=== PATIENT | female | born 1950 | race Two or more races ===

== ENCOUNTER 2021-06-13 07:55 | Outpatient (REF) | payer MEDICARE, MEDICAID, SELFPAY ==
[2021-06-13 08:30] LABS: MANUAL DIFF FLAG NO
[2021-06-13 08:40] LABS: Basophils Percent Auto 0.5 % (0-2); Eosinophils Absolute Auto 0.5 X10*3/uL (0.0-0.4); Eosinophils Percent Auto 5.8 % (0-4); Hematocrit 36.8 % (37.0-47.0); Hemoglobin 11.6 g/dl (12.0-16.0); Imm Gran Abs Auto 0.06 X10*3/uL (0.00-0.03); Imm Gran Pct Auto 0.7 % (0.0-0.4); Lymphocytes Absolute Auto 2.9 X10*3/uL (1.2-4.9); Lymphocytes Percent Auto 35.5 % (20-40); Mean Corpuscular HGB Conc 31.5 g/dl (31.0-35.0); Mean Corpuscular Hemoglobin 28.6 pg (27.0-33.0); Mean Corpuscular Volume 90.9 fL (80.0-98.0); Mean Platelet Volume 10.1 fL (9.4-12.3); Monocytes Absolute Auto 0.9 X10*3/uL (0.1-1.2); Monocytes Percent Auto 11.4 % (2-11); Neutrophils Absolute Auto 3.8 x10*3/uL (2.0-8.3); Neutrophils Percent Auto 46.1 % (45-73); Platelet Count 326 X10*3/uL (160-400); Red Blood Count 4.05 X10*6/uL (4.20-5.50); Red Cell Distribution Width 13.2 % (11.0-16.0); White Blood Count 8.2 X10*3/uL (4.8-10.8)
[2021-06-13 08:47] LABS: Estimated Average Glucose 148 mg/dL; Hemoglobin A1c % 6.8 %
[2021-06-13 09:07] LABS: Alanine Aminotransferase 11 U/L (0-31); Albumin Level 3.8 g/dL (3.5-5.0); Alkaline Phosphatase 59 U/L (39-117); Anion Gap 11 (12-20); Aspartate Amino Transferase 15 U/L (5-31); Bilirubin Total 0.5 mg/dL (0.0-1.0); Blood Urea Nitrogen 18 mg/dL (9-16); Calcium 9.8 mg/dL (8.4-10.2); Carbon Dioxide 29 mmol/L (22-29); Chloride 106 mmol/L (96-108); Cholesterol 123 mg/dL; Estimated Glomerular Filt Rate 44; Glucose Fasting 121 mg/dL (60-99); HDL Cholesterol 33 mg/dL; LDL Cholesterol Calculated 69 mg/dl; Potassium 4.7 mmol/L (3.3-5.1); Sodium 141 mmol/L (135-145); Total Protein 7.1 g/dL (6.5-8.0); Triglycerides 108 mg/dL
[2021-06-13 09:28] LABS: TSH reflex Free T4 1.91 uIU/mL (0.32-4.0)
[2021-06-13 09:44] LABS: Folate 11.1 ng/mL (> or = 4.0); Vitamin B12 312 pg/mL (200-900)
[2021-06-13 11:31] LABS: Creatinine Urine 128.07 mg/dL; Microalbum/Creatinine Ratio Ur 17.1 ug/mg cr
[2021-06-18 13:05] LABS: Vitamin D 25-OH, D2 <4 ng/mL; Vitamin D 25-OH, D3 28 ng/mL; Vitamin D 25-OH, Total 28 ng/mL (30-100)
== END 2021-06-13 07:56 | disposition home or self-care (01) ==
LOC: HO.LAB 07:55
PROVIDERS: PCP Internal Medicine; Visit Provider Nurse Practitioner Acute Care
DX: I25.10 Atherosclerotic heart disease of native coronary artery without angina pectoris (principal); E78.5 Hyperlipidemia, unspecified; I10 Essential (primary) hypertension
CPT/HCPCS: 36415; 80053; 80061; 82043; 82306; 82607; 82746; 83036; 84443; 85025

== ENCOUNTER → 2021-06-30 13:13 | Outpatient (BNVA) | payer MEDICARE, MEDICAID, SELFPAY | PROVIDERS: PCP Nurse Practitioner Acute Care; Referring Provider Nurse Practitioner Acute Care; Visit Provider Internal Medicine | DX: R07.2 Precordial pain (principal); R06.02 Shortness of breath; I10 Essential (primary) hypertension; E11.8 Type 2 diabetes mellitus with unspecified complications; E78.5 Hyperlipidemia, unspecified | CPT/HCPCS: 93005; 99202 ==

== ENCOUNTER → 2021-08-02 09:49 | Outpatient (REF) | payer MEDICARE, MEDICAID, SELFPAY ==
--- NOTE | ~2021-08-02 | NM_ITS ---
Lexiscan Myocardial perfusion study Indication: Chest pain, shortness of breath, assess for coronary disease and ischemia Technique: The patient was brought in for a Lexiscan perfusion study on 08/02/2021 and was injected 0.4 mg of Lexiscan intravenously. Within a minute of this injection 25 mCi of sestamibi was given intravenously. Images were obtained using the SPECT gamma camera interlaced with the gating device. Images were obtained in supine position. Resting perfusion study was performed on 08/04/2021. Patient was administered 25 mCi of sestamibi intravenously at rest. Images were then obtained in supine position. Total DLP 123mGy-cm. Images were processed with the software and compared side to side in short axis, horizontal long axis and vertical long axis views. Findings: Raw acquisition reviewed. Arms by the patient's side. The stress perfusion study showed slightly reduced tracer uptake in the midportion of inferolateral wall. There is improvement with CT attenuation correction and hence suggestive of diaphragmatic attenuation artifact. The gated study shows normal LV systolic function with calculated LVEF of 74%. LV cavity is normal in size. The gated study shows normal wall thickening and contraction of segments. Resting study shows no significant perfusion abnormality. Gating at rest reveals normal wall motion with ejection fraction at 63%. The findings are consistent with mild reversible inferolateral defect suspected to be from diaphragmatic attenuation artifact. NM/NM cardiolite stress test Impression: 1. Myocardial perfusion imaging study shows likely normal myocardial perfusion. 2. Gated LVEF is 74% during stress and 63% during rest. 3. Transient ischemic dilatation not present. EKG component of the test reported separately.
--- NOTE | 2021-08-02 09:52 | CA_ITS ---
Acquisition Time: 2021-08-02 09:59:14 Total Exercise Time: 00:02:00 Test Indications: Chest Pain, SOB Medications: Protocol: LEXISCAN Max HR: 118 BPM 78% of Pred: 151 BPM Max BP: 140/088 mmHG Max Work Load: 1.0 METS Pharmacological stress test with Lexsican injection, while sitting and kicking her legs, without anginal symptoms, without arrythmia, with normotensive response to injection, with nondiagnostic EKG for ischemia. In recovery she reported feeling anxious inside and was treated with Aminophylline 75mg IVP to reverse Lexiscan with resolution of symptom. Nuclear images pending. Test reviewed with Dr Newell Referred By: Flako Pulliam Overread By: RANDY DELGADO
== END ==
LOC: HO.CARD 09:49
PROVIDERS: PCP Internal Medicine; Visit Provider Internal Medicine
DX: R07.2 Precordial pain (principal)
CPT/HCPCS: 78452; 93017; A9500; J0280; J2785

== ENCOUNTER → 2021-08-04 07:27 | Outpatient (REF) | payer MEDICARE, MEDICAID, SELFPAY ==
--- NOTE | 2021-08-04 07:30 | CA_ITS ---
Transthoracic Echocardiogram Patient (Last, First, Middle): Nely Jordan, Gender: Female Date of : 1950 Age: 71 Procedure Date: 08/04/2021 Procedure Type: Transthoracic Echocardiogram Location: OP Height: 162.56 cm Weight: 65.77 kg BSA: 1.71 m2 Heart Rate: bpm BP: 122 / 60 mmHg Kier Drier: ELISA Referring MD: Flako Pulliam MD Assembler Cards And Announcements: Félix Newell MD Symptoms: R07.2 - Precordial pain Study Quality: Adequate ECG Rhythm: Sinus Conclusions: - 1. Normal LV systolic function with impaired relaxation filling pattern 2. Trivial aortic regurgitation 3. No gross pericardial effusion Findings Left Ventricle Normal left ventricular size, thickness, and systolic function. The visually estimated ejection fraction is between 60-65%. Spectral Doppler is indicative of an impaired relaxation filling pattern. E/E prime ratio is between 8 and 15 consistent with indeterminate filling pressures. Right Ventricle Normal right ventricular cavity size and systolic function. Atria Both atria are normal in size. There is no evidence of interatrial shunt. Aortic Valve The aortic valve structure and function is likely normal. There is no aortic valve stenosis. There is trace (trivial) aortic valve regurgitation. Mitral Valve Normal mitral valve structure and function. There is trace mitral valve regurgitation. There is no mitral valve stenosis. Pulmonic Valve The pulmonic valve was not well visualized. Tricuspid Valve Likely normal tricuspid valve structure and function. Tricuspid regurgitation envelope is inadequate for calculation of right ventricular systolic pressure. Great Vessels All visible segments of the aorta are normal in size. The pulmonary artery was not well visualized. Venous The inferior vena cava is normal in size and collapses greater than 50% with inspiration. Pericardium/Pleural There is no evidence of pericardial effusion. Prior Study Comparison No prior study available for comparison. Measurements 2D Linear Measurements IVSd: 1.27 0.6-0.9/0.6-1.0 cm LVIDd: 4.20 3.9-5.3/4.2-5.9 cm LVIDd Index: 2.46 2.4-3.2/2.2-3.1 cm/m2 LVIDs: 2.76 2.0-3.6 cm LVPWd: 1.41 0.7-1.1 cm LA Diam: 2.70 2.7-3.8/3.0-4.0 cm LAIDs Index: 1.58 1.5-2.3 cm/m2 LV Mass: 261.64 67-162/88-224 g LV Mass Index: 153.00 43-95/49-115 g/m2 LVOT Diam: 2.00 3.0+(-)1.3 cm 2D Systolic Function EF 4C: 61.40 >55% EF 2C: 64.00 >55% EF BiP: 62.80 >55% Mitral Valve MV Pk E: 0.78 MV PK A: 1.16 MV Decel Time: 254.00 E/A: 0.70 E'Lateral: 7.29 E'Medial: 5.87 E/E' Med: 13.20 E/E' Lat: 10.70 PHT: 74.00 MVA PHT: 2.97 Decel [place]: 3.06 Aortic Valve AoV Pk Nehemias: 1.46 AoV Mn Nehemias: 1.00 AoV VTI: 0.31 AoV Pk Grad: 9.00 Aov Mn Grad: 5.00 DANIEL Cont.VTI: 2.47 LVOT LVOT Pk Nehemias: 1.21 LVOT Mn Nehemias: 0.78 LVOT VTI: 0.24 LVOT Pk Grad: 6.00 LVOT Mn Grad: 3.00 LVOT Diam: 2.00 LVOT Area: 3.14 Diastolic Function MV Pk E: 0.78 MV Pk A: 1.16 E/A: 0.70 E'Medial: 5.87 E/E' Med: 13.20 E' Laterial: 7.29 E/E' Lat: 10.70 Right Ventricle TAPSE (mm): 18.20 TVS' Nehemias: 9.68 Tricuspid Valve RA Press: 3.00 Great Vessels Aorta Sinus of Valsalva: 3.88 2.0-3.[address] Ridge: 2.47 1.7-3.4 cm Ao Asc: 3.40 2.1-3.4 cm Ao Arch: 3.30 Updated in Other Vendor System with Status of Final Félix Newell MD electronically signed on 08/05/2021 3:45:41 PM with status of Final
== END ==
LOC: HO.CARD 07:27
PROVIDERS: PCP Internal Medicine; Visit Provider Internal Medicine
DX: R07.2 Precordial pain (principal)
CPT/HCPCS: 93306

== ENCOUNTER → 2021-09-21 14:28 | Outpatient (BNVA) | payer MEDICARE, MEDICAID, SELFPAY | PROVIDERS: PCP Internal Medicine; Referring Provider Internal Medicine; Visit Provider Internal Medicine | DX: I25.10 Atherosclerotic heart disease of native coronary artery without angina pectoris (principal); E11.8 Type 2 diabetes mellitus with unspecified complications; I10 Essential (primary) hypertension; E78.5 Hyperlipidemia, unspecified; Z79.899 Other long term (current) drug therapy | CPT/HCPCS: 99212 ==

== ENCOUNTER 2021-11-20 18:24 | Emergency (ER) | payer OTHER, MEDICAID, SELFPAY ==
--- NOTE | ~2021-11-20 | CT_ITS ---
EXAMINATION: CT ABDOMEN AND PELVIS WITHOUT CONTRAST CLINICAL INFORMATION: Lower back and bilateral hip pain COMPARISON: None TECHNIQUE: Multidetector volumetric imaging was performed from the superior aspect of the liver through the pubic symphysis. Sagittal and coronal reformatted images were obtained on the technologist's workstation. This CT examination was performed using dose optimization techniques as appropriate, variously including the following: *Automated exposure control *Adjustment of mA and/or kV according to patient size (this includes techniques or standardized protocols for targeted exams where dose is matched to indication/reason for exam; i.e. extremities or head) *Use of iterative reconstruction technique DLP: 465 mGy-cm FINDINGS: LUNG BASES: Lung bases are clear. Left circumflex and right coronary artery vascular calcifications. LIVER, GALLBLADDER, AND BILIARY TREE: The liver is normal in size, shape, and attenuation. No focal hepatic lesion or biliary ductal dilatation is present. Status post cholecystectomy. Surgical clips in the gallbladder fossa. PANCREAS: Unremarkable. SPLEEN: Unremarkable. ADRENAL GLANDS: Unremarkable. KIDNEYS AND URETERS: Punctate 2 mm nonobstructing right upper pole and left lower pole renal calculi. No ureteral calculi or hydronephrosis. No renal lesion or perinephric collection. BLADDER: Unremarkable. GASTROINTESTINAL TRACT: Colonic diverticulosis. No evidence of acute diverticulitis. No dilated bowel loops. No bowel wall thickening. No ascites or free air. Normal appendix. ABDOMINAL WALL: No significant hernia is appreciated. LYMPH NODES: No lymphadenopathy. VASCULAR: Moderate vascular calcifications. Ectatic infrarenal abdominal aorta measuring up to 2.7 cm in diameter. No abdominal aortic aneurysm. PELVIC VISCERA: Gynecologic structures are grossly unremarkable-limited assessment. No free pelvic fluid. OSSEOUS STRUCTURES: Chronic mild superior endplate compression/Schmorl's node deformity at T11 and T12. No acute fracture. No suspicious osseous lesion. Mild multilevel degenerative disc disease. Moderate bilateral hip joint osteoarthritis with joint space narrowing, subchondral sclerosis and prominent osteophyte formation. CT/CT abdomen pelvis wo con IMPRESSION: 1. No acute intra-abdominal process. 2. Colonic diverticulosis. No evidence of acute diverticulitis. 3. Small bilateral nonobstructing renal calculi. 4. Moderate bilateral hip joint osteoarthritis. 5. Mild multilevel degenerative disc disease throughout the thoracolumbar spine. 6. No acute fracture. Fleischner guidelines were followed.
[2021-11-20 18:31] VITALS: BP 186/80; PULSE 65; RESP 18; TEMP 36.7; O2SAT 99; BMI 24.9
[2021-11-20] MEDS: NaPROXEN 500 MG TABLET PO (20:12)
[2021-11-20] MEDS: predniSONE 20 MG TABLET 60 MG PO (20:13)
[2021-11-20] MEDS: Cyclobenzaprine HCl 10 MG TABLET PO (20:13)
[2021-11-20] MEDS: oxyCODONE HCl Immed Release 5 MG TABLET PO (20:13)
[2021-11-20 20:50] LABS: Appearance Urine Clear; Color Urine Yellow; Glucose Urine UA Negative (Negative); Leukocyte Esterase Urine Trace (Negative); Nitrite Urine Negative (Negative); PH 7.5 (5.0-8.0); Specific Gravity - Urine <= 1.005 (1.005-1.025); Urine Blood Negative (Negative); Urine Ketones Negative (Negative); Urine Protein Negative (Neg-Trace)
--- NOTE | 2021-11-20 20:51 | ED_ITS ---
HPI - Back Pain/Injury General Chief Complaint: Back Pain/Injury Stated Complaint: back/ side pain, multiple complaints Time Seen by Provider: 11/20/21 19:23 Source: patient and family Mode of arrival: ambulatory Limitations: language barrier (Upper Sorbian-speaking) History of Present Illness HPI Narrative: 71-year-old female who is Upper Sorbian-speaking with a past medical history of CAD, diabetes type 2, hypertension, hyperlipidemia, hypertriglyceridemia, PVD, GERD without esophagitis, depression with anxiety disorder, bilateral artificial lens implant, Parkinson's disease and chronic back pain/hip pain presenting to the ED with complaints of acute on chronic lower back pain radiating down to her left hip/lower leg lower leg over the past few days worse today. She also reports she also is hypertensive due to she ran out of her lisinopril prescription. She denies any fevers, chills, dizziness, headaches, neck pain/stiffness, trouble swallowing or breathing, chest pain or shortness back on dyspnea on exertion, orthopnea, palpitations on paresthesias, abdominal pain, flank pain, dysuria, hematuria, abnormal vaginal discharge, black or bloody stools, urinary bowel incontinence, saddle anesthesia, lower extremity edema or calf tenderness, recent falls or trauma, history of IV drug use, history of cancer or any other symptoms complaints or concerns at this time. MD elicited complaint: back pain Pertinent past history: prior back pain Onset (ago): day(s) Timing: constant and progressively worsening Severity: moderate Similar Symptoms Previously: Yes Quality: aching, spasming and throbbing Location: lumbar spine Radiation: left upper leg and left leg below the knee Exacerbating factors: movement, sitting upright, walking and lifting Relieving factors: none Context: unknown Associated symptoms: denies other symptoms Treatments prior to arrival: cold therapy, heat therapy, NSAIDS and acetaminophen Work related injury: No Related Data Home Medications Medication Instructions Recorded Confirmed calcium carb-vit D3-minerals 600 1 tab PO BID 05/23/21 09/21/21 mg calcium-400 unit tablet mupirocin 2 % topical ointment 1 appl topical TID 05/23/21 09/21/21 Previous Rx's Medication Instructions Recorded aspirin 81 mg tablet,delayed 81 mg PO DAILY #90 tabs 05/23/21 release (Adult Low Dose Aspirin) clotrimazole 1 % vaginal cream 1 appful vaginal BEDTIME #45 grams 05/23/21 loratadine 10 mg tablet 10 mg PO DAILY #90 tabs 05/23/21 metoprolol tartrate 25 mg tablet 25 mg PO BID #180 tabs 05/23/21 blood sugar diagnostic (FreeStyle #100 ea 09/21/21 Lite Strips) blood-glucose meter (FreeStyle #1 ea 09/21/21 Lite Meter kit) lancets 28 gauge (FreeStyle #100 ea 09/21/21 Lancets) sitagliptin 50 mg-metformin 500 mg 1 tab PO BID 90 days #180 tabs 09/21/21 tablet (Janumet) trazodone 100 mg tablet 100 mg PO BEDTIME PRN sleep 90 09/21/21 days #90 tabs omeprazole 20 mg capsule,delayed 20 mg PO DAILY #90 caps 10/31/21 release albuterol sulfate 90 mcg/actuation 2 puff inhalation Q4-6H PRN 11/08/21 aerosol inhaler (ProAir HFA) shortness of breath or wheezing #8.5 grams atorvastatin 20 mg tablet 20 mg PO DAILY #90 tabs 11/08/21 carbidopa ER 50 mg-levodopa 200 mg 1 tab PO TID #270 tabs 11/08/21 tablet,extended release fenofibrate nanocrystallized 145 145 mg PO DAILY #90 tabs 11/08/21 mg tablet lisinopril 40 mg tablet 40 mg PO DAILY #90 tabs 11/08/21 walker #1 ea 11/14/21 cefuroxime axetil 250 mg tablet 250 mg PO BID uti 7 days #14 tabs 11/20/21 cyclobenzaprine 10 mg tablet 10 mg PO Q8H Muscle spasm #14 tabs 11/20/21 lisinopril 40 mg tablet 40 mg PO DAILY hypertension #14 11/20/21 tabs naproxen 500 mg tablet 500 mg PO BID PRN pain #14 tabs 11/20/21 oxycodone 5 mg tablet 5 mg PO Q6H PRN pain #14 tabs 11/20/21 prednisone 20 mg tablet 40 mg PO DAILY Inflammation 5 days 11/20/21 #10 tabs Allergies Allergy/AdvReac Type Severity Reaction Status Date / Time influenza virus vaccine, Allergy Intermediate SWELLING Verified 09/21/21 17:25 specific [Influenza Virus Vacc,Specific] Review of Systems Review of Systems: Constitutional : No trauma, No Weight loss, No Fever, No Chills, ENT/Mouth : No Hearing loss, No Ear Pain, No Nasal Congestion, No Sinus Pain, No Hoarseness, No sore throat, No Rhinorrhea, No Swallowing Difficulty Cardiovascular : No Chest Pain, No SOB Respiratory : No Cough, No Dyspnea Gastrointestinal : No Nausea, No Vomiting, No Diarrhea, No abdominal Pain, No Hematochezia, No Melena Genitourinary : No Dysuria, No Urinary Frequency, No Hematuria, No Urinary or Bowel Incontinence/retention Musculoskeletal : + Back pain, No neck pain, No joint stiffness, No joint swelling Skin : No Skin Lesions, No rash or signs of infection Neuro : No Weakness, + radiation, No Numbness, No Paresthesias, No headache, no loss of bowel or bladder incontinence, no saddle anesthesia, Focal weakness Denies history of IV drug usage. Yes all other systems are reviewed and are negative PMFSH Past Medical History Attestation statement: The following information was validated with the patient. Source: old records reviewed and nursing notes reviewed Medical History Allergic rhinitis Bilateral artificial lens implant CAD (coronary artery disease) Depression with anxiety Diabetes type 2, controlled GERD without esophagitis Hyperlipemia Hypertension Hypertriglyceridemia Parkinsons disease Peripheral vascular disease Surgical History History of cholecystectomy History of tubal ligation Family History Family History Mother No problems noted. Father No problems noted. Social History Social History Housing: Apartment Alcohol intake: never Patient Tobacco Use Status: Former Tobacco user Tobacco use type: Cigarette e-Cigarette/Vaping Use: Never Used Second Hand Smoke Exposure: No Advance Directives: No Advance Directives Information Provided: No service: No Current occupational status: retired Cognitive needs: No Hearing needs: No Vision needs: Yes (glasses) Physical Exam Vital Signs: Vital Signs: Last Vital Signs Temp 98.0 F 11/20/21 18:31 Pulse 65 11/20/21 18:31 Resp 18 11/20/21 18:31 BP 186/80 H 11/20/21 18:31 Pulse Ox 99 08/28/22 18:31 O2 Del Method 11/20/21 18:31 BMI result Body Mass Index 24.9 vital signs have been reviewed as normal and appeared to be correct. Blood pressure normal. Heart rate normal. Respiration rate normal. Temperature normal. Oxygen saturation normal. Appearance: Alert. Oriented X3. No acute distress. Head: Normal external exam. Normocephalic. Atraumatic. No Jones signs noted. No raccoon eyes noted Eyes: PERRLA. EOMI. Conjunctiva and sclera normal. Eyelids normal. ENT: EAC normal. TM's Normal. Pharynx normal. Uvula midline. Moist mucous membranes. No trismus noted. No drooling noted. No muffled voice noted. Neck: Normal inspection. Neck supple. FROM. No adenopathy. Thyroid Normal. No meningeal signs. No neck mass noted. CVS: Normal heart rate and rhythm. Heart sound normal. No murmurs noted. Pulses normal throughout. Respiratory: No respiratory distress. Painless inspiration. Breath sounds normal. No wheezes/rales/rhonchi noted. Chest nontender. No accessory muscle usage noted or decreased air movement noted. Abdomen: Soft and nontender. Bowel sounds normal in all 4 quadrants. No distention noted. No organomegaly noted. No visible injury noted. Back: No CVA tenderness. Full range of motion noted. No obvious deformities, or edema. Mild para-spinal muscular tenderness from lumbar region to coccyx. Full ROM in back and lower extremities. 5/5 strength hip extension/flexion, abduction, adduction. Mild Lumbar pain with hip flexion against resistance. Straight leg raise test negative on right; Straight leg raise test negative on left; Reflexes normal ankle and knee bilaterally; EHL motor strength normal bilaterally. No rashes/lesion/induration/fluctuance or signs infection noted. Skin: Skin warm and dry. Normal skin color. Normal skin turgor. No rashes/lesions/lacerations noted. Extremities: No lower extremity edema. Extremities exhibit normal range of motion. Extremities nontender. Neuro: Oriented X 3. No motor deficit. No sensory deficit. Reflexes normal. Patient has a normal steady gait. Course Course Course Narrative: Pt c likely muscular pain, but could be herniated disc. Neuro exam shows no deficits. Not c/w AAA/epidural abscess/dissection.No high risk Hx (Incont, fever, immunosupp, recent surgery/LP, coag, signif trauma, wt loss, puls mass, hx/o Ca, TB, or IVDU) to warrant MRI today. Not c/w Pyelo/kidney stone/spinal fx. Not cauda equina syndrome. CT scan of abdomen and pelvis negative for any acute processes therefore at this time will DC home with symptomatic treatment instructions return if any new or worsening symptoms follow up with primary care provider. Patient with family at bedside understand agree this plan. MDM - Back Pain/Injury Medical Records Attestation: I reviewed the patient's medical records. Imaging Data CT scan abdomen pelvis without IV contrast: Attestation: I personally reviewed and interpreted this imaging study as follows: Radiologist's impression: FINDINGS: LUNG BASES: Lung bases are clear. Left circumflex and right coronary artery vascular calcifications.? LIVER, GALLBLADDER, AND BILIARY TREE: The liver is normal in size, shape, and attenuation. No focal hepatic lesion or biliary ductal dilatation is present. Status post cholecystectomy. Surgical clips in the gallbladder fossa.? PANCREAS: Unremarkable.? SPLEEN: Unremarkable.? ADRENAL GLANDS: Unremarkable.? KIDNEYS AND URETERS: Punctate 2 mm nonobstructing right upper pole and left lower pole renal calculi. No ureteral calculi or hydronephrosis. No renal lesion or perinephric collection.? BLADDER: Unremarkable.? GASTROINTESTINAL TRACT: Colonic diverticulosis. No evidence of acute diverticulitis. No dilated bowel loops. No bowel wall thickening. No ascites or free air. Normal appendix.? ABDOMINAL WALL: No significant hernia is appreciated.? LYMPH NODES: No lymphadenopathy. VASCULAR: Moderate vascular calcifications. Ectatic infrarenal abdominal aorta measuring up to 2.7 cm in diameter. No abdominal aortic aneurysm. PELVIC VISCERA: Gynecologic structures are grossly unremarkable-limited assessment. No free pelvic fluid.? OSSEOUS STRUCTURES: Chronic mild superior endplate compression/Schmorl's node deformity at T11 and T12. No acute fracture. No suspicious osseous lesion. Mild multilevel degenerative disc disease.? Moderate bilateral hip joint osteoarthritis with joint space narrowing, subchondral sclerosis and prominent osteophyte formation.? CT/CT abdomen pelvis wo con IMPRESSION: ? 1. No acute intra-abdominal process. 2. Colonic diverticulosis. No evidence of acute diverticulitis. 3. Small bilateral nonobstructing renal calculi. 4. Moderate bilateral hip joint osteoarthritis. 5. Mild multilevel degenerative disc disease throughout the thoracolumbar spine. 6. No acute fracture.? ? Fleischner guidelines were followed. Discharge Plan Discharge Clinical Impression: Degenerative disc disease, lumbar, Bilateral renal stones, Osteoarthritis of both hips, Degenerative disc disease, thoracic, Hypertension, Medication refill, UTI (urinary tract infection) Patient Disposition: Home, Self-Care Instructions: Kidney Stones (ED), Osteoarthritis (ED), Degenerative Disc Disease (ED), Urinary Tract Infection in Women (ED) Prescriptions: New cefuroxime axetil 250 mg tablet 250 mg PO BID 7 Days Qty: 14 0RF naproxen 500 mg tablet 500 mg PO BID PRN (Reason: pain) Qty: 14 0RF prednisone 20 mg tablet 40 mg PO DAILY 5 Days Qty: 10 0RF cyclobenzaprine 10 mg tablet 10 mg PO Q8H Qty: 14 0RF oxycodone 5 mg tablet 5 mg PO Q6H PRN (Reason: pain) Qty: 14 0RF Rx Instructions: Partial Fill upon patient request. lisinopril 40 mg tablet 40 mg PO DAILY Qty: 14 0RF No Action omeprazole 20 mg capsule,delayed release(DR/EC) 20 mg PO DAILY Qty: 90 0RF carbidopa-levodopa 50-200 mg tablet extended release 1 tab PO TID Qty: 270 0RF Rx Instructions: divide evenly over waking hours lisinopril 40 mg tablet 40 mg PO DAILY Qty: 90 0RF fenofibrate nanocrystallized 145 mg tablet 145 mg PO DAILY Qty: 90 0RF albuterol sulfate [ProAir HFA] 90 mcg/actuation HFA aerosol inhaler 2 puff inhalation Q4-6H PRN (Reason: shortness of breath or wheezing) Qty: 8.5 0RF atorvastatin 20 mg tablet 20 mg PO DAILY Qty: 90 0RF (ABDOUL) robbin Kapoor See Rx Instructions .Route Qty: 1 0RF Rx Instructions: as directed calcium carbonate-vit D3-min 600 mg calcium- 400 unit tablet 1 tab PO BID mupirocin 2 % ointment 1 appl topical TID metoprolol tartrate 25 mg tablet 25 mg PO BID Qty: 180 0RF aspirin [Adult Low Dose Aspirin] 81 mg tablet,delayed release (DR/EC) 81 mg PO DAILY Qty: 90 0RF clotrimazole 1 % cream 1 appful vaginal BEDTIME Qty: 45 0RF loratadine 10 mg tablet 10 mg PO DAILY Qty: 90 0RF Janumet 50-500 mg tablet 1 tab PO BID 90 Days Qty: 180 1RF trazodone 100 mg tablet 100 mg PO BEDTIME PRN (Reason: sleep) 90 Days Qty: 90 1RF (DME) blood-glucose meter [FreeStyle Lite Meter] Kit See Rx Instructions .Route Qty: 1 0RF Rx Instructions: As directed (DME) FreeStyle Lite Strips Strip See Rx Instructions .Route Qty: 100 2RF Rx Instructions: Use 1 test strip once a day (DME) lancets [FreeStyle Lancets] 28 gauge misc See Rx Instructions .Route Qty: 100 2RF Rx Instructions: Use 1 lancet once a day Referrals: Madison Carcamo MD [Primary Care Provider] - 3 days (your pcp) Print Language: Upper Sorbian
[2021-11-20 20:55] LABS: Bacteria Urine None Seen (None Seen); Hyaline Casts Urine 0-2 /LPF (0-2); RBC Urine 0-2 /HPF (0-2); Squamous Epithelial Cell Urine 0-2 /HPF (0-2); WBC Urine 0-5 /HPF (0-5)
[2021-11-20] MEDS: lisinopriL 40 MG TABLET PO (21:19)
== END 2021-11-20 22:26 | disposition home or self-care (01) ==
PROVIDERS: Physician Assistant Medical; Emergency Provider Internal Medicine; PCP Internal Medicine
DX: M16.0 Bilateral primary osteoarthritis of hip (principal); N20.0 Calculus of kidney; I10 Essential (primary) hypertension; N39.0 Urinary tract infection, site not specified; M47.894 Other spondylosis, thoracic region; Z76.0 Encounter for issue of repeat prescription; Z79.899 Other long term (current) drug therapy
CPT/HCPCS: 74176; 81001; 99283

== ENCOUNTER 2021-11-30 07:15 | Emergency (ER) | payer OTHER, MEDICAID, SELFPAY ==
--- NOTE | ~2021-11-30 | XR_ITS ---
EXAMINATION: XR CHEST CLINICAL INFORMATION: Chest pain COMPARISON: Chest x-ray May 21, 2008 TECHNIQUE: Frontal view of the chest was obtained. FINDINGS: Cardiac silhouette is normal in size. Atherosclerotic disease of the aortic arch. The lungs are well aerated. There is no lobar consolidation. No pleural effusion or pneumothorax. Moderate degenerative changes of the spine. XR/XR chest 1V IMPRESSION: No acute pulmonary pathology.
--- NOTE | 2021-11-30 07:30 | ECG_ITS ---
Test Reason : CHEST PAIN Blood Pressure : / mmHG Vent. Rate : 148 BPM Atrial Rate : 000 BPM P-R Int : 000 ms QRS Dur : 104 ms QT Int : 288 ms P-R-T Axes : 000 -07 127 degrees QTc Int : 452 ms Supraventricular tachycardia Left ventricular hypertrophy with repolarization abnormality ( R in aVL , [place] product , Romhilt-Webb ) Abnormal ECG When compared with ECG of 21-MAY-2008 14:10, Vent. rate has increased BY 74 BPM QRS duration has increased ST now depressed in Anterolateral leads T wave inversion now evident in Lateral leads Referred By: Generic ED Physician Electronically Signed By:LUISA CRUZ
[2021-11-30 07:52] VITALS: BP 124/80; PULSE 144; RESP 20; TEMP 36.6; O2SAT 96; BMI 26.1
[2021-11-30 07:55] VITALS: PULSE 139; RESP 20; O2SAT 97
--- NOTE | 2021-11-30 07:58 | PC.NURSE ---
Pt alert and oriented. ROOM ATTENDANTS to bedside. States awoke with chest pain and SOB. HR noted to be elevated on EKG in triage. Pt reports consistent pressure to chest and throat. HR 139-[address] Rodriguez to bedside. Skin midly pale, warm and dry. Speaking full sentences. Gambian speaking. Sat 96% on room air
[2021-11-30] MEDS: Aspirin 81 MG TAB.CHEW 324 MG PO (08:10)
[2021-11-30] MEDS: 0.9 % Sodium Chloride 1,000 ML 999 ML IV (08:11)
[2021-11-30 08:12] VITALS: BP 105/67; PULSE 132; RESP 18; O2SAT 98
[2021-11-30 08:13] LABS: Basophils Absolute Auto 0.1 X10*3/uL (0.0-0.2); Basophils Percent Auto 0.6 % (0-2); Eosinophils Absolute Auto 0.6 X10*3/uL (0.0-0.4); Eosinophils Percent Auto 3.3 % (0-4); Hematocrit 43.8 % (37.0-47.0); Imm Gran Abs Auto 0.67 X10*3/uL (0.00-0.03); Imm Gran Pct Auto 3.9 % (0.0-0.4); Lymphocytes Absolute Auto 5.9 X10*3/uL (1.2-4.9); Lymphocytes Percent Auto 34.1 % (20-40); MANUAL DIFF FLAG SCAN; Mean Corpuscular Volume 90.9 fL (80.0-98.0); Mean Platelet Volume 10.6 fL (9.4-12.3); Monocytes Absolute Auto 1.4 X10*3/uL (0.1-1.2); Monocytes Percent Auto 8.3 % (2-11); Neutrophils Absolute Auto 8.5 x10*3/uL (2.0-8.3); Neutrophils Percent Auto 49.8 % (45-73); Platelet Count 410 X10*3/uL (160-400); Red Blood Count 4.82 X10*6/uL (4.20-5.50); Red Cell Distribution Width 13.2 % (11.0-16.0); SCAN SMEAR FLAG 1; White Blood Count 17.2 X10*3/uL (4.8-10.8)
[2021-11-30 08:15] VITALS: BP 111/60; PULSE 79; RESP 18; O2SAT 98
[2021-11-30] MEDS: dilTIAZem HCL 50 MG/10 ML VIAL 15 MG IVPUSH (08:16)
--- NOTE | 2021-11-30 08:21 | ECG_ITS ---
Test Reason : [place]ia Blood Pressure : / mmHG Vent. Rate : 072 BPM Atrial Rate : 072 BPM P-R Int : 206 ms QRS Dur : 084 ms QT Int : 390 ms P-R-T Axes : 019 -09 027 degrees QTc Int : 427 ms Poor data quality, interpretation may be adversely affected Normal sinus rhythm Minimal voltage criteria for LVH, may be normal variant ( R in aVL ) Borderline ECG When compared with ECG of 30-NOV-2021 07:19, Vent. rate has decreased BY 76 BPM QRS duration has decreased ST no longer depressed in Lateral leads T wave inversion no longer evident in Lateral leads Referred By: Brett Rodriguez Electronically Signed By:LUISA CRUZ
[2021-11-30 08:25] LABS: INTERNATIONAL NORM RATIO 0.9 (0.9-1.1); Prothrombin Time 10.6 SEC (10.0-13.1)
[2021-11-30 08:27] LABS: Partial Thromboplastin Time 25.4 SEC (26.0-36.4)
[2021-11-30 08:28] LABS: Alanine Aminotransferase < 6 U/L (0-31); Albumin Level 3.8 g/dL (3.5-5.0); Alkaline Phosphatase 63 U/L (39-117); Anion Gap 17 (12-20); Aspartate Amino Transferase 15 U/L (5-31); Bilirubin Total 0.4 mg/dL (0.0-1.0); Blood Urea Nitrogen 35 mg/dL (9-16); Calcium 9.3 mg/dL (8.4-10.2); Carbon Dioxide 27 mmol/L (22-29); Chloride 100 mmol/L (96-108); Estimated Glomerular Filt Rate 38; Glucose Random 238 mg/dL (60-115); Lipase 54 U/L (8-78); Potassium 4.5 mmol/L (3.3-5.1); Sodium 139 mmol/L (135-145); Total Protein 7.1 g/dL (6.5-8.0)
[2021-11-30 08:30] LABS: COVID-19 Test Negative (Negative); IDNOW Serial# 16C4AD1C; SLIDE REVIEW VERIFIED
[2021-11-30 08:33] LABS: B Type Natriuretic Peptide 109 pg/mL (<100)
[2021-11-30 09:29] LABS: Appearance Urine Clear; Color Urine Yellow; Glucose Urine UA Negative (Negative); Leukocyte Esterase Urine Negative (Negative); Nitrite Urine Negative (Negative); PH 6.5 (5.0-9.0); Specific Gravity - Urine <= 1.005 (1.005-1.025); Urine Blood Negative (Negative); Urine Ketones Negative (Negative); Urine Protein Negative (Neg-Trace)
[2021-11-30 09:29] LABS: Free T4 (Free Thyroxine) 1.36 ng/dL (0.71-1.85)
[2021-11-30 09:53] VITALS: BP 134/73; PULSE 69; RESP 16; O2SAT 97
--- NOTE | 2021-11-30 09:59 | ED.CHESTPAIN ---
HPI - Chest Pain General Chief Complaint: Arrhythmia/Palpitations Stated Complaint: Chest pain Time Seen by Provider: 11/30/21 07:48 Source: patient and other (FIREWALL ADMINISTRATOR, Juan Jose) Mode of arrival: ambulatory Limitations: language barrier (Patient's 1st language is Mauritanian, she understands Macedonian, certified court/medical interpreter was used) History of Present Illness HPI narrative: 71-year-old female who was brought to the emergency department by her FIREWALL ADMINISTRATOR for evaluation of chest pain in a rapid heart rate. The patient states she has not been feeling well for approximately 1 week. She states she has been getting intermittent chest pressure pain which she states is not related to her activity level. She states she has had this type of chest pressure for many years and has seen a associate art director in [place]. The patient just recently moved to this area approximately 7 months prior. She states the since midnight she was not feeling well pain. At 05:00 hours she developed a pressure in her chest that radiated to her neck. She felt lightheaded, dizzy and felt like her heart was racing. Her FIREWALL ADMINISTRATOR took her pulse and it was very rapid city brought her to the emergency department for evaluation. At the time of evaluation the patient states she was having chest pressure and she points to her sternum and the base of her neck. The pressure is constant and is 8/10. The pain does not radiate to her arms or her back. She denied lightheadedness, dizziness, diaphoresis, nausea or vomiting. Patient was found to have a rapid heart rate of 150 beats per minute at triage was brought back to a ED room for evaluation. Patient states that she has had similar chest pain in the past which is not related to her activity level however today's episode was more severe than usual. She states she also has dyspnea on exertion and shortness of breath which is chronic. Patient was seen by Dr. Nichols in on 09/21/2021 and in his note states that the patient has a history of SVT and is on beta-blockers. Patient had a coronary arthrosclerosis detected by CT scan but no evidence is ischemia on a perfusion scan from 2018. She had a recent perfusion scan and echocardiogram in July 2021 which was normal with a normal LVEF with mild diastolic dysfunction and normal perfusion. MD complaint: chest pain Onset (ago): hour(s) (2) Timing of current episode: constant Prior episodes: Yes Onset: during rest Pain location: substernal Pain radiation: none and neck (Base of neck) Severity: severe Pain scale (0-10): 8 Quality: heaviness (/pressure) Relieving factors: nothing Associated symptoms: palpitations Treatment prior to arrival: none Risk Factors Coronary artery disease risk factors: diabetes, hyperlipidemia and hypertension Related Data On Oral Contraceptives: No Home Medications Medication Instructions Recorded Confirmed calcium carb-vit D3-minerals 600 1 tab PO BID 05/23/21 09/21/21 mg calcium-400 unit tablet mupirocin 2 % topical ointment 1 appl topical TID 05/23/21 09/21/21 Previous Rx's Medication Instructions Recorded aspirin 81 mg tablet,delayed 81 mg PO DAILY #90 tabs 05/23/21 release (Adult Low Dose Aspirin) clotrimazole 1 % vaginal cream 1 appful vaginal BEDTIME #45 grams 05/23/21 loratadine 10 mg tablet 10 mg PO DAILY #90 tabs 05/23/21 metoprolol tartrate 25 mg tablet 25 mg PO BID #180 tabs 05/23/21 blood sugar diagnostic (FreeStyle #100 ea 09/21/21 Lite Strips) blood-glucose meter (FreeStyle #1 ea 09/21/21 Lite Meter kit) lancets 28 gauge (FreeStyle #100 ea 09/21/21 Lancets) sitagliptin 50 mg-metformin 500 mg 1 tab PO BID 90 days #180 tabs 09/21/21 tablet (Janumet) trazodone 100 mg tablet 100 mg PO BEDTIME PRN sleep 90 09/21/21 days #90 tabs omeprazole 20 mg capsule,delayed 20 mg PO DAILY #90 caps 10/31/21 release albuterol sulfate 90 mcg/actuation 2 puff inhalation Q4-6H PRN 11/08/21 aerosol inhaler (ProAir HFA) shortness of breath or wheezing #8.5 grams atorvastatin 20 mg tablet 20 mg PO DAILY #90 tabs 11/08/21 carbidopa ER 50 mg-levodopa 200 mg 1 tab PO TID #270 tabs 11/08/21 tablet,extended release fenofibrate nanocrystallized 145 145 mg PO DAILY #90 tabs 11/08/21 mg tablet lisinopril 40 mg tablet 40 mg PO DAILY #90 tabs 11/08/21 cefuroxime axetil 250 mg tablet 250 mg PO BID uti 7 days #14 tabs 11/20/21 cyclobenzaprine 10 mg tablet 10 mg PO Q8H Muscle spasm #14 tabs 11/20/21 lisinopril 40 mg tablet 40 mg PO DAILY hypertension #14 11/20/21 tabs naproxen 500 mg tablet 500 mg PO BID PRN pain #14 tabs 11/20/21 oxycodone 5 mg tablet 5 mg PO Q6H PRN pain #14 tabs 11/20/21 prednisone 20 mg tablet 40 mg PO DAILY Inflammation 5 days 11/20/21 #10 tabs blood sugar diagnostic (Accu-Chek #50 ea 11/21/21 Guide test strips) blood-glucose meter (Accu-Chek #1 ea 11/21/21 Guide Glucose Meter) lancets (Accu-Chek Softclix #100 ea 11/21/21 Lancets) walker #1 ea 11/24/21 verapamil 120 mg tablet,extended 120 mg PO DAILY #30 tabs 11/30/21 release Allergies Allergy/AdvReac Type Severity Reaction Status Date / Time influenza virus vaccine, Allergy Intermediate SWELLING Verified 09/21/21 17:25 specific [Influenza Virus Vacc,Specific] Review of Systems Review of Systems: Yes all other systems are reviewed and are negative [facility] Past Medical History [facility] Narrative: Social history: The patient recently moved to this area from [place] approximately 7 months prior. She lives with her FIREWALL ADMINISTRATOR, Juan Jose was here in the emergency department with the patient, he speaks both Mauritanian and Macedonian. She denies tobacco, alcohol and drug use. Medical History Allergic rhinitis Bilateral artificial lens implant CAD (coronary artery disease) Depression with anxiety Diabetes type 2, controlled GERD without esophagitis Hyperlipemia Hypertension Hypertriglyceridemia Parkinsons disease Peripheral vascular disease Surgical History History of cholecystectomy History of tubal ligation Family History Family History Mother No problems noted. Father No problems noted. Social History Social History Housing: Apartment Alcohol intake: never Patient Tobacco Use Status: Former Tobacco user Tobacco use type: Cigarette e-Cigarette/Vaping Use: Never Used Second Hand Smoke Exposure: No Use of substances other than those prescribed or required for medical reasons: No Advance Directives: No Advance Directives Information Provided: No service: No Current occupational status: retired Cognitive needs: No Hearing needs: No Vision needs: Yes (glasses) Physical Exam Vital Signs: Vital Signs: Last Vital Signs Temp 97.8 F 11/30/21 07:52 Pulse 69 11/30/21 09:53 Resp 16 11/30/21 09:53 BP 134/73 11/30/21 09:53 Pulse Ox 97 11/30/21 09:53 O2 Del Method 11/30/21 09:53 BMI result Body Mass Index 26.1 Const: General: cooperative and no acute distress Orientation/consciousness: oriented to person and oriented to place Limitations: no limitations HEENT: Head: Yes normal to inspection, Yes normocephalic and Yes atraumatic Ears: external ears normal General nose exam: Normal external nose present Face and sinus: Yes normal facial exam Mouth: Normal oral and palatal mucosa present Throat: Yes posterior oropharynx normal Eyes: General: appearance normal, both eyes and all related structures Pupils: Equal, round and reactive pupils present Neck: Neck: Yes normal visual inspection, Yes no lymphadenopathy, Yes trachea midline and Yes supple Chest: Chest palpation & inspection: normal inspection of the chest and normal palpation of entire chest wall Resp: Effort & Inspection: normal respiratory effort and able to speak in complete sentences Auscultation: clear to auscultation bilaterally Cardio: Rate: tachycardic Rhythm: regular rhythm Heart sounds: S1 normal heart sound present, S2 normal heart sound present and no murmurs GI: Inspection: Yes normal to inspection Palpation (GI): Soft to palpation, nontender and no guarding Auscultation: normal bowel sounds : General: Yes no CVA tenderness Back/Spine/Pelvis: Back: no CVA tenderness Skin: General skin exam: no rashes or lesions noted Neuro: General: oriented to person and oriented to place Cranial nerves: Yes CN's II-XII intact bilaterally and Yes Equal, round and reactive pupils present Cognition (Neuro): normal cognition Motor exam (neuro): 5/5 motor strength present throughout Extrem: General: Yes normal to inspection Psych: Appearance: grossly normal Speech and movement: Normal speech and movement present Affect: normal affect Attitude: cooperative Thought process: Normal thought process present Thought content: Normal thought content present Course Course Course Narrative: 71-year-old female with history of diabetes mellitus, hypertension, hyperlipidemia, coronary artery disease detected on CT scan with normal LVEF with mild diastolic dysfunction and normal perfusion scan July 2021 presents emergency department for evaluation chest pain/pressure and neck pain since 05:00 hours and palpitations. Physical examination did reveal tachycardia otherwise was unremarkable. Twelve EKG revealed an SVT with a rate of [address] segment depression in 1, aVL, V3 through V6. I ordered laboratory evaluation to include CBC, CMP, PT/INR, PTT, troponin, COVID-19, TSH with reflex T4, BNP and urinalysis. Patient was ordered to get diltiazem 15 mg IV and aspirin. 1013: Laboratory evaluation: WBC elevated 17.2. BUN elevated 35 glucose elevated 235. TSH elevated 4.2, free T4 normal 1.36. BNP elevated 109. Initial high sensitivity troponin I 4.0. Radiology evaluation: Chest x-ray one view no acute disease The patient spontaneously converted after receiving a partial dose of diltiazem IV. Repeat EKG revealed resolution of the ST segment depression and the patient's pain also resolved. I will repeat the patient's 2nd troponin at 11 15 a.m. I will also discuss the patient's presentation with the covering associate art director, Dr. Martínez. 1244: Repeat high sensitivity troponin I was 14.3. This was elevated compared to the 1st troponin however I did discuss this with Dr. Singh and we both felt that this represented a troponin leak from the SVT specially given her relatively recent negative nuclear medicine stress tests with normal perfusion studies. Also, the patient has this chest pain chronically. The patient was able to walk around here in the emergency department without any discomfort and without any difficulty. Dr. Singh recommended that we add verapamil ER 120 mg daily to the patient's medication regimen. The patient will be discharged home and advised to follow-up with PCP and her associate art director for re-evaluation. MDM - Chest Pain Medical Records Data Attestation: I reviewed the patient's medical records. Lab Data Attestation: I reviewed the patient's lab results. Result diagrams: 11/30/21 08:04 11/30/21 08:04 Labs: Lab Results 11/30/21 11/30/21 11/30/21 Range/Units 08:04 08:04 08:04 WBC 17.2 H (4.8-10.8) X10*3/uL RBC 4.82 (4.20-5.50) X10*6/uL Hgb 14.0 D (12.0-16.0) g/dl Hct 43.8 (37.0-47.0) % MCV 90.9 (80.0-98.0) fL MCH 29.0 (27.0-33.0) pg MCHC 32.0 (31.0-35.0) g/dl RDW 13.2 (11.0-16.0) % Plt Count 410 H D (160-400) X10*3/uL MPV 10.6 (9.4-12.3) fL Immature Gran % (Auto) 3.9 H (0.0-0.4) % Neut % (Auto) 49.8 (45-73) % Lymph % (Auto) 34.1 (20-40) % [place] % (Auto) 8.3 (2-11) % Eos % (Auto) 3.3 (0-4) % Baso % (Auto) 0.6 (0-2) % Lymph # (Auto) 5.9 H (1.2-4.9) X10*3/uL [place] # (Auto) 1.4 H (0.1-1.2) X10*3/uL Eos # (Auto) 0.6 H (0.0-0.4) X10*3/uL Baso # (Auto) 0.1 (0.0-0.2) X10*3/uL Abs Immat Gran (auto) 0.67 H (0.00-0.03) X10*3/uL Absolute Neuts (auto) 8.5 H (2.0-8.3) x10*3/uL Absolute Nucleated RBC 0.000 (0.0-0.012) X10*3/uL Nucleated RBC % (auto) 0.0 (0.0-0.2) /100WBC Smear Tech's Comments VERIFIED PT 10.6 (10.0-13.1) SEC INR 0.9 (0.9-1.1) APTT 25.4 L (26.0-36.4) SEC Sodium 139 (135-145) mmol/L Potassium 4.5 (3.3-5.1) mmol/L Chloride 100 (96-108) mmol/L Carbon Dioxide 27 (22-29) mmol/L Anion Gap 17 (12-20) BUN 35 H D (9-16) mg/dL Creatinine 1.37 (0.5-1.4) mg/dL Estim Creat Clear Calc 37.0 Estimated GFR 38 Random Glucose 238 H (60-115) mg/dL Calcium 9.3 (8.4-10.2) mg/dL Total Bilirubin 0.4 (0.0-1.0) mg/dL AST 15 (5-31) U/L ALT < 6 (0-31) U/L Alkaline Phosphatase 63 (39-117) U/L Troponin I High Sens (<3.5-17.0) ng/L B-Natriuretic Peptide (<100) pg/mL Total Protein 7.1 (6.5-8.0) g/dL Albumin 3.8 (3.5-5.0) g/dL Lipase 54 (8-78) U/L TSH 4.20 H (0.32-4.0) uIU/mL Free T4 1.36 (0.71-1.85) ng/dL Urine Color Urine Appearance Urine pH (5.0-9.0) Ur Specific [place] (1.005-1.025) Urine Protein (Neg-Trace) mg/dL Urine Glucose (UA) (Negative) mg/dL Urine Ketones (Negative) mg/dL Urine Blood (Negative) Urine Nitrite (Negative) Ur Leukocyte Esterase (Negative) COVID-19 (JUSTICE) (Negative) COVID-19 Clin Com 11/30/21 11/30/21 11/30/21 Range/Units 08:04 08:04 09:22 WBC (4.8-10.8) X10*3/uL RBC (4.20-5.50) X10*6/uL Hgb (12.0-16.0) g/dl Hct (37.0-47.0) % MCV (80.0-98.0) fL MCH (27.0-33.0) pg MCHC (31.0-35.0) g/dl RDW (11.0-16.0) % Plt Count (160-400) X10*3/uL MPV (9.4-12.3) fL Immature Gran % (Auto) (0.0-0.4) % Neut % (Auto) (45-73) % Lymph % (Auto) (20-40) % [place] % (Auto) (2-11) % Eos % (Auto) (0-4) % Baso % (Auto) (0-2) % Lymph # (Auto) (1.2-4.9) X10*3/uL [place] # (Auto) (0.1-1.2) X10*3/uL Eos # (Auto) (0.0-0.4) X10*3/uL Baso # (Auto) (0.0-0.2) X10*3/uL Abs Immat Gran (auto) (0.00-0.03) X10*3/uL Absolute Neuts (auto) (2.0-8.3) x10*3/uL Absolute Nucleated RBC (0.0-0.012) X10*3/uL Nucleated RBC % (auto) (0.0-0.2) /100WBC Smear Tech's Comments PT (10.0-13.1) SEC INR (0.9-1.1) APTT (26.0-36.4) SEC Sodium (135-145) mmol/L Potassium (3.3-5.1) mmol/L Chloride (96-108) mmol/L Carbon Dioxide (22-29) mmol/L Anion Gap (12-20) BUN (9-16) mg/dL Creatinine (0.5-1.4) mg/dL Estim Creat Clear Calc Estimated GFR Random Glucose (60-115) mg/dL Calcium (8.4-10.2) mg/dL Total Bilirubin (0.0-1.0) mg/dL AST (5-31) U/L ALT (0-31) U/L Alkaline Phosphatase (39-117) U/L Troponin I High Sens 4.0 (<3.5-17.0) ng/L B-Natriuretic Peptide 109 H (<100) pg/mL Total Protein (6.5-8.0) g/dL Albumin (3.5-5.0) g/dL Lipase (8-78) U/L TSH (0.32-4.0) uIU/mL Free T4 (0.71-1.85) ng/dL Urine Color Yellow Urine Appearance Clear Urine pH 6.5 (5.0-9.0) Ur Specific [place] <= 1.005 (1.005-1.025) Urine Protein Negative (Neg-Trace) mg/dL Urine Glucose (UA) Negative (Negative) mg/dL Urine Ketones Negative (Negative) mg/dL Urine Blood Negative (Negative) Urine Nitrite Negative (Negative) Ur Leukocyte Esterase Negative (Negative) COVID-19 (JUSTICE) Negative (Negative) COVID-19 Clin Com See Note 11/30/21 Range/Units 11:49 WBC (4.8-10.8) X10*3/uL RBC (4.20-5.50) X10*6/uL Hgb (12.0-16.0) g/dl Hct (37.0-47.0) % MCV (80.0-98.0) fL MCH (27.0-33.0) pg MCHC (31.0-35.0) g/dl RDW (11.0-16.0) % Plt Count (160-400) X10*3/uL MPV (9.4-12.3) fL Immature Gran % (Auto) (0.0-0.4) % Neut % (Auto) (45-73) % Lymph % (Auto) (20-40) % [place] % (Auto) (2-11) % Eos % (Auto) (0-4) % Baso % (Auto) (0-2) % Lymph # (Auto) (1.2-4.9) X10*3/uL [place] # (Auto) (0.1-1.2) X10*3/uL Eos # (Auto) (0.0-0.4) X10*3/uL Baso # (Auto) (0.0-0.2) X10*3/uL Abs Immat Gran (auto) (0.00-0.03) X10*3/uL Absolute Neuts (auto) (2.0-8.3) x10*3/uL Absolute Nucleated RBC (0.0-0.012) X10*3/uL Nucleated RBC % (auto) (0.0-0.2) /100WBC Smear Tech's Comments PT (10.0-13.1) SEC INR (0.9-1.1) APTT (26.0-36.4) SEC Sodium (135-145) mmol/L Potassium (3.3-5.1) mmol/L Chloride (96-108) mmol/L Carbon Dioxide (22-29) mmol/L Anion Gap (12-20) BUN (9-16) mg/dL Creatinine (0.5-1.4) mg/dL Estim Creat Clear Calc Estimated GFR Random Glucose (60-115) mg/dL Calcium (8.4-10.2) mg/dL Total Bilirubin (0.0-1.0) mg/dL AST (5-31) U/L ALT (0-31) U/L Alkaline Phosphatase (39-117) U/L Troponin I High Sens 14.3 D (<3.5-17.0) ng/L B-Natriuretic Peptide (<100) pg/mL Total Protein (6.5-8.0) g/dL Albumin (3.5-5.0) g/dL Lipase (8-78) U/L TSH (0.32-4.0) uIU/mL Free T4 (0.71-1.85) ng/dL Urine Color Urine Appearance Urine pH (5.0-9.0) Ur Specific [place] (1.005-1.025) Urine Protein (Neg-Trace) mg/dL Urine Glucose (UA) (Negative) mg/dL Urine Ketones (Negative) mg/dL Urine Blood (Negative) Urine Nitrite (Negative) Ur Leukocyte Esterase (Negative) COVID-19 (JUSTICE) (Negative) COVID-19 Clin Com ECG Data ECG #1: Attestation: I personally reviewed and interpreted this ECG as follows: Interpretation: EKG 1.: 0719: Supraventricular tachycardia with a rate of 148, ST segment depression in leads 1 and aVL less than 1 mm, 1-[address] segment depression V3 through V6, no ST segment elevation, prolonged QRS of 104 milliseconds, normal QTC of 452 milliseconds. EKG 2.: 0812: Sinus rhythm rate of 72, first-degree AV block with a CT interval of 206 milliseconds, normal QRS and QTC duration, no ST segment elevation, no ST segment depression, no PACs, no PVCs, no significant T-wave abnormalities compared to EKG 1., SVT is resolved and ST segment depressions have resolved. Critical Care Time Critical Care Time Total Critical Care Time: 30 Attestation: Critical Care: The patient was critically ill with a high probability of imminent or life threatening deterioration. I spent greater than 30 minutes of discontinuous time evaluating the patient,delivering critical care at the bedside, discussing and evaluating pertinent data with consultants. Critical care time does not include time spent performing separately billable procedures or teaching. Total time spent performing critical care was 30 minutes. Discharge Plan Discharge Clinical Impression: Supraventricular tachycardia, Chest pain Patient Disposition: Home, Self-Care Instructions: Supraventricular Tachycardia (ED) Additional Instructions: Your EKG revealed that you were and a supraventricular tachycardia and this was the cause of your fast heart rate and your chest pain Your blood work revealed a high sensitive troponin of for and a repeat 3 hour troponin of 14.3. These numbers are very low suggests that it did not have a heart attack but that your chest pain was most likely related to your heart and caused by your fast heart rate. You received in in the emergency department by our associate art director, Dr. Singh who wants to add verapamil ER 120 mg daily to help your heart not go fast again in the future. Continue taking all your other medications as prescribed. Make a follow-up appointment with the associate art director, Dr. Singh or Dr. Pulliam Follow-up with your doctor in 2 days. Please return to the emergency department if your symptoms get worse or if you develop any symptoms that are concerning to you. Prescriptions: New verapamil 120 mg tablet extended release 120 mg PO DAILY Qty: 30 0RF No Action omeprazole 20 mg capsule,delayed release(DR/EC) 20 mg PO DAILY Qty: 90 0RF carbidopa-levodopa 50-200 mg tablet extended release 1 tab PO TID Qty: 270 0RF Rx Instructions: divide evenly over waking hours lisinopril 40 mg tablet 40 mg PO DAILY Qty: 90 0RF fenofibrate nanocrystallized 145 mg tablet 145 mg PO DAILY Qty: 90 0RF albuterol sulfate [ProAir HFA] 90 mcg/actuation HFA aerosol inhaler 2 puff inhalation Q4-6H PRN (Reason: shortness of breath or wheezing) Qty: 8.5 0RF atorvastatin 20 mg tablet 20 mg PO DAILY Qty: 90 0RF (DME) blood-glucose meter [Accu-Chek Guide Glucose Meter] Misc See Rx Instructions .Route Qty: 1 0RF Rx Instructions: As directed (DME) Accu-Chek Guide test strips Strip See Rx Instructions .Route Qty: 50 8RF Rx Instructions: Use 1 test strip once a day (DME) lancets [Accu-Chek Softclix Lancets] Misc See Rx Instructions .Route Qty: 100 3RF Rx Instructions: Use 1 lancet once a day (DME) walker Misc See Rx Instructions .Route Qty: 1 0RF Rx Instructions: rollator with seat cefuroxime axetil 250 mg tablet 250 mg PO BID 7 Days Qty: 14 0RF naproxen 500 mg tablet 500 mg PO BID PRN (Reason: pain) Qty: 14 0RF prednisone 20 mg tablet 40 mg PO DAILY 5 Days Qty: 10 0RF cyclobenzaprine 10 mg tablet 10 mg PO Q8H Qty: 14 0RF oxycodone 5 mg tablet 5 mg PO Q6H PRN (Reason: pain) Qty: 14 0RF Rx Instructions: Partial Fill upon patient request. lisinopril 40 mg tablet 40 mg PO DAILY Qty: 14 0RF calcium carbonate-vit D3-min 600 mg calcium- 400 unit tablet 1 tab PO BID mupirocin 2 % ointment 1 appl topical TID metoprolol tartrate 25 mg tablet 25 mg PO BID Qty: 180 0RF aspirin [Adult Low Dose Aspirin] 81 mg tablet,delayed release (DR/EC) 81 mg PO DAILY Qty: 90 0RF clotrimazole 1 % cream 1 appful vaginal BEDTIME Qty: 45 0RF loratadine 10 mg tablet 10 mg PO DAILY Qty: 90 0RF Janumet 50-500 mg tablet 1 tab PO BID 90 Days Qty: 180 1RF trazodone 100 mg tablet 100 mg PO BEDTIME PRN (Reason: sleep) 90 Days Qty: 90 1RF (DME) blood-glucose meter [FreeStyle Lite Meter] Kit See Rx Instructions .Route Qty: 1 0RF Rx Instructions: As directed (DME) FreeStyle Lite Strips Strip See Rx Instructions .Route Qty: 100 2RF Rx Instructions: Use 1 test strip once a day (DME) lancets [FreeStyle Lancets] 28 gauge misc See Rx Instructions .Route Qty: 100 2RF Rx Instructions: Use 1 lancet once a day
[2021-11-30 12:15] LABS: Troponin-I High Sensitivity 14.3 ng/L (<3.5-17.0)
--- NOTE | 2021-11-30 12:39 | P.CONCA_ITS ---
History of Present Illness History of Present Illness Date of Service: 11/30/21 Requesting physician: Brett Rodriguez Chief complaint: Chest pain, supraventricular tachycardia Narrative: 71-year-old lady who has background history of type 2 diabetes, hyp ertension, hyperlipidemia, Parkinson's disease and peripheral vascular disease who is presenting for chest tightness and shortness of breath. She said she started noticing chest discomfort and throat discomfort overnight. She had some burning sensation in her chest. These symptoms continued till morning when she had worsening of symptoms and shortness of breath. With these symptoms she presented to [facility]. She was noted to be in supraventricular tachycardia by EKG with heart rate of 148 beats per minute. She was given diltiazem and she converted to sinus rhythm. Her symptoms improved after that. She has been noticing these symptoms off and on. She had echocardiography in the past which did not show any significant abnormalities. She also had nuclear perfusion imaging in July 2021 which was unremarkable. [facility] Past Medical History Medical History Allergic rhinitis Bilateral artificial lens implant CAD (coronary artery disease) Depression with anxiety Diabetes type 2, controlled GERD without esophagitis Hyperlipemia Hypertension Hypertriglyceridemia Parkinsons disease Peripheral vascular disease Family History Family History Mother No problems noted. Father No problems noted. Surgical History Surgical History History of cholecystectomy History of tubal ligation Social History Social History Housing: Apartment Alcohol intake: never Patient Tobacco Use Status: Former Tobacco user Tobacco use type: Cigarette e-Cigarette/Vaping Use: Never Used Second Hand Smoke Exposure: No Use of substances other than those prescribed or required for medical reasons: No Advance Directives: No Advance Directives Information Provided: No service: No Current occupational status: retired Cognitive needs: No Hearing needs: No Vision needs: Yes (glasses) Meds Allergies Allergy/AdvReac Type Severity Reaction Status Date / Time influenza virus vaccine, Allergy Intermediate SWELLING Verified 09/21/21 17:25 specific [Influenza Virus Vacc,Specific] Home Medications Medication Instructions Recorded Confirmed Last Taken Type calcium carb-vit D3-minerals 600 1 tab PO BID 05/23/21 09/21/21 Unknown History mg calcium-400 unit tablet mupirocin 2 % topical ointment 1 appl topical TID 05/23/21 09/21/21 Unknown History Physical Exam Vital Signs: Vital Signs: Last Vital Signs Temp 97.8 F 11/30/21 07:52 Pulse 69 11/30/21 09:53 Resp 16 11/30/21 09:53 BP 134/73 11/30/21 09:53 Pulse Ox 97 11/30/21 09:53 O2 Del Method 11/30/21 09:53 BMI result Body Mass Index 26.1 GENERAL APPEARANCE: in no acute distress, pleasant. NECK: no carotid bruit, no jugular venous distention. SKIN: no suspicious lesions, warm and dry. HEART: no murmurs, regular rate and rhythm. LUNGS: Crackles both bases. ABDOMEN: soft, nontender. EXTREMITIES: no edema. PERIPHERAL PULSES: equal. NEUROLOGIC: No gross deficits, AAO X 3 Objective Labs and Meds Result diagrams: 11/30/21 08:04 11/30/21 08:04 Lab results: Laboratory Results - last 24 hr 11/30/21 11/30/21 11/30/21 08:04 08:04 08:04 WBC 17.2 H RBC 4.82 Hgb 14.0 D Hct 43.8 MCV 90.9 MCH 29.0 MCHC 32.0 RDW 13.2 Plt Count 410 H D MPV 10.6 Immature Gran % (Auto) 3.9 H Neut % (Auto) 49.8 Lymph % (Auto) 34.1 Caroline % (Auto) 8.3 Eos % (Auto) 3.3 Baso % (Auto) 0.6 Lymph # (Auto) 5.9 H Caroline # (Auto) 1.4 H Eos # (Auto) 0.6 H Baso # (Auto) 0.1 Abs Immat Gran (auto) 0.67 H Absolute Neuts (auto) 8.5 H Absolute Nucleated RBC 0.000 Nucleated RBC % (auto) 0.0 Smear Tech's Comments VERIFIED PT 10.6 INR 0.9 APTT 25.4 L Sodium 139 Potassium 4.5 Chloride 100 Carbon Dioxide 27 Anion Gap 17 BUN 35 H D Creatinine 1.37 Estim Creat Clear Calc 37.0 Estimated GFR 38 Random Glucose 238 H Calcium 9.3 Total Bilirubin 0.4 AST 15 ALT < 6 Alkaline Phosphatase 63 Troponin I High Sens B-Natriuretic Peptide Total Protein 7.1 Albumin 3.8 Lipase 54 TSH 4.20 H Free T4 1.36 Urine Color Urine Appearance Urine pH Ur Specific [place] Urine Protein Urine Glucose (UA) Urine Ketones Urine Blood Urine Nitrite Ur Leukocyte Esterase COVID-19 (JUSTICE) COVID-19 Clin Com 11/30/21 11/30/21 11/30/21 08:04 08:04 09:22 WBC RBC Hgb Hct MCV MCH MCHC RDW Plt Count MPV Immature Gran % (Auto) Neut % (Auto) Lymph % (Auto) Caroline % (Auto) Eos % (Auto) Baso % (Auto) Lymph # (Auto) Caroline # (Auto) Eos # (Auto) Baso # (Auto) Abs Immat Gran (auto) Absolute Neuts (auto) Absolute Nucleated RBC Nucleated RBC % (auto) Smear Tech's Comments PT INR APTT Sodium Potassium Chloride Carbon Dioxide Anion Gap BUN Creatinine Estim Creat Clear Calc Estimated GFR Random Glucose Calcium Total Bilirubin AST ALT Alkaline Phosphatase Troponin I High Sens 4.0 B-Natriuretic Peptide 109 H Total Protein Albumin Lipase TSH Free T4 Urine Color Yellow Urine Appearance Clear Urine pH 6.5 Ur Specific [place] <= 1.005 Urine Protein Negative Urine Glucose (UA) Negative Urine Ketones Negative Urine Blood Negative Urine Nitrite Negative Ur Leukocyte Esterase Negative COVID-19 (JUSTICE) Negative COVID-19 Clin Com See Note 11/30/21 11:49 WBC RBC Hgb Hct MCV MCH MCHC RDW Plt Count MPV Immature Gran % (Auto) Neut % (Auto) Lymph % (Auto) Caroline % (Auto) Eos % (Auto) Baso % (Auto) Lymph # (Auto) Caroline # (Auto) Eos # (Auto) Baso # (Auto) Abs Immat Gran (auto) Absolute Neuts (auto) Absolute Nucleated RBC Nucleated RBC % (auto) Smear Tech's Comments PT INR APTT Sodium Potassium Chloride Carbon Dioxide Anion Gap BUN Creatinine Estim Creat Clear Calc Estimated GFR Random Glucose Calcium Total Bilirubin AST ALT Alkaline Phosphatase Troponin I High Sens 14.3 D B-Natriuretic Peptide Total Protein Albumin Lipase TSH Free T4 Urine Color Urine Appearance Urine pH Ur Specific [place] Urine Protein Urine Glucose (UA) Urine Ketones Urine Blood Urine Nitrite Ur Leukocyte Esterase COVID-19 (JUSTICE) COVID-19 Clin Com Imaging Radiologist's impression: Impressions Chest X-Ray 11/30/21 08:40 IMPRESSION: No acute pulmonary pathology. Comment: Echo 08/14: Conclusions: - 1.? Normal LV systolic function with impaired relaxation ? ? ? filling pattern? 2. Trivial aortic regurgitation? 3. No gross pericardial effusion ? Nuclear perfusion imagin.? Myocardial perfusion imaging study shows likely normal myocardial perfusion. 2.? Gated LVEF is 74% during stress and 63% during rest. 3. Transient ischemic dilatation not present. Assessment and Plan (1) Supraventricular tachycardia: Status: Acute (2) Chest pain: Status: Acute Plan 71-year-old lady here for chest discomfort and shortness of breath. She was noted to be in supraventricular tachycardia. She was given IV diltiazem and converted back to sinus rhythm. Her symptoms improved after she reverted to sinus rhythm. EKG post conversion to sinus rhythm not showing any ischemic changes. She had nuclear perfusion imaging in July 2021 which was normal. Clearly her symptoms started and ended with supraventricular tachycardia. Add verapamil sustained release 120 mg once a day. Can discharge home. If she has persistent symptoms then she can be referred to EP for ablation. Thank you for allowing me to participate in the care of your patient. Please feel free to contact me if you have any questions. Procedures Date of Service Date of Service: 11/30/21
== END 2021-11-30 13:07 | disposition home or self-care (01) ==
PROVIDERS: Emergency Provider Emergency Medicine Emergency Medical Services; PCP Internal Medicine
DX: R07.9 Chest pain, unspecified (principal); I47.1 Supraventricular tachycardia; R06.02 Shortness of breath; Z20.822 Contact with and (suspected) exposure to COVID-19; E11.9 Type 2 diabetes mellitus without complications; I10 Essential (primary) hypertension; E78.5 Hyperlipidemia, unspecified; G20 Parkinson's disease; Z79.82 Long term (current) use of aspirin; Z79.899 Other long term (current) drug therapy; Z79.02 Long term (current) use of antithrombotics/antiplatelets; Z87.891 Personal history of nicotine dependence
CPT/HCPCS: 36415; 71045; 80053; 81003; 83690; 83880; 84439; 84443; 84484; 85025; 85610; 85730; 87635; 93005; 96361; 96374; 99284; 99285

== ENCOUNTER 2021-12-07 12:09 | Emergency (ER) | payer OTHER, MEDICAID, SELFPAY ==
--- NOTE | ~2021-12-07 | XR_ITS ---
EXAMINATION: XR LUMBOSACRAL SPINE CLINICAL INFORMATION: Back pain COMPARISON: None TECHNIQUE: Three views of the lumbosacral spine. FINDINGS: The lumbar spine maintains normal alignment. The vertebral body heights are maintained. There is multilevel loss of intervertebral disc space with endplate degenerative changes in the lower thoracic and lumbar spine. Facet arthropathy of the lower lumbar spine. Atherosclerotic calcifications. XR/XR lumbar spine 2-3V IMPRESSION: Mild degenerative disease of the lumbar spine.
--- NOTE | ~2021-12-07 | XR_ITS ---
EXAMINATION: XR PELVIS CLINICAL INFORMATION: Pain COMPARISON: None TECHNIQUE: AP view of the pelvis. FINDINGS: No acute fracture or dislocation. Joint space narrowing and subchondral sclerosis of the bilateral hips. Generative disease of the lower lumbar spine. Calcific tendinopathy on the right. Soft tissues are unremarkable. XR/XR pelvis 1-2V IMPRESSION: Degenerative disease the bilateral hips.
[2021-12-07 12:46] VITALS: BP 145/68; PULSE 74; RESP 16; TEMP 35.5; O2SAT 97; BMI 25.2
--- NOTE | 2021-12-07 18:27 | ED_ITS ---
HPI - General Adult General Chief complaint: Extremity Problem Stated complaint: Pain both sides/back pain Time Seen by Provider: 12/07/21 12:16 Source: patient, family (CARD [employer]ACER) and translator and interpreter Mode of arrival: ambulatory Limitations: no limitations History of Present Illness HPI narrative: 71-year-old female with history of advanced osteoarthritis been having chronic low back pain and bilateral hip pain, patient was evaluated in the emergency department for similar symptoms in the past and patient was prescribed oxycodone because the patient ran out of oxycodone return today, patient is trying to get an appointment with her PCP nothing available for 2 months, patient also is awaiting for referral to electronic operator. Patient declined fever, chills, SOB, CP. Related Data Home Medications Medication Instructions Recorded Confirmed calcium carb-vit D3-minerals 600 1 tab PO BID 05/23/21 09/21/21 mg calcium-400 unit tablet mupirocin 2 % topical ointment 1 appl topical TID 05/23/21 09/21/21 Previous Rx's Medication Instructions Recorded aspirin 81 mg tablet,delayed 81 mg PO DAILY #90 tabs 05/23/21 release (Adult Low Dose Aspirin) clotrimazole 1 % vaginal cream 1 appful vaginal BEDTIME #45 grams 05/23/21 loratadine 10 mg tablet 10 mg PO DAILY #90 tabs 05/23/21 metoprolol tartrate 25 mg tablet 25 mg PO BID #180 tabs 05/23/21 blood sugar diagnostic (FreeStyle #100 ea 09/21/21 Lite Strips) blood-glucose meter (FreeStyle #1 ea 09/21/21 Lite Meter kit) lancets 28 gauge (FreeStyle #100 ea 09/21/21 Lancets) sitagliptin 50 mg-metformin 500 mg 1 tab PO BID 90 days #180 tabs 09/21/21 tablet (Janumet) trazodone 100 mg tablet 100 mg PO BEDTIME PRN sleep 90 09/21/21 days #90 tabs omeprazole 20 mg capsule,delayed 20 mg PO DAILY #90 caps 10/31/21 release albuterol sulfate 90 mcg/actuation 2 puff inhalation Q4-6H PRN 11/08/21 aerosol inhaler (ProAir HFA) shortness of breath or wheezing #8.5 grams atorvastatin 20 mg tablet 20 mg PO DAILY #90 tabs 11/08/21 carbidopa ER 50 mg-levodopa 200 mg 1 tab PO TID #270 tabs 11/08/21 tablet,extended release fenofibrate nanocrystallized 145 145 mg PO DAILY #90 tabs 11/08/21 mg tablet lisinopril 40 mg tablet 40 mg PO DAILY #90 tabs 11/08/21 cefuroxime axetil 250 mg tablet 250 mg PO BID uti 7 days #14 tabs 11/20/21 cyclobenzaprine 10 mg tablet 10 mg PO Q8H Muscle spasm #14 tabs 11/20/21 lisinopril 40 mg tablet 40 mg PO DAILY hypertension #14 11/20/21 tabs naproxen 500 mg tablet 500 mg PO BID PRN pain #14 tabs 11/20/21 oxycodone 5 mg tablet 5 mg PO Q6H PRN pain #14 tabs 11/20/21 prednisone 20 mg tablet 40 mg PO DAILY Inflammation 5 days 11/20/21 #10 tabs blood sugar diagnostic (Accu-Chek #50 ea 11/21/21 Guide test strips) blood-glucose meter (Accu-Chek #1 ea 11/21/21 Guide Glucose Meter) lancets (Accu-Chek Softclix #100 ea 11/21/21 Lancets) walker #1 ea 11/24/21 verapamil 120 mg tablet,extended 120 mg PO DAILY #30 tabs 11/30/21 release oxycodone 20 mg tablet 20 mg PO BID PRN pain #14 tabs 12/07/21 Allergies Allergy/AdvReac Type Severity Reaction Status Date / Time influenza virus vaccine, Allergy Intermediate SWELLING Verified 09/21/21 17:25 specific [Influenza Virus Vacc,Specific] Review of Systems Review of Systems: All other systems are reviewed and are negative Constitutional: Reports as per HPI and Reports no additional constitutional complaints Eyes: Reports as per HPI and Reports no additional eye complaints Reports system reviewed and no additional complaints, except as documented Cardiovascular: Reports as per HPI and Reports no additional cardiovascular complaints Respiratory: Reports as per HPI and Reports no additional respiratory complaints Gastrointestinal: Reports as per HPI and Reports no additional gastrointestinal complaints Genitourinary: Reports no additional female genitourinary complaints Musculoskeletal: Reports no additional musculoskeletal complaints Skin/Breast: Reports system reviewed and no additional complaints, except as docu Psychiatric: Reports no additional psychiatric complaints Endocrine: Reports no additional endocrine complaints Hematologic/Lymphatic: Reports no additional hematologic/lymphatic complaints Allergic/Immunologic: Reports no additional allergic/immunologic complaints Reports system reviewed and no additional complaints, except as documented and Reports Abnormal speech present [facility] Past Medical History Medical History Allergic rhinitis Bilateral artificial lens implant CAD (coronary artery disease) Depression with anxiety Diabetes type 2, controlled GERD without esophagitis Hyperlipemia Hypertension Hypertriglyceridemia Parkinsons disease Peripheral vascular disease Surgical History History of cholecystectomy History of tubal ligation Family History Family History Mother No problems noted. Father No problems noted. Social History Social History Housing: Apartment Alcohol intake: never Patient Tobacco Use Status: Former Tobacco user Tobacco use type: Cigarette e-Cigarette/Vaping Use: Never Used Second Hand Smoke Exposure: No Advance Directives: No Advance Directives Information Provided: No service: No Current occupational status: retired Cognitive needs: No Hearing needs: No Vision needs: Yes (glasses) Physical Exam ED Vital Signs: Vital Signs - 24 hr 12/07/21 12:46 Temperature 96 F L Pulse Rate 74 Respiratory Rate 16 Blood Pressure 145/68 H Pulse Oximetry 97 Oxygen Delivery Method Room Air BMI result Body Mass Index 25.2 Vital signs have been reviewed as appeared to be correct. Blood pressure normal. Heart rate normal. Respiration rate normal. Temperature normal. Oxygen saturation normal. Appearance: Alert. Oriented X3. No acute distress. Head: Normal external exam. Normocephalic. Atraumatic. No Jones signs noted. No raccoon eyes noted Eyes: PERRLA. EOMI. Conjunctiva and sclera normal. Eyelids normal. ENT: TM's Normal. Pharynx normal. Uvula midline. Moist mucous membranes. No trismus noted. No drooling noted. No muffled voice noted. Neck: Normal inspection. Neck supple. FROM. No adenopathy. Thyroid Normal. No meningeal signs. No neck mass noted. CVS: Normal heart rate and rhythm. Heart sound normal. No murmurs noted. Pulses normal throughout. Respiratory: No respiratory distress. Painless inspiration. Breath sounds normal. No wheezes/rales/rhonchi noted. Chest nontender. No accessory muscle usage noted or decreased air movement noted. Abdomen: Soft and nontender. Bowel sounds normal in all 4 quadrants. No distention noted. No organomegaly noted. No visible injury noted. Back: No CVA tenderness. Full range of motion noted. Skin: Skin warm and dry. Normal skin color. Normal skin turgor. No rashes/lesions/lacerations noted. Extremities: No lower extremity edema. Extremities exhibit normal range of motion. Extremities nontender. Neuro: Oriented X 3. Cranial nerve exam: II-XII are grossly intact No motor deficit. No sensory deficit. Reflexes normal. Course Course Course Narrative: 71-year-old female history of osteoarthritis presented with severe low back pain pelvic pain, history, physical exam, x-ray consistent with source to arthritis patient ran out of oxycodone that seem to control patient's pain, patient is awaiting to see a electronic operator/PCP. Discharge the patient on oxycodone. Medical Decision Making Imaging Data pelvis xrays: Attestation: I personally reviewed and interpreted this imaging study as follows: Radiologist's impression: Mild degenerative disease l spine xrays: Attestation: I personally reviewed and interpreted this imaging study as follows: Radiologist's impression: Mild degenerative disease. Discharge Plan Discharge Clinical Impression: Osteoarthritis Patient Disposition: Home, Self-Care Instructions: Osteoarthritis (ED) Prescriptions: New oxycodone 20 mg tablet 20 mg PO BID PRN (Reason: pain) Qty: 14 0RF Rx Instructions: Partial Fill upon patient request. No Action omeprazole 20 mg capsule,delayed release(DR/EC) 20 mg PO DAILY Qty: 90 0RF carbidopa-levodopa 50-200 mg tablet extended release 1 tab PO TID Qty: 270 0RF Rx Instructions: divide evenly over waking hours lisinopril 40 mg tablet 40 mg PO DAILY Qty: 90 0RF fenofibrate nanocrystallized 145 mg tablet 145 mg PO DAILY Qty: 90 0RF albuterol sulfate [ProAir HFA] 90 mcg/actuation HFA aerosol inhaler 2 puff inhalation Q4-6H PRN (Reason: shortness of breath or wheezing) Qty: 8.5 0RF atorvastatin 20 mg tablet 20 mg PO DAILY Qty: 90 0RF (DME) blood-glucose meter [Accu-Chek Guide Glucose Meter] Misc See Rx Instructions .Route Qty: 1 0RF Rx Instructions: As directed (DME) Accu-Chek Guide test strips Strip See Rx Instructions .Route Qty: 50 8RF Rx Instructions: Use 1 test strip once a day (DME) lancets [Accu-Chek Softclix Lancets] Misc See Rx Instructions .Route Qty: 100 3RF Rx Instructions: Use 1 lancet once a day (DME) walker Misc See Rx Instructions .Route Qty: 1 0RF Rx Instructions: rollator with seat cefuroxime axetil 250 mg tablet 250 mg PO BID 7 Days Qty: 14 0RF naproxen 500 mg tablet 500 mg PO BID PRN (Reason: pain) Qty: 14 0RF prednisone 20 mg tablet 40 mg PO DAILY 5 Days Qty: 10 0RF cyclobenzaprine 10 mg tablet 10 mg PO Q8H Qty: 14 0RF oxycodone 5 mg tablet 5 mg PO Q6H PRN (Reason: pain) Qty: 14 0RF Rx Instructions: Partial Fill upon patient request. lisinopril 40 mg tablet 40 mg PO DAILY Qty: 14 0RF verapamil 120 mg tablet extended release 120 mg PO DAILY Qty: 30 0RF calcium carbonate-vit D3-min 600 mg calcium- 400 unit tablet 1 tab PO BID mupirocin 2 % ointment 1 appl topical TID metoprolol tartrate 25 mg tablet 25 mg PO BID Qty: 180 0RF aspirin [Adult Low Dose Aspirin] 81 mg tablet,delayed release (DR/EC) 81 mg PO DAILY Qty: 90 0RF clotrimazole 1 % cream 1 appful vaginal BEDTIME Qty: 45 0RF loratadine 10 mg tablet 10 mg PO DAILY Qty: 90 0RF Janumet 50-500 mg tablet 1 tab PO BID 90 Days Qty: 180 1RF trazodone 100 mg tablet 100 mg PO BEDTIME PRN (Reason: sleep) 90 Days Qty: 90 1RF (DME) blood-glucose meter [FreeStyle Lite Meter] Kit See Rx Instructions .Route Qty: 1 0RF Rx Instructions: As directed (DME) FreeStyle Lite Strips Strip See Rx Instructions .Route Qty: 100 2RF Rx Instructions: Use 1 test strip once a day (DME) lancets [FreeStyle Lancets] 28 gauge misc See Rx Instructions .Route Qty: 100 2RF Rx Instructions: Use 1 lancet once a day Referrals: Madison Carcamo MD [Primary Care Provider] - Yasemin Agudelo MD [Physician] -
[2021-12-07] MEDS: oxyCODONE HCl Immed Release 5 MG TABLET PO (18:45)
== END 2021-12-07 20:32 | disposition home or self-care (01) ==
PROVIDERS: Emergency Provider Emergency Medicine; PCP Internal Medicine
DX: M54.50 Low back pain, unspecified (principal); M25.552 Pain in left hip; M25.551 Pain in right hip; Z79.899 Other long term (current) drug therapy; Z87.891 Personal history of nicotine dependence
CPT/HCPCS: 72100; 72170; 99283

== ENCOUNTER 2022-03-07 06:27 | Outpatient (REF) | payer OTHER, MEDICAID, SELFPAY | END 2022-03-07 06:28 | disposition home or self-care (01) | LOC: CF 06:27 | PROVIDERS: Visit Provider Anesthesiology | DX: Z13.89 Encounter for screening for other disorder (principal) ==

== ENCOUNTER 2022-03-14 12:54 | Outpatient (REF) | payer OTHER, MEDICAID, SELFPAY | END 2022-03-14 12:55 | disposition home or self-care (01) | LOC: HO.HMGCX 12:54 | PROVIDERS: Visit Provider Internal Medicine | DX: N20.0 Calculus of kidney (principal) | CPT/HCPCS: 76775 ==

== ENCOUNTER 2022-04-18 06:19 | Outpatient (REF) | payer OTHER, MEDICAID, SELFPAY | END 2022-04-18 06:20 | disposition home or self-care (01) | LOC: CF 06:19 | PROVIDERS: Visit Provider Anesthesiology | DX: Z13.89 Encounter for screening for other disorder (principal) ==

== ENCOUNTER 2022-04-27 12:55 | Outpatient (REF) | payer OTHER, MEDICAID, SELFPAY ==
--- NOTE | ~2022-04-27 | MM_ITS ---
EXAMINATION: BONE DENSITOMETRY CLINICAL INDICATION: Menopause. COMPARISON: None (current study represents initial baseline exam). TECHNIQUE: Using a [employer] DXA System (software version: 13.1) manufactured by [employer], dual-energy x-ray absorptiometry was performed of the lumbar spine and left hip. The images are of good technical quality. Summary results are attached. FINDINGS: AP SPINE L1-L4: BMD 1.179 g/cm2, Z-score 1.7, T-score 0.0, normal. LEFT FEMUR, NECK: BMD 0.647 g/cm2, Z-score -1.1, T-score -2.8, osteoporosis. LEFT FEMUR, TOTAL: BMD 0.639 g/cm2, Z-score -1.5, T-score -2.9, osteoporosis. IDENTIFIED RISK FACTORS: Menopause, secondary osteoporosis. HISTORY OF FRACTURE: None listed. MEDICATIONS: None listed. MM/XR DEXA axial skeleton IMPRESSION: 1. DIAGNOSIS: Osteoporosis based on the lowest T-score value of -2.9 in the total femur applying World Health Organization criteria. 2. 10-YEAR FRACTURE RISK PREDICTION, FRAX: According to the guidelines, FRAX calculation should only be performed on patients in the osteopenia bone density category. Therefore, FRAX was not performed on this patient. 3. Treatment Recommendations: NOF guidelines recommend consideration for treatment in postmenopausal women and men age 50 and older presenting with the following: -A hip or vertebral (clinical or morphometric) fracture. -T-score less than or equal to -2.5 at the femoral neck or spine after appropriate evaluation to exclude secondary causes. -Low bone mass at the hip or spine and a 10-year fracture probability by FRAX of greater than or equal to 3% for hip fracture or greater than or equal to 20% for major osteoporotic fracture based on the [place] adapted WHO algorithm. 4. Other Recommendations: All treatment decisions require clinical judgment and consideration of individual patient factors, including patient preferences, comorbidities, previous drug use, risk factors not captured in the FRAX model (e.g. frailty, falls, vitamin D deficiency, increased bone turnover, interval significant decline in bone density) and possible under or overestimation of fracture risk by FRAX. Additional medical evaluation for secondary cause of low bone mineral density may be appropriate. FUTURE SCAN RECOMMENDATION: People with diagnosed cases of osteoporosis or at high risk for fracture should have regular bone mineral density tests. For patients eligible for Medicare, routine testing is allowed once every 2 years. The testing frequency can be increased to one year for patients who have rapidly progressing disease, those who are receiving or discontinuing medical therapy to restore bone mass, or have additional risk factors.
== END 2022-04-27 12:56 | disposition home or self-care (01) ==
LOC: HO.MAMMO 12:55
PROVIDERS: PCP Internal Medicine; Visit Provider Internal Medicine
DX: Z13.820 Encounter for screening for osteoporosis (principal); Z78.0 Asymptomatic menopausal state
CPT/HCPCS: 77080

== ENCOUNTER 2022-05-09 06:10 | Outpatient (REF) | payer OTHER, MEDICAID, SELFPAY ==
--- NOTE | ~2022-05-09 | FL_ITS ---
EXAMINATION: XR FLUOROSCOPY WITH IMAGES CLINICAL INFORMATION: M16.0 - Bilateral primary osteoarthritis of hip COMPARISON: Pelvic radiograph 12/07/2021 TECHNIQUE: Fluoroscopy Supervised By: Dr. Benja Abdi. Fluoroscopy Time, bilateral: 0.4 minutes. Cumulative Dose, bilateral: 18.3 mGy. DAP, bilateral: 4.99 Gycm2. Images, right: 2. FINDINGS: Spinal needle overlies the superior lateral right hip joint. There is intracapsular contrast. No visible vascular communication. FL/FL guidance in treatment room IMPRESSION: Fluoroscopy for pain management procedures.
== END 2022-05-09 06:11 | disposition home or self-care (01) ==
LOC: CF 06:10
PROVIDERS: Visit Provider Anesthesiology
DX: M16.0 Bilateral primary osteoarthritis of hip (principal)
CPT/HCPCS: 20610; J3301

== ENCOUNTER 2022-05-15 08:22 | Outpatient (REF) | payer OTHER, MEDICAID, SELFPAY ==
[2022-05-15 08:35] LABS: MANUAL DIFF FLAG NO
[2022-05-15 09:01] LABS: Basophils Percent Auto 0.4 % (0-2); Eosinophils Absolute Auto 0.4 X10*3/uL (0.0-0.4); Hemoglobin 11.4 g/dl (12.0-16.0); Imm Gran Abs Auto 0.15 X10*3/uL (0.00-0.03); Imm Gran Pct Auto 1.4 % (0.0-0.4); Lymphocytes Absolute Auto 3.6 X10*3/uL (1.2-4.9); Lymphocytes Percent Auto 32.8 % (20-40); Mean Corpuscular HGB Conc 31.7 g/dl (31.0-35.0); Mean Corpuscular Hemoglobin 28.1 pg (27.0-33.0); Mean Corpuscular Volume 88.9 fL (80.0-98.0); Mean Platelet Volume 10.5 fL (9.4-12.3); Monocytes Absolute Auto 1.2 X10*3/uL (0.1-1.2); Monocytes Percent Auto 11.1 % (2-11); Neutrophils Absolute Auto 5.5 x10*3/uL (2.0-8.3); Neutrophils Percent Auto 50.3 % (45-73); Platelet Count 296 X10*3/uL (160-400); Red Blood Count 4.05 X10*6/uL (4.20-5.50); Red Cell Distribution Width 12.7 % (11.0-16.0)
[2022-05-15 09:41] LABS: Alanine Aminotransferase 8 U/L (0-31); Albumin Level 3.7 g/dL (3.5-5.0); Alkaline Phosphatase 63 U/L (39-117); Anion Gap 15 (12-20); Aspartate Amino Transferase 13 U/L (5-31); Bilirubin Total 0.3 mg/dL (0.0-1.0); Blood Urea Nitrogen 27 mg/dL (9-16); Calcium 9.5 mg/dL (8.4-10.2); Carbon Dioxide 25 mmol/L (22-29); Chloride 105 mmol/L (96-108); Cholesterol 143 mg/dL; Estimated Glomerular Filt Rate 54; Glucose Fasting 131 mg/dL (60-99); HDL Cholesterol 36 mg/dL; LDL Cholesterol Calculated 81 mg/dl; Sodium 140 mmol/L (135-145); Total Protein 6.6 g/dL (6.5-8.0); Triglycerides 132 mg/dL
[2022-05-15 09:58] LABS: Free T4 (Free Thyroxine) 1.11 ng/dL (0.71-1.85); Thyroid Stimulating Hormone 1.53 uIU/mL (0.32-4.0)
[2022-05-15 10:13] LABS: Creatinine Urine 79.09 mg/dL; Microalbum/Creatinine Ratio Ur 10.1 ug/mg cr
== END 2022-05-15 08:23 | disposition home or self-care (01) ==
LOC: HO.LAB 08:22
PROVIDERS: PCP Internal Medicine; Visit Provider Internal Medicine
DX: E11.9 Type 2 diabetes mellitus without complications (principal); I47.1 Supraventricular tachycardia; E55.9 Vitamin D deficiency, unspecified; E78.5 Hyperlipidemia, unspecified
CPT/HCPCS: 36415; 80053; 80061; 82043; 82306; 84439; 84443; 85025

== ENCOUNTER → 2022-06-08 11:20 | Outpatient (BNVA) | payer OTHER, MEDICAID, SELFPAY | PROVIDERS: PCP Internal Medicine; Visit Provider Nurse Practitioner Family | DX: Z13.89 Encounter for screening for other disorder (principal) ==

== ENCOUNTER → 2022-06-27 10:13 | Outpatient (BNVA) | payer OTHER, MEDICAID, SELFPAY | PROVIDERS: PCP Internal Medicine; Visit Provider Psychiatry & Neurology Neurology | DX: Z13.89 Encounter for screening for other disorder (principal) ==

== ENCOUNTER 2022-07-12 13:36 | Outpatient (REF) | payer OTHER, MEDICAID, SELFPAY ==
--- NOTE | ~2022-07-12 | MR_ITS ---
MR LUMBAR SPINE WITHOUT CONTRAST CLINICAL INFORMATION: Spondylosis without myelopathy or radiculopathy. COMPARISON: None available. TECHNIQUE: MRI of the lumbar spine was obtained using routine sequences without contrast. FINDINGS: There are 5 nonrib-bearing lumbar-type vertebral bodies. Slight grade 1 retrolisthesis of L1 on L2, L2 on L3, and L3 on L4. Mild chronic upper endplate compression deformities at T11 and T12. There is no bone marrow edema. No acute fractures. Vertebral body heights within the lumbar spine are maintained. Disc desiccation at all lumbar levels. Conus terminates at the L1-L2 level. There is bilateral perinephric stranding. Retroaortic left renal vein. L1-L2: There is an inferiorly migrating right paracentral disc extrusion that mildly narrows the central canal. Background annular disc bulge and mild bilateral facet arthropathy. No central canal stenosis and no foraminal stenosis. L2-L3: Diffuse annular disc bulge the superimposed right paracentral disc protrusion resulting in mass effect on the traversing right L3 nerve root within the right subarticular zone. There is no central canal stenosis and there is no foraminal stenosis. L3-L4: There is a diffuse annular disc bulge the superimposed shallow right paracentral disc protrusion and there is bilateral facet arthropathy and ligamentum flavum thickening. No central canal stenosis. No foraminal stenosis. L4-L5: A shallow right paracentral disc protrusion mildly indents the ventral thecal sac. No central canal stenosis and no foraminal stenosis. L5-S1: Inferiorly migrating central disc extrusion mildly narrows the central canal. Background annular disc bulge and moderate bilateral facet arthropathy. No central canal stenosis. Mild right-sided foraminal encroachment. MR/MR lumbar spine wo con IMPRESSION: * At L1-L2, there is an inferiorly migrating right paracentral disc extrusion that mildly narrows the central canal. * At L2-L3, there is a right paracentral disc protrusion resulting in mass effect on the traversing right L3 nerve root within the right subarticular zone. * At L5-S1, there is an inferiorly migrating central disc extrusion that mildly narrows the central canal. * Additional degenerative findings as discussed above. No severe central canal stenosis and no severe foraminal stenosis within the lumbar spine. * Mild chronic upper endplate compression deformities at T11 and T12. No acute fractures. * Retroaortic left renal vein.
== END 2022-07-12 13:37 | disposition home or self-care (01) ==
LOC: HO.MRI 13:36
PROVIDERS: PCP Internal Medicine; Visit Provider Nurse Practitioner Family
DX: M47.816 Spondylosis without myelopathy or radiculopathy, lumbar region (principal); M51.36 Other intervertebral disc degeneration, lumbar region; M54.16 Radiculopathy, lumbar region
CPT/HCPCS: 72148

== ENCOUNTER → 2022-07-20 13:33 | Outpatient (REF) | payer OTHER, MEDICAID, SELFPAY | LOC: HO.SL 13:33 | PROVIDERS: PCP Internal Medicine; Visit Provider Psychiatry & Neurology Neurology | DX: G47.10 Hypersomnia, unspecified (principal); R06.83 Snoring | CPT/HCPCS: 95806 ==

== ENCOUNTER → 2022-07-25 14:02 | Outpatient (BNVA) | payer OTHER, MEDICAID, SELFPAY | PROVIDERS: PCP Internal Medicine; Visit Provider Nurse Practitioner Family | DX: M51.36 Other intervertebral disc degeneration, lumbar region (principal); M25.551 Pain in right hip; M25.552 Pain in left hip; M47.816 Spondylosis without myelopathy or radiculopathy, lumbar region; M16.0 Bilateral primary osteoarthritis of hip; M54.16 Radiculopathy, lumbar region; E11.40 Type 2 diabetes mellitus with diabetic neuropathy, unspecified; G20 Parkinson's disease; G89.29 Other chronic pain | CPT/HCPCS: 99212 ==

== ENCOUNTER 2022-08-11 09:31 | Outpatient (REF) | payer OTHER, SELFPAY ==
[2022-08-11 09:54] LABS: MANUAL DIFF FLAG NO
[2022-08-11 10:31] LABS: Basophils Absolute Auto 0.1 X10*3/uL (0.0-0.2); Basophils Percent Auto 0.8 % (0-2); Eosinophils Absolute Auto 0.5 X10*3/uL (0.0-0.4); Eosinophils Percent Auto 6.4 % (0-4); Hematocrit 36.4 % (37.0-47.0); Hemoglobin 11.6 g/dl (12.0-16.0); Imm Gran Abs Auto 0.04 X10*3/uL (0.00-0.03); Imm Gran Pct Auto 0.6 % (0.0-0.4); Lymphocytes Absolute Auto 2.5 X10*3/uL (1.2-4.9); Lymphocytes Percent Auto 34.1 % (20-40); Mean Corpuscular HGB Conc 31.9 g/dl (31.0-35.0); Mean Corpuscular Hemoglobin 28.6 pg (27.0-33.0); Mean Corpuscular Volume 89.9 fL (80.0-98.0); Mean Platelet Volume 10.7 fL (9.4-12.3); Monocytes Absolute Auto 0.8 X10*3/uL (0.1-1.2); Monocytes Percent Auto 10.8 % (2-11); Neutrophils Absolute Auto 3.4 x10*3/uL (2.0-8.3); Neutrophils Percent Auto 47.3 % (45-73); Platelet Count 327 X10*3/uL (160-400); Red Blood Count 4.05 X10*6/uL (4.20-5.50); Red Cell Distribution Width 13.5 % (11.0-16.0); White Blood Count 7.2 X10*3/uL (4.8-10.8)
[2022-08-11 11:11] LABS: Alanine Aminotransferase 13 U/L (0-31); Albumin Level 3.9 g/dL (3.5-5.0); Alkaline Phosphatase 55 U/L (39-117); Anion Gap 13 (12-20); Aspartate Amino Transferase 17 U/L (5-31); Bilirubin Total 0.4 mg/dL (0.0-1.0); Blood Urea Nitrogen 24 mg/dL (9-16); Calcium 9.7 mg/dL (8.4-10.2); Carbon Dioxide 29 mmol/L (22-29); Chloride 106 mmol/L (96-108); Cholesterol 153 mg/dL; Estimated Glomerular Filt Rate 51; Glucose Random 138 mg/dL (60-115); HDL Cholesterol 34 mg/dL; LDL Cholesterol Calculated 92 mg/dl; Potassium 4.5 mmol/L (3.3-5.1); Sodium 143 mmol/L (135-145); Triglycerides 139 mg/dL
== END 2022-08-11 09:32 | disposition home or self-care (01) ==
LOC: HO.LAB 09:31
PROVIDERS: PCP Internal Medicine; Visit Provider Internal Medicine
DX: E78.00 Pure hypercholesterolemia, unspecified (principal); E78.1 Pure hyperglyceridemia
CPT/HCPCS: 36415; 80053; 80061; 85025

== ENCOUNTER → 2022-08-15 14:49 | Outpatient (BNVA) | payer OTHER, SELFPAY | PROVIDERS: PCP Internal Medicine; Referring Provider Internal Medicine; Visit Provider Internal Medicine ==

== ENCOUNTER → 2022-09-14 12:24 | Day surgery (SDC) | payer OTHER, SELFPAY ==
[2022-09-12 08:21] VITALS: BMI 24.6
--- NOTE | 2022-09-12 12:23 | HO.ANESPROP2 ---
Documented by User: Aruna Alexander NP 09/12/22 12:28 HPI - Anesthesia Eval Consult details Narrative: 72yo F for Bilateral L5-S1 Transforaminal Epidural Steroid Injection Routine cardiology office visit 07/2022 - SVT stable after ablation, CAD but no evidence of ischemia PMFSH Active Problems Active Problems: All Active Problems (Updated 08/24/22 @ 19:05 by Madison Acosta MD) ANTONETTE (obstructive sleep apnea) (Acute) Moderate recurrent major depression (Acute) Hypersomnia (Acute) Snoring (Acute) Bilateral lumbar radiculopathy (Acute) Flank pain (Acute) Osteoarthritis of both hips (Chronic) Chronic painful diabetic neuropathy (Acute) Lumbar spondylosis (Acute) Renal calculi (Acute) Supraventricular tachycardia (Acute) Degenerative disc disease, lumbar (Acute) Mixed hyperlipidemia (Acute) Lumbar degenerative disc disease (Acute) Coronary artery calcification seen on CT scan (Acute) Essential hypertension (Acute) Type 2 diabetes mellitus with unspecified complications (Acute) Persistent insomnia (Acute) GERD without esophagitis (Acute) Depression with anxiety (Acute) Hypertriglyceridemia (Acute) CAD (coronary artery disease) (Acute) Allergic rhinitis (Acute) Peripheral vascular disease (Acute) Parkinsons disease (Acute) Past Medical History Medical History Allergic rhinitis Annual physical exam Bilateral artificial lens implant CAD (coronary artery disease) Chest pain Chronic hip pain, bilateral Cough Depression with anxiety Diabetes type 2, controlled Diffuse pain Encounter to establish care Eye pain GERD without esophagitis Hypersomnia Hypertension Hypertriglyceridemia Nausea Obstructive sleep apnea of adult Other and unspecified hyperlipidemia Parkinsons disease Peripheral vascular disease Post menopausal syndrome Precordial chest pain Snoring SOB (shortness of breath) Supraventricular tachycardia Vaginitis and vulvovaginitis Family History Family History Mother Diabetes Father Brain cancer Son Diabetes Surgical History Surgical History History of cholecystectomy History of tubal ligation Social History Social History Housing: Apartment Alcohol intake: never Patient Tobacco Use Status: Former Tobacco user e-Cigarette/Vaping Use: Never Used Second Hand Smoke Exposure: No Advance Directives: No Advance Directives Information Provided: Yes service: No Current occupational status: retired Cognitive needs: No Hearing needs: No Vision needs: Yes (glasses) Meds Allergies Allergy/AdvReac Type Severity Reaction Status Date / Time influenza virus vaccine, Allergy Intermediate SWELLING Verified 08/23/22 16:36 specific [Influenza Virus Vacc,Specific] Home Medications Medication Instructions Recorded Confirmed Last Taken Type calcium carb-vit D3-minerals 600 1 tab PO BID 06/27/22 08/23/22 Unknown History mg calcium-400 unit tablet loratadine 10 mg tablet 10 mg PO DAILY 06/27/22 08/23/22 Unknown History mupirocin 2 % topical ointment 1 appl topical TID 06/27/22 08/23/22 Unknown History carbidopa ER 50 mg-levodopa 200 mg 1 tab PO BID 08/15/22 08/23/22 Unknown History tablet,extended release sitagliptin phosphate 50 1 tab PO BID 08/15/22 08/23/22 Unknown History mg-metformin 500 mg tablet (Hannah) Exam Exam Date and Time: September 12, 2022 1223 Height,Weight and Vital Signs: Height 5 ft 4 in Weight 64.977 kg Pertinent Lab Results Pertinent Lab Results: Laboratory Tests 08/11/22 08/11/22 09:52 09:52 WBC 7.2 Hgb 11.6 L Hct 36.4 L Plt Count 327 Sodium 143 Potassium 4.5 Chloride 106 Carbon Dioxide 29 BUN 24 H Creatinine 1.07 Narrative Narrative: ECHO 07/2021 Conclusions: - 1.? Normal LV systolic function with impaired relaxation ? ? ? filling pattern? 2. Trivial aortic regurgitation? 3. No gross pericardial effusion ? ? NM cardiolite stress test 07/2021 Impression: ? 1.? Myocardial perfusion imaging study shows likely normal myocardial perfusion. 2.? Gated LVEF is 74% during stress and 63% during rest. 3. Transient ischemic dilatation not present. ? EKG component of the test reported separately. Assessment and Plan Assessment Anesthesia Assessment: Chart Reviewed Documented by User: Bri Acosta MD 09/14/22 13:08 [facility] Past Medical History Medical History Allergic rhinitis Annual physical exam Bilateral artificial lens implant CAD (coronary artery disease) Chest pain Chronic hip pain, bilateral Cough Depression with anxiety Diabetes type 2, controlled Diffuse pain Encounter to establish care Eye pain GERD without esophagitis Hypersomnia Hypertension Hypertriglyceridemia Nausea Obstructive sleep apnea of adult Other and unspecified hyperlipidemia Parkinsons disease Peripheral vascular disease Post menopausal syndrome Precordial chest pain Snoring SOB (shortness of breath) Supraventricular tachycardia Vaginitis and vulvovaginitis Family History Family History Mother Diabetes Father Brain cancer Son Diabetes Family history of problems with anesthesia: No Surgical History Surgical History History of cholecystectomy History of tubal ligation History of Problems with Anesthesia: No Social History Social History Housing: Apartment Alcohol intake: never Patient Tobacco Use Status: Former Tobacco user e-Cigarette/Vaping Use: Never Used Second Hand Smoke Exposure: No Advance Directives: No Advance Directives Information Provided: Yes service: No Current occupational status: retired Cognitive needs: No Hearing needs: No Vision needs: Yes (glasses) Meds Allergies Allergy/AdvReac Type Severity Reaction Status Date / Time influenza virus vaccine, Allergy Intermediate SWELLING Verified 08/23/22 16:36 specific [Influenza Virus Vacc,Specific] Home Medications Medication Instructions Recorded Confirmed Last Taken Type calcium carb-vit D3-minerals 600 1 tab PO BID 06/27/22 08/23/22 Unknown History mg calcium-400 unit tablet loratadine 10 mg tablet 10 mg PO DAILY 06/27/22 08/23/22 Unknown History mupirocin 2 % topical ointment 1 appl topical TID 06/27/22 08/23/22 Unknown History carbidopa ER 50 mg-levodopa 200 mg 1 tab PO BID 08/15/22 08/23/22 Unknown History tablet,extended release sitagliptin phosphate 50 1 tab PO BID 08/15/22 08/23/22 Unknown History mg-metformin 500 mg tablet () Exam Airway Mallampati Class: II TM Dist: >3cm Neck ROM: Full Heart: rrr Lungs: cta Assessment and Plan Assessment Anesthesia Assessment: Anesthesia Plan Discussed Final Anesthetic Review Family History of Problems with Anesthesia: No History of Problems with Anesthesia: No NPO: Yes ASA Class: III Final Preanesthetic Review: No Changes in Pt Med Stat, Meds/Allgs Chart Reviewed, Consent Obtained/Reviewed and Anes Risks/Benef Reviewed Patient Risk: Low Procedure Risk: Low Anesthetic Plan Anesthetic Plan: MAC: Disposition: Standard PACU
--- NOTE | 2022-09-14 13:15 | PC.NURSE ---
pt states she ate ham and bread and drank soda at 10:[address] Abdi and Dr[address] Acosta anesthesiologist . territory outside sales manager paged for mostly [facility] speaking
[2022-09-14 13:21] VITALS: BMI 25.4
--- NOTE | 2022-09-14 13:26 | PC.NURSE ---
options discussed to proceed without anesthesia or reschedule - pt still will be awake during reschedule.no local anesthesia at this time.pt declined.
--- NOTE | 2022-09-14 13:34 | PC.NURSE ---
pt chose to reschedule. case cancelled.
--- NOTE | 2022-09-14 13:34 | PC.NURSE ---
education with hospice massage therapist, pt verbalizes understanding of nothing to eat or drink after midnight. paper visualized by hospice massage therapist , instructions did indicate nothing to eat or drink after midnight, highlighted in yellow.
== END ==
LOC: HO.SSS 12:25
PROVIDERS: PCP Internal Medicine; Visit Provider Anesthesiology
DX: M54.16 Radiculopathy, lumbar region (principal); Z53.09 Procedure and treatment not carried out because of other contraindication
CPT/HCPCS: J3301

== ENCOUNTER 2022-10-03 13:44 | Outpatient (AMB) | payer OTHER, SELFPAY ==
--- NOTE | 2022-10-03 13:51 | A.OFFVIS_ITS ---
Intake Vital Signs 10/03/22 13:58 Height 5 ft 4 in Weight 148 lb BMI 25.4 BP 122/74 Blood Pressure Location Rt brachial Position Sitting Pulse 71 Pulse Source Pulse Oximeter Pulse Oximetry (%) 97 Oxygen Delivery Method Room Air Intake Visit Reasons: 3m follow up Parkinson's-lvm Intake Note: Patient presents for 3 month follow up Allergies influenza virus vaccine, specific [Influenza Virus Vacc,Specific] Allergy (Intermediate, Verified 10/03/22 13:53) SWELLING Medication List - Last Reconciled 10/03/22 by Chloe Hensley MD albuterol sulfate 90 mcg/actuation (ProAir HFA) 2 puffs inhalation Q4-6H PRN alcohol swabs (DropSafe Alcohol Prep Pads) 1 pad topical DIRECTED 90 days atorvastatin 40 mg PO BEDTIME 90 days blood sugar diagnostic (FreeStyle Lite Strips) Use 1 test strip once a day blood-glucose meter (FreeStyle Lite Meter kit) As directed calcium carbonate-vit D3-min 600 mg calcium- 400 unit 1 tab PO BID carbidopa-levodopa 50-200 mg ER 1 tab PO BID clotrimazole 1% 1 appful vaginal BEDTIME CPAP (CPAP Machine/Device) autoPAP 5-20 cm H2O fenofibrate nanocrystallized 145 mg PO DAILY lancets (Accu-Chek Softclix Lancets) As directed lidocaine 5% 1 patch topical Q24H 30 days lisinopril 40 mg PO DAILY loratadine 10 mg PO DAILY metoprolol tartrate 25 mg PO BID 90 days mupirocin 2% 1 appl topical TID omeprazole 20 mg PO DAILY sitagliptin phos-metformin 50-500 mg (Janumet) 1 tab PO BID 90 days walker rollator with seat HPI HPI Comments History of Present Illness Details 72 y/o female comes for follow up of parkinsons disease. She moved from [place] 15 months ago. Home sleep test - AHI 20/hr and oxygen gela 83% she did not get her CPAP yet. SHe was diagnosed with Parkinsons disease in [place] 4 years ago when she presented with left sided tremors and gait issues . she also has lumbar spondylosis which affects her gait.she is on sinemet CR 50 /200 bid She has mild memory issues.she denies any abnormal sleep behavior. she has depression and anxiety. she is not motivated.Her voice is softer. Her handwriting is smaller. she needs help withe dressing and cutting food. she can shower herself. Her gait is slow, has a walker . No recent falls.Last fall was 1 year ago. she has mild constipation.she has mild dizziness or double vision. [facility] Medical History Allergic rhinitis Annual physical exam Bilateral artificial lens implant CAD (coronary artery disease) Chest pain Chronic hip pain, bilateral Cough Depression with anxiety Diabetes type 2, controlled Diffuse pain Encounter to establish care Eye pain GERD without esophagitis Hypersomnia Hypertension Hypertriglyceridemia Nausea Obstructive sleep apnea of adult Other and unspecified hyperlipidemia Parkinsons disease Peripheral vascular disease Post menopausal syndrome Precordial chest pain Snoring SOB (shortness of breath) Supraventricular tachycardia Vaginitis and vulvovaginitis Surgical History History of cholecystectomy History of tubal ligation Family History Mother Diabetes Father Brain cancer Son Diabetes Social History Housing: Apartment Alcohol intake: never Patient Tobacco Use Status: Former Tobacco user e-Cigarette/Vaping Use: Never Used Second Hand Smoke Exposure: No service: No Current occupational status: retired Cognitive needs: No Hearing needs: No Vision needs: Yes (glasses) Physical Exam Vital Signs: Last Vital Signs Pulse 71 10/03/22 13:58 BP 122/74 10/03/22 13:58 Pulse Ox 97 10/03/22 13:58 Oxygen Delivery Method Room Air 10/03/22 13:58 BMI result Body Mass Index 25.4 Const General: cooperative, healthy appearing and comfortable Nutritional Appearance: average body habitus Orientation/consciousness: patient oriented x3 Limitations: physical limitations HEENT Head: Yes normal to inspection and No normocephalic Neuro Other: left LE rest tremors Mild cog wheel rigidty Left UE Decreased facial expression and blink FFM and foot taps decreased kianna L>R Gait- slow , mildly antalgic Voice- normal General: patient oriented x3 Cranial nerves: Yes Nystagmus not present and Yes Normal facial strength present Cognition (Neuro): normal cognition Motor exam (neuro): 5/5 motor strength present throughout Coordination: [id number] test normal Assessment & Plan Assessment & Plan (1) Parkinsons disease: Code(s): G20 - Parkinson's disease (2) ANTONETTE (obstructive sleep apnea): Code(s): G47.33 - Obstructive sleep apnea (adult) (pediatric) Plan Continue Physical therapy sinemet CR 50/200 bid Cpap 5-[address] or MRI brain Medications: New carbidopa-levodopa 50-200 mg ER divide evenly over waking hours 1 tab PO BID 60 tabs 6RF G20 - Parkinson's disease Coding Level of Care Code Est Pt Level 4 (58736) Diagnoses Parkinsons disease G20 ANTONETTE (obstructive sleep apnea) G47.33
[2022-10-03 13:58] VITALS: BP 122/74; PULSE 71; O2SAT 97; BMI 25.4
== END 2022-10-03 14:17 | disposition home or self-care (01) ==
LOC: HO.HSMS 13:44
PROVIDERS: PCP Internal Medicine; Visit Provider Psychiatry & Neurology Neurology
DX: G20 Parkinson's disease (principal); G47.33 Obstructive sleep apnea (adult) (pediatric)
CPT/HCPCS: 99214

== ENCOUNTER → 2022-10-03 13:44 | Outpatient (BNVA) | payer OTHER, SELFPAY | PROVIDERS: PCP Internal Medicine; Visit Provider Psychiatry & Neurology Neurology | DX: G20 Parkinson's disease (principal); G47.10 Hypersomnia, unspecified; R06.83 Snoring ==

== ENCOUNTER → 2022-10-26 13:25 | Outpatient (BNVA) | payer OTHER, SELFPAY | PROVIDERS: PCP Internal Medicine; Visit Provider Nurse Practitioner Family ==

== ENCOUNTER 2022-11-24 05:53 | Day surgery (SDC) | payer OTHER, SELFPAY ==
[2022-11-22 07:13] VITALS: BMI 24.9
--- NOTE | ~2022-11-24 | FL_ITS ---
EXAMINATION: XR FLUOROSCOPY WITH IMAGES CLINICAL INFORMATION: Low back pain. COMPARISON: MRI lumbar spine 07/12/2022. TECHNIQUE: Fluoroscopy Supervised By: Dr. Benja Abdi. Fluoroscopy Time: 0.6 minutes. Cumulative Dose: 20.2 mGy. DAP: 5.52 Gy-cm2. Images: 3. FINDINGS: There are 3 images of lower lumbar spine revealing needle positioned inferior to L5 pedicles bilaterally with contrast opacifying the extraspinal perineural foramina and soft tissues for pain management. Visualized bones and soft tissues are normal. SI joints are normal. FL/FL guidance in OR IMPRESSION: Fluoroscopy guidance was provided to referring physician for pain management.
[2022-11-24 06:04] VITALS: BP 164/76; PULSE 69; RESP 20; TEMP 36.6; O2SAT 98
[2022-11-24 06:23] LABS: Glucose, Whole Blood 99 mg/dL (60-115)
[2022-11-24] MEDS: Lactated Ringers 1,000 ML 50 ML IVCONT (07:13)
--- NOTE | 2022-11-24 07:29 | HO.ANESPROP2 ---
HPI - Anesthesia Eval Consult details Narrative: 72 yo F presenting for bilateral L5-S1 transforaminal epidural injection. [facility] Active Problems Active Problems: All Active Problems (Updated 11/24/22 @ 06:27 by Madeline Contreras RN) Persistent insomnia (Acute) Type 2 diabetes mellitus with unspecified complications (Acute) Essential hypertension (Acute) Coronary artery calcification seen on CT scan (Acute) Lumbar degenerative disc disease (Acute) Mixed hyperlipidemia (Acute) Osteoarthritis of both hips (Chronic) Degenerative disc disease, lumbar (Acute) Renal calculi (Acute) Lumbar spondylosis (Acute) Chronic painful diabetic neuropathy (Acute) Flank pain (Acute) Bilateral lumbar radiculopathy (Acute) Moderate recurrent major depression (Acute) ANTONETTE (obstructive sleep apnea) (Acute) Hypersomnia (Acute) Snoring (Acute) Supraventricular tachycardia (Acute) GERD without esophagitis (Acute) Depression with anxiety (Acute) Hypertriglyceridemia (Acute) CAD (coronary artery disease) (Acute) Allergic rhinitis (Acute) Peripheral vascular disease (Acute) Parkinsons disease (Acute) Past Medical History Medical History Allergic rhinitis Annual physical exam Bilateral artificial lens implant CAD (coronary artery disease) Chest pain Chronic hip pain, bilateral Cough Depression with anxiety Diabetes type 2, controlled Diffuse pain Encounter to establish care Eye pain GERD without esophagitis Hx of backache Hx of supraventricular tachycardia Hypersomnia Hypertension Hypertriglyceridemia Nausea Obstructive sleep apnea of adult Other and unspecified hyperlipidemia Pain Parkinsons disease Peripheral vascular disease Post menopausal syndrome Precordial chest pain Snoring SOB (shortness of breath) Supraventricular tachycardia Surgery, elective Vaginitis and vulvovaginitis Family History Family History Mother Diabetes Father Brain cancer Son Diabetes Family history of problems with anesthesia: No Surgical History Surgical History H/O prior ablation treatment History of cholecystectomy History of tubal ligation History of Problems with Anesthesia: No Social History Social History Housing: Apartment Alcohol intake: never Patient Tobacco Use Status: Former Tobacco user e-Cigarette/Vaping Use: Never Used Second Hand Smoke Exposure: No Are you DNR?: No Advance Directives: No Advance Directives Information Provided: Yes Nutrition Risks: No Nutritional Risk service: No Current occupational status: retired Cognitive needs: No Hearing needs: No Vision needs: Yes (glasses) Meds Allergies Allergy/AdvReac Type Severity Reaction Status Date / Time influenza virus vaccine, Allergy Intermediate SWELLING Verified 10/03/22 13:53 specific [Influenza Virus Vacc,Specific] Active Medications: Current Medications Lactated Ringer's (Lr) 1,000 mls @ 50 mls/hr IVCONT .Q20H JARED Last Admin: 11/24/22 07:13 Dose: 50 mls/hr Home Medications Medication Instructions Recorded Confirmed Last Taken Type calcium carb-vit D3-minerals 600 1 tab PO BID 06/27/22 10/03/22 Unknown History mg calcium-400 unit tablet Exam Exam Date and Time: November 24, 2022 0720 Height,Weight and Vital Signs: Height 5 ft 4 in Weight 65.771 kg Last Vital Signs Temp 98 F 11/24/22 06:04 Pulse 69 11/24/22 06:04 Resp 20 11/24/22 06:04 BP 164/76 H 11/24/22 06:04 Pulse Ox 98 11/24/22 06:04 O2 Del Method Room Air 11/24/22 06:04 Pertinent Lab Results Pertinent Lab Results: Laboratory Tests 11/24/22 06:17 POC Glucose 99 Airway Mallampati Class: II TM Dist: >3cm Neck ROM: Full Denture: Upper Partial: Lower Heart: S1S2 Lungs: CTAB Assessment and Plan Assessment Anesthesia Assessment: Anesthesia Plan Discussed and Chart Reviewed Final Anesthetic Review Family History of Problems with Anesthesia: No History of Problems with Anesthesia: No NPO: Yes ASA Class: III Final Preanesthetic Review: No Changes in Pt Med Stat, Meds/Allgs Chart Reviewed, Consent Obtained/Reviewed and Anes Risks/Benef Reviewed Patient Risk: Intermediate Procedure Risk: Low Anesthetic Plan Anesthetic Plan: MAC: and Agree w/ Assess. and Plan Disposition: Standard PACU
--- NOTE | 2022-11-24 07:31 | MHC.SHP ---
Pre-Procedural Eval Section A Date of Service: 11/24/22 The patient is an INPATIENT: No Changes since office visit: Yes Patient answered all questions The History & Physical has been completed within 30 days and I have reviewed it.: No Section B Chief Complaint: Radiculopathy, lumbar region Details of Present Illness: as above Relevant Family History (Specify if Yes): No Relevant Social History: None Present Medications: None Medical History: No relevant PMH History of Previous Operations: No relevant previous surgery Allergies: Allergies Allergy/AdvReac Type Severity Reaction Status Date / Time influenza virus vaccine, Allergy Intermediate SWELLING Verified 10/03/22 13:53 specific [Influenza Virus Vacc,Specific] Review of Systems Sugical H&P ROS: Negative: Constitution, Cardiovascular, Respiratory, Psychiatric, Hem-Onc, Allergic/Immunologic, Gastrointestinal, Genitourinary, Musculoskeletal, Integumentary, Endocrine and Eyes/Ears/Nose/Throat and Yes, Specify: Neurological (Parkinson d-x) Exam Surgical H&P Exam: Normal: HEENT, Normal: Heart, Normal: Lungs, Normal: Extremities, Normal: Abdomen and Normal: Skin and Significant Findings: Neurological (restless legs) Plan Diagnosis/Plan: Unchanged I have reviewed the history and physical and performed a pertinent physical examination on my patient. No changes have occurred unless specified. Time Spent With Patient Time: Total time managing care of this patient today ___5_ minutes.
--- NOTE | 2022-11-24 07:43 | P.OP_ITS ---
Operative Note Operative Note Date of Service: 11/24/22 Narrative: Bilateral L5-S1 Transforaminal epidural steroid injection Informed consent was thoroughly explained to the patient before the procedure.? The patient came to the operating room.? He was positioned prone on operating table with a pillow under his abdomen.? Time-out was performed delineating correct site and side of the procedure, nature of the injection, name and date of of the patient. ASA monitors were aplied abd the patient was minimally sedated. We were able to communicate throughout the procedure. The lower back of the patient was prepped with ChloraPrep and draped with sterile utility towels.? C-arm was brought over the operating field and sq picture of L5 and S1 vertebrae were demonstrated on the screen.? The right side was chosen first as the side of the injection.? Tilting machine ipsilateral to the right at the level of L5 1st the most prominent picture of the right superior process of S1 was obtained on the screen.? At the lateral border of the SAP S1 projection to the skin small amount of lidocaine 1% 3-4 cc was injected to anesthetize the skin.? After that 5 in 22 gauge Quincke point needle was inserted through the skin wheal and was advanced to the L5-S1 foramina on ant erior posterior , lateral and oblique views intermittently.? When tip of the needle entered foramina projection on AP view injection of the contrast was performed demonstrating epidural and perineural spread of the contrast.?The patient did not report any paresthesia. On the lateral view contrast was spread in the epidural fashion.? After that injection of the treatment medicine 3 cc of lidocaine 1% mixed with Kenalog 20 mg was injected into the foramina.? Injection of the contrast and injection of the treatment medicine was observed live on the screen.? No intrathecal and no intravascular spread of the contrast was noted. After that the procedure was performed in the mirroring fashion at the left L5- S1 foramina. . Upon completion of the procedure sterile Band-Aids were applied. Patient tolerated procedure well she was taken outside of the operating room where she recovered uneventfully.? She went home without immediate complications.
[2022-11-24 08:24] VITALS: BP 146/71; PULSE 66; RESP 20; TEMP 36.6; O2SAT 99
--- NOTE | 2022-11-24 08:31 | PM.OP ---
Brief Operative Note Date of Service: 11/24/22 Pre-op diagnosis: radiculopathy lumbar Post-op diagnosis: same Procedure: Bilateral L5- S1 TFESI Surgeon: Benja Abdi MD Anesthesia: MAC Was an Oceanographer Physical used for this Procedure?: No Estimated blood loss (mL): 0 Condition: stable Disposition: PACU
[2022-11-24 08:37] VITALS: BP 146/62; PULSE 63; RESP 20; O2SAT 99
[2022-11-24 08:52] VITALS: BP 154/71; PULSE 63; RESP 20; TEMP 36.6; O2SAT 98
== END 2022-11-24 09:15 | disposition home or self-care (01) ==
PROVIDERS: PCP Internal Medicine; Visit Provider Anesthesiology
PROC: (CPT 64483; principal; 2022-11-24 07:30)
DX: M51.36 Other intervertebral disc degeneration, lumbar region (principal); M54.16 Radiculopathy, lumbar region; G89.29 Other chronic pain; M47.816 Spondylosis without myelopathy or radiculopathy, lumbar region; M16.0 Bilateral primary osteoarthritis of hip; M25.551 Pain in right hip; M25.552 Pain in left hip; M51.35 Other intervertebral disc degeneration, thoracolumbar region; G20 Parkinson's disease; E11.40 Type 2 diabetes mellitus with diabetic neuropathy, unspecified; Z79.84 Long term (current) use of oral hypoglycemic drugs; Z79.82 Long term (current) use of aspirin; Z79.899 Other long term (current) drug therapy; Z88.7 Allergy status to serum and vaccine; Z90.49 Acquired absence of other specified parts of digestive tract; Z87.891 Personal history of nicotine dependence
CPT/HCPCS: 64483; 82947; J2795; J3010; J3301; Q9967

== ENCOUNTER → 2022-11-24 05:53 | Outpatient (BNV) | payer OTHER, SELFPAY | PROVIDERS: PCP Internal Medicine; Visit Provider Anesthesiology | DX: M54.16 Radiculopathy, lumbar region (principal) | CPT/HCPCS: 64483 ==

== ENCOUNTER 2022-12-13 09:05 | Outpatient (REF) | payer OTHER, SELFPAY ==
[2022-12-13 11:28] LABS: Creatinine Urine 99.01 mg/dL; Microalbum/Creatinine Ratio Ur 14.1 ug/mg cr (<30)
[2022-12-13 11:43] LABS: Alanine Aminotransferase 5 U/L (0-31); Albumin Level 3.6 g/dL (3.5-5.0); Alkaline Phosphatase 50 U/L (39-117); Anion Gap 14 (12-20); Aspartate Amino Transferase 14 U/L (5-31); Bilirubin Total 0.4 mg/dL (0.0-1.0); Blood Urea Nitrogen 23 mg/dL (9-16); Calcium 9.7 mg/dL (8.4-10.2); Carbon Dioxide 26 mmol/L (22-29); Chloride 106 mmol/L (96-108); Cholesterol 130 mg/dL (<200); Estimated Glomerular Filt Rate 49; Glucose Fasting 105 mg/dL (60-99); HDL Cholesterol 44 mg/dL (>40); LDL Cholesterol Calculated 73 mg/dL (<100); Potassium 4.7 mmol/L (3.3-5.1); Sodium 141 mmol/L (135-145); Triglycerides 68 mg/dL (<150)
== END 2022-12-13 09:06 | disposition home or self-care (01) ==
LOC: HO.LAB 09:05
PROVIDERS: PCP Internal Medicine; Visit Provider Internal Medicine
DX: E11.9 Type 2 diabetes mellitus without complications (principal); M16.0 Bilateral primary osteoarthritis of hip; E55.9 Vitamin D deficiency, unspecified; E78.5 Hyperlipidemia, unspecified
CPT/HCPCS: 36415; 80053; 80061; 82043; 82306; 82570

== ENCOUNTER 2022-12-20 16:29 | Outpatient (AMB) | payer OTHER, SELFPAY ==
[2022-12-20 16:34] VITALS: BP 138/72; BMI 24.7
--- NOTE | 2022-12-20 16:34 | A.OFFPC_ITS ---
Vital Signs 12/20/22 16:34 Height 5 ft 4 in Weight 144 lb BMI 24.7 BP 138/72 Blood Pressure Location Lt brachial Position Sitting Intake Visit Reasons: dm Intake Note: Patient here for a follow up DM Certified Industrial Hygienist Required: No Accompanied by: Living Aid Allergies influenza virus vaccine, specific [Influenza Virus Vacc,Specific] Allergy (Intermediate, Verified 12/20/22 16:52) SWELLING Medication List - Last Reconciled 12/20/22 by Madison Acosta MD albuterol sulfate 90 mcg/actuation (ProAir HFA) 2 puffs inhalation Q4-6H PRN alcohol swabs (DropSafe Alcohol Prep Pads) 1 pad topical DIRECTED 90 days atorvastatin 40 mg PO BEDTIME 90 days blood sugar diagnostic (FreeStyle Lite Strips) Use 1 test strip once a day blood-glucose meter (FreeStyle Lite Meter kit) As directed calcium carbonate-vit D3-min 600 mg calcium- 400 unit 1 tab PO BID carbidopa-levodopa 50-200 mg ER 1 tab PO BID clotrimazole 1% 1 appful vaginal BEDTIME CPAP (CPAP Machine/Device) autoPAP 5-20 cm H2O fenofibrate nanocrystallized 145 mg PO DAILY lancets (Accu-Chek Softclix Lancets) USE 1 LANCET ONCE A DAY lidocaine 5% 1 patch topical DAILY lisinopril 40 mg PO DAILY loratadine 10 mg PO DAILY PRN 90 days metoprolol tartrate 25 mg PO BID 90 days mupirocin 2% 1 appl topical TID 30 days omeprazole 20 mg PO DAILY sitagliptin phos-metformin 50-500 mg (Janumet) 1 tab PO BID 90 days walker rollator with seat Tobacco use date assessed: 05/22/22 Fall risk assessment: No Falls in past year Last assessed Fall Risk: 12/20/22 Dental Screening Dental Screen Date: 12/20/22 Did you have a dental visit in the last 12 months?: Yes Did you have a dental problem in the last 6 months where you did not have access to dental care?: No Was dental information given to patient?: Patient has dentist HPI HPI Comments History of Present Illness Details This is a 72-year-old female with diabetes mellitus type 2, hypertension, Parkinson's disease and mixed hyperlipidemia that comes today ac companied by WASHING MACHINE MECHANIC for follow-up on her conditions. A1c within goal. Blood pressure stable. LDL within goal. On medication for Parkinson's disease and this is follow by Neurology. Has obstructive sleep apnea and was prescribed a CPAP machine which was not covered by insurance. [facility] Medical History Surgery, elective Pain Hx of backache Hx of supraventricular tachycardia Hypersomnia Snoring Obstructive sleep apnea of adult Chronic hip pain, bilateral Eye pain Diffuse pain Chest pain Supraventricular tachycardia Cough Other and unspecified hyperlipidemia SOB (shortness of breath) Precordial chest pain Annual physical exam Nausea Encounter to establish care Peripheral vascular disease Bilateral artificial lens implant Allergic rhinitis Post menopausal syndrome Vaginitis and vulvovaginitis Diabetes type 2, controlled CAD (coronary artery disease) Hypertriglyceridemia Depression with anxiety GERD without esophagitis Hypertension Parkinsons disease Surgical History H/O prior ablation treatment History of tubal ligation History of cholecystectomy Family History Mother Diabetes Father Brain cancer Son Diabetes Social History Housing: Apartment Alcohol intake: never Patient Tobacco Use Status: Former Tobacco user e-Cigarette/Vaping Use: Never Used Second Hand Smoke Exposure: No service: No Current occupational status: retired Cognitive needs: No Hearing needs: No Vision needs: Yes (glasses) Questionnaire Thrive Questionnaire Date Thrive assessed: 05/22/22 EH-7 AMB Questionnaire EH-7 Date EH - 7 assessed: 08/23/22 Source: Developed by Drs. Mic Garcia, Nazia Mcdaniel, Yannick Ling and colleagues, with an educational kp from [employer]. Review of Systems Const All systems reviewed & are unremarkable except as noted in HPI and below Eyes Reports no additional complaints, Denies change in vision and Denies other visual disturbances Card Denies chest pain at rest, Denies chest pain with activity, Denies edema, Denies irregular heart rhythm, Denies claudication, Denies dyspnea, Denies dyspnea on exertion, Denies orthopnea, Denies paroxysmal nocturnal dyspnea and Denies slow heart rate Resp Denies cough, Denies dyspnea and Denies dyspnea on exertion GI Denies abdominal pain, Denies change in bowel habits, Denies excessive flatus, Denies nausea and Denies vomiting Denies urinary incontinence, Denies urinary hesitancy and Denies urinary urgency Musc Denies abnormal gait, Denies atrophy, Denies deformity and Denies limited range of motion Skin/Breast Denies bleeding lesions, Denies changing lesions and Denies rash Neuro Denies abnormal gait and Denies lack of coordination Physical exam (Primary Care) Vital Signs: Last Vital Signs BP 138/72 12/20/22 16:34 BMI result Body Mass Index 24.7 Tobacco/Smoking Status: Tobacco use Status Tobacco use date assessed 05/22/22 12/20/22 16:42 Patient Tobacco Use Status Former Tobacco user 12/20/22 16:42 Tobacco use type 08/23/22 16:51 e-Cigarette/Vaping Use Never Used 12/20/22 16:42 Thrive Assessment: Date of Thrive Assessment Date Thrive assessed 05/22/22 12/20/22 16:42 Eyes General: appearance normal, both eyes and all related structures Eyelids: Yes eyelids normal Conjunctivae: conjunctivae normal Neck Neck: Yes normal visual inspection and Yes supple Resp Effort & Inspection: normal respiratory effort Auscultation: clear to auscultation bilaterally Cardio Jugular venous distension: no JVD Rate: regular rate Rhythm: regular rhythm Heart sounds: S1 normal heart sound present and S2 normal heart sound present Extrem General: Yes full ROM Results AMB Hemoglobin A1c AMB Hemoglobin A1c 6.9 % Last Edit by SANDRA Thomas on 12/20/22 16:4 6 Results Reviewed Results Reviewed: Laboratory Last Values Hgb A1c (Clinic) 6.9 % (4.0-6.0) H 12/20/22 16:33 Assessment and Plan Assessment & Plan (1) Type 2 diabetes mellitus with unspecified complications: Code(s): E11.8 - Type 2 diabetes mellitus with unspecified complications Plan: Continue Janumet. A1c goal is equal or less than 7%. (2) Parkinsons disease: Code(s): G20 - Parkinson's disease Plan: Continue carbidopa-level toe Pap. Follow-up with Neurology. (3) Essential hypertension: Code(s): I10 - Essential (primary) hypertension Plan: Continue lisinopril. Blood pressure goal is equal or less than 130/80 (4) Mixed hyperlipidemia: Code(s): E78.2 - Mixed hyperlipidemia Plan: Continue statins and fibrates. LDL goal is less than 70. Orders: Orders Microalbumin, Random (w Creat) 4 Months E11.9 - Type 2 diabetes mellitus without complications Vitamin D 25-OH Total 4 Months E55.9 - Vitamin D deficiency, unspecified AMB Hemoglobin A1c Today E11.8 - Type 2 diabetes mellitus with unspecified complications Lipid Panel 4 Months E78.5 - Hyperlipidemia, unspecified Comprehensive [place]. Panel Fast 4 Months E11.40 - Type 2 diabetes mellitus with diabetic neuropathy, unspecified Medications: Changed From calcium carbonate-vit D3-min 600 mg calcium- 400 unit 1 tab PO BID To calcium carbonate-vit D3-min 600 mg calcium- 400 unit 1 tab PO BID 90 days 180 tabs 2RF Refilled atorvastatin 40 mg PO BEDTIME 90 days 90 tabs 1RF carbidopa-levodopa 50-200 mg ER divide evenly over waking hours 1 tab PO BID 60 tabs 6RF G20 - Parkinson's disease lisinopril 40 mg PO DAILY 90 tabs 3RF hypertension metoprolol tartrate 25 mg PO BID 90 days 180 tabs 1RF omeprazole 20 mg PO DAILY 90 caps 3RF K21.9 - Gastro-esophageal reflux disease without esophagitis sitagliptin phos-metformin 50-500 mg ([place]) 1 tab PO BID 90 days 180 tabs 1RF E11.9 - Type 2 diabetes mellitus without complications Resumed fenofibrate nanocrystallized 145 mg PO DAILY 90 tabs 0RF E78.1 - Pure hyperglyceridemia Coding Level of Care Code Est Pt Level 4 (50471) Diagnoses Type 2 diabetes mellitus with unspecified complications E11.8 Parkinsons disease G20 Essential hypertension I10 Mixed hyperlipidemia E78.2 Time Spent (min) 25
== END 2022-12-20 17:11 | disposition home or self-care (01) ==
PROVIDERS: Visit Provider Internal Medicine
DX: E11.8 Type 2 diabetes mellitus with unspecified complications (principal); G20 Parkinson's disease; I10 Essential (primary) hypertension; E78.2 Mixed hyperlipidemia
CPT/HCPCS: 83036; 99214

== ENCOUNTER 2022-12-29 13:17 | Outpatient (AMB) | payer OTHER, SELFPAY ==
--- NOTE | 2022-12-29 13:16 | MHC.OFFVIS ---
Intake Vital Signs 12/29/22 13:21 Height 5 ft 4 in Weight 143 lb 2 oz BMI 24.6 BP 116/58 L Blood Pressure Location Lt brachial Position Sitting Pulse 62 Pulse Source Pulse Oximeter Pulse Oximetry (%) 98 Oxygen Delivery Method Room Air Intake Visit Reasons: S/P Bilateral L5-S1 TFESI 11/24/22 Intake Note: Pain today 09/02 Application Performance Engineer Required: Yes Application Performance Engineer Language: Belarusian Accompanied by: Spouse Allergies influenza virus vaccine, specific [Influenza Virus Vacc,Specific] Allergy (Intermediate, Verified 12/29/22 13:21) SWELLING HPI HPI Comments History of Present Illness Details Patient presents today to assess response to Bilateral L5-S1 TFESI on 11/24/[address] Abdi. Patient reports 50% pain relief in buttock and legs pain since procedure with partial improvement in her mobility, functioning and sleep. She continues to experience bilateral hip and axial low back pain as well as left sided weakness with resting tremors on the left due to Parkinson's. Patient had good results with hip steroid injections.Given osteoporosis, most prominent in left femur. We will proceed with Orthopedic evaluation for hip pain. Patient is interested to proceed with diagnostic lumbar medial branch blocks for potential Sprint PNS trial for axial low back pain. Denies any bowel or bladder incontinence or saddle anesthesia. Past Procedures: 11/24/22: Bilateral L5-S1 TFESI- 50% pain relief 05/09/22: Bilateral intra-articular hip steroid injections-80% ongoing pain relief PRIOR: Patient is a pleasant 72 years old female with complex past medical history noted for osteoarthritis, lumbar degenerative disc disease, herniated discs, Parkinson?s, diabetes mellitus type 2, PVD, depression with anxiety and chronic pain syndrome presents today for evaluation of lower back pain, bilateral hips and legs pain. She is accompanied by her MATERIALS PLANNER/PRODUCTION PLANNER who has been caring for this patient for many years. Patient is tremulous on the left side and reports Parkinson?s has been causing her significant stiffness, gait and balance issues. Patient denies any recent trauma, injury or falls. Patient recently moved here from [place] and has been followed by pain management over there with a history of multiple therapeutic injections with good results. Patient reports her back pain is axial and at times radiates to her bilateral lower legs without specific dermatome, with the right side worse than the left. She reports hot burning sensations and tingling in her bilateral groin, hip, lower legs and feet with bilateral weakness in lower extremities. Her bilateral hip pain is the most troublesome pain generator, left worse than right with significant bilateral groin pain with internal and external hip rotations, changing positions, weight bearing and getting out of bed or car positions. Pain is described as constant aching, hurting, heavy, hot burning, scalding, searing, tingling, killing, and punishing. Pain affects her daily activities, mobility, sleep, mood, and quality of life. Prolonged walking, standing, changing positions and weather changes increase her pain. Rest, medications such as oxycodone and gabapentin, topical applications, and heat therapy have been partially effective. Patient cannot recall the name of pain management clinic in [place] and states her last lumbar spine MRI was in [place] over 3 years ago. MRI report from [place] is not available today. Per recent imaging at [facility] [place], patient is noted to have mild multilevel degenerative disc disease throughout the thoracolumbar spine and moderate bilateral hip joint osteoarthritis. Denies previous back or hip surgeries. Patient reports physical therapy in the past with minimal improvement in her symptoms. She is currently unable to tolerate PT due to significant pain. Patient denies fever, malaise, cough, infection, abdominal pain, bowel or bladder incontinence or saddle anesthesia. She rates her pain at 7/10. Patient is interested in proceeding with bilateral intra-articular hip steroid injection under sedation due to uncontrolled Parkinson?s tremors. Her most recent A1C was 7.4. She reports history of DM for over 25 years and reports chronic pain in her feet related to painful diabetic neuropathy. Patient reports she has been medically treated for Parkinson?s in [place] and has been trying to establish care with a neurologist who will continue prescribing her medications to manage her worsening symptoms of Parkinson?s. [facility] Medical History Surgery, elective Pain Hx of backache Hx of supraventricular tachycardia Hypersomnia Snoring Obstructive sleep apnea of adult Chronic hip pain, bilateral Eye pain Diffuse pain Chest pain Supraventricular tachycardia Cough Other and unspecified hyperlipidemia SOB (shortness of breath) Precordial chest pain Annual physical exam Nausea Encounter to establish care Peripheral vascular disease Bilateral artificial lens implant Allergic rhinitis Post menopausal syndrome Vaginitis and vulvovaginitis Diabetes type 2, controlled CAD (coronary artery disease) Hypertriglyceridemia Depression with anxiety GERD without esophagitis Hypertension Parkinsons disease Surgical History H/O prior ablation treatment History of tubal ligation History of cholecystectomy Family History Mother Diabetes Father Brain cancer Son Diabetes Social History Housing: Apartment Alcohol intake: never Patient Tobacco Use Status: Former Tobacco user e-Cigarette/Vaping Use: Never Used Second Hand Smoke Exposure: No service: No Current occupational status: retired Cognitive needs: No Hearing needs: No Vision needs: Yes (glasses) Review of Systems Const All systems reviewed & are unremarkable except as noted in HPI and below Physical Exam Vital Signs: Last Vital Signs Pulse 62 12/29/22 13:21 BP 116/58 L 12/29/22 13:21 Pulse Ox 98 12/29/22 13:21 Oxygen Delivery Method Room Air 12/29/22 13:21 BMI result Body Mass Index 24.6 General: Appears afebrile. Alert and oriented. Mood and affect appropriate. Follows and participates in conversation appropriately. Respiratory effort is unlabored. No cough. Able to transition from sit to stand unassisted. Ambulates with bilaterally normal heel strike and toe off. Antalgic gait, slow gait. Left resting tremors. Back/Spine/Pelvis Other: Lumbar flexion and extension reproduce back, worse with extension. Demonstrates 4/5 left and 5/5 right strength of quadriceps bilaterally as well as flexion/dorsiflexion of bilateral feet against resistance. 2+ pedal pulses bilaterally. Straight leg rise with dorsiflexion positive bilaterally, left>right. +1 patellar and achilles reflexes bilaterally. Facet loading test positive bilaterally. Anette and Fantasma's signs positive bilaterally. Moderate lateral hip and groin pain with external hip rotations bilaterally, left >right. Multiple fibromyalgia TTPs of upper and lower extremities. Cervical Spine: normal cervical lordosis, cervical ROM normal and No Cervical spine tenderness Thoracic/Lumbar Spine: thoracic and lumbar spine normal to inspection, No Thoracic/lumbar spine scar(s), Lasegue's sign positive bilateral and diffuse, pain with thoraco-lumbar ROM, paraspinal muscle tenderness, thoraco-lumbar ROM limited with forward flexion (WNL) and with lateral flexion to the left (limited by pain), No thoracic spinal tenderness and lumbar spinal tenderness at L5 Pelvis: buttock tenderness bilaterally Sacroiliac joints: bilaterally tender to palpation Results Reviewed Results Reviewed: MR LUMBAR SPINE WITHOUT CONTRAST 07/12/22 CLINICAL INFORMATION: Spondylosis without myelopathy or radiculopathy. FINDINGS: There are 5 nonrib-bearing lumbar-type vertebral bodies. Slight grade 1 retrolisthesis of L1 on L2, L2 on L3, and L3 on L4. Mild chronic upper endplate compression deformities at T11 and T12. There is no bone marrow edema. No acute fractures. Vertebral body heights within the lumbar spine are maintained. Disc desiccation at all lumbar levels. Conus terminates at the L1-L2 level. There is bilateral perinephric stranding. Retroaortic left renal vein. L1-L2: There is an inferiorly migrating right paracentral disc extrusion that mildly narrows the central canal. Background annular disc bulge and mild bilateral facet arthropathy. No central canal stenosis and no foraminal stenosis. L2-L3: Diffuse annular disc bulge the superimposed right paracentral disc protrusion resulting in mass effect on the traversing right L3 nerve root within the right subarticular zone. There is no central canal stenosis and there is no foraminal stenosis. L3-L4: There is a diffuse annular disc bulge the superimposed shallow right paracentral disc protrusion and there is bilateral facet arthropathy and ligamentum flavum thickening. No central canal stenosis. No foraminal stenosis. L4-L5: A shallow right paracentral disc protrusion mildly indents the ventral thecal sac. No central canal stenosis and no foraminal stenosis. L5-S1: Inferiorly migrating central disc extrusion mildly narrows the central canal. Background annular disc bulge and moderate bilateral facet arthropathy. No central canal stenosis. Mild right-sided foraminal encroachment. IMPRESSION: * At L1-L2, there is an inferiorly migrating right paracentral disc extrusion that mildly narrows the central canal. * At L2-L3, there is a right paracentral disc protrusion resulting in mass effect on the traversing right L3 nerve root within the right subarticular zone. * At L5-S1, there is an inferiorly migrating central disc extrusion that mildly narrows the central canal. * Additional degenerative findings as discussed above. No severe central canal stenosis and no severe foraminal stenosis within the lumbar spine. * Mild chronic upper endplate compression deformities at T11 and T12. No acute fractures. * Retroaortic left renal vein. MM/XR DEXA axial skeleton 04/27/22 FINDINGS: AP SPINE L1-L4: BMD 1.179 g/cm2, Z-score 1.7, T-score 0.0, normal. LEFT FEMUR, NECK: BMD 0.647 g/cm2, Z-score -1.1, T-score -2.8, osteoporosis. LEFT FEMUR, TOTAL: BMD 0.639 g/cm2, Z-score -1.5, T-score -2.9, osteoporosis. IMPRESSION: Osteoporosis based on the lowest T-score value of -2.9 in the total femur applying World Health Organization criteria. XR LUMBOSACRAL SPINE 12/07/21 FINDINGS: The lumbar spine maintains normal alignment. The vertebral body heights are maintained. There is multilevel loss of intervertebral disc space with endplate degenerative changes in the lower thoracic and lumbar spine. Facet arthropathy of the lower lumbar spine. Atherosclerotic calcifications. IMPRESSION: Mild degenerative disease of the lumbar spine. XR PELVIS 12/07/21 FINDINGS: No acute fracture or dislocation. Joint space narrowing and subchondral sclerosis of the bilateral hips. Generative disease of the lower lumbar spine. Calcific tendinopathy on the right. Soft tissues are unremarkable. IMPRESSION: Degenerative disease the bilateral hips. CT ABDOMEN AND PELVIS WITHOUT CONTRAST 11/20/21 OSSEOUS STRUCTURES: Chronic mild superior endplate compression/Schmorl's node deformity at T11 and T12. No acute fracture. No suspicious osseous lesion. Mild multilevel degenerative disc disease. Moderate bilateral hip joint osteoarthritis with joint space narrowing, subchondral sclerosis and prominent osteophyte formation. Assessment & Plan Assessment & Plan (1) Osteoarthritis of both hips: Code(s): M16.0 - Bilateral primary osteoarthritis of hip (2) Osteoporosis: Code(s): M81.0 - Age-related osteoporosis without current pathological fracture (3) Bilateral hip pain: Code(s): M25.551 - Pain in right hip; M25.552 - Pain in left hip (4) Degenerative disc disease, lumbar: Code(s): M51.36 - Other intervertebral disc degeneration, lumbar region (5) Lumbar spondylosis: Code(s): M47.816 - Spondylosis without myelopathy or radiculopathy, lumbar region (6) Bilateral lumbar radiculopathy: Code(s): M54.16 - Radiculopathy, lumbar region Plan Patient is status post Bilateral L5-S1 TFESI with 50% ongoin pain relief. Her bilateral hip pain has returned. She had good results with hip steroidal injections in April. Given osteoporosis, we will proceed with Orthopedic evaluation for potential surgical option. DM is well controlled with most recent A1C at 6.9 on 12/20/22. For ongoing axial low back pain, schedule Bilateral L3-L4 DR L5 MBB with local and fluoroscopy, oral Ativan and skin spray. Discussed lumbar medial branch Sprint PNS trial vs RFA if positive response. Informational pamphlet provided to patient and family. All questions and concerns have been answered and patient agreed with the plan. Follow up after injections and sooner if needed. Anticoagulation: Patient is on daily Aspirin. Instructions provided when to pause Aspirin prior to injections. Justification for interventional therapy: ? Patient with average pain > 6/10 ? Patient has exhausted conservative therapy, NSAIDs, physical therapy The risks, consequences, alternatives, and benefits of various treatment options were discussed with the patient in great detail, including conservative management, injections and procedures. Orders: Referrals Orthopedics Referral M16.0 - Bilateral primary osteoarthritis of hip, M25.551 - Pain in right hip, M25.552 - Pain in left hip, M81.0 - Age-related osteoporosis without current pathological fracture Coding Level of Care Code Est Pt Level 4 (13465) Diagnoses Osteoarthritis of both hips M16.0 Osteoporosis M81.0 Bilateral hip pain M25.551; M25.552 Degenerative disc disease, lumbar M51.36 Lumbar spondylosis M47.816 Bilateral lumbar radiculopathy M54.16
[2022-12-29 13:21] VITALS: BP 116/58; PULSE 62; O2SAT 98; BMI 24.6
== END 2022-12-29 13:37 | disposition home or self-care (01) ==
PROVIDERS: PCP Internal Medicine; Visit Provider Nurse Practitioner Family
DX: M16.0 Bilateral primary osteoarthritis of hip (principal); M81.0 Age-related osteoporosis without current pathological fracture; M25.551 Pain in right hip; M25.552 Pain in left hip; M51.36 Other intervertebral disc degeneration, lumbar region; M47.816 Spondylosis without myelopathy or radiculopathy, lumbar region; M54.16 Radiculopathy, lumbar region
CPT/HCPCS: 99214

== ENCOUNTER → 2022-12-29 13:17 | Outpatient (BNVA) | payer OTHER, SELFPAY | PROVIDERS: PCP Internal Medicine; Visit Provider Nurse Practitioner Family ==

== ENCOUNTER 2023-02-06 10:05 | Outpatient (REF) | payer OTHER, SELFPAY ==
--- NOTE | ~2023-02-06 | XR_ITS ---
EXAMINATION: XR PELVIS XR BILATERAL HIPS CLINICAL INFORMATION: Bilateral hip pain. COMPARISON: Pelvis radiograph 12/07/2021, CT abdomen and pelvis 11/20/2021. TECHNIQUE: Single view pelvis with 2 additional views each hip. FINDINGS: Degenerative changes are present in the visualized lower lumbosacral spine. Surgical clips are present and seen in the right hemipelvis and right lower quadrant. Degenerative changes are present in both hips with sclerosis and some osteophyte formation predominantly in the supra-acetabular area. Joint spaces appear relatively well preserved on the supine radiographs. A bone island is present in the right femoral neck. XR/XR hip LT w PEL1V IMPRESSION: Mild degenerative changes in both hips.
--- NOTE | ~2023-02-06 | XR_ITS ---
EXAMINATION: XR PELVIS XR BILATERAL HIPS CLINICAL INFORMATION: Bilateral hip pain. COMPARISON: Pelvis radiograph 12/07/2021, CT abdomen and pelvis 11/20/2021. TECHNIQUE: Single view pelvis with 2 additional views each hip. FINDINGS: Degenerative changes are present in the visualized lower lumbosacral spine. Surgical clips are present and seen in the right hemipelvis and right lower quadrant. Degenerative changes are present in both hips with sclerosis and some osteophyte formation predominantly in the supra-acetabular area. Joint spaces appear relatively well preserved on the supine radiographs. A bone island is present in the right femoral neck. XR/XR hip RT min 2V IMPRESSION: Mild degenerative changes in both hips.
== END 2023-02-06 10:06 | disposition home or self-care (01) ==
LOC: HO.HOSX 10:05
PROVIDERS: Visit Provider Physician Assistant
DX: M16.0 Bilateral primary osteoarthritis of hip (principal)
CPT/HCPCS: 73502

== ENCOUNTER 2023-02-06 14:48 | Outpatient (AMB) | payer OTHER, SELFPAY ==
--- NOTE | 2023-02-06 14:50 | A.OFFVIS_ITS ---
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 Patient reports ongoing pain for more than 10 years. She states that her left hip is worse than her right. Hx of injections with relief. Hx of PT with no relief. 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 The patient reports ongoing pain for more than 10 years. She states the left hip is worse then the right hip. She confirms a history of cortisone injections with relief. She confirms a history of physical therapy with no relief. She reports a history of Parkinson?s that affects her left side. [facility] Medical History Surgery, elective Pain Hx of backache Hx of supraventricular tachycardia Hypersomnia Snoring Obstructive sleep apnea of adult Chronic hip pain, bilateral Eye pain Diffuse pain Chest pain Supraventricular tachycardia Cough Other and unspecified hyperlipidemia SOB (shortness of breath) Precordial chest pain Annual physical exam Nausea Encounter to establish care Peripheral vascular disease Bilateral artificial lens implant Allergic rhinitis Post menopausal syndrome Vaginitis and vulvovaginitis Diabetes type 2, controlled CAD (coronary artery disease) Hypertriglyceridemia Depression with anxiety GERD without esophagitis Hypertension Parkinsons disease Surgical History H/O prior ablation treatment History of tubal ligation History of cholecystectomy Family History Mother Diabetes Father Brain cancer Son Diabetes Social History Housing: Apartment Alcohol intake: never Patient Tobacco Use Status: Former Tobacco user e-Cigarette/Vaping Use: Never Used Second Hand Smoke Exposure: No service: No Current occupational status: retired Cognitive needs: No Hearing needs: No Vision needs: Yes (glasses) Review of Systems Const All systems reviewed & are unremarkable except as noted in HPI and below Physical Exam Vital Signs: BMI result Body Mass Index 24.5 Const General: cooperative and no acute distress Orientation/consciousness: patient oriented x3 Resp Effort & Inspection: normal respiratory effort and able to speak in complete sentences Cardio Peripheral pulses: Peripheral pulses 2+ throughout Skin General skin exam: no rashes or lesions noted Neuro General: patient oriented x3 Extrem Other: Bilateral hips: Normal to inspection. No ecchymosis, erythema, or edema. Limited internal and external rotation. No tenderness to palpation over the greater trochanteric bursa. 3/5 strength with resisted hip flexion, knee extension, abduction, and abduction. Able to perform straight leg raise. NVI. Assessment & Plan Assessment & Plan (1) Osteoarthritis of left hip: Code(s): M16.12 - Unilateral primary osteoarthritis, left hip Qualifiers: Osteoarthritis type: unspecified Qualified Code(s): M16.12 - Unilateral primary osteoarthritis, left hip (2) Osteoarthritis of right hip: Code(s): M16.11 - Unilateral primary osteoarthritis, right hip Qualifiers: Osteoarthritis type: unspecified Qualified Code(s): M16.11 - Unilateral primary osteoarthritis, right hip Plan Ms. Solo Blair is a 73-year-old female who presents in the office today, as a new patient, for an evaluation of bilateral hip pain. The patient reports ongoing pain for more than 10 years. She states the left hip is worse then the right hip. She confirms a history of cortisone injections with relief. She confirms a history of physical therapy with no relief. She reports a history of Parkinson?s that affects her left side. The patient will be referred for a bilateral hp arthrogram at the hospital. Follow up will be PRN, or sooner if needed. X-rays of the bilateral hips which were obtained while in the office today and were reviewed by me, Tasia Hernández PA-C, revealed bilateral osteoarthritis. Orders: Orders XR hip LT w PEL1V Today M25.559 - Pain in unspecified hip XR hip RT min 2V Today M25.559 - Pain in unspecified hip FL arthrogram hip LT Today M16.0 - Bilateral primary osteoarthritis of hip FL arthrogram hip RT Today M16.0 - Bilateral primary osteoarthritis of hip Patient Instructions: Scribed for Tasia Hernández PA-C by Katerin Caballero, medical interpreter, on 02/06/2023 at 2:55 pm, EST. Coding Level of Care Code New Pt Level 4 (22431) Diagnoses Osteoarthritis of left hip, unspecified osteoarthritis type M16.12 Osteoarthritis type: unspecified Osteoarthritis of right hip, unspecified osteoarthritis type M16.11 Osteoarthritis type: unspecified
[2023-02-06 14:51] VITALS: BMI 24.5
== END 2023-02-06 15:32 | disposition home or self-care (01) ==
PROVIDERS: PCP Internal Medicine; Visit Provider Physician Assistant
DX: M16.0 Bilateral primary osteoarthritis of hip (principal)
CPT/HCPCS: 99204

== ENCOUNTER 2023-02-27 06:20 | Outpatient (REF) | payer OTHER, SELFPAY ==
--- NOTE | ~2023-02-27 | FL_ITS ---
EXAMINATION: XR FLUOROSCOPY WITH IMAGES CLINICAL INFORMATION: Spondylosis without myelopathy or radiculopathy, lumbar region. COMPARISON: None available. TECHNIQUE: Fluoroscopy Supervised By: Dr. Benja Abdi. Fluoroscopy Time: 0.5 minutes. Cumulative Dose: 7.03 mGy. DAP: 1.70 Gycm2. Images: 6. FINDINGS: Images demonstrate needle placement and contrast injection adjacent to the bilateral lateral L3, L4 and L5 vertebrae FL/FL guidance in treatment room IMPRESSION: Fluoroscopy for pain management procedure.
== END 2023-02-27 06:21 | disposition home or self-care (01) ==
LOC: CF 06:20
PROVIDERS: Visit Provider Anesthesiology
DX: M47.816 Spondylosis without myelopathy or radiculopathy, lumbar region (principal); M16.0 Bilateral primary osteoarthritis of hip; M51.36 Other intervertebral disc degeneration, lumbar region; M54.16 Radiculopathy, lumbar region; M81.0 Age-related osteoporosis without current pathological fracture
CPT/HCPCS: 64493; 64494; J2795; Q9967

== ENCOUNTER 2023-02-27 12:54 | Outpatient (AMB) | payer OTHER, SELFPAY ==
[2023-02-27 13:05] VITALS: BP 140/64; PULSE 77; RESP 12; O2SAT 97
--- NOTE | 2023-02-27 13:05 | MHC.OFFVIS ---
Intake Vital Signs 02/27/23 13:05 02/27/23 13:51 BP 140/64 H 120/60 Blood Pressure Location Rt brachial Rt brachial Position Sitting Sitting Respiration 12 12 Pulse 77 74 Pulse Source Pulse Oximeter Pulse Oximeter Pulse Oximetry (%) 97 95 Oxygen Delivery Method Room Air Room Air Intake Visit Reasons: BILATERAL DIAGNOSTIC L3, L4, DRL5 MBB/ATIVAN REQ Allergies influenza virus vaccine, specific [Influenza Virus Vacc,Specific] Allergy (Intermediate, Verified 02/27/23 13:05) SWELLING [facility] Medical History Surgery, elective Pain Hx of backache Hx of supraventricular tachycardia Hypersomnia Snoring Obstructive sleep apnea of adult Chronic hip pain, bilateral Eye pain Diffuse pain Chest pain Supraventricular tachycardia Cough Other and unspecified hyperlipidemia SOB (shortness of breath) Precordial chest pain Annual physical exam Nausea Encounter to establish care Peripheral vascular disease Bilateral artificial lens implant Allergic rhinitis Post menopausal syndrome Vaginitis and vulvovaginitis Diabetes type 2, controlled CAD (coronary artery disease) Hypertriglyceridemia Depression with anxiety GERD without esophagitis Hypertension Parkinsons disease Surgical History H/O prior ablation treatment History of tubal ligation History of cholecystectomy Family History Mother Diabetes Father Brain cancer Son Diabetes Social History Housing: Apartment Alcohol intake: never Patient Tobacco Use Status: Former Tobacco user e-Cigarette/Vaping Use: Never Used Second Hand Smoke Exposure: No service: No Current occupational status: retired Cognitive needs: No Hearing needs: No Vision needs: Yes (glasses) Physical Exam Vital Signs: Last Vital Signs Pulse 74 02/27/23 13:51 Resp 12 02/27/23 13:51 BP 120/60 02/27/23 13:51 Pulse Ox 95 02/27/23 13:51 Oxygen Delivery Method Room Air 02/27/23 13:51 Assessment & Plan Assessment & Plan (1) Osteoarthritis of both hips: Code(s): M16.0 - Bilateral primary osteoarthritis of hip (2) Osteoporosis: Code(s): M81.0 - Age-related osteoporosis without current pathological fracture (3) Bilateral hip pain: Code(s): M25.551 - Pain in right hip; M25.552 - Pain in left hip (4) Degenerative disc disease, lumbar: Code(s): M51.36 - Other intervertebral disc degeneration, lumbar region (5) Lumbar spondylosis: Code(s): M47.816 - Spondylosis without myelopathy or radiculopathy, lumbar region Plan: Diagnostic medial branch block L3,L4 dorsal ramus L5 bilateral.? ? ?Informed consent was explained to the patient. All questions were explained and? answered.? The patient was taken inside the operating room where she was positioned prone on the operating table. Time-out was performed delineating correct site, side, the nature of the procedure, patient's allergy, . All operating room staff was participating in OR time-out procedure. ? ? The lower back was prepped with ChloraPrep and draped with sterile towels.? C-arm was brought over the operating field and sq picture of L4-, L5 vertebra and S1 AREA were delineated on the screen.? Point of interest were delineated as confluence of superior articular process of L4 and L5 vertebra bilaterally with corresponding transverse processes as well as confluence of the sacral alae bilaterally with superior articular process of S1.? The projection of the point of interest to the skin were injected with the small amount of local anesthetic lidocaine 2% 1-1.5 cc.? After that 22 gauge 3.5 inch spinal needle was driven sequentially to the points of interest in tunnel vision fashion. After needles gently contacted the bone at the point of interests the needle was injected with small amount of the contrast.? The injection of the contrast did not demonstrate any intravascular or intrathecal spread of the contrast.? After that injection of the? ropivacaine 0.5%-1cc was performed at each needle location.??after that the needles were removed and Bandaids were applied. ? Upon completion of the injections? needle was? removed and sterile Band-Aids were applied.? The patient tolerated procedure very well. (6) Bilateral lumbar radiculopathy: Code(s): M54.16 - Radiculopathy, lumbar region Plan Patient is status post Bilateral L5-S1 TFESI with 50% ongoin pain relief. Her bilateral hip pain has returned. She had good results with hip steroidal injections in April. Given osteoporosis, we will proceed with Orthopedic evaluation for potential surgical option. DM is well controlled with most recent A1C at 6.9 on 12/20/22. For ongoing axial low back pain, schedule Bilateral L3-L4 DR L5 MBB with local and fluoroscopy, oral Ativan and skin spray. Discussed lumbar medial branch Sprint PNS trial vs RFA if positive response. Informational pamphlet provided to patient and family. All questions and concerns have been answered and patient agreed with the plan. Follow up after injections and sooner if needed. Anticoagulation: Patient is on daily Aspirin. Instructions provided when to pause Aspirin prior to injections. Justification for interventional therapy: ? Patient with average pain > 6/10 ? Patient has exhausted conservative therapy, NSAIDs, physical therapy The risks, consequences, alternatives, and benefits of various treatment options were discussed with the patient in great detail, including conservative management, injections and procedures. Orders: Orders FL guidance in treatment room 02/27/23 M47.816 - Spondylosis without myelopathy or radiculopathy, lumbar region Coding Level of Care Code Procedure Only Diagnoses Osteoarthritis of both hips M16.0 Osteoporosis M81.0 Bilateral hip pain M25.551; M25.552 Degenerative disc disease, lumbar M51.36 Lumbar spondylosis M47.816 Bilateral lumbar radiculopathy M54.16
[2023-02-27 13:51] VITALS: BP 120/60; PULSE 74; RESP 12; O2SAT 95
== END 2023-02-27 13:45 | disposition home or self-care (01) ==
LOC: HO.PMCPRC 12:54
PROVIDERS: PCP Internal Medicine; Visit Provider Anesthesiology
DX: M47.816 Spondylosis without myelopathy or radiculopathy, lumbar region (principal)
CPT/HCPCS: 64493; 64494

== ENCOUNTER 2023-03-06 12:53 | Outpatient (AMB) | payer OTHER, SELFPAY ==
--- NOTE | 2023-03-06 12:57 | A.OFFVIS_ITS ---
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 Abdi. Patient reports 100% pain relief in the low back since procedure with significant improvement in her mobility, functioning and sleep. Patient would like to pursue the peripheral nerve stimulation with SPRINT for axial low back pain given the good results with bilateral diagnostic lumbar MBBs. We also discussed radiofrequency ablation as a back up option. Denies any bowel or bladder incontinence or saddle anesthesia. She has Parkinson's that affects her left side. Pain is rated 0/10. Past Procedures: 02/27/23: Bilateral Diagnostic L3-L4 DR L5 MBB-100% pain relief 11/24/22: Bilateral L5-S1 TFESI- 50% charlie n relief 05/09/22: Bilateral intra-articular hip steroid injections-80% ongoing pain relief PRIOR: Patient is a pleasant 72 years old female with complex past medical history noted for osteoarthritis, lumbar degenerative disc disease, herniated discs, Parkinson?s, diabetes mellitus type 2, PVD, depression with anxiety and chronic pain syndrome presents today for evaluation of lower back pain, bilateral hips and legs pain. She is accompanied by her LICENSE DISTRIBUTOR who has been caring for this patient for many years. Patient is tremulous on the left side and reports Parkinson?s has been causing her significant stiffness, gait and balance issues. Patient denies any recent trauma, injury or falls. Patient recently moved here from [place] and has been followed by pain management over there with a history of multiple therapeutic injections with good results. Patient reports her back pain is axial and at times radiates to her bilateral lower legs without specific dermatome, with the right side worse than the left. She reports hot burning sensations and tingling in her bilateral groin, hip, lower legs and feet with bilateral weakness in lower extremities. Her bilateral hip pain is the most troublesome pain generator, left worse than right with significant bilateral groin pain with internal and external hip rotations, changing positions, weight bearing and getting out of bed or car positions. Pain is described as constant aching, hurting, heavy, hot burning, scalding, searing, tingling, killing, and punishing. Pain affects her daily activities, mobility, sleep, mood, and quality of life. Prolonged walking, standing, changing positions and weather changes increase her pain. Rest, medications such as oxycodone and gabapentin, topical applications, and heat therapy have been partially effective. Patient cannot recall the name of pain management clinic in [place] and states her last lumbar spine MRI was in [place] over 3 years ago. MRI report from [place] is not available today. Per recent imaging at [facility], patient is noted to have mild multilevel degenerative disc disease throughout the thoracolumbar spine and moderate bilateral hip joint osteoarthritis. Denies previous back or hip surgeries. Patient reports physical therapy in the past with minimal improvement in her symptoms. She is currently unable to tolerate PT due to significant pain. Patient denies fever, malaise, cough, infection, abdominal pain, bowel or bladder incontinence or saddle anesthesia. She rates her pain at 7/10. Patient is interested in proceeding with bilateral intra-articular hip steroid injection under sedation due to uncontrolled Parkinson?s tremors. Her most recent A1C was 7.4. She reports history of DM for over 25 years and reports chronic pain in her feet related to painful diabetic neuropathy. Patient reports she has been medically treated for Parkinson?s in [place] and has been trying to establish care with a neurologist who will continue prescribing her medications to manage her worsening symptoms of Parkinson?s. [facility] Medical History Surgery, elective Pain Hx of backache Hx of supraventricular tachycardia Hypersomnia Snoring Obstructive sleep apnea of adult Chronic hip pain, bilateral Eye pain Diffuse pain Chest pain Supraventricular tachycardia Cough Other and unspecified hyperlipidemia SOB (shortness of breath) Precordial chest pain Annual physical exam Nausea Encounter to establish care Peripheral vascular disease Bilateral artificial lens implant Allergic rhinitis Post menopausal syndrome Vaginitis and vulvovaginitis Diabetes type 2, controlled CAD (coronary artery disease) Hypertriglyceridemia Depression with anxiety GERD without esophagitis Hypertension Parkinsons disease Surgical History H/O prior ablation treatment History of tubal ligation History of cholecystectomy Family History Mother Diabetes Father Brain cancer Son Diabetes Social History Housing: Apartment Alcohol intake: never Patient Tobacco Use Status: Former Tobacco user e-Cigarette/Vaping Use: Never Used Second Hand Smoke Exposure: No service: No Current occupational status: retired Cognitive needs: No Hearing needs: No Vision needs: Yes (glasses) Review of Systems Const All systems reviewed & are unremarkable except as noted in HPI and below Physical Exam Vital Signs: Last Vital Signs Pulse 63 03/06/23 13:02 BP 138/61 03/06/23 13:02 Pulse Ox 98 03/06/23 13:02 Oxygen Delivery Method Room Air 03/06/23 13:02 BMI result Body Mass Index 25.1 General: Appears afebrile. Alert and oriented. Mood and affect appropriate. Follows and participates in conversation appropriately. Respiratory effort is unlabored. No cough. Able to transition from sit to stand unassisted. Ambulates with bilaterally normal heel strike and toe off. Antalgic gait, slow gait. Left resting tremors. Back/Spine/Pelvis Cervical Spine: normal cervical lordosis, cervical ROM normal and No Cervical spine tenderness Thoracic/Lumbar Spine: thoracic and lumbar spine normal to inspection, No Thoracic/lumbar spine scar(s), Lasegue's sign negative, straight leg raise negative bilaterally, pain with thoraco-lumbar ROM, paraspinal muscle te nderness, thoraco-lumbar ROM limited with forward flexion (WNL) and with lateral flexion to the left (limited by pain), No thoracic spinal tenderness and lumbar spinal tenderness at L5 Sacroiliac joints: bilaterally nontender Extrem General: Yes capillary refill normal, Yes no clubbing, cyanosis or edema and Yes no calf tenderness Results Reviewed Results Reviewed: MR LUMBAR SPINE WITHOUT CONTRAST 07/12/22 CLINICAL INFORMATION: Spondylosis without myelopathy or radiculopathy. FINDINGS: There are 5 nonrib-bearing lumbar-type vertebral bodies. Slight grade 1 retrolisthesis of L1 on L2, L2 on L3, and L3 on L4. Mild chronic upper endplate compression deformities at T11 and T12. There is no bone marrow edema. No acute fractures. Vertebral body heights within the lumbar spine are maintained. Disc desiccation at all lumbar levels. Conus terminates at the L1-L2 level. There is bilateral perinephric stranding. Retroaortic left renal vein. L1-L2: There is an inferiorly migrating right paracentral disc extrusion that mildly narrows the central canal. Background annular disc bulge and mild bilateral facet arthropathy. No central canal stenosis and no foraminal stenosis. L2-L3: Diffuse annular disc bulge the superimposed right paracentral disc protrusion resulting in mass effect on the traversing right L3 nerve root within the right subarticular zone. There is no central canal stenosis and there is no foraminal stenosis. L3-L4: There is a diffuse annular disc bulge the superimposed shallow right paracentral disc protrusion and there is bilateral facet arthropathy and ligamentum flavum thickening. No central canal stenosis. No foraminal stenosis. L4-L5: A shallow right paracentral disc protrusion mildly indents the ventral thecal sac. No central canal stenosis and no foraminal stenosis. L5-S1: Inferiorly migrating central disc extrusion mildly narrows the central canal. Background annular disc bulge and moderate bilateral facet arthropathy. No central canal stenosis. Mild right-sided foraminal encroachment. IMPRESSION: * At L1-L2, there is an inferiorly migrating right paracentral disc extrusion that mildly narrows the central canal. * At L2-L3, there is a right paracentral disc protrusion resulting in mass effect on the traversing right L3 nerve root within the right subarticular zone. * At L5-S1, there is an inferiorly migrating central disc extrusion that mildly narrows the central canal. * Additional degenerative findings as discussed above. No severe central canal stenosis and no severe foraminal stenosis within the lumbar spine. * Mild chronic upper endplate compression deformities at T11 and T12. No acute fractures. * Retroaortic left renal vein. MM/XR DEXA axial skeleton 04/27/22 FINDINGS: AP SPINE L1-L4: BMD 1.179 g/cm2, Z-score 1.7, T-score 0.0, normal. LEFT FEMUR, NECK: BMD 0.647 g/cm2, Z-score -1.1, T-score -2.8, osteoporosis. LEFT FEMUR, TOTAL: BMD 0.639 g/cm2, Z-score -1.5, T-score -2.9, osteoporosis. IMPRESSION: Osteoporosis based on the lowest T-score value of -2.9 in the total femur applying World Health Organization criteria. XR LUMBOSACRAL SPINE 12/07/21 FINDINGS: The lumbar spine maintains normal alignment. The vertebral body heights are maintained. There is multilevel loss of intervertebral disc space with endplate degenerative changes in the lower thoracic and lumbar spine. Facet arthropathy of the lower lumbar spine. Atherosclerotic calcifications. IMPRESSION: Mild degenerative disease of the lumbar spine. XR PELVIS 12/07/21 FINDINGS: No acute fracture or dislocation. Joint space narrowing and subchondral sclerosis of the bilateral hips. Generative disease of the lower lumbar spine. Calcific tendinopathy on the right. Soft tissues are unremarkable. IMPRESSION: Degenerative disease the bilateral hips. CT ABDOMEN AND PELVIS WITHOUT CONTRAST 11/20/21 OSSEOUS STRUCTURES: Chronic mild superior endplate compression/Schmorl's node deformity at T11 and T12. No acute fracture. No suspicious osseous lesion. Mild multilevel degenerative disc disease. Moderate bilateral hip joint osteoarthritis with joint space narrowing, subchondral sclerosis and prominent osteophyte formation. Assessment & Plan Assessment & Plan (1) Degenerative disc disease, lumbar: Code(s): M51.36 - Other intervertebral disc degeneration, lumbar region (2) Lumbar spondylosis: Code(s): M47.816 - Spondylosis without myelopathy or radiculopathy, lumbar region Plan Patient would like to pursue the peripheral nerve stimulation with SPRINT for axial low back pain given the good results with recent bilateral diagnostic lumbar MBBs. We also discussed radiofrequency ablation as a back up option. Schedule Bilateral L3 Medial Branch Sprint PNS trial with local OR and fluoroscopy. Patient would like to start with left side first. All questions and concerns have been answered and patient agreed with the plan. Follow up after Sprint placement and sooner if needed. Anticoagulation: Patient is on daily Aspirin. Instructions provided when to pause Aspirin prior to injections. Justification for interventional therapy: ? Patient with average pain > 6/10 ? Patient has exhausted conservative therapy, NSAIDs, physical therapy The risks, consequences, alternatives, and benefits of various treatment options were discussed with the patient in great detail, including conservative management, injections and procedures. Coding Level of Care Code Est Pt Level 4 (37221) Diagnoses Degenerative disc disease, lumbar M51.36 Lumbar spondylosis M47.816
[2023-03-06 13:02] VITALS: BP 138/61; PULSE 63; O2SAT 98; BMI 25.1
== END 2023-03-06 13:35 | disposition home or self-care (01) ==
PROVIDERS: PCP Internal Medicine; Visit Provider Nurse Practitioner Family
DX: M51.36 Other intervertebral disc degeneration, lumbar region (principal); M47.816 Spondylosis without myelopathy or radiculopathy, lumbar region
CPT/HCPCS: 99214

== ENCOUNTER → 2023-03-06 12:53 | Outpatient (BNVA) | payer OTHER, SELFPAY | PROVIDERS: PCP Internal Medicine; Visit Provider Nurse Practitioner Family ==

== ENCOUNTER 2023-04-09 14:00 | Outpatient (AMB) | payer OTHER, SELFPAY ==
--- NOTE | 2023-04-09 14:03 | A.OFFVIS_ITS ---
Intake Vital Signs 04/09/23 14:06 Height 5 ft 4 in Weight 148 lb 8 oz BMI 25.5 BP 124/68 Blood Pressure Location Rt brachial Position Sitting Respiration 15 Pulse 64 Pulse Source Pulse Oximeter Pulse Oximetry (%) 96 Oxygen Delivery Method Room Air Intake Visit Reasons: 6m f/u Parkinson's - Confirmed Intake Note: Pt presents to the office for a 6 month follow up for Parkinson's. Data Virtualization Consultant Required: No Allergies influenza virus vaccine, specific [Influenza Virus Vacc,Specific] Allergy (Intermediate, Verified 04/09/23 14:04) SWELLING Medication List - Last Reconciled 04/09/23 by Chloe Hensley MD albuterol sulfate 90 mcg/actuation (ProAir HFA) 2 puffs inhalation Q4-6H PRN alcohol swabs (DropSafe Alcohol Prep Pads) 1 pad topical DIRECTED 90 days atorvastatin 40 mg PO BEDTIME 90 days blood sugar diagnostic (FreeStyle Lite Strips) Use 1 test strip once a day blood-glucose meter (FreeStyle Lite Meter kit) As directed calcium carbonate-vit D3-min 600 mg calcium- 400 unit 1 tab PO BID 90 days carbidopa-levodopa 50-200 mg ER 1 tab PO BID clotrimazole 1% 1 appful vaginal BEDTIME CPAP (CPAP Machine/Device) autoPAP 5-20 cm H2O fenofibrate nanocrystallized 145 mg PO DAILY lancets (Accu-Chek Softclix Lancets) USE 1 LANCET ONCE A DAY lidocaine 5% 1 patch topical DAILY lisinopril 40 mg PO DAILY loratadine 10 mg PO DAILY PRN 90 days metoprolol tartrate 25 mg PO BID 90 days mupirocin 2% 1 appl topical TID 30 days omeprazole 20 mg PO DAILY sitagliptin phos-metformin 50-500 mg (Janumet) 1 tab PO BID 90 days walker rollator with seat HPI HPI Comments History of Present Illness Details 73 y/o female comes for follow up of par kinsons disease. She moved from [place] 15 months ago. Home sleep test - AHI 20/hr and oxygen gela 83% she did not get her CPAP yet. SHe was diagnosed with Parkinsons disease in [place] 5 years ago when she presented with left sided tremors and gait issues . she also has lumbar spondylosis which affects her gait.she is on sinemet CR 50 /200 bid She has mild memory issues.she denies any abnormal sleep behavior. she has depression and anxiety. she is not motivated.Her voice is softer. Her handwriting is smaller. she needs help withe dressing and cutting food. she can shower herself. Her gait is slow, has a walker . No recent falls.Last fall was 2 year ago. she has mild constipation.she has mild dizziness or double vision. [facility] Medical History Surgery, elective Pain Hx of backache Hx of supraventricular tachycardia Hypersomnia Snoring Obstructive sleep apnea of adult Chronic hip pain, bilateral Eye pain Diffuse pain Chest pain Supraventricular tachycardia Cough Other and unspecified hyperlipidemia SOB (shortness of breath) Precordial chest pain Annual physical exam Nausea Encounter to establish care Peripheral vascular disease Bilateral artificial lens implant Allergic rhinitis Post menopausal syndrome Vaginitis and vulvovaginitis Diabetes type 2, controlled CAD (coronary artery disease) Hypertriglyceridemia Depression with anxiety GERD without esophagitis Hypertension Parkinsons disease Surgical History H/O prior ablation treatment History of tubal ligation History of cholecystectomy Family History Mother Diabetes Father Brain cancer Son Diabetes Social History Housing: Apartment Alcohol intake: never Patient Tobacco Use Status: Former Tobacco user e-Cigarette/Vaping Use: Never Used Second Hand Smoke Exposure: No service: No Current occupational status: retired Cognitive needs: No Hearing needs: No Vision needs: Yes (glasses) Physical Exam Vital Signs: Last Vital Signs Pulse 64 04/09/23 14:06 Resp 15 04/09/23 14:06 BP 124/68 04/09/23 14:06 Pulse Ox 96 04/09/23 14:06 Oxygen Delivery Method Room Air 04/09/23 14:06 BMI result Body Mass Index 25.5 Const General: cooperative, healthy appearing and comfortable Nutritional Appearance: average body habitus Orientation/consciousness: patient oriented x3 Limitations: physical limitations HEENT Head: Yes normal to inspection and No normocephalic Neuro Other: left LE rest tremors Mild cog wheel rigidty Left UE Decreased facial expression and blink FFM and foot taps decreased kianna L>R Gait- slow , mildly antalgic Voice- normal General: patient oriented x3 Cranial nerves: Yes Nystagmus not present and Yes Normal facial strength present Cognition (Neuro): normal cognition Motor exam (neuro): 5/5 motor strength present throughout Coordination: [id number] test normal Assessment & Plan Assessment & Plan (1) Parkinsons disease: Code(s): G20 - Parkinson's disease (2) ANTONETTE (obstructive sleep apnea): Code(s): G47.33 - Obstructive sleep apnea (adult) (pediatric) Plan Continue Physical therapy sinemet CR 50/200 bid Cpap 5-15 cm - [facility] - [facility] the [facility] brain Coding Level of Care Code Est Pt Level 4 (32852) Diagnoses Parkinsons disease G20 ANTONETTE (obstructive sleep apnea) G47.33
[2023-04-09 14:06] VITALS: BP 124/68; PULSE 64; RESP 15; O2SAT 96; BMI 25.5
== END 2023-04-09 14:32 | disposition home or self-care (01) ==
PROVIDERS: PCP Internal Medicine; Visit Provider Psychiatry & Neurology Neurology
DX: G20.A1 Parkinson's disease without dyskinesia, without mention of fluctuations (principal); G47.33 Obstructive sleep apnea (adult) (pediatric)
CPT/HCPCS: 99214

== ENCOUNTER → 2023-04-09 14:00 | Outpatient (BNVA) | payer OTHER, SELFPAY | PROVIDERS: PCP Internal Medicine; Visit Provider Psychiatry & Neurology Neurology | DX: G47.10 Hypersomnia, unspecified (principal); R06.83 Snoring ==

== ENCOUNTER 2023-04-17 18:51 | Emergency (ER) | payer OTHER, MEDICAID, SELFPAY ==
--- NOTE | ~2023-04-17 | CT_ITS ---
EXAMINATION: CT ABDOMEN AND PELVIS WITH CONTRAST CLINICAL INFORMATION: Diffuse abdominal pain, nausea/vomiting/diarrhea COMPARISON: 11/20/2021 TECHNIQUE: Multidetector volumetric images were obtained from the superior aspect of the liver through the pubic symphysis following administration 85 mL of Omnipaque 350 intravenous contrast. Sagittal and coronal reformatted images were obtained on the technologist's workstation. Oral contrast: No This CT examination was performed using dose optimization techniques as appropriate, variously including the following: *Automated exposure control *Adjustment of mA and/or kV according to patient size (this includes techniques or standardized protocols for targeted exams where dose is matched to indication/reason for exam; i.e. extremities or head) *Use of iterative reconstruction technique DLP: 312 mGy-cm FINDINGS: LUNG BASES: The visualized lung bases are unremarkable. Coronary artery calcifications are present. LIVER, GALLBLADDER, AND BILIARY TREE: The liver is normal in size, shape, and attenuation. No focal hepatic lesion or biliary ductal dilatation is present. Patient is status post cholecystectomy. PANCREAS: Unremarkable. SPLEEN: Unremarkable. ADRENAL GLANDS: Unremarkable. KIDNEYS AND URETERS: Bilateral nephrograms are symmetric. No hydronephrosis or obstructing calculus identified. Right renal renal cortical scarring noted. Small hypodensities in the right kidney favor cysts; no follow-up recommended. BLADDER: Partially distended without significant wall thickening. There is suggestion of a tiny calcification along the right posterior bladder wall on image 80/99. GASTROINTESTINAL TRACT: Colonic diverticulosis is noted. The small and large bowel are otherwise unremarkable without evidence of obstruction or pericolonic inflammatory change. The appendix is unremarkable. No free fluid or free air is seen. ABDOMINAL WALL: No significant hernia is appreciated. LYMPH NODES: Normal. VASCULAR: There is atherosclerotic calcification along the aorta and iliac arteries. There is aneurysmal dilation of the infrarenal aorta to 3.1 cm. PELVIC VISCERA: Unremarkable. OSSEOUS STRUCTURES: Degenerative changes are noted in the spine. CT/CT abdomen pelvis w IV con IMPRESSION: 1. No acute findings identified in the abdomen/pelvis. 2. Suggestion of a tiny calcification along the right posterior bladder, which could represent a calculus or bladder wall calcification. The possibility of neoplastic wall thickening cannot be excluded with this appearance. Correlation with urinalysis is recommended. 3. Infrarenal abdominal aortic aneurysm measuring 3.1 cm. Recommend followup every 3 years. Reference: J Am Coby Radiol 2013; 10 (10): 789-794. 4. Coronary artery calcifications. Correlation with cardiac risk factors is recommended.
[2023-04-17 19:58] VITALS: BP 125/82; PULSE 69; RESP 19; TEMP 36.6; O2SAT 100; BMI 25.6
--- NOTE | 2023-04-17 19:58 | ED.NAVMDI ---
HPI - Nausea/Vomiting/Diarrhea General Chief complaint: Nausea/Vomiting/Diarrhea Stated complaint: vomiting/diarrhea 2days Time Seen by Provider: 04/18/23 03:24 Source: patient and head of integrated media Mode of arrival: ambulatory History of Present Illness HPI Narrative: 73-year-old female reports vomiting and diarrhea for the past couple of days and denies taking any medication for constipation. Patient denies any fevers or chills but reports possible sick contact with her healthcare aide. Patient reports diffuse abdominal discomfort and denies any urinary symptoms. Related Data Previous Rx's Medication Instructions Recorded clotrimazole 1 % vaginal cream 1 appful vaginal BEDTIME #45 grams 05/23/21 blood sugar diagnostic (FreeStyle #100 ea 09/21/21 Lite Strips) blood-glucose meter (FreeStyle #1 ea 09/21/21 Lite Meter kit) albuterol sulfate 90 mcg/actuation 2 puff inhalation Q4-6H PRN 11/08/21 aerosol inhaler (ProAir HFA) shortness of breath or wheezing #8.5 grams walker #1 ea 11/24/21 alcohol swabs (DropSafe Alcohol 1 pad topical DIRECTED 90 days 01/16/22 Prep Pads) #300 ea fenofibrate nanocrystallized 145 145 mg PO DAILY #90 tabs 04/25/22 mg tablet lidocaine 5 % topical patch 1 patch topical DAILY for pain #30 10/03/22 patches loratadine 10 mg tablet 10 mg PO DAILY PRN allergic 10/11/22 symptoms 90 days #90 tabs mupirocin 2 % topical ointment 1 appl topical TID 30 days #50 10/11/22 grams CPAP (CPAP Machine/Device) #1 ea 11/06/22 lancets (Accu-Chek Softclix ##100 11/08/22 Lancets) atorvastatin 40 mg tablet 40 mg PO BEDTIME 90 days #90 tabs 12/20/22 calcium carb-vit D3-minerals 600 1 tab PO BID 90 days #180 tabs 12/20/22 mg calcium-400 unit tablet carbidopa ER 50 mg-levodopa 200 mg 1 tab PO BID #60 tabs 12/20/22 tablet,extended release lisinopril 40 mg tablet 40 mg PO DAILY hypertension #90 12/20/22 tabs metoprolol tartrate 25 mg tablet 25 mg PO BID 90 days #180 tabs 12/20/22 omeprazole 20 mg capsule,delayed 20 mg PO DAILY #90 caps 12/20/22 release sitagliptin phosphate 50 1 tab PO BID 90 days #180 tabs 12/20/22 mg-metformin 500 mg tablet ([place]) Allergies Allergy/AdvReac Type Severity Reaction Status Date / Time influenza virus vaccine, Allergy Intermediate SWELLING Verified 04/09/23 14:04 specific [Influenza Virus Vacc,Specific] Review of Systems Review of Systems: Pertinent positives and negatives as stated in [facility] Past Medical History Source: nursing notes reviewed Medical History Surgery, elective Pain Hx of backache Hx of supraventricular tachycardia Hypersomnia Snoring Obstructive sleep apnea of adult Chronic hip pain, bilateral Eye pain Diffuse pain Chest pain Supraventricular tachycardia Cough Other and unspecified hyperlipidemia SOB (shortness of breath) Precordial chest pain Annual physical exam Nausea Encounter to establish care Peripheral vascular disease Bilateral artificial lens implant Allergic rhinitis Post menopausal syndrome Vaginitis and vulvovaginitis Diabetes type 2, controlled CAD (coronary artery disease) Hypertriglyceridemia Depression with anxiety GERD without esophagitis Hypertension Parkinsons disease Surgical History H/O prior ablation treatment History of tubal ligation History of cholecystectomy Family History Family History Mother Diabetes Father Brain cancer Son Diabetes Social History Social History Housing: Apartment Alcohol intake: never Patient Tobacco Use Status: Former Tobacco user e-Cigarette/Vaping Use: Never Used Second Hand Smoke Exposure: No Advance Directives: No Advance Directives Information Provided: No service: No Current occupational status: retired Cognitive needs: No Hearing needs: No Vision needs: Yes (glasses) Physical Exam Vital Signs: Vital Signs: Last Vital Signs Temp 97.4 F 04/18/23 01:23 Pulse 76 04/18/23 03:41 Resp 14 04/18/23 03:41 BP 153/61 H 04/18/23 03:41 Pulse Ox 94 04/18/23 03:41 O2 Del Method Room Air 04/18/23 03:41 BMI result Body Mass Index 25.6 VITAL SIGNS: Reviewed. GENERAL: Well developed, well nourished, in no acute distress. HEAD: Normocephalic/atrumatic, EYES: PERRLA, EOMI EARS: Ext canals without abnormality NOSE: Nares patent bilateral OROPHARYNX: no oral lesions noted, posterior pharynx clear NECK: Supple, no adenopathy LUNGS: Normal breath sounds. No adventitious sounds or accessory muscle use. SpO2<94> CARDIOVASCULAR: Regular rate and rhythm without noted murmurs ABDOMEN: Soft, mid lower/left lower quadrant discomfort on palpation, non-distended with bowel sounds. MUSCULOSKELETAL: No tenderness, deformities, or effusions noted on gross inspection. EXTREMITIES: No cyanosis, clubbing or edema. SKIN: Inspection of the skin reveals no rashes NEUROLOGIC: Alert and oriented x 4. Strength and sensation to light touch were grossly intact x 4. Course Course Course Narrative: RME: 73 year-old F w/ PMHx ANTONETTE, CAD, Parkinsons, HTN, depression, GERD, DM, presenting to the ED c/o nausea, vomiting, diarrhea & abdominal x2 days coming and going. denies fever abdomen soft, diffusely ttp Labs, UA, CTAP ordered Full HPI, ROS and PE to be performed by primary ED provider. Medications Administered Discontinued Medications Generic Name Dose Route Start Last Admin Trade Name Freq PRN Reason Stop Dose Admin Magnesium Sulfate 2 gm in 50 mls @ 150 mls/hr 04/18/23 03:23 04/18/23 04:32 Magnesium Sulfate/H2o IV 04/18/23 03:42 Infused ONCE ONE Infusion Iohexol 85 ml 04/18/23 04:19 04/18/23 04:20 Iohexol 350 Mg/Ml 100 Ml Infus..Btl IV 04/18/23 04:20 85 ml ONCE ONE Administration Medical Decision Making Medical Decision Making MDM Narrative: 73-year-old female with history and clinical presentation, DDX: Colitis, diverticulitis, UTI, gastroenteritis I reviewed all investigations and hematologic indices are grossly stable without leukocytosis or left shift, there is a normocytic anemia that is stable and no thrombocytopenia. Chemistry indices do not demonstrated in [place] and there is no electrolyte or liver enzyme derangements. There is a mild hypomagnesemia which was repleted with 2 g of magnesium sulfate. CT scan does not demonstrate any acute intra-abdominal pathology other than a 3.1 cm infrarenal aortic aneurysm. Urinalysis negative for UTI or hematuria. Patient is otherwise discharged home with presumptive gastroenteritis and given instructions for dietary changes to help with the diarrhea. Differential Diagnosis Differential Diagnoses: The differential diagnosis associated with the presentation includes This is a discussion about Admission/Observation Consideration of admission/observation: Escalation of care including admission/observation considered Please see the discussion above Lab Data MDM Lab Attestation statement: I reviewed the patient's lab results. Please see the discussion above 04/17/23 20:44 04/17/23 20:44 Labs: Lab Results 04/17/23 Range/Units 20:44 WBC 8.7 (4.8-10.8) X10*3/uL RBC 3.90 L (4.20-5.50) X10*6/uL Hgb 11.6 L (12.0-16.0) g/dl Hct 36.1 L (37.0-47.0) % MCV 92.6 (80.0-98.0) fL MCH 29.7 (27.0-33.0) pg MCHC 32.1 (31.0-35.0) g/dl RDW 13.1 (11.0-16.0) % Plt Count 294 (160-400) X10*3/uL MPV 10.5 (9.4-12.3) fL Immature Gran % (Auto) 0.9 H (0.0-0.4) % Neut % (Auto) 57.6 (45-73) % Lymph % (Auto) 25.4 (20-40) % [place] % (Auto) 13.9 H (2-11) % Eos % (Auto) 1.7 (0-4) % Baso % (Auto) 0.5 (0-2) % Lymph # (Auto) 2.2 (1.2-4.9) X10*3/uL [place] # (Auto) 1.2 (0.1-1.2) X10*3/uL Eos # (Auto) 0.2 (0.0-0.4) X10*3/uL Baso # (Auto) 0.0 (0.0-0.2) X10*3/uL Abs Immat Gran (auto) 0.08 H (0.00-0.03) X10*3/uL Absolute Neuts (auto) 5.0 (2.0-8.3) x10*3/uL Absolute Nucleated RBC 0.000 (0.0-0.012) X10*3/uL Nucleated RBC % (auto) 0.0 (0.0-0.2) /100WBC Sodium 144 (135-145) mmol/L Potassium 4.1 (3.3-5.1) mmol/L Chloride 107 (96-108) mmol/L Carbon Dioxide 27 (22-29) mmol/L Anion Gap 14 (12-20) BUN 22 H (9-16) mg/dL Creatinine 1.11 (0.5-1.4) mg/dL Estim Creat Clear Calc 43.9 Estimated GFR 48 Random Glucose 106 (60-115) mg/dL Calcium 9.4 (8.4-10.2) mg/dL Magnesium 1.3 L* (1.6-2.6) mg/dL Total Bilirubin 0.4 (0.0-1.0) mg/dL Direct Bilirubin 0.2 (0.0-0.5) mg/dL AST 18 (5-31) U/L ALT < 5 (0-31) U/L Alkaline Phosphatase 68 (39-117) U/L Total Protein 7.5 (6.5-8.0) g/dL Albumin 3.9 (3.5-5.0) g/dL Lipase 22 (8-78) U/L Urine Color Dark Yellow Urine Appearance Cloudy Urine pH 5.0 (5.0-9.0) Ur Specific [place] >= 1.030 H (1.005-1.025) Urine Protein 30 (1+) H (Neg-Trace) mg/dL Urine Glucose (UA) Negative (Negative) mg/dL Urine Ketones 15 (Negative) mg/dL Urine Blood Negative (Negative) Urine Nitrite Negative (Negative) Ur Leukocyte Esterase Trace H (Negative) Urine RBC 0-2 (0-2) /HPF Urine WBC 6-10 H (0-5) /HPF Ur Squamous Epith Cells 6-10 (0-2) /HPF Urine Bacteria None Seen (None Seen) Hyaline Casts >20 (0-2) /LPF Radiology Impression Discussion of test interpretation with radiology: I have reviewed the radiologist's reading. Radiologist Impression: Please see the discussion above External Record Review External record reviewed: Outpatient record, Prior outpatient labs and Prior outpatient radiology Critical Care Time Critical Care Time Critical Care Time: Yes Total Critical Care Time: 60 Attestation: I personally attest to this time spent taking care of the patient. Discharge Plan Discharge Clinical Impression: Gastroenteritis, Abdominal aortic aneurysm (AAA) 3.0 cm to 5.0 cm in diameter in female Patient Disposition: Home, Self-Care Instructions: Gastroenteritis (ED), Nonruptured Abdominal Aortic Aneurysm (DC), Nutrition Tips for Relief of Diarrhea (ED) Additional Instructions: 1. Reanudar todos los medicamentos caseros seg?n lo recetado. 2. Alvin un seguimiento con martinez m?dico de atenci?n primaria llamando al consultorio esta ma?madison y programando theodore brad para theodore nueva evaluaci?n del manejo ambulatorio. Hay un agrandamiento de martinez aorta que deber? evaluarse cada a?o. Por favor hable de esto con martinez m?dico de atenci?n primaria. Regrese a la hortencia de emergencias si los s?ntomas empeoran. 1. Resume all home medications as prescribed. 2. Follow-up with your primary care doctor by calling the office this morning and setting up an appointment for re-evaluation further outpatient management. There is an enlargement of your aorta which will need to be evaluated each year. Please discuss this with your primary care doctor. Return to the ER for any worsening symptoms. Prescriptions: No Action albuterol sulfate [ProAir HFA] 90 mcg/actuation HFA aerosol inhaler 2 puff inhalation Q4-6H PRN (Reason: shortness of breath or wheezing) Qty: 8.5 0RF (DME) [facility] See Rx Instructions .Route Qty: 1 0RF Rx Instructions: rollator with seat alcohol swabs [DropSafe Alcohol Prep Pads] Pads, Medicated 1 pad topical DIRECTED 90 Days Qty: 300 3RF fenofibrate nanocrystallized 145 mg tablet 145 mg PO DAILY Qty: 90 0RF Hold Instructions: patient wants to check Triglyceride lidocaine 5 % adhesive patch,medicated 1 patch topical DAILY Qty: 30 1RF loratadine 10 mg tablet 10 mg PO DAILY PRN (Reason: allergic symptoms) 90 Days Qty: 90 1RF mupirocin 2 % ointment 1 appl topical TID 30 Days Qty: 50 1RF (DME) CPAP Machine/Device Device See Rx Instructions .Route Qty: 1 0RF Rx Instructions: autoPAP 5-20 cm H2O (DME) lancets [Accu-Chek Softclix Lancets] Misc See Rx Instructions .ROUTE .COMPLEX Qty: 100 3RF Dose Instruction: USE 1 LANCET ONCE A DAY Rx Instructions: USE 1 LANCET ONCE A DAY clotrimazole 1 % cream 1 appful vaginal BEDTIME Qty: 45 0RF (DME) blood-glucose meter [FreeStyle Lite Meter] Kit See Rx Instructions .Route Qty: 1 0RF Rx Instructions: As directed (DME) FreeStyle Lite Strips Strip See Rx Instructions .Route Qty: 100 2RF Rx Instructions: Use 1 test strip once a day atorvastatin 40 mg tablet 40 mg PO BEDTIME 90 Days Qty: 90 1RF calcium carbonate-vit D3-min 600 mg calcium- 400 unit tablet 1 tab PO BID 90 Days Qty: 180 2RF carbidopa-levodopa 50-200 mg tablet extended release 1 tab PO BID Qty: 60 6RF Rx Instructions: divide evenly over waking hours lisinopril 40 mg tablet 40 mg PO DAILY Qty: 90 3RF metoprolol tartrate 25 mg tablet 25 mg PO BID 90 Days Qty: 180 1RF omeprazole 20 mg capsule,delayed release(DR/EC) 20 mg PO DAILY Qty: 90 3RF Janumet 50-500 mg tablet 1 tab PO BID 90 Days Qty: 180 1RF Referrals: Madison Carcamo MD [Primary Care Provider] - Print Language: Bruneian
--- NOTE | 2023-04-17 20:00 | ECG_ITS ---
Test Reason : CHEST PAIN Blood Pressure : / mmHG Vent. Rate : 067 BPM Atrial Rate : 067 BPM P-R Int : 222 ms QRS Dur : 088 ms QT Int : 418 ms P-R-T Axes : 032 -05 026 degrees QTc Int : 441 ms Sinus rhythm with 1st degree A-V block Minimal voltage criteria for LVH, may be normal variant ( R in aVL ) Borderline ECG When compared with ECG of 30-NOV-2021 08:14, No significant change was found Referred By: Alayna Mendez Electronically Signed By:Ray Singh
[2023-04-17 21:02] LABS: MANUAL DIFF FLAG NO
[2023-04-17 21:04] LABS: Basophils Percent Auto 0.5 % (0-2); Eosinophils Absolute Auto 0.2 X10*3/uL (0.0-0.4); Eosinophils Percent Auto 1.7 % (0-4); Hematocrit 36.1 % (37.0-47.0); Hemoglobin 11.6 g/dl (12.0-16.0); Imm Gran Abs Auto 0.08 X10*3/uL (0.00-0.03); Imm Gran Pct Auto 0.9 % (0.0-0.4); Lymphocytes Absolute Auto 2.2 X10*3/uL (1.2-4.9); Lymphocytes Percent Auto 25.4 % (20-40); Mean Corpuscular HGB Conc 32.1 g/dl (31.0-35.0); Mean Corpuscular Hemoglobin 29.7 pg (27.0-33.0); Mean Corpuscular Volume 92.6 fL (80.0-98.0); Mean Platelet Volume 10.5 fL (9.4-12.3); Monocytes Absolute Auto 1.2 X10*3/uL (0.1-1.2); Monocytes Percent Auto 13.9 % (2-11); Neutrophils Percent Auto 57.6 % (45-73); Platelet Count 294 X10*3/uL (160-400); Red Cell Distribution Width 13.1 % (11.0-16.0); White Blood Count 8.7 X10*3/uL (4.8-10.8)
[2023-04-17 21:06] LABS: Appearance Urine Cloudy; Color Urine Dark Yellow; Glucose Urine UA Negative (Negative); Leukocyte Esterase Urine Trace (Negative); Nitrite Urine Negative (Negative); Specific Gravity - Urine >= 1.030 (1.005-1.025); UMIC TRIGGER UACC YES; Urine Blood Negative (Negative); Urine Ketones 15 mg/dL (Negative); Urine Protein 30 (1+) mg/dL (Neg-Trace)
[2023-04-17 21:25] LABS: Alanine Aminotransferase < 5 U/L (0-31); Albumin Level 3.9 g/dL (3.5-5.0); Alkaline Phosphatase 68 U/L (39-117); Anion Gap 14 (12-20); Aspartate Amino Transferase 18 U/L (5-31); Bilirubin Direct 0.2 mg/dL (0.0-0.5); Bilirubin Total 0.4 mg/dL (0.0-1.0); Blood Urea Nitrogen 22 mg/dL (9-16); Calcium 9.4 mg/dL (8.4-10.2); Carbon Dioxide 27 mmol/L (22-29); Chloride 107 mmol/L (96-108); Creatinine Clr Calc Pharmacy 43.9; Estimated Glomerular Filt Rate 48; Glucose Random 106 mg/dL (60-115); Lipase 22 U/L (8-78); Magnesium 1.3 mg/dL (1.6-2.6); Potassium 4.1 mmol/L (3.3-5.1); Sodium 144 mmol/L (135-145); Total Protein 7.5 g/dL (6.5-8.0)
[2023-04-17 21:27] LABS: Bacteria Urine None Seen (None Seen); Hyaline Casts Urine >20 /LPF (0-2); RBC Urine 0-2 /HPF (0-2); UACC Culture Trigger YES
[2023-04-18 01:23] VITALS: BP 135/71; PULSE 71; RESP 17; TEMP 36.3; O2SAT 98
[2023-04-18 03:41] VITALS: BP 153/61; PULSE 76; RESP 14; O2SAT 94
[2023-04-18] MEDS: Magnesium Sulfate/H2O 2 GM/50 ML PIGGYBACK IV (03:45)
[2023-04-18] MEDS: iohexoL 350 MG/ML 100 ML INFUS..BTL 85 ML IV (04:20)
== END 2023-04-18 05:49 | disposition home or self-care (01) ==
PROVIDERS: Physician Assistant; Emergency Provider Student in an Organized Health Care Education/Training Program; PCP Internal Medicine
DX: K52.89 Other specified noninfective gastroenteritis and colitis (principal); I71.40 Abdominal aortic aneurysm, without rupture, unspecified; R19.7 Diarrhea, unspecified; E11.9 Type 2 diabetes mellitus without complications; I10 Essential (primary) hypertension; E78.5 Hyperlipidemia, unspecified; G20.A1 Parkinson's disease without dyskinesia, without mention of fluctuations; Z79.02 Long term (current) use of antithrombotics/antiplatelets; Z79.899 Other long term (current) drug therapy
CPT/HCPCS: 36415; 74177; 80048; 80076; 81001; 83690; 83735; 85025; 87086; 93005; 96365; 99284; 99285; J3475; Q9967

== ENCOUNTER → 2023-04-17 20:00 | Outpatient (BNV) | payer OTHER, SELFPAY | PROVIDERS: Emergency Provider Student in an Organized Health Care Education/Training Program; PCP Internal Medicine; Visit Provider Internal Medicine Cardiovascular Disease | DX: I44.0 Atrioventricular block, first degree (principal) | CPT/HCPCS: 93010 ==

== ENCOUNTER 2023-04-19 08:32 | Outpatient (REF) | payer OTHER, SELFPAY ==
[2023-04-19 11:03] LABS: Microalbum/Creatinine Ratio Ur 151.9 ug/mg cr (<30)
[2023-04-19 11:05] LABS: Alanine Aminotransferase 14 U/L (0-31); Albumin Level 3.6 g/dL (3.5-5.0); Alkaline Phosphatase 66 U/L (39-117); Anion Gap 16 (12-20); Aspartate Amino Transferase 19 U/L (5-31); Bilirubin Total 0.4 mg/dL (0.0-1.0); Blood Urea Nitrogen 23 mg/dL (9-16); Calcium 8.9 mg/dL (8.4-10.2); Carbon Dioxide 20 mmol/L (22-29); Chloride 108 mmol/L (96-108); Cholesterol 123 mg/dL (<200); Estimated Glomerular Filt Rate 45; Glucose Fasting 155 mg/dL (60-99); HDL Cholesterol 35 mg/dL (>40); LDL Cholesterol Calculated 62 mg/dL (<100); Potassium 3.8 mmol/L (3.3-5.1); Sodium 140 mmol/L (135-145); Total Protein 7.2 g/dL (6.5-8.0); Triglycerides 130 mg/dL (<150)
[2023-04-19 11:20] LABS: Vitamin D 25-OH Total 21.9 ng/mL (>30)
== END 2023-04-19 08:33 | disposition home or self-care (01) ==
LOC: HO.LAB 08:32
PROVIDERS: PCP Internal Medicine; Visit Provider Internal Medicine
DX: E11.40 Type 2 diabetes mellitus with diabetic neuropathy, unspecified (principal); E55.9 Vitamin D deficiency, unspecified; E78.5 Hyperlipidemia, unspecified
CPT/HCPCS: 36415; 80053; 80061; 82043; 82306; 82570

== ENCOUNTER 2023-04-23 16:08 | Outpatient (AMB) | payer OTHER, MEDICAID, SELFPAY ==
--- NOTE | 2023-04-23 16:24 | A.OFFPC_ITS ---
Vital Signs 04/23/23 16:28 Height 5 ft 4 in Weight 147 lb 11.355 oz BMI 25.4 BP 130/70 Blood Pressure Location Lt brachial Position Sitting Intake Visit Reasons: dm Intake Note: Patient here for a follow up DM Grab Jack Man Required: No Accompanied by: living aid Allergies influenza virus vaccine, specific [Influenza Virus Vacc,Specific] Allergy (Intermediate, Verified 04/23/23 16:48) SWELLING Medication List - Last Reconciled 04/23/23 by Madison Acosta MD albuterol sulfate 90 mcg/actuation (ProAir HFA) 2 puffs inhalation Q4-6H PRN alcohol swabs (DropSafe Alcohol Prep Pads) 1 pad topical DIRECTED 90 days atorvastatin 40 mg PO BEDTIME 90 days blood sugar diagnostic (FreeStyle Lite Strips) Use 1 test strip once a day blood-glucose meter (FreeStyle Lite Meter kit) As directed calcium carbonate-vit D3-min 600 mg calcium- 400 unit 1 tab PO BID 90 days carbidopa-levodopa 50-200 mg ER 1 tab PO BID clotrimazole 1% 1 appful vaginal BEDTIME CPAP (CPAP Machine/Device) autoPAP 5-20 cm H2O fenofibrate nanocrystallized 145 mg PO DAILY lancets (Accu-Chek Softclix Lancets) USE 1 LANCET ONCE A DAY lidocaine 5% 1 patch topical DAILY lisinopril 40 mg PO DAILY loratadine 10 mg PO DAILY PRN 90 days metoprolol tartrate 25 mg PO BID 90 days mupirocin 2% 1 appl topical TID 30 days omeprazole 20 mg PO DAILY sitagliptin phos-metformin 50-500 mg (Janumet) 1 tab PO BID 90 days walker rollator with seat Tobacco use date assessed: 04/23/23 Fall risk assessment: No Falls in past year Last assessed Fall Risk: 04/23/23 Dental Screening Dental Screen Date: 04/23/23 Did you have a dental visit in the last 12 months?: No Did you have a dental problem in the last 6 months where you did not have access to dental care?: No Was dental information given to patient?: Patient has dentist HPI HPI Comments History of Present Illness Details This is a 73-year-old female with diabetes mellitus type 2, Parkinson's disease, hypertension and mixed hyperlipidemia that comes today accompanied by TRAFFIC OFFICER for hospital discharge follow-up with discharge date 04/18/2023 due to nausea, vomiting and diarrhea that started a week ago most likely due to gastroenteritis. Had CT scan of abdomen and pelvis showing a calcification in right kidney most likely due to nephrolithiasis and I will order an ultrasound. Also shows abdominal aortic aneurysm measuring 3 cm that requires ultrasound every 3 years. Will be referred to vascular surgery. Still has some heartburn and diarrhea. I will give her Pepto-Bismol. A1c within goal. Blood pressure stable. Lipid panel will be repeated and her LDL goal should be less than 70. On carbidopa-levodopa for her Parkinson's disease and tremors are well control. [facility] Medical History (Updated 04/23/23 @ 18:30 by Madison Acosta MD) Moderate recurrent major depression Surgery, elective Pain Hx of backache Hx of supraventricular tachycardia Hypersomnia Snoring Obstructive sleep apnea of adult Chronic hip pain, bilateral Eye pain Diffuse pain Chest pain Supraventricular tachycardia Cough Other and unspecified hyperlipidemia SOB (shortness of breath) Precordial chest pain Annual physical exam Nausea Encounter to establish care Peripheral vascular disease Bilateral artificial lens implant Allergic rhinitis Post menopausal syndrome Vaginitis and vulvovaginitis Diabetes type 2, controlled CAD (coronary artery disease) Hypertriglyceridemia Depression with anxiety GERD without esophagitis Hypertension Parkinsons disease Surgical History H/O prior ablation treatment History of tubal ligation History of cholecystectomy Family History Mother Diabetes Father Brain cancer Son Diabetes Social History Housing: Apartment Alcohol intake: never Patient Tobacco Use Status: Former Tobacco user e-Cigarette/Vaping Use: Never Used Second Hand Smoke Exposure: No service: No Current occupational status: retired Cognitive needs: No Hearing needs: No Vision needs: Yes (glasses) Questionnaire PHQ-9 Over the last 2 weeks, how often have you been bothered by any of the following problems? 1. Little interest or pleasure in doing things: not at all 2. Feeling down, depressed, or hopeless: nearly every day 3. Trouble falling or staying asleep, or sleeping too much: nearly every day 4. Feeling tired or having little energy: nearly every day 5. Poor appetite or overeating: several days 6. Feeling bad about yourself - or that you are a failure or have let yourself or your family down: several days 7. Trouble concentrating on things, such as reading the newspaper or watching television: nearly every day 8. Moving or speaking so slowly that other people could have noticed. Or the opposite - being so fidgety or restless that you have been moving around a lot more than usual: not at all 9. Thoughts that you would be better off or of hurting yourself in some way: not at all Total score: 14 Depression Screening Interpretation: Positive Depression Screening Follow-up: Existing condition and Community Mental Health Worker F/U Depression Screening Done: Yes 28346 - PHQ-9 Billing: Yes Source: Developed by Drs. Mic Garcia, Nazia Mcdaniel, Yannick Ling and colleagues, with an educational kp from [employer]. Thrive Questionnaire Date Thrive assessed: 04/23/23 I am a: Patient What is your living situation today?: I have a steady place to live Within the past 12 months, did the food you bought not last and you didn't have the money to get more?: Never true Within the past 12 months, did you worry whether your food would run out before you got money to buy more?: Never true Do you have trouble paying for medicines?: No Do you have trouble getting transportation to medical appointments?: No Do you have trouble paying your heating and electricity bill?: No Do you have trouble taking care of your child, family member or friend?: No Do you have trouble with day-to-day activities such as bathing, preparing meals, shopping, managing finances, etc.?: Yes Are you currently unemployed and looking for a job?: No Are you interested in more education?: No Please select the resources that you would like help with: None Currently or been in a relationship where the following occur: no concerns repor immanuel THRIVE Score: 0 AUDIT C Alcohol Use Questionnaire (AUDIT-C) 1. How often do you have a drink containing alcohol?: Never Total Score: 0 EH-7 AMB Questionnaire EH-7 Date EH - 7 assessed: 04/23/23 Feeling nervous, anxious, or on edge: 2 = More than half the days Not being able to stop or control worryin = Not at all Worrying too much about different things: 2 = More than half the days Trouble relaxin = Not at all Being so restless that it is hard to sit still: 0 = Not at all Becoming easily annoyed or irritable: 0 = Not at all Feeling afraid as if something awful might happen: 0 = Not at all Total EH-7 score (0-4 normal; 5-9 mild; 10-14 moderate; 15-21 severe): 4 Source: Developed by Drs. Mic Garcia, Nazia Mcdaniel, Yannick Ling and colleagues, with an educational kp from [employer]. EH-7 Assessment Billing EH-7 Assessment Tool: EH-7 Assessment 10583 Review of Systems Const All systems reviewed & are unremarkable except as noted in HPI and below Eyes Reports no additional complaints, Denies change in vision and Denies other visual disturbances Card Denies chest pain at rest, Denies chest pain with activity, Denies edema, Denies irregular heart rhythm, Denies claudication, Denies dyspnea, Denies dyspnea on exertion, Denies orthopnea, Denies paroxysmal nocturnal dyspnea and Denies slow heart rate Resp Denies cough, Denies dyspnea and Denies dyspnea on exertion GI Reports abdominal pain, Denies change in bowel habits, Denies excessive flatus, Denies nausea and Denies vomiting Denies urinary incontinence, Denies urinary hesitancy and Denies urinary urgency Musc Denies abnormal gait, Denies atrophy, Denies deformity and Denies limited range of motion Skin/Breast Denies bleeding lesions, Denies changing lesions and Denies rash Neuro Denies abnormal gait, Denies behavioral changes and Denies lack of coordination Psych Denies behavioral changes Physical exam (Primary Care) Vital Signs: Last Vital Signs BP 130/70 04/23/23 16:28 BMI result Body Mass Index 25.4 Tobacco/Smoking Status: Tobacco use Status Tobacco use date assessed 04/23/23 04/23/23 16:34 Patient Tobacco Use Status Former Tobacco user 04/23/23 16:25 Tobacco use type 02/08/23 14:54 e-Cigarette/Vaping Use Never Used 04/23/23 16:25 PHQ-9: PHQ-9 Score PHQ-9: Total score 14 04/23/23 16:50 Depression Screening Interpretation: Positive Depression Screening Follow-up: Existing condition and Community Mental Health Worker F/U Thrive Assessment: Date of Thrive Assessment Date Thrive assessed 04/23/23 04/23/23 16:34 Currently or been in a relationship where the following occur: no concerns reported Const Limitations: ambulation with walker HENMT Head: Yes normal to inspection, Yes normocephalic and Yes atraumatic Ears: external ears normal General nose exam: Normal external nose present and No nasal discharge present Face and sinus: Yes sinuses nontender Mouth: lip normal Eyes General: appearance normal, both eyes and all related structures Eyelids: Yes eyelids normal Conjunctivae: conjunctivae normal Neck Neck: Yes normal visual inspection and Yes supple Resp Effort & Inspection: normal respiratory effort Auscultation: clear to auscultation bilaterally Cardio Jugular venous distension: no JVD Rate: regular rate Rhythm: regular rhythm Heart sounds: S1 normal heart sound present and S2 normal heart sound present GI Inspection: Yes normal to inspection Palpation (GI): Soft to palpation and Tenderness to palpation present (GI) in the epigastrum, in the LUQ and in the RUQ Auscultation: normal bowel sounds Results AMB Hemoglobin A1c AMB Hemoglobin A1c 6.6 % Last Edit by SANDRA Thomas on 04/23/23 16:3 8 Results Reviewed Results Reviewed: Laboratory Last Values Hgb A1c (Clinic) 6.6 % (4.0-6.0) H 04/23/23 16:24 Assessment and Plan Assessment & Plan (1) Hospital discharge follow-up: Code(s): Z09 - Encounter for follow-up examination after completed treatment for conditions other than malignant neoplasm Plan: Discharge date 04/18/[address] scan of the abdomen and pelvis done showing no significant abnormality besides possible right nephrolithiasis. And abdominal aortic aneurysm. (2) Type 2 diabetes mellitus with unspecified complications: Code(s): E11.8 - Type 2 diabetes mellitus with unspecified complications Plan: Continue Janumet. A1c goal is equal or less than 7%. (3) Essential hypertension: Code(s): I10 - Essential (primary) hypertension Plan: Continue lisinopril. Blood pressure goal is equal or less than 130/80. (4) Parkinsons disease: Code(s): G20 - Parkinson's disease Plan: Continue carbidopa-levodopa. (5) Mixed hyperlipidemia: Code(s): E78.2 - Mixed hyperlipidemia Plan: Continue statins and fibrates. LDL goal is less than 70. (6) Gastroenteritis: Code(s): K52.9 - Noninfective gastroenteritis and colitis, unspecified Plan: Start Pepto-Bismol as needed. Orders: Orders US renal BI Today N20.0 - Calculus of kidney AMB Hemoglobin A1c Today E11.8 - Type 2 diabetes mellitus with unspecified complications Medications: New bismuth subsalicylate (Pepto-Bismol Max St) do not exceed 8 doses in a 24 hour period 525 mg (15 mL) PO Q30M 5 days PRN 118 mL 0RF diarrhea sucralfate 10 mL PO BID 10 days 200 mL 0RF Refilled fenofibrate nanocrystallized 145 mg PO DAILY 90 tabs 0RF E78.1 - Pure hyperglyceridemia Coding Level of Care Code TCM Mod MDM <= 7 Days Diagnoses Hospital discharge follow-up Z09 Type 2 diabetes mellitus with unspecified complications E11.8 Essential hypertension I10 Parkinsons disease G20 Mixed hyperlipidemia E78.2 Gastroenteritis K52.9 Additional Codes EH-7 Assessment Billing - EH-7 Assessment Tool: EH-7 Assessment [id number] ([id number]) Time Spent (min) 26
[2023-04-23 16:28] VITALS: BP 130/70; BMI 25.4
== END 2023-04-23 17:00 | disposition home or self-care (01) ==
PROVIDERS: PCP Internal Medicine; Visit Provider Internal Medicine
DX: E11.9 Type 2 diabetes mellitus without complications (principal); I10 Essential (primary) hypertension; G20.C Parkinsonism, unspecified; K52.9 Noninfective gastroenteritis and colitis, unspecified; E78.2 Mixed hyperlipidemia
CPT/HCPCS: 83036; 99214

== ENCOUNTER 2023-05-04 13:48 | Outpatient (REF) | payer OTHER, MEDICAID, SELFPAY ==
--- NOTE | ~2023-05-04 | US_ITS ---
EXAMINATION: US RETROPERITONEAL LIMITED (RENAL ONLY) CLINICAL INFORMATION: Calculus of kidney. COMPARISON: CT abdomen and pelvis 04/18/2023. TECHNIQUE: Real-time imaging of the kidneys. FINDINGS: RIGHT KIDNEY: 9.9 x 4.1 x 4.2 cm (SAG x AP x TRV). The kidney is normal in size, contour, and echogenicity. Renal cortical thickness is normal. No focal parenchymal lesions or hydronephrosis. Nonobstructing renal stone measuring 0.2 cm new from prior. LEFT KIDNEY: 10.4 x 5.1 x 3.7 cm (SAG x AP x TRV). The kidney is normal in size, contour, and echogenicity. Renal cortical thickness is normal. No focal parenchymal lesions or hydronephrosis. Nonobstructing renal stone measuring 0.2 cm new from prior. US/US renal BI IMPRESSION: Bilateral nonobstructing renal stones measuring 0.2 cm on the right and 0.2 cm on the left.
== END 2023-05-04 13:49 | disposition home or self-care (01) ==
LOC: HO.US 13:48
PROVIDERS: PCP Internal Medicine; Visit Provider Internal Medicine
DX: N20.0 Calculus of kidney (principal)
CPT/HCPCS: 76775

== ENCOUNTER 2023-05-17 15:15 | Outpatient (AMB) | payer OTHER, SELFPAY ==
--- NOTE | 2023-05-17 15:28 | A.OFFVIS_ITS ---
Intake Vital Signs 05/17/23 15:37 Height 5 ft 4 in Weight 147 lb BMI 25.2 Intake Visit Reasons: EXERCISE PHYSIOLOGIST CERTIFIED/ PCP referral 3 cm AAA Intake Note: EXERCISE PHYSIOLOGIST CERTIFIED referred by Dr Weiner for 3 cm AAA. s/p CT ABD & Pelvis with contrast on 04/18/23. Patient has no complaints, here for test results and to discuss next steps with Dr Gifford. Accompanied by: Other Relationship Allergies influenza virus vaccine, specific [Influenza Virus Vacc,Specific] Allergy (Intermediate, Verified 05/17/23 15:38) SWELLING HPI EXERCISE PHYSIOLOGIST CERTIFIED/ PCP referral 3 cm AAA HPI Details Very pleasant 73-year-old female presents for evaluation regarding abdominal aortic aneurysm. She has a prior history of diabetes and Parkinson's along with hypertension hyperlipidemia. Had a CT scan for abdomen for abdominal pain and had an incidental finding of a 3 cm abdominal aortic aneurysm [facility] Medical History Moderate recurrent major depression Surgery, elective Pain Hx of backache Hx of supraventricular tachycardia Hypersomnia Snoring Obstructive sleep apnea of adult Chronic hip pain, bilateral Eye pain Diffuse pain Chest pain Supraventricular tachycardia Cough Other and unspecified hyperlipidemia SOB (shortness of breath) Precordial chest pain Annual physical exam Nausea Encounter to establish care Peripheral vascular disease Bilateral artificial lens implant Allergic rhinitis Post menopausal syndrome Vaginitis and vulvovaginitis Diabetes type 2, controlled CAD (coronary artery disease) Hypertriglyceridemia Depression with anxiety GERD without esophagitis Hypertension Parkinsons disease Surgical History H/O prior ablation treatment History of tubal ligation History of cholecystectomy Family History Mother Diabetes Father Brain cancer Son Diabetes Social History Housing: Apartment Alcohol intake: never Patient Tobacco Use Status: Former Tobacco user e-Cigarette/Vaping Use: Never Used Second Hand Smoke Exposure: No service: No Current occupational status: retired Cognitive needs: No Hearing needs: No Vision needs: Yes (glasses) Review of Systems Const All systems reviewed & are unremarkable except as noted in HPI and below Reports no additional complaints ENT Reports Normal hearing present Card Denies chest pain, Denies chest pain at rest, Denies chest pain with activity and Denies pedal edema Resp Denies cough GI Denies abdominal pain Musc Denies abnormal gait, Denies muscle cramps and Denies radiating pain into limb Skin/Breast Denies skin ulcer and Denies wounds Neuro Reports Normal hearing present and Denies abnormal gait Psych Reports no additional complaints Physical Exam Vital Signs: BMI result Body Mass Index 25.2 Const General: cooperative, healthy appearing and comfortable Orientation/consciousness: oriented to person, oriented to place and oriented to time HEENT Head: Yes normal to inspection Neck Neck: Yes normal visual inspection Carotids: no bruits Chest Chest palpation & inspection: normal inspection of the chest Resp Effort & Inspection: normal respiratory effort and able to speak in complete sentences Auscultation: clear to auscultation bilaterally, no crackles, no rales, no rhonchi and no wheezes Cardio Rate: regular rate Rhythm: regular rhythm Heart sounds: S1 normal heart sound present and S2 normal heart sound present Bruits: no carotid bruits Peripheral pulses: Peripheral pulses 2+ throughout GI Inspection: Yes normal to inspection Skin Wounds: no wounds Hair: normal Neuro General: oriented to person, oriented to place and oriented to time Cranial nerves: Yes CN's II-XII intact bilaterally and Yes Normal hearing present Cognition (Neuro): normal cognition Motor exam (neuro): 5/5 motor strength present throughout Extrem Other: venous exam: No significant superficial varicosities or spider telangiectasias, minimal edema General: No clubbing, No cyanosis and No edema Psych Appearance: grossly normal Mental Status: mental status grossly normal Speech and movement: Normal speech and movement present Assessment & Plan Assessment & Plan (1) AAA (abdominal aortic aneurysm) without rupture: Code(s): I71.40 - Abdominal aortic aneurysm, without rupture, unspecified Qualifiers: Abdominal aorta location: infrarenal aorta Qualified Code(s): I71.43 - Infrarenal abdominal aortic aneurysm, without rupture Plan: In short patient has radiologic evidence of a AAA on CT scan of 3 cm. We have discussed the pathophysiology of aortic aneurysms and the risk of ruptures. We have discussed rupture risk based on size. In addition we have discussed conservative measures and risk factor modification for prevention of increase in size of the aneurysm. the patient is scheduled for surveillance follow-up in approximately 1 year. Thank you for allowing us to participate in the care of this patient Orders: Orders US abdominal aortic aneurysm 364 Days I71.43 - Infrarenal abdominal aortic aneurysm, without rupture Coding Level of Care Code New Pt Level 4 (78721) Diagnoses Infrarenal abdominal aortic aneurysm (AAA) without rupture I71.43 Abdominal aorta location: infrarenal aorta
[2023-05-17 15:37] VITALS: BMI 25.2
== END 2023-05-17 15:51 | disposition home or self-care (01) ==
LOC: HO.HVS 15:16
PROVIDERS: PCP Internal Medicine; Visit Provider Surgery Vascular Surgery
DX: I71.43 Infrarenal abdominal aortic aneurysm, without rupture (principal)
CPT/HCPCS: 99203

== ENCOUNTER → 2023-05-17 15:15 | Outpatient (BNVA) | payer OTHER, SELFPAY | PROVIDERS: PCP Internal Medicine; Visit Provider Surgery Vascular Surgery ==

== ENCOUNTER 2023-07-02 08:55 | Outpatient (AMB) | payer OTHER, SELFPAY ==
--- NOTE | 2023-07-02 09:04 | A.OFFVIS_ITS ---
Intake Visit Reasons: stones in kidneys Intake Note: NEW Patient presents today to established treatment for: Nephrolithiasis Meds- None Allergies to Antibiotic- No Known Allergies Blood Thinner- None Post Void Residual: 0ml Bread Wrapper Operator Required: No Accompanied by: MODEL HOME SALES GREETER Allergies influenza virus vaccine, specific [Influenza Virus Vacc,Specific] Allergy (Intermediate, Verified 07/19/23 11:32) SWELLING HPI Comments Details: Nely is a 73 year old female PMH- parkinson's, who was seen in the ED on 04/17/23 with complaints of nausea and abdominal pain. CTAP 04/18/23 was done noting tiny right calcification right side bladder, suggestive that she passed a stone. Currently she is asymptomatic. She had a renal US done on 05/04/23. I have reviewed results- bilateral tiny renal calculi. Plan discussed, importance of adequate hydration, low sodium and low oxalate diet, monitor kidneys, follow up renal US in 6 months. [facility] Medical History Moderate recurrent major depression Surgery, elective Pain Hx of backache Hx of supraventricular tachycardia Hypersomnia Snoring Obstructive sleep apnea of adult Chronic hip pain, bilateral Eye pain Diffuse pain Chest pain Supraventricular tachycardia Cough Other and unspecified hyperlipidemia SOB (shortness of breath) Precordial chest pain Annual physical exam Nausea Encounter to establish care Peripheral vascular disease Bilateral artificial lens implant Allergic rhinitis Post menopausal syndrome Vaginitis and vulvovaginitis Diabetes type 2, controlled CAD (coronary artery disease) Hypertriglyceridemia Depression with anxiety GERD without esophagitis Hypertension Parkinsons disease Surgical History H/O prior ablation treatment History of tubal ligation History of cholecystectomy Family History Mother Diabetes Father Brain cancer Son Diabetes Social History Housing: Apartment Alcohol intake: never Patient Tobacco Use Status: Former Tobacco user e-Cigarette/Vaping Use: Never Used Second Hand Smoke Exposure: No service: No Current occupational status: retired Cognitive needs: No Hearing needs: No Vision needs: Yes (glasses) Review of Systems Const All systems reviewed & are unremarkable except as noted in HPI and below Reports no additional complaints Eyes Reports no additional complaints ENT Reports no additional complaints Card Reports no additional complaints Resp Reports no additional complaints GI Reports no additional complaints Reports as per HPI Musc Reports no additional complaints Skin/Breast Reports system reviewed and no additional complaints, except as documented Neuro Reports no additional complaints Psych Reports no additional complaints Endo Reports no additional complaints Abhilash/Lymph Reports no additional complaints Aller/Immun Reports no additional complaints Physical Exam Const General: cooperative, healthy appearing and no acute distress Orientation/consciousness: patient oriented x3 HEENT Head: Yes normal to inspection, Yes normocephalic and Yes atraumatic Eyes Conjunctivae: conjunctivae normal Neck Neck: Yes normal visual inspection and Yes trachea midline Chest Chest palpation & inspection: normal inspection of the chest Resp Effort & Inspection: normal respiratory effort Cardio Rate: regular rate GI Inspection: Yes normal to inspection Palpation (GI): Soft to palpation Skin General skin exam: no rashes or lesions noted Neuro General: patient oriented x3 Extrem General: No edema Psych Appearance: grossly normal Office Procedures Post Void Residual Post Residual Void Post Void Residual (PVR): 0 [id number]-[id number] Void Residual by ultrasound Results AMB Urinalysis, Automated UA Leukoctes 70 Tim/uL Last Edit by Sindy Blairserge Blair [facility] on 07/02/23 09:22 UA Nitrite Negative Last Edit by Sindy Blairserge Blair [facility] on 07/02/23 09: 22 UA Urobilinogen 0.2 mg/dL Last Edit by Sindy Blairserge Blair [facility] on 4 09:22 UA Protein 100 mg/dL Last Edit by Sindy Blairserge Blair [facility] on 07/02/23 09: 22 UA pH 6.0 Last Edit by Sindy Blairserge Blair [facility] on 07/02/23 09:22 UA Blood 0 Monroe/uL Last Edit by Sindy Blairserge Blair [facility] on 07/02/23 09:22 UA Specific Acme 1.030 Last Edit by Sindy Blairserge Blair [facility] on 09:22 UA Ketone Positive Last Edit by Sindy Blairserge lBair [facility] on 07/02/23 09:2 2 5MG/DL Sindymello Blair 07/02/23 09:22 UA Bilirubin 1 mg/dL Last Edit by Sindy Blair [facility] on 07/02/23 09: 22 UA Glucose 0 mg/dL Last Edit by Sindy Blair CMA on 07/02/23 09:22 Results Reviewed Results Reviewed: Laboratory Last Values Urine pH (Auto) 6.0 07/02/23 09:19 Specific Acme (Auto) 1.030 07/02/23 09:19 Urine Protein (Auto) 100 mg/dL 07/02/23 09:19 Glucose (UA)(Auto) 0 mg/dL 07/02/23 09:19 Urine Ketones (Auto) Positive 07/02/23 09:19 Urine Blood (Auto) 0 Monroe/uL 07/02/23 09:19 Urine Nitrite (Auto) Negative 07/02/23 09:19 Urine Bilirubin (Auto) 1 mg/dL 07/02/23 09:19 Urine Urobilinogen (Auto) 0.2 mg/dL 07/02/23 09:19 Leukocyte Esterase (Auto) 70 Tim/uL 07/02/23 09:19 Date of Service: 05/04/23 EXAMINATION: US RETROPERITONEAL LIMITED (RENAL ONLY) CLINICAL INFORMATION: Calculus of kidney. COMPARISON: CT abdomen and pelvis 04/18/2023. TECHNIQUE: Real-time imaging of the kidneys. FINDINGS: RIGHT KIDNEY: 9.9 x 4.1 x 4.2 cm (SAG x AP x TRV). The kidney is normal in size, contour, and echogenicity. Renal cortical thickness is normal. No focal parenchymal lesions or hydronephrosis. Nonobstructing renal stone measuring 0.2 cm new from prior. LEFT KIDNEY: 10.4 x 5.1 x 3.7 cm (SAG x AP x TRV). The kidney is normal in size, contour, and echogenicity. Renal cortical thickness is normal. No focal parenchymal lesions or hydronephrosis. Nonobstructing renal stone measuring 0.2 cm new from prior. IMPRESSION: Bilateral nonobstructing renal stones measuring 0.2 cm on the right and 0.2 cm on the left. Date of Service: 04/18/23 EXAMINATION: CT ABDOMEN AND PELVIS WITH CONTRAST CLINICAL INFORMATION: Diffuse abdominal pain, nausea/vomiting/diarrhea COMPARISON: 11/20/2021 TECHNIQUE: Multidetector volumetric images were obtained from the superior aspect of the liver through the pubic symphysis following administration 85 mL of Omnipaque 350 intravenous contrast. Sagittal and coronal reformatted images were obtained on the technologist's workstation. Oral contrast: No This CT examination was performed using dose optimization techniques as appropriate, variously including the following: *Automated exposure control *Adjustment of mA and/or kV according to patient size (this includes techniques or standardized protocols for targeted exams where dose is matched to indication/reason for exam; i.e. extremities or head) *Use of iterative reconstruction technique DLP: 312 mGy-cm FINDINGS: LUNG BASES: The visualized lung bases are unremarkable. Coronary artery calcifications are present. LIVER, GALLBLADDER, AND BILIARY TREE: The liver is normal in size, shape, and attenuation. No focal hepatic lesion or biliary ductal dilatation is present. Patient is status post cholecystectomy. PANCREAS: Unremarkable. SPLEEN: Unremarkable. ADRENAL GLANDS: Unremarkable. KIDNEYS AND URETERS: Bilateral nephrograms are symmetric. No hydronephrosis or obstructing calculus identified. Right renal renal cortical scarring noted. Small hypodensities in the right kidney favor cysts; no follow-up recommended. BLADDER: Partially distended without significant wall thickening. There is suggestion of a tiny calcification along the right posterior bladder wall on image 80/99. GASTROINTESTINAL TRACT: Colonic diverticulosis is noted. The small and large bowel are otherwise unremarkable without evidence of obstruction or pericolonic inflammatory change. The appendix is unremarkable. No free fluid or free air is seen. ABDOMINAL WALL: No significant hernia is appreciated. LYMPH NODES: Normal. VASCULAR: There is atherosclerotic calcification along the aorta and iliac arteries. There is aneurysmal dilation of the infrarenal aorta to 3.1 cm. PELVIC VISCERA: Unremarkable. OSSEOUS STRUCTURES: Degenerative changes are noted in the spine. IMPRESSION: 1. No acute findings identified in the abdomen/pelvis. 2. Suggestion of a tiny calcification along the right posterior bladder, which could represent a calculus or bladder wall calcification. The possibility of neoplastic wall thickening cannot be excluded with this appearance. Correlation with urinalysis is recommended. 3. Infrarenal abdominal aortic aneurysm measuring 3.1 cm. Recommend followup every 3 years. Reference: J Am Coby Radiol 2013; 10 (10): 789-794. 4. Coronary artery calcifications. Correlation with cardiac risk factors is recommended. Assessment & Plan Assessment & Plan (1) Bilateral renal stones: Code(s): N20.0 - Calculus of kidney Category: Medical Plan FU renal US in 6 months Orders: Orders US renal BI 6 Months N20.0 - Calculus of kidney AMB Post Void Residual by ultrasound 07/02/23 R33.9 - Retention of urine, unspecified AMB Urinalysis Automated 07/02/23 R33.9 - Retention of urine, unspecified Patient Instructions: The patient had an opportunity to ask questions regarding treatment plan. The patient expressed understanding and agreement with the above treatment plan. The patient is aware they should contact our office by phone for worsening of their current condition or the appearance of new symptoms. Compliance is encouraged with any medications and followup testing that is ordered. It is a privilege to be allowed the opportunity to participate in the urologic care of your patient. If you have any questions or concerns regarding treatment for the above conditions please do not hesitate to contact me. The office telephone contact is [phone]. This note is constructed in part using voice recognition software. While every effort has been made to ensure accuracy solution sales senior executive errors may have been included. Yours sincerely, Ralph Anthony MD Coding Level of Care Code New Pt Level 3 (51937) Diagnoses Bilateral renal stones N20.0 CPT Codes Post Residual Void - PVR CPT Code: 54328-Mifb Void Residual by ultrasound ([id number])
== END 2023-07-02 09:47 | disposition home or self-care (01) ==
PROVIDERS: PCP Internal Medicine; Visit Provider Urology
DX: N20.0 Calculus of kidney (principal)
CPT/HCPCS: 99203

== ENCOUNTER → 2023-07-02 08:55 | Outpatient (BNVA) | payer OTHER, MEDICAID, SELFPAY | PROVIDERS: PCP Internal Medicine; Visit Provider Urology | DX: N20.0 Calculus of kidney (principal); R33.9 Retention of urine, unspecified | CPT/HCPCS: 51798; 81003 ==

== ENCOUNTER 2023-07-19 11:22 | Outpatient (AMB) | payer OTHER, SELFPAY ==
--- NOTE | 2023-07-19 11:27 | A.OFFVIS_ITS ---
Vital Signs 07/19/23 11:33 Height 5 ft 4 in Weight 139 lb 6 oz BMI 23.9 BP 122/70 Blood Pressure Location Rt brachial Position Sitting Pulse 66 Pulse Source Pulse Oximeter Pulse Oximetry (%) 96 Oxygen Delivery Method Room Air Intake Visit Reasons: 3M follow up - Confirmed Intake Note: Patient presents for 3 months f/u. Skull Grinder Required: Yes Skull Grinder Name: Juan Jose Reynolds Allergies influenza virus vaccine, specific [Influenza Virus Vacc,Specific] Allergy (Intermediate, Verified 07/19/23 11:32) SWELLING HPI Comments Details: 73 y/o female comes for follow up of Parkinson disease and sleep study. Home sleep test result- AHI 20/hr and oxygen gela 83%. CPAP ordered, but patient declined to use CPAP due to high co-payment. Patient's LIVESTOCK INSPECTOR reports that she finished physical therapy and it helped for gait and lower extremities' strength. She is on sinemet CR 50 /200 BID. She has mild tremor, but can have more intense hand tremor occasionally. No recent falls. Last fall was 2 year ago. She can do daily activities independently mostly, and her LIVESTOCK INSPECTOR also can help her. Denies difficulty eating or swallowing. She has mild constipation. Denies hallucination or light headedness. She used to take melatonin 5 mg, but it was not helpful for sleep. She started taking seroquel for sleep, not sure the dosage, but it helps her to fall asleep and staying sleep. Pt's hx-sHe was diagnosed with Parkinsons disease in [place] 5 years ago when she presented with left sided tremors and gait issues. She also has lumbar spondylosis which affects her gait. [facility] Medical History Moderate recurrent major depression Surgery, elective Pain Hx of backache Hx of supraventricular tachycardia Hypersomnia Snoring Obstructive sleep apnea of adult Chronic hip pain, bilateral Eye pain Diffuse pain Chest pain Supraventricular tachycardia Cough Other and unspecified hyperlipidemia SOB (shortness of breath) Precordial chest pain Annual physical exam Nausea Encounter to establish care Peripheral vascular disease Bilateral artificial lens implant Allergic rhinitis Post menopausal syndrome Vaginitis and vulvovaginitis Diabetes type 2, controlled CAD (coronary artery disease) Hypertriglyceridemia Depression with anxiety GERD without esophagitis Hypertension Parkinsons disease Surgical History H/O prior ablation treatment History of tubal ligation History of cholecystectomy Family History Mother Diabetes Father Brain cancer Son Diabetes Social History Housing: Apartment Alcohol intake: never Patient Tobacco Use Status: Former Tobacco user e-Cigarette/Vaping Use: Never Used Second Hand Smoke Exposure: No service: No Current occupational status: retired Cognitive needs: No Hearing needs: No Vision needs: Yes (glasses) Review of Systems Const All systems reviewed & are unremarkable except as noted in HPI and below Physical Exam Vital Signs: Last Vital Signs Pulse 66 07/19/23 11:33 BP 122/70 07/19/23 11:33 Pulse Ox 96 07/19/23 11:33 Oxygen Delivery Method Room Air 07/19/23 11:33 BMI result Body Mass Index 23.9 Const General: cooperative, healthy appearing and comfortable Nutritional Appearance: average body habitus Orientation/consciousness: patient oriented x3 Limitations: physical limitations HEENT Head: Yes normal to inspection and No normocephalic Neuro Other: left LE rest tremors Mild cog wheel rigidty Left UE Decreased facial expression and blink FFM and foot taps decreased kianna L>R Gait- slow , mildly antalgic Voice- normal General: patient oriented x3 Cranial nerves: Yes Nystagmus not present and Yes Normal facial strength present Cognition (Neuro): normal cognition Motor exam (neuro): 5/5 motor strength present throughout Coordination: [id number] test normal Assessment & Plan Assessment & Plan (1) Parkinsons disease: Code(s): G20 - Parkinson's disease Category: Medical (2) ANTONETTE (obstructive sleep apnea): Code(s): G47.33 - Obstructive sleep apnea (adult) (pediatric) Category: Medical Plan Continue sinemet CR 50/200 bid. Pt decline to use CPAP to manage sleep apnea. Coding Level of Care Code Est Pt Level 3 (96359) Diagnoses Parkinsons disease G20 ANTONETTE (obstructive sleep apnea) G47.33
[2023-07-19 11:33] VITALS: BP 122/70; PULSE 66; O2SAT 96; BMI 23.9
== END 2023-07-19 11:55 | disposition home or self-care (01) ==
PROVIDERS: PCP Internal Medicine; Visit Provider Nurse Practitioner Family
DX: G20.A1 Parkinson's disease without dyskinesia, without mention of fluctuations (principal); G47.33 Obstructive sleep apnea (adult) (pediatric)
CPT/HCPCS: 99213

== ENCOUNTER → 2023-07-19 11:22 | Outpatient (BNVA) | payer OTHER, SELFPAY | PROVIDERS: PCP Internal Medicine; Visit Provider Nurse Practitioner Family ==

== ENCOUNTER 2023-08-14 13:40 | Outpatient (AMB) | payer OTHER, SELFPAY ==
[2023-08-14 13:49] VITALS: BP 118/64; PULSE 62; BMI 23.8
--- NOTE | 2023-08-14 13:49 | A.OFFVIS_ITS ---
Vital Signs 08/14/23 13:49 Height 5 ft 4 in Weight 138 lb 14.259 oz BMI 23.8 BP 118/64 Blood Pressure Location Lt brachial Position Sitting Pulse 62 Pulse Source Pulse Oximeter Intake Visit Reasons: 1 yr f/up Vice President Network Development Required: Yes Vice President Network Development Name: romain das/ living aid. Accompanied by: Employee Allergies influenza virus vaccine, specific [Influenza Virus Vacc,Specific] Allergy (Intermediate, Verified 07/19/23 11:32) SWELLING Medication List - Last Reconciled 08/14/23 by Flako Pulliam MD albuterol sulfate 90 mcg/actuation (ProAir HFA) 2 puffs inhalation Q4-6H PRN alcohol swabs (DropSafe Alcohol Prep Pads) 1 pad topical DIRECTED 90 days atorvastatin 40 mg PO BEDTIME 90 days bismuth subsalicylate (Pepto-Bismol Max St) 525 mg (15 mL) PO Q30M PRN 5 days blood sugar diagnostic (FreeStyle Lite Strips) Use 1 test strip once a day blood sugar diagnostic (True Metrix Glucose Test Strip) Use 1 test strip once a day blood-glucose meter (FreeStyle Lite Meter kit) As directed calcium carbonate-vit D3-min 600 mg calcium- 400 unit 1 tab PO BID 90 days carbidopa-levodopa 50-200 mg ER 1 tab PO BID clotrimazole 1% 1 appful vaginal BEDTIME CPAP (CPAP Machine/Device) autoPAP 5-20 cm H2O fenofibrate nanocrystallized 145 mg PO DAILY lancets (Accu-Chek Softclix Lancets) USE 1 LANCET ONCE A DAY lidocaine 5% 1 patch topical DAILY lisinopril 40 mg PO DAILY metoprolol tartrate 25 mg PO BID 90 days omeprazole 20 mg PO DAILY sitagliptin phos-metformin 50-500 mg (Janumet) 1 tab PO BID 90 days [true metrix lancets As directed] walker rollator with seat HPI Comments Details: Nely returns for follow-up regarding supraventricular tachycardia. In the past, she has had several episodes of supraventricular tachycardia in spite of being on verapamil/beta-blockers. Subsequently, underwent EP study and ablation. Since last seen, she is generally doing well. No specific complaints like angina or shortness of breath or in fact anything cardiac sounding. No recurring palpitations. [facility] Medical History Moderate recurrent major depression Surgery, elective Pain Hx of backache Hx of supraventricular tachycardia Hypersomnia Snoring Obstructive sleep apnea of adult Chronic hip pain, bilateral Eye pain Diffuse pain Chest pain Supraventricular tachycardia Cough Other and unspecified hyperlipidemia SOB (shortness of breath) Precordial chest pain Annual physical exam Nausea Encounter to establish care Peripheral vascular disease Bilateral artificial lens implant Allergic rhinitis Post menopausal syndrome Vaginitis and vulvovaginitis Diabetes type 2, controlled CAD (coronary artery disease) Hypertriglyceridemia Depression with anxiety GERD without esophagitis Hypertension Parkinsons disease Surgical History H/O prior ablation treatment History of tubal ligation History of cholecystectomy Family History Mother Diabetes Father Brain cancer Son Diabetes Social History Housing: Apartment Alcohol intake: never Patient Tobacco Use Status: Former Tobacco user e-Cigarette/Vaping Use: Never Used Second Hand Smoke Exposure: No service: No Current occupational status: retired Cognitive needs: No Hearing needs: No Vision needs: Yes (glasses) Review of Systems Const Denies chills, Denies fatigue, Denies fever(s), Denies frequent falls, Denies weakness, Denies weight gain and Denies weight loss ENT Denies dizziness Card Denies chest pain, Denies leg edema, Denies lightheadedness, Denies palpitations, Denies dyspnea and Denies dyspnea on exertion Resp Denies cough, Denies dyspnea and Denies dyspnea on exertion GI Denies hematochezia Musc Denies abnormal gait, Denies muscle weakness, Denies numbness, Denies radiating pain into limb and Denies tingling Neuro Denies abnormal gait, Denies dizziness, Denies frequent falls, Denies numbness, Denies tingling and Denies weakness Endo Denies fatigue and Denies palpitations Physical Exam Vital Signs: Last Vital Signs Pulse 62 08/14/23 13:49 BP 118/64 08/14/23 13:49 BMI result Body Mass Index 23.8 Const General: comfortable and no acute distress Orientation/consciousness: patient oriented x3 HEENT Other: Unremarkable Head: Yes normal to inspection Neck Neck: Yes normal visual inspection Chest Chest palpation & inspection: normal inspection of the chest Resp Auscultation: clear to auscultation bilaterally Cardio Palpation: normal PMI Heart sounds: S1 normal heart sound present, S2 normal heart sound present, no gallops, no murmurs and no rubs GI Palpation (GI): Soft to palpation Back/Spine/Pelvis Other: unremarkable Skin General skin exam: no rashes or lesions noted Neuro General: patient oriented x3 Extrem General: Yes normal to inspection Psych Mental Status: mental status grossly normal Assessment & Plan Assessment & Plan (1) Supraventricular tachycardia: Code(s): I47.1 - Supraventricular tachycardia Category: Medical Plan: Status post slow pathway modification. Follow-up EP study noninducible for any arrhythmias. She remains on a small dose of beta-blockers. (2) Coronary artery calcification seen on CT scan: Code(s): I25.10 - Atherosclerotic heart disease of [place] coronary artery without angina pectoris Category: Medical Plan: Records from [place] reviewed. It seems that she had CAD detected by CT scan but no evidence of ischemia by perfusion imaging in 2019. Another perfusion imaging study from 2021 showed normal perfusion. In the echocardiogram, reported to have normal LVEF. Clinically, she has no angina. Appropriate risk factor modification. (3) Type 2 diabetes mellitus with unspecified complications: Code(s): E11.8 - Type 2 diabetes mellitus with unspecified complications Category: Medical Plan: On Janumet. Last hemoglobin A1c is 6.6%. (4) Essential hypertension: Code(s): I10 - Essential (primary) hypertension Category: Medical Plan: On lisinopril. Stable. (5) Other and unspecified hyperlipidemia: Code(s): E78.5 - Hyperlipidemia, unspecified Category: Medical Plan: On atorvastatin. LDL is well controlled. Most recently 62 mg/dL. Triglycerides 130 mg/dL. Plan Discussed with significant other. Coding Level of Care Code Est Pt Level 4 (70714) Diagnoses Supraventricular tachycardia I47.1 Coronary artery calcification seen on CT scan I25.10 Type 2 diabetes mellitus with unspecified complications E11.8 Essential hypertension I10 Other and unspecified hyperlipidemia E78.5
== END 2023-08-14 14:06 | disposition home or self-care (01) ==
PROVIDERS: Visit Provider Internal Medicine
DX: I47.10 Supraventricular tachycardia, unspecified (principal); I25.10 Atherosclerotic heart disease of native coronary artery without angina pectoris; E11.8 Type 2 diabetes mellitus with unspecified complications; I10 Essential (primary) hypertension; E78.5 Hyperlipidemia, unspecified
CPT/HCPCS: 99214

== ENCOUNTER → 2023-08-14 13:40 | Outpatient (BNVA) | payer OTHER, SELFPAY | PROVIDERS: Visit Provider Internal Medicine ==

== ENCOUNTER 2023-08-17 12:23 | Outpatient (REF) | payer OTHER, SELFPAY ==
--- NOTE | ~2023-08-17 | MM_ITS ---
EXAMINATION: MM SCREENING DIGITAL BREAST TOMOSYNTHESIS, BILATERAL CLINICAL INFORMATION: Screening. Asymptomatic. COMPARISON: Mammography: This study is compared with prior exams dating back to TECHNIQUE: Digital breast tomosynthesis is performed in both the craniocaudal and mediolateral oblique views along with computer-aided detection (CAD). Synthesized 2D images are generated from the tomosynthesis. FINDINGS: There are scattered areas of fibroglandular density (ACR BI-RADS breast composition Category b). There are no significant masses, abnormal calcifications, or other abnormalities. There are postsurgical changes in the medial aspect of the right breast. There are 2 tissue markers in the lateral aspect of the right breast. There is one tissue marker in the medial aspect of the left breast. MM/MM tomosynthesis screening BI IMPRESSION: No mammographic evidence of malignancy. ASSESSMENT: BI-RADS BI-RADS 2 - Benign Findings RECOMMENDATION: Routine annual mammography screening. 1 year F/U This examination should not preclude the clinical evaluation of a suspicious palpable abnormality. This patient's information was entered into a reminder system with a target due date for their next mammogram.
== END 2023-08-17 12:24 | disposition home or self-care (01) ==
LOC: HO.MAMMO 12:23
PROVIDERS: PCP Internal Medicine; Visit Provider Internal Medicine
DX: Z12.31 Encounter for screening mammogram for malignant neoplasm of breast (principal)
CPT/HCPCS: 77063; 77067

== ENCOUNTER → 2023-08-17 12:30 | Outpatient (BNV) | payer OTHER, SELFPAY | PROVIDERS: PCP Internal Medicine; Visit Provider Radiology Diagnostic Radiology | DX: Z12.31 Encounter for screening mammogram for malignant neoplasm of breast (principal) | CPT/HCPCS: 77063; 77067 ==

== ENCOUNTER 2023-09-11 20:57 | Emergency (ER) | payer OTHER, MEDICAID, SELFPAY ==
--- NOTE | ~2023-09-11 | CT_ITS ---
EXAMINATION: CT ABDOMEN AND PELVIS WITH CONTRAST CLINICAL INFORMATION: Abdominal discomfort. COMPARISON: 04/18/2023 TECHNIQUE: Multidetector volumetric images were obtained from the superior aspect of the liver through the pubic symphysis following administration 85 mL of Omnipaque 350 intravenous contrast. Sagittal and coronal reformatted images were obtained on the technologist's workstation. Oral contrast: No This CT examination was performed using dose optimization techniques as appropriate, variously including the following: *Automated exposure control *Adjustment of mA and/or kV according to patient size (this includes techniques or standardized protocols for targeted exams where dose is matched to indication/reason for exam; i.e. extremities or head) *Use of iterative reconstruction technique DLP: 382 mGy-cm FINDINGS: LUNG BASES: The visualized lung bases are unremarkable. LIVER, GALLBLADDER, AND BILIARY TREE: The liver is normal in size, shape, and attenuation. No focal hepatic lesion or biliary ductal dilatation is present. There has been a prior cholecystectomy. PANCREAS: Unremarkable. SPLEEN: Unremarkable. ADRENAL GLANDS: Unremarkable. KIDNEYS AND URETERS: The kidneys are normal in size, shape, and attenuation. No hydronephrosis, hydroureter, or calculi seen. No perinephric stranding. BLADDER: Unremarkable. GASTROINTESTINAL TRACT: There are mildly thickened distal small bowel loops as well as thickening of the right and transverse colon and to a lesser extent of the descending colon. There are diverticula of the descending and sigmoid colon without evidence for acute diverticulitis. Infectious prominent in size measuring up to 8 mm but does contain air to the tip and there is no surrounding periappendiceal infiltration. ABDOMINAL WALL: No significant hernia is appreciated. LYMPH NODES: Normal. VASCULAR: There is atherosclerotic plaque throughout the abdominal aorta with a 2.8 cm infrarenal abdominal aortic bulge. PELVIC VISCERA: Unremarkable. OSSEOUS STRUCTURES: There is diffuse thoracolumbar disc degenerative change. CT/CT abdomen pelvis w IV con IMPRESSION: 1. Thickening of the distal small bowel loops as well as the right and transverse colon and to a lesser extent of the descending colon. The findings are nonspecific and could be related to infectious or inflammatory enterocolitis. 2. Diverticulosis without evidence for acute diverticulitis. 3. Prior cholecystectomy. 4. Atherosclerotic plaque throughout the abdominal aorta with a 2.8 cm infrarenal abdominal aortic bulge. 5. Diffuse thoracolumbar disc degenerative change. 6. The appendix is prominent in size measuring up to 8 mm but does contain air to the tip and there is no surrounding periappendiceal infiltration. Fleischner guidelines were followed.
[2023-09-11 21:14] VITALS: BP 112/65; PULSE 98; RESP 19; TEMP 37.1; O2SAT 95; BMI 23.0
[2023-09-11 21:46] VITALS: BP 147/84; PULSE 93; RESP 19; TEMP 36.8; O2SAT 88
[2023-09-11 21:59] LABS: MANUAL DIFF FLAG NO
[2023-09-11 22:01] LABS: Basophils Absolute Auto 0.1 X10*3/uL (0.0-0.2); Basophils Percent Auto 0.5 % (0-2); Eosinophils Percent Auto 0.1 % (0-4); Hematocrit 36.9 % (37.0-47.0); Hemoglobin 11.9 g/dl (12.0-16.0); Imm Gran Abs Auto 0.06 X10*3/uL (0.00-0.03); Imm Gran Pct Auto 0.6 % (0.0-0.4); Lymphocytes Absolute Auto 2.2 X10*3/uL (1.2-4.9); Lymphocytes Percent Auto 22.1 % (20-40); Mean Corpuscular HGB Conc 32.2 g/dl (31.0-35.0); Mean Corpuscular Hemoglobin 28.1 pg (27.0-33.0); Mean Platelet Volume 10.1 fL (9.4-12.3); Monocytes Absolute Auto 1.4 X10*3/uL (0.1-1.2); Monocytes Percent Auto 14.2 % (2-11); Neutrophils Absolute Auto 6.2 x10*3/uL (2.0-8.3); Neutrophils Percent Auto 62.5 % (45-73); Platelet Count 278 X10*3/uL (160-400); Red Blood Count 4.24 X10*6/uL (4.20-5.50); Red Cell Distribution Width 14.1 % (11.0-16.0)
[2023-09-11 22:28] LABS: Alanine Aminotransferase 6 U/L (0-31); Albumin Level 3.8 g/dL (3.5-5.0); Alkaline Phosphatase 82 U/L (39-117); Anion Gap 15 (12-20); Aspartate Amino Transferase 16 U/L (5-31); Bilirubin Direct 0.2 mg/dL (0.0-0.5); Bilirubin Total 0.5 mg/dL (0.0-1.0); Blood Urea Nitrogen 23 mg/dL (9-16); Calcium 9.7 mg/dL (8.4-10.2); Carbon Dioxide 25 mmol/L (22-29); Chloride 106 mmol/L (96-108); Creatinine Clr Calc Pharmacy 34.8; Estimated Glomerular Filt Rate 41; Glucose Random 130 mg/dL (60-115); Lipase 20 U/L (8-78); Potassium 4.1 mmol/L (3.3-5.1); Sodium 142 mmol/L (135-145); Total Protein 8.2 g/dL (6.5-8.0)
--- NOTE | 2023-09-12 01:16 | ED_ITS ---
HPI - Abdominal Pain General Chief Complaint: Abdominal Pain Stated Complaint: diarrhea, abd pain, L sided shaking Time Seen by Provider: 09/12/23 00:03 Source: patient, family and healthcare interpreter Mode of arrival: ambulatory History of Present Illness ED Provider: Dr Constantino HPI narrative: 73-year-old female with past medical history diabetes/hypertension/Parkinson's presents with 3 days of significant abdominal discomfort as well as multiple episodes of diarrhea and denies any history of recent antibiotic use or travel. Patient reports nausea but no vomiting and denies any urinary symptoms. Related Data Previous Rx's ?Medication ?Instructions ?Recorded clotrimazole 1 % vaginal cream 1 appful vaginal BEDTIME #45 grams 05/23/21 blood sugar diagnostic (FreeStyle #100 ea 09/21/21 Lite Strips) blood-glucose meter (FreeStyle #1 ea 09/21/21 Lite Meter kit) albuterol sulfate 90 mcg/actuation 2 puff inhalation Q4-6H PRN 11/08/21 aerosol inhaler (ProAir HFA) shortness of breath or wheezing #8.5 grams walker #1 ea 11/24/21 alcohol swabs (DropSafe Alcohol 1 pad topical DIRECTED 90 days 01/16/22 Prep Pads) #300 ea lidocaine 5 % topical patch 1 patch topical DAILY for pain #30 10/03/22 patches CPAP (CPAP Machine/Device) #1 ea 11/06/22 lancets (Accu-Chek Softclix ##100 11/08/22 Lancets) atorvastatin 40 mg tablet 40 mg PO BEDTIME 90 days #90 tabs 12/20/22 calcium carb-vit D3-minerals 600 1 tab PO BID 90 days #180 tabs 12/20/22 mg calcium-400 unit tablet lisinopril 40 mg tablet 40 mg PO DAILY hypertension #90 12/20/22 tabs metoprolol tartrate 25 mg tablet 25 mg PO BID 90 days #180 tabs 12/20/22 omeprazole 20 mg capsule,delayed 20 mg PO DAILY #90 caps 12/20/22 release bismuth subsalicylate 525 mg/15 mL 525 mg (15 mL) PO Q30M PRN 04/23/23 oral suspension (Pepto-Bismol Max diarrhea 5 days #[address]) fenofibrate nanocrystallized 145 145 mg PO DAILY #90 tabs 04/23/23 mg tablet blood sugar diagnostic (True #100 ea 05/14/23 Metrix Glucose Test Strip) true metrix lancets #100 ea 05/14/23 carbidopa ER 50 mg-levodopa 200 mg 1 tab PO BID #60 tabs 06/25/23 tablet,extended release sitagliptin phosphate 50 1 tab PO BID 90 days #180 tabs 09/08/23 mg-metformin 500 mg tablet (Janumemaria elena) Allergies Allergy/AdvReac Type Severity Reaction Status Date / Time influenza virus vaccine, Allergy Intermediate SWELLING Verified 09/11/23 21:17 specific [Influenza Virus Vacc,Specific] Review of Systems Review of Systems Pertinent positives and negatives as stated in HPI FOR[facility]LY [facility], [facility] Past Medical History Source: nursing notes reviewed Medical History Moderate recurrent major depression Surgery, elective Pain Hx of backache Hx of supraventricular tachycardia Hypersomnia Snoring Obstructive sleep apnea of adult Chronic hip pain, bilateral Eye pain Diffuse pain Chest pain Supraventricular tachycardia Cough Other and unspecified hyperlipidemia SOB (shortness of breath) Precordial chest pain Annual physical exam Nausea Encounter to establish care Peripheral vascular disease Bilateral artificial lens implant Allergic rhinitis Post menopausal syndrome Vaginitis and vulvovaginitis Diabetes type 2, controlled CAD (coronary artery disease) Hypertriglyceridemia Depression with anxiety GERD without esophagitis Hypertension Parkinsons disease Surgical History H/O prior ablation treatment History of tubal ligation History of cholecystectomy Family History Family History Mother Diabetes Father Brain cancer Son Diabetes Social History Social History Housing: Apartment Alcohol intake: never Patient Tobacco Use Status: Former Tobacco user Smoked in Last 30 Days: No e-Cigarette/Vaping Use: Never Used Second Hand Smoke Exposure: No Advance Directives: No Advance Directives Information Provided: Yes Do you have a plan to hurt others: No Plan service: No Current occupational status: retired Cognitive needs: No Hearing needs: No Vision needs: Yes (glasses) Physical Exam ED Vital Signs: Vital Signs - 24 hr 09/11/23 21:14 09/11/23 21:46 09/12/23 01:36 Temperature 98.8 F 98.2 F 98.2 F Pulse Rate 98 93 90 Respiratory Rate 19 19 16 Blood Pressure 112/65 147/84 H 134/76 Pulse Oximetry 95 88 L 91 L Oxygen Delivery Method Room Air Room Air Room Air BMI result Body Mass Index 23.0 VITAL SIGNS: Reviewed. GENERAL: Well developed, well nourished, in no acute distress. HEAD: Normocephalic/atraumatic EYES: PERRLA, EOMI EARS: Ext canals without abnormality NOSE: Nares patent bilateral OROPHARYNX: no oral lesions noted, posterior pharynx clear NECK: Supple, no adenopathy LUNGS: Normal breath sounds. No adventitious sounds or accessory muscle use. SpO2<95> CARDIOVASCULAR: Regular rate and rhythm without noted murmurs, no JVD or lower extremity edema. ABDOMEN: Soft, diffusely tender without rebound, non-distended with bowel sounds. MUSCULOSKELETAL: No tenderness, deformities, or effusions noted on gross inspection. EXTREMITIES: No cyanosis, clubbing or edema. SKIN: Inspection of the skin reveals no rashes NEUROLOGIC: Alert and oriented x 4. Strength and sensation to light touch were grossly intact x 4. Medical Decision Making Medical Decision Making MDM Narrative: 73-year-old female with history and clinical presentation, DDX: Gastroenteritis, colitis, diverticulitis, obstruction, urinary tract infection. Hematologic indices are negative for leukocytosis and there is a stable normocytic anemia and no thrombocytopenia. Chemistry indices are negative for MEGHANA/electrolyte or liver enzyme derangements. Patient received 1 L of IV fluids as she has been unable to provide us with a urine sample this point, last bowel movement was just prior to presentation to the emergency room. CT scan demonstrates multiple fluid-filled bowel loops but no evidence of obstruction, although appendix is upper limits of normal at 8 mm it is described as having air within the lumen and no evidence of surrounding inflammation arguing against the likelihood of acute appendicitis. No evidence of diverticulitis reported, also patient's history and clinical symptoms inconsistent with acute appendicitis/diverticulitis. Will send patient home with instructions for Tylenol and ibuprofen as needed for pain and dietary changes to help alleviate some of the diarrhea and if diarrhea does not resolve in the next 24 hours will recommend the use of [id number] Imodium. Signed out to Dr Rick - f/u ALTAF Differential Diagnosis Differential Diagnoses: The differential diagnosis associated with the presentation includes Please see the discussion Admission/Observation Consideration of admission/observation: Escalation of care including admission/observation considered Please see the discussion Lab Data MDM Lab Attestation statement: I reviewed the patient's lab results. Please see the discussion 09/11/23 21:55 09/11/23 21:55 Labs: Lab Results 09/11/23 Range/Units 21:55 WBC 10.0 (4.8-10.8) X10*3/uL RBC 4.24 (4.20-5.50) X10*6/uL Hgb 11.9 L (12.0-16.0) g/dl Hct 36.9 L (37.0-47.0) % MCV 87.0 (80.0-98.0) fL MCH 28.1 (27.0-33.0) pg MCHC 32.2 (31.0-35.0) g/dl RDW 14.1 (11.0-16.0) % Plt Count 278 (160-400) X10*3/uL MPV 10.1 (9.4-12.3) fL Immature Gran % (Auto) 0.6 H (0.0-0.4) % Neut % (Auto) 62.5 (45-73) % Lymph % (Auto) 22.1 (20-40) % [place] % (Auto) 14.2 H (2-11) % Eos % (Auto) 0.1 (0-4) % Baso % (Auto) 0.5 (0-2) % Lymph # (Auto) 2.2 (1.2-4.9) X10*3/uL [place] # (Auto) 1.4 H (0.1-1.2) X10*3/uL Eos # (Auto) 0.0 (0.0-0.4) X10*3/uL Baso # (Auto) 0.1 (0.0-0.2) X10*3/uL Abs Immat Gran (auto) 0.06 H (0.00-0.03) X10*3/uL Absolute Neuts (auto) 6.2 (2.0-8.3) x10*3/uL Absolute Nucleated RBC 0.000 (0.0-0.012) X10*3/uL Nucleated RBC % (auto) 0.0 (0.0-0.2) /100WBC Sodium 142 (135-145) mmol/L Potassium 4.1 (3.3-5.1) mmol/L Chloride 106 (96-108) mmol/L Carbon Dioxide 25 (22-29) mmol/L Anion Gap 15 (12-20) BUN 23 H (9-16) mg/dL Creatinine 1.28 (0.5-1.4) mg/dL Estim Creat Clear Calc 34.8 Estimated GFR 41 Random Glucose 130 H (60-115) mg/dL Calcium 9.7 D (8.4-10.2) mg/dL Total Bilirubin 0.5 (0.0-1.0) mg/dL Direct Bilirubin 0.2 (0.0-0.5) mg/dL AST 16 (5-31) U/L ALT 6 (0-31) U/L Alkaline Phosphatase 82 (39-117) U/L Total Protein 8.2 H (6.5-8.0) g/dL Albumin 3.8 (3.5-5.0) g/dL Lipase 20 (8-78) U/L Radiology Impression Discussion of test interpretation with radiology: I have reviewed the radiologist's reading. Radiologist Impression: Please see the discussion above Chronic Conditions Patient?s care impacted by: Diabetes and Hypertension Medications Administered Generic Name Dose Route Start Last Admin Trade Name Freq PRN Reason Stop Dose Admin Sodium Chloride 1,000 mls @ 999 mls/hr 09/12/23 01:00 09/12/23 01:36 Ns IV 09/12/23 02:00 999 mls/hr .Q1H1M JARED Administration Discontinued Medications Generic Name Dose Route Start Last Admin Trade Name Freq PRN Reason Stop Dose Admin Iohexol 85 ml 09/12/23 01:26 09/12/23 01:27 Iohexol 350 Mg/Ml 100 Ml Infus..Btl IV 09/12/23 01:27 85 ml ONCE ONE Administration Critical Care Time Critical Care Time Critical Care Time: Yes Total Critical Care Time: 45 Attestation: I personally attest to this time spent taking care of the patient. Discharge Plan Discharge Clinical Impression: Gastroenteritis Patient Disposition: Home, Self-Care Instructions: Gastroenteritis (ED), Nutrition Tips for Relief of Diarrhea (ED) Additional Instructions: 1. I recommend [id number] Tylenol/ibuprofen as needed for pain control. Please review the recommendations for dietary changes to alleviate your diarrhea. If this does not work to alleviate your diarrhea within the next 24 hours I highly recommend that you use [id number] Imodium as directed on the outside packaging. 2. Follow-up with your primary care doctor in the next 1-2 days. Do not hesitate to return to the emergency room for any worsening of symptoms. Prescriptions: No Action albuterol sulfate [ProAir HFA] 90 mcg/actuation HFA aerosol inhaler 2 puff inhalation Q4-6H PRN (Reason: shortness of breath or wheezing) Qty: 8.5 0RF (DME) walker Misc See Rx Instructions .Route Qty: 1 0RF Rx Instructions: rollator with seat alcohol swabs [DropSafe Alcohol Prep Pads] Pads, Medicated 1 pad topical DIRECTED 90 Days Qty: 300 3RF lidocaine 5 % adhesive patch,medicated 1 patch topical DAILY Qty: 30 1RF (DME) CPAP Machine/Device Device See Rx Instructions .Route Qty: 1 0RF Rx Instructions: autoPAP 5-20 cm H2O (DME) lancets [Accu-Chek [facility]clix [facility]ets] [facility] See [facility]ructions .ROUTE .COMPLEX Qty: 100 3RF Dose Instruction: USE 1 LANCET ONCE A DAY Rx Instructions: USE 1 LANCET ONCE A DAY (DME) True Metrix Glucose Test Strip Strip See Rx Instructions .Route Qty: 100 3RF Rx Instructions: Use 1 test strip once a day (DME) true metrix lancets See Rx Instructions .Route .MEDSUPPLY Qty: 100 3RF Rx Instructions: As directed carbidopa-levodopa 50-200 mg tablet extended release 1 tab PO BID Qty: 60 6RF Rx Instructions: divide evenly over waking hours Janumet 50-500 mg tablet 1 tab PO BID 90 Days Qty: 180 1RF clotrimazole 1 % cream 1 appful vaginal BEDTIME Qty: 45 0RF (DME) blood-glucose meter [FreeStyle Lite Meter] Kit See Rx Instructions .Route Qty: 1 0RF Rx Instructions: As directed (DME) FreeStyle Lite Strips Strip See Rx Instructions .Route Qty: 100 2RF Rx Instructions: Use 1 test strip once a day atorvastatin 40 mg tablet 40 mg PO BEDTIME 90 Days Qty: 90 1RF calcium carbonate-vit D3-min 600 mg calcium- 400 unit tablet 1 tab PO BID 90 Days Qty: 180 2RF lisinopril 40 mg tablet 40 mg PO DAILY Qty: 90 3RF metoprolol tartrate 25 mg tablet 25 mg PO BID 90 Days Qty: 180 1RF omeprazole 20 mg capsule,delayed release(DR/EC) 20 mg PO DAILY Qty: 90 3RF fenofibrate nanocrystallized 145 mg tablet 145 mg PO DAILY Qty: 90 0RF Hold Instructions: patient wants to check Triglyceride Pepto-Bismol Max St 525 mg/15 mL suspension 525 mg PO Q30M PRN (Reason: diarrhea) 5 Days Qty: 118 0RF Rx Instructions: do not exceed 8 doses in a 24 hour period Referrals: Madison Carcamo MD [Primary Care Provider] - Print Language: Wallisian
[2023-09-12] MEDS: iohexoL 350 MG/ML 100 ML INFUS..BTL 85 ML IV (01:27)
[2023-09-12 01:36] VITALS: BP 134/76; PULSE 90; RESP 16; TEMP 36.8; O2SAT 91
[2023-09-12] MEDS: 0.9 % Sodium Chloride 1,000 ML 999 ML IV (01:36)
[2023-09-12 04:15] VITALS: BP 120/65; PULSE 94; RESP 14; TEMP 36.8; O2SAT 93
[2023-09-12 04:20] LABS: Appearance Urine Clear; Color Urine Yellow; Glucose Urine UA Negative (Negative); Leukocyte Esterase Urine Negative (Negative); Nitrite Urine Negative (Negative); PH 5.5 (5.0-9.0); Specific Gravity - Urine >= 1.030 (1.005-1.025); UMIC TRIGGER UACC YES; Urine Blood Negative (Negative); Urine Ketones Trace mg/dL (Negative); Urine Protein 30 (1+) mg/dL (Neg-Trace)
[2023-09-12 04:40] LABS: Bacteria Urine 1+ (None Seen); Hyaline Casts Urine 0-2 /LPF (0-2); RBC Urine 0-2 /HPF (0-2); WBC Urine 0-5 /HPF (0-5)
[2023-09-12 04:44] VITALS: BP 120/65; PULSE 94; RESP 14; TEMP 36.8; O2SAT 93
== END 2023-09-12 04:44 | disposition home or self-care (01) ==
PROVIDERS: Student in an Organized Health Care Education/Training Program; Emergency Provider Emergency Medicine; PCP Internal Medicine
DX: K52.9 Noninfective gastroenteritis and colitis, unspecified (principal); R10.9 Unspecified abdominal pain; R06.02 Shortness of breath; E11.9 Type 2 diabetes mellitus without complications; I10 Essential (primary) hypertension; E78.2 Mixed hyperlipidemia; G20.A1 Parkinson's disease without dyskinesia, without mention of fluctuations; Z79.02 Long term (current) use of antithrombotics/antiplatelets; Z87.891 Personal history of nicotine dependence
CPT/HCPCS: 36415; 74177; 80048; 80076; 81001; 83690; 85025; 96360; 99284; 99285; Q9967

== ENCOUNTER 2023-09-13 | Outpatient (REF) | payer OTHER, SELFPAY ==
[2023-09-14 11:53] LABS: CDiff Gene PCR NEGATIVE (Negative)
[2023-09-14 14:58] LABS: Leukocytes Stool Qualitative FEW: < 2/OIF (NEGATIVE)
== END 2023-09-13 00:01 | disposition home or self-care (01) ==
LOC: HO.LNP
PROVIDERS: Visit Provider Internal Medicine
DX: K52.9 Noninfective gastroenteritis and colitis, unspecified (principal)
CPT/HCPCS: 87329; 87338; 87493; 89055

== ENCOUNTER 2023-09-13 14:24 | Outpatient (AMB) | payer OTHER, SELFPAY ==
[2023-09-13 14:35] VITALS: BP 102/54; PULSE 70; O2SAT 95; BMI 23.0
--- NOTE | 2023-09-13 14:35 | MHC.PC.OV ---
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 Accompanied by: Friend Allergies influenza virus vaccine, specific [Influenza Virus Vacc,Specific] Allergy (Intermediate, Verified 09/13/23 14:47) SWELLING Medication List - Last Reconciled 09/13/23 by Madison Acosta MD albuterol sulfate 90 mcg/actuation (ProAir HFA) 2 puffs inhalation Q4-6H PRN alcohol swabs (DropSafe Alcohol Prep Pads) 1 pad topical DIRECTED 90 days atorvastatin 40 mg PO BEDTIME 90 days bismuth subsalicylate (Pepto-Bismol Max St) 525 mg (15 mL) PO Q30M PRN 5 days blood sugar diagnostic (FreeStyle Lite Strips) Use 1 test strip once a day blood sugar diagnostic (True Metrix Glucose Test Strip) Use 1 test strip once a day blood-glucose meter (FreeStyle Lite Meter kit) As directed calcium carbonate-vit D3-min 600 mg calcium- 400 unit 1 tab PO BID 90 days carbidopa-levodopa 50-200 mg ER 1 tab PO BID clotrimazole 1% 1 appful vaginal BEDTIME CPAP (CPAP Machine/Device) autoPAP 5-20 cm H2O fenofibrate nanocrystallized 145 mg PO DAILY lancets (Accu-Chek Softclix Lancets) USE 1 LANCET ONCE A DAY lidocaine 5% 1 patch topical DAILY lisinopril 40 mg PO DAILY metoprolol tartrate 25 mg PO BID 90 days omeprazole 20 mg PO DAILY sitagliptin phos-metformin 50-500 mg (Janumet) 1 tab PO BID 90 days [true metrix lancets As directed] walker rollator with seat Tobacco use date assessed: 04/23/23 Fall risk assessment: No Falls in past year Last assessed Fall Risk: 09/13/23 Dental Screening Dental Screen Date: 04/23/23 HPI HPI Comments History of Present Illness Details This is a 73-year-old female with Parkinson's disease, diabetes mellitus type 2 and abdominal aortic aneurysm without rupture that comes accompanied by [employer] MEMBER for her physical exam. She has an appointment with Neurology in December for her Parkinson's. A1c within goal. Abdominal aortic aneurysm has been evaluated by vascular surgery. Mammogram done last month and results are still pending. No need for Pap smear due to age. Had colonoscopy over 10 years ago and will be refer through open access. Had bone density 2022 showing osteoporosis and I will start her on alendronate once a week. Bone density will be repeated in 2024. Complains of chronic diarrhea that started on and off about 6 months ago. Will be refer to Gastroenterology. [facility] Medical History (Updated 09/13/23 @ 15:15 by Madison Acosta MD) Chronic painful diabetic neuropathy AAA (abdominal aortic aneurysm) Moderate recurrent major depression Surgery, elective Pain Hx of backache Hx of supraventricular tachycardia Hypersomnia Snoring Obstructive sleep apnea of adult Chronic hip pain, bilateral Eye pain Diffuse pain Chest pain Supraventricular tachycardia Cough Other and unspecified hyperlipidemia SOB (shortness of breath) Precordial chest pain Annual physical exam Nausea Encounter to establish care Peripheral vascular disease Bilateral artificial lens implant Allergic rhinitis Post menopausal syndrome Vaginitis and vulvovaginitis Diabetes type 2, controlled CAD (coronary artery disease) Hypertriglyceridemia Depression with anxiety GERD without esophagitis Hypertension Parkinsons disease Surgical History H/O prior ablation treatment History of tubal ligation History of cholecystectomy Family History Mother Diabetes Father Brain cancer Son Diabetes Social History Housing: Apartment Alcohol intake: never Patient Tobacco Use Status: Former Tobacco user e-Cigarette/Vaping Use: Never Used Second Hand Smoke Exposure: No service: No Current occupational status: retired Cognitive needs: No Hearing needs: No Vision needs: Yes (glasses) Questionnaire Thrive Questionnaire Date Thrive assessed: 04/23/23 EH-7 AMB Questionnaire EH-7 Date EH - 7 assessed: 04/23/23 Source: Developed by Drs. Mic Garcia, Nazia Mcdaniel, Yannick Ling and colleagues, with an educational kp from [employer]. Review of Systems Const All systems reviewed & are unremarkable except as noted in HPI and below Card Denies chest pain at rest, Denies chest pain with activity, Denies edema, Denies irregular heart rhythm, Denies claudication, Denies dyspnea, Denies dyspnea on exertion, Denies orthopnea, Denies paroxysmal nocturnal dyspnea and Denies slow heart rate Resp Denies cough, Denies dyspnea and Denies dyspnea on exertion GI Denies abdominal pain, Denies change in bowel habits, Denies excessive flatus, Reports diarrhea, Denies nausea and Denies vomiting Denies urinary incontinence, Denies urinary hesitancy and Denies urinary urgency Neuro Reports tremor(s) Physical exam (Primary Care) Vital Signs: Last Vital Signs Pulse 70 09/13/23 14:35 BP 102/54 L 09/13/23 14:35 Pulse Ox 95 09/13/23 14:35 Oxygen Delivery Method Room Air 09/13/23 14:35 BMI result Body Mass Index 23.0 Tobacco/Smoking Status: Tobacco use Status Tobacco use date assessed 04/23/23 09/13/23 14:40 Patient Tobacco Use Status Former Tobacco user 09/13/23 14:40 Tobacco use type 02/08/23 14:54 e-Cigarette/Vaping Use Never Used 09/13/23 14:40 Thrive Assessment: Date of Thrive Assessment Date Thrive assessed 04/23/23 09/13/23 14:40 Const Orientation/consciousness: patient oriented x3 HENMT Head: Yes normal to inspection, Yes normocephalic and Yes atraumatic Ears: external ears normal Eyes General: appearance normal, both eyes and all related structures Eyelids: Yes eyelids normal Conjunctivae: conjunctivae normal Neck Neck: Yes normal visual inspection and Yes supple Resp Effort & Inspection: normal respiratory effort Auscultation: clear to auscultation bilaterally Cardio Jugular venous distension: no JVD Rate: regular rate Rhythm: regular rhythm Heart sounds: S1 normal heart sound present and S2 normal heart sound present GI Inspection: Yes normal to inspection Palpation (GI): Soft to palpation and nontender Auscultation: normal bowel sounds Skin General skin exam: no rashes or lesions noted Neuro General: patient oriented x3 Motor exam (neuro): Tremors during motor activity present (bilateral upper limbs resting) Extrem General: Yes full ROM Psych Appearance: grossly normal Results AMB Hemoglobin A1c AMB Hemoglobin A1c 6.9 % Last Edit by SANDRA Thomas on 09/13/23 14:54 Assessment and Plan Assessment & Plan (1) Physical exam: Code(s): Z00.00 - Encounter for general adult medical examination without abnormal findings Plan: Repeat in a year. (2) Parkinsons disease: Code(s): G20 - Parkinson's disease Qualifiers: Dyskinesia presence: with dyskinesia Fluctuating manifestations: with fluctuating manifestations Qualified Code(s): G20.B2 - Parkinson's disease with dyskinesia, with fluctuations Plan: Continue carbidopa-levodopa. Follow-up with Neurology. (3) Type 2 diabetes mellitus with unspecified complications: Code(s): E11.8 - Type 2 diabetes mellitus with unspecified complications Plan: Continue Janumet. A1c goal is equal or less than 7%. (4) AAA (abdominal aortic aneurysm) without rupture: Code(s): I71.40 - Abdominal aortic aneurysm, without rupture, unspecified Qualifiers: Abdominal aorta location: infrarenal aorta Qualified Code(s): I71.43 - Infrarenal abdominal aortic aneurysm, without rupture Plan: Follow-up with vascular surgery. (5) Chronic diarrhea: Code(s): K52.9 - Noninfective gastroenteritis and colitis, unspecified Plan: Stool samples ordered. Referred to Gastroenterology. Has tried Imodium and Pepto-Bismol with no significant improvement. Orders: Orders Leukocytes Stool Qualitative Today K52.9 - Noninfective gastroenteritis and colitis, unspecified, R19.7 - Diarrhea, unspecified CDiff Gene PCR Today K52.9 - Noninfective gastroenteritis and colitis, unspecified Microalbumin, Random (w Creat) Today E11.8 - Type 2 diabetes mellitus with unspecified complications, E11.9 - Type 2 diabetes mellitus without complications Comprehensive [place]. Panel Fast Today E11.8 - Type 2 diabetes mellitus with unspecified complications Vitamin D 25-OH Total Today E55.9 - Vitamin D deficiency, unspecified AMB Hemoglobin A1c Today E11.8 - Type 2 diabetes mellitus with unspecified complications H pylori Ag Stool Today K52.9 - Noninfective gastroenteritis and colitis, unspecified, R19.7 - Diarrhea, unspecified Giardia Ag Stool EIA Today K52.9 - Noninfective gastroenteritis and colitis, unspecified, R19.7 - Diarrhea, unspecified Lipid Panel Today E11.8 - Type 2 diabetes mellitus with unspecified complications, E78.5 - Hyperlipidemia, unspecified Referrals Gastroenterology Referral K52.9 - Noninfective gastroenteritis and colitis, unspecified Open Access Screening Colonoscopy Referral Z12.11 - Encounter for screening for malignant neoplasm of colon Medications: New alendronate 70 mg PO QWEEK 90 days 13 tabs 1RF M81.0 - Age-related osteoporosis without current pathological fracture Coding Level of Care Code Est Pt Level 3 (62760) Est Pt Prev Care >65y(73276) Diagnoses Physical exam Z00.00 Parkinson's disease with dyskinesia and fluctuating manifestations G20.B2 Dyskinesia presence: with dyskinesia Fluctuating manifestations: with fluctuating manifestations Type 2 diabetes mellitus with unspecified complications E11.8 Infrarenal abdominal aortic aneurysm (AAA) without rupture I71.43 Abdominal aorta location: infrarenal aorta Chronic diarrhea K52.9 Time Spent (min) 40
== END 2023-09-13 15:11 | disposition home or self-care (01) ==
PROVIDERS: PCP Internal Medicine; Visit Provider Internal Medicine
DX: Z00.00 Encounter for general adult medical examination without abnormal findings (principal); G20.B2 Parkinson's disease with dyskinesia, with fluctuations; E11.8 Type 2 diabetes mellitus with unspecified complications; I71.43 Infrarenal abdominal aortic aneurysm, without rupture; K52.9 Noninfective gastroenteritis and colitis, unspecified
CPT/HCPCS: 83036; 99397

== ENCOUNTER 2023-11-09 15:12 | Inpatient (IN) | payer MEDICARE, MEDICAID, SELFPAY ==
[2023-11-09] VITALS (9 sets, daily range): BP systolic 152–210; BP diastolic 87–112; PULSE 80–113; RESP 16–20; TEMP 36.7–37.1; O2SAT 93–96; BMI 23.6
--- NOTE | ~2023-11-09 | CT_ITS ---
EXAMINATION: CT head/brain wo IV con CLINICAL INFORMATION: Reason for Exam dizziness COMPARISON: None available. TECHNIQUE: Contiguous axial imaging was performed from the skull base to vertex without intravenous contrast. Sagittal and coronal reformatted images were obtained. This CT examination was performed using dose optimization techniques as appropriate, variously including the following: * Automated exposure control * Adjustment of mA and/or kV according to patient size (this includes techniques or standardized protocols for targeted exams where dose is matched to indication/reason for exam; i.e. extremities or head) Use of iterative reconstruction technique DLP: 626 mGy-cm FINDINGS: There is no evidence of acute intracranial hemorrhage. No mass-effect or ventricular shift is noted. No acute, territorial loss of gardiner-white differentiation. Generalized cerebral volume loss with associated ventricular and sulcal prominence.Periventricular and subcortical white matter hypodensity is nonspecific but likely represents chronic microvascular ischemic change. No depressed calvarial fracture. The visualized paranasal sinuses have trace scattered mucosal thickening. Intracranial atherosclerotic calcification is noted. Bilateral intraocular lens replacements. The mastoid air cells are clear. CT/CT head/brain wo IV con IMPRESSION: No acute intracranial hemorrhage or territorial loss of gardiner-white differentiation.
--- NOTE | ~2023-11-09 | XR_ITS ---
EXAMINATION: XR CHEST CLINICAL INFORMATION: Shortness of breath COMPARISON: CT chest 11/09/2023. Chest radiograph 11/09/2023. TECHNIQUE: Frontal view of the chest was obtained. FINDINGS: The lungs are adequately expanded. Diffuse bilateral airspace opacities, right greater than left ,with interstitial prominence, with interval worsening compared to prior chest radiograph. Small bilateral pleural effusions. No pneumothorax. The cardiomediastinal silhouette is unchanged. Aortic arch calcifications. Degenerative changes of thoracic spine. XR/XR chest 1V IMPRESSION: Diffuse bilateral airspace opacities, right greater than left, with interstitial prominence, with interval worsening compared to prior chest radiograph. Findings may be secondary to pulmonary edema or infectious/inflammatory etiology. Small bilateral pleural effusions.
--- NOTE | ~2023-11-09 | XR_ITS ---
EXAMINATION: XR CHEST CLINICAL INFORMATION: Shortness of breath COMPARISON: 11/30/2021 and 05/21/2008 TECHNIQUE: Frontal view of the chest was obtained. FINDINGS: There is a focal opacity in the right midlung. Recommend further evaluation with chest CT. There is an associated small right pleural effusion. Suspect a patchy consolidation in the right lower lobe. Diffuse bronchial wall thickening. Small left effusion. Heart and mediastinal contours are grossly within normal limits. Nonobstructive gas pattern. Surgical clips in the right upper quadrant. No acute osseous finding. XR/XR chest 1V IMPRESSION: 1. Suspected right midlung mass. Recommend chest CT. 2. Suspected right lower lobe consolidation. 3. Bilateral small effusions. The [facility] physician customer support manager will call this critical result.
--- NOTE | ~2023-11-09 | CT_ITS ---
EXAMINATION: CT CHEST WITHOUT CONTRAST CT ABDOMEN AND PELVIS WITHOUT CONTRAST CLINICAL INFORMATION: Shortness of breath. COMPARISON: 09/12/2023. TECHNIQUE: Multidetector volumetric imaging was performed from the thoracic inlet through the pubic symphysis. Sagittal and coronal images were reformatted. This CT examination was performed using dose optimization techniques as appropriate, variously including the following: *Automated exposure control *Adjustment of mA and/or kV according to patient size (this includes techniques or standardized protocols for targeted exams where dose is matched to indication/reason for exam; i.e. extremities or head) *Use of iterative reconstruction technique DOSE: 849 mGy-cm FINDINGS: -CHEST- LUNG: Interlobular septal thickening is present throughout both lungs with interspersed groundglass attenuation, most consistent with pulmonary edema. Numerous nodular opacities are present in both lungs, predominantly in the perihilar region of the right upper lobe and both lower lobes. The lower lobe opacities are new as compared to the prior CT from 09/12/2023 and may correspond to alveolar edema. Superimposed lesions cannot be excluded. Central airways are clear. MEDIASTINUM: Atherosclerotic calcifications are present in the coronary arteries. Heart is normal in size. Borderline enlarged bilateral mediastinal lymph nodes measuring up to 1 cm in diameter in the AP window. Thyroid gland is unremarkable. Atherosclerotic calcification is present in the thoracic aorta. PERICARDIUM/PLEURA: Small pleural effusions, right greater than left. No pericardial effusion. CHEST WALL/AXILLA: Unremarkable. -ABDOMEN/PELVIS- LIVER, GALLBLADDER, BILIARY TREE: The liver is normal in size, shape, and attenuation. No focal hepatic lesion or biliary ductal dilatation is present. Gallbladder surgically absent. PANCREAS: Pancreas is atrophic. No biliary ductal dilatation. No focal lesions. SPLEEN: Normal size. No focal lesion. ADRENAL GLANDS: Normal; no mass. KIDNEYS AND URETERS: The kidneys are normal in size, shape, and attenuation. No hydronephrosis or hydroureter. Mild perinephric stranding. Two 2 mm calculi are present in the left kidney, one in the upper pole, one in the lower pole. BLADDER: Unremarkable. GASTROINTESTINAL TRACT: Stomach, small bowel, and colon are normal in caliber. Mild diffuse colonic diverticulosis. No bowel wall thickening or surrounding inflammatory changes. Appendix is normal. No intraperitoneal free fluid or free air. ABDOMINAL WALL: No significant hernia is appreciated. VASCULATURE: Atherosclerotic calcifications are present in the abdominal aorta and iliac arteries. There is a 2.9 cm infrarenal abdominal aortic aneurysm, though this is only slightly larger than the aortic diameter proximal to it (2.4 cm). LYMPH NODES: No lymphadenopathy. . PELVIC VISCERA: The uterus and adnexa are unremarkable. OSSEUS STRUCTURES: Bones are osteopenic. Moderate multilevel degenerative disc disease and facet arthropathy and lumbar spine ankylosis of much of the thoracic spine due to diffuse idiopathic skeletal hyperostosis (DISH). Chronic superior endplate compression deformities at T11 and T12 are unchanged. No acute fractures. Mild to moderate osteoarthritis in both hips. CT/CT abdomen pelvis wo IV con IMPRESSION: 1. Pulmonary edema with small bilateral pleural effusions. 2. Numerous nodular opacities in the perihilar regions of the right upper lobe and both lower lobes, most likely due to alveolar edema. Superimposed lesions cannot be excluded. Radiographic follow-up is advised to verify resolution. 3. No acute abnormalities are identified in the abdomen and pelvis. 4. Nonobstructing left renal calculi. 5. Mild colonic diverticulosis without evidence of acute diverticulitis. 6. A 2.9 cm infrarenal abdominal aortic aneurysm.
--- NOTE | ~2023-11-09 | NM_ITS ---
EXAMINATION: NM LUNG PERFUSION ONLY STUDY CLINICAL INDICATION: Shortness of breath. New mass. Elevated BNP. TECHNIQUE: Following the intravenous administration of 4 millicuries of technetium 99m MAA, images of the chest were obtained in multiple projections using a gamma camera. The radiotracer was injected through right antecubital vein without complications. COMPARISON: CT chest without contrast 11/09/2023. Chest radiograph 11/09/2023. FINDINGS: There is slightly heterogeneous distribution of tracer activity throughout both lungs. Small segmental perfusion defect in the apical posterior segment of left upper lobe on the LPO and left lateral projections. No additional segmental perfusion defects are identified. Cardiac and hilar attenuation are noted. Correlation is made to CT chest and chest radiograph performed on 11/09/2023 which demonstrates bilateral airspace opacities and small bilateral pleural effusions. NM/NM pul perfusion IMPRESSION: Based on perfusion only modified PIOPED 2 criteria, the study is classified as non-diagnostic for pulmonary thromboembolism.
--- NOTE | 2023-11-09 15:16 | ED_ITS ---
HPI - Nausea/Vomiting/Diarrhea General Chief complaint: General Medical Stated complaint: vomiting and diarrhea about 5 days Time Seen by Provider: 11/09/23 18:09 Source: patient and family Mode of arrival: ambulatory Limitations: no limitations History of Present Illness ED Provider: Min MOISE HPI Narrative: 73 year old female hx of osteoporosis, kidney stones, AAA, HLD, HTN, DM, CAD, GERD, parkinsons disease presents with fatigue, malaise, myalgias, nausea, vomiting, abdominal discomfort and shortness breath ongoing 5-6 days. Patient reports she has been feeling overall unwell and very weak. Not eating or drinking. She states she is not eating or drinking because every time she tries she ends up vomiting. She denies chest pain, sick contacts, vision changes, dizziness, weakness, blood in stool or vomit, changes in urinary or bowel habits. Related Data Previous Rx's ?Medication ?Instructions ?Recorded clotrimazole 1 % vaginal cream 1 appful vaginal BEDTIME #45 grams 05/23/21 blood sugar diagnostic (FreeStyle #100 ea 09/21/21 Lite Strips) blood-glucose meter (FreeStyle #1 ea 09/21/21 Lite Meter kit) albuterol sulfate 90 mcg/actuation 2 puff inhalation Q4-6H PRN 11/08/21 aerosol inhaler (ProAir HFA) shortness of breath or wheezing #8.5 grams walker #1 ea 11/24/21 alcohol swabs (DropSafe Alcohol 1 pad topical DIRECTED 90 days 01/16/22 Prep Pads) #300 ea lidocaine 5 % topical patch 1 patch topical DAILY for pain #30 10/03/22 patches CPAP (CPAP Machine/Device) #1 ea 11/06/22 lancets (Accu-Chek Softclix ##100 11/08/22 Lancets) atorvastatin 40 mg tablet 40 mg PO BEDTIME 90 days #90 tabs 12/20/22 lisinopril 40 mg tablet 40 mg PO DAILY hypertension #90 12/20/22 tabs metoprolol tartrate 25 mg tablet 25 mg PO BID 90 days #180 tabs 12/20/22 omeprazole 20 mg capsule,delayed 20 mg PO DAILY #90 caps 12/20/22 release bismuth subsalicylate 525 mg/15 mL 525 mg (15 mL) PO Q30M PRN 04/23/23 oral suspension (Pepto-Bismol Max diarrhea 5 days #[address]) fenofibrate nanocrystallized 145 145 mg PO DAILY #90 tabs 04/23/23 mg tablet blood sugar diagnostic (True #100 ea 05/14/23 Metrix Glucose Test Strip) true metrix lancets #100 ea 05/14/23 carbidopa ER 50 mg-levodopa 200 mg 1 tab PO BID #60 tabs 06/25/23 tablet,extended release sitagliptin phosphate 50 1 tab PO BID 90 days #180 tabs 09/08/23 mg-metformin 500 mg tablet (Janumet) calcium carb-vit D3-minerals 600 1 tab PO BID 90 days #180 tabs 09/12/23 mg calcium-400 unit tablet alendronate 70 mg tablet 70 mg PO QWEEK 90 days #13 tabs 09/13/23 Allergies Allergy/AdvReac Type Severity Reaction Status Date / Time influenza virus vaccine, Allergy Intermediate SWELLING Verified 11/09/23 15:24 specific [Influenza Virus Vacc,Specific] Review of Systems 2 Review of Systems: Yes all other systems are reviewed and are negative [facility] Past Medical History Attestation statement: The following information was validated with the patient. Source: old records reviewed and nursing notes reviewed Medical History Chronic painful diabetic neuropathy AAA (abdominal aortic aneurysm) Moderate recurrent major depression Surgery, elective Pain Hx of backache Hx of supraventricular tachycardia Hypersomnia Snoring Obstructive sleep apnea of adult Chronic hip pain, bilateral Eye pain Diffuse pain Chest pain Supraventricular tachycardia Cough Other and unspecified hyperlipidemia SOB (shortness of breath) Precordial chest pain Annual physical exam Nausea Encounter to establish care Peripheral vascular disease Bilateral artificial lens implant Allergic rhinitis Post menopausal syndrome Vaginitis and vulvovaginitis Diabetes type 2, controlled CAD (coronary artery disease) Hypertriglyceridemia Depression with anxiety GERD without esophagitis Hypertension Parkinsons disease Surgical History H/O prior ablation treatment History of tubal ligation History of cholecystectomy Family History Family History Mother Diabetes Father Brain cancer Son Diabetes Social History Social History Housing: Apartment Alcohol intake: never Patient Tobacco Use Status: Former Tobacco user Smoked in Last 30 Days: No e-Cigarette/Vaping Use: Never Used Second Hand Smoke Exposure: No Use of substances other than those prescribed or required for medical reasons: No Advance Directives: No Advance Directives Information Provided: No Nutrition Risks: No Nutritional Risk service: No Current occupational status: retired Cognitive needs: No Hearing needs: No Vision needs: Yes (glasses) Physical Exam 2 Vital Signs: Vital Signs: Last Vital Signs Temp 98.4 F 11/09/23 22:07 Pulse 83 11/09/23 22:07 Resp 20 11/09/23 22:07 BP 198/89 H 11/09/23 22:07 Pulse Ox 96 11/09/23 22:07 O2 Del Method Nasal Cannula 11/09/23 22:07 O2 Flow Rate 3 11/09/23 22:07 BMI result Body Mass Index 23.6 vss Appearance: Alert.? Oriented X3.? No acute distress.? Head: Normocephalic, atraumatic, no step-offs or deformities Eyes: Pupils equal, round and reactive to light.? ENT: Pharynx normal.? Neck: Normal inspection.? Neck supple.? CVS: Normal heart rate and rhythm.? Pulses normal.? Respiratory: No respiratory distress.? Breath sounds normal.? Abdomen: Soft and nontender.? Skin: Skin warm and dry.? Normal skin color.? Normal skin turgor.? Extremities: No lower extremity edema.? No calf ttp. Global weakness Neuro: Oriented X 3.? No motor deficit.? No sensory deficit. CN 2-12 intact Course Course Course Narrative: This is a Rapid Medical Exam performed in triage by Alayna Mendez PA-C. Full HPI, ROS and PE to be performed by primary ED provider. 73 year-old F w/ PMHx AAA, ANTONETTE, OA, DM, CAD, Parkinsons presenting to the ED c/o vomiting & diarrhea x5-6 days w/decreased/inability to tolerate PO. Also reports SOB, CP & sore throat. Patient unable to get CPAP due to insurance however used her aids CPAP last night. Also states Parkinson's spasms seem to be worsening over the past 3 weeks. Also reports increasing difficulty balancing, w/o fall PE: lungs with shallow BS bibasilarly, shakiness appreciated, abdomen soft w/epigastric ttp Plan: EKG, labs, UA, CXR, viral testing Reevaluation(s) Reevaluation #1: CBC with a normocytic anemia slightly lower than baseline. No reported rectal bleeding. Chemistry with low magnesium 1.3 magnesium ordered. Potassium 5.3 low, ordered. MEGHANA noted will hold on hydration as patient is noted to have an elevated BNP. Initial troponin 12.4 repeat 22.5, I am concerned for possible demand ischemia. Unlikely STEMI, nonischemic EKG. CT head no acute intracranial hemorrhage or territorial loss of gardiner-white differentiation. Reevaluation #2: Scan still pending. Hospitalist aware. Reevaluation #3: CT abdomen and pelvis with pulmonary edema small bilateral pleural effusions numerous nodular opacities in the perihilar region of the right upper lobe and both lobes most likely due to alveolar edema. No acute abnormalities. Nonobstructing left renal calculi. 2.9 cm infrarenal abdominal aortic aneurysm. CT head no acute intracranial hemorrhage or territorial loss. Medications Administered Generic Name Dose Route Start Last Admin Trade Name Freq PRN Reason Stop Dose Admin Enoxaparin Sodium 30 mg 11/09/23 21:30 11/09/23 22:02 Enoxaparin Sodium 30 Mg/0.3 Ml Syringe SUBCUT 30 mg Q24H JARED Administration Ceftriaxone Sodium 1 gm/ 50 mls @ 100 mls/hr 11/09/23 21:30 11/09/23 22:02 Sodium Chloride IV 100 mls/hr Q24H JARED Administration Discontinued Medications Generic Name Dose Route Start Last Admin Trade Name Freq PRN Reason Stop Dose Admin Aspirin 324 mg 11/09/23 18:36 11/09/23 18:42 Aspirin 81 Mg Tab.Chew PO 11/09/23 18:37 324 mg ONCE ONE Administration Magnesium Sulfate 2 gm in 50 mls @ 25 mls/hr 11/09/23 18:58 11/09/23 21:32 Magnesium Sulfate/H2o IV 11/09/23 20:57 Infused ONCE ONE Infusion Lisinopril 40 mg 11/09/23 18:28 11/09/23 18:51 Lisinopril 40 Mg Tablet PO 11/09/23 18:29 40 mg ONCE ONE Administration Protocol Metoprolol Tartrate 25 mg 11/09/23 18:28 11/09/23 18:51 Metoprolol Tartrate 25 Mg Tablet PO 11/09/23 18:29 25 mg ONCE ONE Administration Protocol Metoprolol Tartrate 5 mg 11/09/23 20:24 11/09/23 20:49 Metoprolol Tartrate 5 Mg/5 Ml Vial IVPUSH 11/09/23 20:25 5 mg ONCE ONE Administration Protocol Metoprolol Tartrate 5 mg 11/09/23 21:14 11/09/23 22:03 Metoprolol Tartrate 5 Mg/5 Ml Vial IVPUSH 11/09/23 21:15 5 mg ONCE ONE Administration Protocol Morphine Sulfate 4 mg 11/09/23 18:36 11/09/23 18:42 Morphine Sulfate 4 Mg/Ml Cartridge IVPUSH 11/09/23 18:37 4 mg ONCE ONE Administration Protocol Nitroglycerin 0.5 inch 11/09/23 18:36 11/09/23 18:40 Nitroglycerin 2 % Oint 1 Gm Packet TRANSDERMA 11/09/23 18:37 0.5 inch ONCE ONE Administration Sodium Zirconium Cyclosilicate 10 gm 11/09/23 21:16 11/09/23 22:02 Sodium Zirconium Cyclosilicate 10 Gm Powd.Pack PO 11/09/23 21:17 10 gm ONCE ONE Administration Medical Decision Making Medical Decision Making [facility] Narrative: 1820 73 yo f presents w/ nausea, vomiting, shortness of breath, fatigue, malaise, myalgias x 5-6 PE diminished breathsounds b/l. RRR. Abdomen slight tenderness on palpaiton throughout. History and physical exam concerning for viral illness flu versus COVID versus RSV versus gastroenteritis. Will rule out pneumonia due to shortness of breath and length of symptoms. Will also rule out pulmonary embolism due to patient's risk factors. Unlikely ACS, dissection, acute respiratory distress. Abdominal discomfort likely secondary to viral illness and diarrhea. Unlikely acute abdomen appendicitis, cholecystitis, diverticulitis, obstruction. Plan- imaging, labs, urine, viral tests Differential Diagnosis Differential Diagnoses: The differential diagnosis associated with the presentation includes History and physical exam concerning for viral illness flu versus COVID versus RSV versus gastroenteritis. Will rule out pneumonia due to shortness of breath and length of symptoms. Will also rule out pulmonary embolism due to patient's risk factors. Unlikely ACS, dissection, acute respiratory distress. Abdominal discomfort likely secondary to viral illness and diarrhea. Unlikely acute abdomen appendicitis, cholecystitis, diverticulitis, obstruction. Admission/Observation Consideration of admission/observation: Escalation of care including admission/observation considered likely Lab Data MDM Lab Attestation statement: I reviewed the patient's lab results. 11/09/23 15:42 11/09/23 15:42 Labs: Lab Results 11/09/23 11/09/23 11/09/23 Range/Units 15:42 20:38 21:08 WBC 9.9 (4.8-10.8) X10*3/uL RBC 3.32 L D (4.20-5.50) X10*6/uL Hgb 9.4 L D (12.0-16.0) g/dl Hct 28.6 L D (37.0-47.0) % MCV 86.1 (80.0-98.0) fL MCH 28.3 (27.0-33.0) pg MCHC 32.9 (31.0-35.0) g/dl RDW 14.6 (11.0-16.0) % Plt Count 261 (160-400) X10*3/uL MPV 9.5 (9.4-12.3) fL Immature Gran % (Auto) 0.7 H (0.0-0.4) % Neut % (Auto) 63.4 (45-73) % Lymph % (Auto) 18.7 L (20-40) % [place] % (Auto) 15.8 H (2-11) % Eos % (Auto) 1.0 (0-4) % Baso % (Auto) 0.4 (0-2) % Lymph # (Auto) 1.8 (1.2-4.9) X10*3/uL [place] # (Auto) 1.6 H (0.1-1.2) X10*3/uL Eos # (Auto) 0.1 (0.0-0.4) X10*3/uL Baso # (Auto) 0.0 (0.0-0.2) X10*3/uL Abs Immat Gran (auto) 0.07 H (0.00-0.03) X10*3/uL Absolute Neuts (auto) 6.3 (2.0-8.3) x10*3/uL Absolute Nucleated RBC 0.000 (0.0-0.012) X10*3/uL Nucleated RBC % (auto) 0.0 (0.0-0.2) /100WBC Smear Tech's Comments VERIFIED Sodium 140 (135-145) mmol/L Potassium 5.3 H D (3.3-5.1) mmol/L Chloride 108 (96-108) mmol/L Carbon Dioxide 20 L (22-29) mmol/L Anion Gap 17 (12-20) BUN 37 H (9-16) mg/dL Creatinine 1.89 H (0.5-1.4) mg/dL Estim Creat Clear Calc 23.5 Estimated GFR 26 Random Glucose 133 H (60-115) mg/dL Lactic Acid (0.5-2.0) mmol/L Calcium 8.4 D (8.4-10.2) mg/dL Magnesium 1.3 L* (1.6-2.6) mg/dL Total Bilirubin 0.5 (0.0-1.0) mg/dL Direct Bilirubin 0.3 (0.0-0.5) mg/dL AST 15 (5-31) U/L ALT 8 (0-31) U/L Alkaline Phosphatase 73 (39-117) U/L Troponin I High Sens 12.4 22.5 H D (<3.5-17.0) ng/L B-Natriuretic Peptide 912 H (<100) pg/mL Total Protein 8.1 H (6.5-8.0) g/dL Albumin 2.9 L (3.5-5.0) g/dL Lipase 25 (8-78) U/L Urine Color Yellow Urine Appearance Turbid Urine pH 5.5 (5.0-9.0) Ur Specific [place] 1.025 (1.005-1.025) Urine Protein >=1000 (4+) H (Neg-Trace) mg/dL Urine Glucose (UA) Negative (Negative) mg/dL Urine Ketones Trace (Negative) mg/dL Urine Blood Large (3+) H (Negative) Urine Nitrite Negative (Negative) Ur Leukocyte Esterase Small (1+) H (Negative) Urine RBC >20 H (0-2) /HPF Urine WBC >50 H (0-5) /HPF Ur Squamous Epith Cells 6-10 (0-2) /HPF Urine Bacteria 1+ (None Seen) Hyaline Casts >20 (0-2) /LPF Granular Casts Present Influenza Type A (PCR) NEGATIVE (Negative) Influenza Type B (PCR) NEGATIVE (Negative) RSV RNA Qual (PCR) NEGATIVE (Negative) SARS-CoV-2 RNA (RT-PCR) NEGATIVE (Negative) 11/09/23 Range/Units 22:00 WBC (4.8-10.8) X10*3/uL RBC (4.20-5.50) X10*6/uL Hgb (12.0-16.0) g/dl Hct (37.0-47.0) % MCV (80.0-98.0) fL MCH (27.0-33.0) pg MCHC (31.0-35.0) g/dl RDW (11.0-16.0) % Plt Count (160-400) X10*3/uL MPV (9.4-12.3) fL Immature Gran % (Auto) (0.0-0.4) % Neut % (Auto) (45-73) % Lymph % (Auto) (20-40) % [place] % (Auto) (2-11) % Eos % (Auto) (0-4) % Baso % (Auto) (0-2) % Lymph # (Auto) (1.2-4.9) X10*3/uL [place] # (Auto) (0.1-1.2) X10*3/uL Eos # (Auto) (0.0-0.4) X10*3/uL Baso # (Auto) (0.0-0.2) X10*3/uL Abs Immat Gran (auto) (0.00-0.03) X10*3/uL Absolute Neuts (auto) (2.0-8.3) x10*3/uL Absolute Nucleated RBC (0.0-0.012) X10*3/uL Nucleated RBC % (auto) (0.0-0.2) /100WBC Smear Tech's Comments Sodium (135-145) mmol/L Potassium (3.3-5.1) mmol/L Chloride (96-108) mmol/L Carbon Dioxide (22-29) mmol/L Anion Gap (12-20) BUN (9-16) mg/dL Creatinine (0.5-1.4) mg/dL Estim Creat Clear Calc Estimated GFR Random Glucose (60-115) mg/dL Lactic Acid 0.9 (0.5-2.0) mmol/L Calcium (8.4-10.2) mg/dL Magnesium (1.6-2.6) mg/dL Total Bilirubin (0.0-1.0) mg/dL Direct Bilirubin (0.0-0.5) mg/dL AST (5-31) U/L ALT (0-31) U/L Alkaline Phosphatase (39-117) U/L Troponin I High Sens (<3.5-17.0) ng/L B-Natriuretic Peptide (<100) pg/mL Total Protein (6.5-8.0) g/dL Albumin (3.5-5.0) g/dL Lipase (8-78) U/L Urine Color Urine Appearance Urine pH (5.0-9.0) Ur Specific [place] (1.005-1.025) Urine Protein (Neg-Trace) mg/dL Urine Glucose (UA) (Negative) mg/dL Urine Ketones (Negative) mg/dL Urine Blood (Negative) Urine Nitrite (Negative) Ur Leukocyte Esterase (Negative) Urine RBC (0-2) /HPF Urine WBC (0-5) /HPF Ur Squamous Epith Cells (0-2) /HPF Urine Bacteria (None Seen) Hyaline Casts (0-2) /LPF Granular Casts Influenza Type A (PCR) (Negative) Influenza Type B (PCR) (Negative) RSV RNA Qual (PCR) (Negative) SARS-CoV-2 RNA (RT-PCR) (Negative) Independent Interpretation I performed an independent interpretation of an: EKG (Vent. Rate : 092 BPM Atrial Rate : 092 BPM P-R Int : 130 ms QRS Dur : 084 ms QT Int : 360 ms P-R-T Axes : 021 -06 008 degrees QTc Int : 445 ms Normal sinus rhythm Minimal voltage criteria for LVH, may be normal variant ( R in aVL ) Borderline ECG When compared with ECG), Plain X-Ray (XR/XR chest 1V IMPRESSION: 1. Suspected right midlung mass. Recommend chest CT. 2. Suspected right lower lobe consolidation. 3. Bilateral small effusions. The [facility] physician system support specialist will call this critical result.) and CT Scan Radiology Impression Discussion of test interpretation with radiology: I have reviewed the radiologist's reading. External Record Review External record reviewed: Inpatient record, Office record, Outpatient record, Prior outpatient labs, Prior outpatient radiology, Primary care record and Outside ED record Chronic Conditions Patient?s care impacted by: Diabetes, Hypertension and Other (parkinsons ) Critical Care Time Critical Care Time Critical Care Time: Yes Total Critical Care Time: 35 Attestation: I attest to this time spent taking care of the patient, obtaining history, physical, reviewing labs, imaging, speaking to my attending, specialist or hospitalist. Discharge Plan Discharge Clinical Impression: Nausea & vomiting, Pneumonia, Lung mass, Acute hyperkalemia, MEGHANA (acute kidney injury), Hypomagnesemia, Elevated brain natriuretic peptide (BNP) level, Hypertensive emergency, UTI (urinary tract infection) Patient Disposition: Admitted As Inpatient Print Language: Occitan
--- NOTE | 2023-11-09 15:20 | ECG_ITS ---
Test Reason : NAUSEA Blood Pressure : / mmHG Vent. Rate : 092 BPM Atrial Rate : 092 BPM P-R Int : 130 ms QRS Dur : 084 ms QT Int : 360 ms P-R-T Axes : 021 -06 008 degrees QTc Int : 445 ms Normal sinus rhythm Minimal voltage criteria for LVH, may be normal variant ( R in aVL ) Borderline ECG When compared with ECG of 17-APR-2023 20:32, MO interval has decreased Nonspecific T wave abnormality no longer evident in Anterior leads Referred By: Alayna Mendez Electronically Signed By:LUISA CRUZ
[2023-11-09 15:50] LABS: Basophils Percent Auto 0.4 % (0-2); Eosinophils Absolute Auto 0.1 X10*3/uL (0.0-0.4); Hematocrit 28.6 % (37.0-47.0); Hemoglobin 9.4 g/dl (12.0-16.0); Imm Gran Abs Auto 0.07 X10*3/uL (0.00-0.03); Imm Gran Pct Auto 0.7 % (0.0-0.4); Lymphocytes Absolute Auto 1.8 X10*3/uL (1.2-4.9); Lymphocytes Percent Auto 18.7 % (20-40); MANUAL DIFF FLAG SCAN; Mean Corpuscular HGB Conc 32.9 g/dl (31.0-35.0); Mean Corpuscular Hemoglobin 28.3 pg (27.0-33.0); Mean Corpuscular Volume 86.1 fL (80.0-98.0); Mean Platelet Volume 9.5 fL (9.4-12.3); Monocytes Absolute Auto 1.6 X10*3/uL (0.1-1.2); Monocytes Percent Auto 15.8 % (2-11); Neutrophils Absolute Auto 6.3 x10*3/uL (2.0-8.3); Neutrophils Percent Auto 63.4 % (45-73); Platelet Count 261 X10*3/uL (160-400); Red Blood Count 3.32 X10*6/uL (4.20-5.50); Red Cell Distribution Width 14.6 % (11.0-16.0); SCAN SMEAR FLAG 1; White Blood Count 9.9 X10*3/uL (4.8-10.8)
[2023-11-09 16:09] LABS: B Type Natriuretic Peptide 912 pg/mL (<100)
[2023-11-09 16:23] LABS: SLIDE REVIEW VERIFIED
[2023-11-09 16:26] LABS: Influenza A PCR NEGATIVE (Negative); Influenza B PCR NEGATIVE (Negative); Resp Syncy Virus RNA Qual PCR NEGATIVE (Negative); SARS COV2 PCR INHOUSE NEGATIVE (Negative)
[2023-11-09] MEDS: Nitroglycerin 2 % Oint 1 GM Packet 0.5 INCH TRANSDERMA (18:40)
[2023-11-09] MEDS: Morphine Sulfate 4 MG/ML CARTRIDGE IVPUSH (18:42)
[2023-11-09] MEDS: Aspirin 81 MG TAB.CHEW 324 MG PO (18:42)
--- NOTE | 2023-11-09 18:46 | PC.NURSE ---
Pt reports feeling chest tightness and SOB, 2L NC applied. Pt diaphoretic. MD made aware. medications adminisitered. See MAR
--- NOTE | 2023-11-09 18:49 | ECG_ITS ---
Test Reason : CHEST TIGHTNESS Blood Pressure : / mmHG Vent. Rate : 093 BPM Atrial Rate : 093 BPM P-R Int : 164 ms QRS Dur : 074 ms QT Int : 358 ms P-R-T Axes : 041 005 031 degrees QTc Int : 445 ms Normal sinus rhythm Normal ECG When compared with ECG of 09-NOV-2023 15:30, No significant change was found Referred By: Hiro Alejandro Electronically Signed By:LUISA CRUZ
[2023-11-09] MEDS: Metoprolol Tartrate 25 MG TABLET PO (18:51)
[2023-11-09] MEDS: lisinopriL 40 MG TABLET PO (18:51)
[2023-11-09 18:56] LABS: Alanine Aminotransferase 8 U/L (0-31); Albumin Level 2.9 g/dL (3.5-5.0); Alkaline Phosphatase 73 U/L (39-117); Anion Gap 17 (12-20); Aspartate Amino Transferase 15 U/L (5-31); Bilirubin Direct 0.3 mg/dL (0.0-0.5); Bilirubin Total 0.5 mg/dL (0.0-1.0); Blood Urea Nitrogen 37 mg/dL (9-16); Calcium 8.4 mg/dL (8.4-10.2); Carbon Dioxide 20 mmol/L (22-29); Chloride 108 mmol/L (96-108); Creatinine Clr Calc Pharmacy 23.5; Estimated Glomerular Filt Rate 26; Glucose Random 133 mg/dL (60-115); Lipase 25 U/L (8-78); Magnesium 1.3 mg/dL (1.6-2.6); Potassium 5.3 mmol/L (3.3-5.1); Sodium 140 mmol/L (135-145); Total Protein 8.1 g/dL (6.5-8.0)
[2023-11-09 19:00] LABS: Troponin-I High Sensitivity 12.4 ng/L (<3.5-17.0)
--- NOTE | 2023-11-09 19:01 | MHC.EDTECH ---
Took over patient care at this time, EKG is ordered, patient is currently in CT Scan. Will do EKG as soon as patient is back to the room.
[2023-11-09] MEDS: Magnesium Sulfate/H2O 2 GM/50 ML PIGGYBACK IV (19:32)
[2023-11-09] MEDS: Metoprolol Tartrate 5 MG/5 ML VIAL IVPUSH ×2 (20:49→22:03)
[2023-11-09 21:01] LABS: Troponin-I High Sensitivity 22.5 ng/L (<3.5-17.0)
[2023-11-09 21:21] LABS: Appearance Urine Turbid; Color Urine Yellow; Glucose Urine UA Negative (Negative); Leukocyte Esterase Urine Small (1+) (Negative); Nitrite Urine Negative (Negative); PH 5.5 (5.0-9.0); Specific Gravity - Urine 1.025 (1.005-1.025); UMIC TRIGGER UACC YES; Urine Blood Large (3+) (Negative); Urine Ketones Trace mg/dL (Negative); Urine Protein >=1000 (4+) mg/dL (Neg-Trace)
[2023-11-09 21:33] LABS: Bacteria Urine 1+ (None Seen); Granular Casts Urine Present; Hyaline Casts Urine >20 /LPF (0-2); RBC Urine >20 /HPF (0-2); UACC Culture Trigger YES; WBC Urine >50 /HPF (0-5)
--- NOTE | 2023-11-09 21:45 | PC.NURSE ---
Pt arousable to verbal stimuli. Eze Farfan and Gina Smith from [facility] at bedside. Pt answered questions. Contact information at bedside. Monitoring is ongoing.
--- NOTE | 2023-11-09 22:01 | P.HPHOSP_ITS ---
History of Present Illness Date of Service: 11/09/23 <PAT Alfred - Last Filed: 11/09/23 23:56> Attending physician on admission: Yudy Butler <PAT Alfred - Last Filed: 11/09/23 23:56> Chief Complaint: N/V/D x5 days <PAT Alfred - Last Filed: 11/09/23 23:56> Pt is a 73-year-old [place]-speaking female with a PMH significant for?Parkinson's disease, HTN, HLD, [id number] type 2 diabetes, AAA, GERD, ANTONETTE not on CPAP, and osteoporosis who presents to the ED complaining of nausea, vomiting, diarrhea x6-7 days. Patient is accompanied by her live-in nurse who helps supplement HPI. Patient with long history of similar complaints and has had workup in the past that has been negative. Patient has also been referred to GI, though it is unclear whether or not she has ever seen a import export coordinator. Patient normally experiences 2-3 days of N/V/D at a time, though current symptoms are more prolonged and severe. Patient has been unable to eat or drink much at all during this time. Intermittent abdominal pain 1-2 days ago, currently resolved. Has also been experiencing increased shortness of breath and dyspnea upon exertion, as well as generalized fatigue. Has had nonproductive cough and also complains of a ?heaviness? on her chest the past few days. Also complains that her Parkinson's tremors have worsened. Reports being compliant with all of her medications. Denies any hematemesis, hemoptysis, melena, or hematochezia. Patient is a former long-time smoker of 2 packs daily, quit 5-6 years ago. Denies fever, chills. In the ED pt was tachycardic up to 113 and hypertensive up to 210/100. Labs were significant for H&H 9.4/28.6 (down from 11 0.9/36.9 on 09/11/2023), potassium 5.3, BUN 37, creatinine 1.89 (elevated from 1.28 on 09/11/2023), magnesium 1.3, initial troponin 12.4 with repeat 22.5, BNP 912, and albumin 2.9. UA positive for UTI. Tested negative for influenza, RSV, COVID. CXR showed suspected right mid lung mass and right lower lobe consolidation with bilateral small effusions. CTA of head with no acute intracranial hemorrhage or territorial loss of gardiner- white differentiation. CT?of chest with pulmonary edema and small bilateral pleural effusions, numerous nodular opacities in the perihilar region of right upper lobe and both lower lobes most likely due to alveolar edema though superimposed lesions can not be excluded. Also found a 2.[address] of abdomen/pelvis found no acute abnormalities. EKG demonstrated normal sinus rhythm without evidence of significant ST elevations or depressions. Repeat EKG similar to previous showing normal sinus rhythm. Pt was treated with nitroglycerin, morphine, aspirin, metoprolol, lisinopril, magnesium, Lokelma, and ceftriaxone. Pt will be admitted to the hospital for treatment and further evaluation of new onset acute CHF as well as hypertensive urgency, MEGHANA, and UTI. <PAT Alfred - Last Filed: 11/09/23 23:56> Review of Systems 2 Review of Systems: Nausea, vomiting, diarrhea Intermittent abdominal pain SOB, BECKETT Generalized weakness Chest pressure Nonproductive cough Denies hemoptysis, hematemesis, melena, hematochezia No lower leg edema <PAT Alfred - Last Filed: 11/09/23 23:56> [facility] Medical History: Medical History Chronic painful diabetic neuropathy AAA (abdominal aortic aneurysm) Moderate recurrent major depression Surgery, elective Pain Hx of backache Hx of supraventricular tachycardia Hypersomnia Snoring Obstructive sleep apnea of adult Chronic hip pain, bilateral Eye pain Diffuse pain Chest pain Supraventricular tachycardia Cough Other and unspecified hyperlipidemia SOB (shortness of breath) Precordial chest pain Annual physical exam Nausea Encounter to establish care Peripheral vascular disease Bilateral artificial lens implant Allergic rhinitis Post menopausal syndrome Vaginitis and vulvovaginitis Diabetes type 2, controlled CAD (coronary artery disease) Hypertriglyceridemia Depression with anxiety GERD without esophagitis Hypertension Parkinsons disease <PAT Alfred - Last Filed: 11/09/23 23:56> Family History: Family History Mother Diabetes Father Brain cancer Son Diabetes <PAT Alfred - Last Filed: 11/09/23 23:56> Surgical History: Surgical History H/O prior ablation treatment History of tubal ligation History of cholecystectomy <PAT Alfred - Last Filed: 11/09/23 23:56> Social History: Social History Housing: Apartment Alcohol intake: never Patient Tobacco Use Status: Former Tobacco user Smoked in Last 30 Days: No e-Cigarette/Vaping Use: Never Used Second Hand Smoke Exposure: No Use of substances other than those prescribed or required for medical reasons: No Advance Directives: No Advance Directives Information Provided: No Nutrition Risks: No Nutritional Risk service: No Current occupational status: retired Cognitive needs: No Hearing needs: No Vision needs: Yes (glasses) <PAT Alfred - Last Filed: 11/09/23 23:56> Meds Allergies/Adverse reactions: Allergies Allergy/AdvReac Type Severity Reaction Status Date / Time influenza virus vaccine, Allergy Intermediate SWELLING Verified 11/09/23 15:24 specific [Influenza Virus Vacc,Specific] <PAT Alfred - Last Filed: 11/09/23 23:56> Active Medications: Current Medications Acetaminophen (Acetaminophen 325 Mg Tablet) 650 mg PO Q6H PRN PRN Reason: Pain, Mild (Pain Scale 1-3), fever or headache Calcium Carbonate (Calcium Carbonate 750 Mg Tab.Chew) 750 mg PO Q4H PRN PRN Reason: Heartburn Enoxaparin Sodium (Enoxaparin Sodium 30 Mg/0.3 Ml Syringe) 30 mg SUBCUT Q24H JARED Glucose (Glucose Gel 15 Gm Gel..Gram.) 15 gm PO Q15M PRN; Protocol PRN Reason: per Hypoglycemia Standing Ord. Azithromycin 500 mg/ Sodium (Chloride) 250 mls @ 125 mls/hr IV ONCE ONE Stop: 11/09/23 23:13 Ceftriaxone Sodium 1 gm/ (Sodium Chloride) 50 mls @ 100 mls/hr IV Q24H JARED Azithromycin 500 mg/ Sodium (Chloride) 250 mls @ 125 mls/hr IV Q24H JARED Dextrose (D10) 250 mls @ 750 mls/hr IV Q15M PRN; Protocol PRN Reason: per Hypoglycemia Standing Ord. Insulin Human Lispro (Insulin Lispro 100 Unit/Ml 3 Ml Vial) 0 unit SUBCUT QIDACHS [facility]; Protocol Magnesium Hydroxide (Milk Of Magnesia 30 Ml Oral.Susp) 30 ml PO DAILY PRN PRN Reason: Constipation Melatonin (Melatonin 3 Mg Tablet) 6 mg PO BEDTIME PRN PRN Reason: Insomnia Ondansetron HCl (Ondansetron Hcl 4 Mg/2 Ml Vial) 4 mg IVPUSH Q8H PRN PRN Reason: Nausea and Vomiting Sodium Chloride (0.9 % Sodium Chloride Flush 3 Ml Syringe) 3 ml IVFLUSH [place] <PAT Alfred - Last Filed: 11/09/23 23:56> Physical Exam 2 Vital Signs and Narrative: Vital Signs: Last Vital Signs Temp 98.2 F 11/09/23 19:38 Pulse 80 11/09/23 20:14 Resp 18 11/09/23 20:14 BP 210/100 H 11/09/23 20:14 Pulse Ox 93 11/09/23 19:38 O2 Del Method Nasal Cannula 11/09/23 19:38 O2 Flow Rate 3 11/09/23 19:38 BMI result Body Mass Index 23.6 <PAT Alfred - Last Filed: 11/09/23 23:56> Constitutional: Alert, in no acute distress. Mental Status: Oriented to person, place and time. Eyes: Pupils are equal, round, and reactive to light. Ear, Nose, and Throat: Oropharynx clear, mucous membranes moist. Ears and nose without deformities. Trachea midline. Respiratory: Clear to auscultation bilaterally. No wheezing, rales, or rhonchi. Cardiovascular: S1, S2 regular. No murmurs, rubs, or gallops. Gastrointestinal: Abdomen soft, non-tender, non-distended. Normal bowel sounds. Neurologic: Cranial nerves II-XII are grossly intact bilaterally. No focal neurological deficits. Moves all extremities spontaneously. Resting tremor of left upper and lower extremity. Skin: Warm, dry. Extremities: No edema. Psychiatric: Normal mood and affect. <PAT Alfred - Last Filed: 11/09/23 23:56> Results Labs CBC and Chem 7: 11/09/23 15:42 11/09/23 15:42 <PAT Alfred - Last Filed: 11/09/23 23:56> Labs: Laboratory Results - last 24 hr 11/09/23 11/09/23 11/09/23 15:42 20:38 21:08 MCV 86.1 MCH 28.3 MCHC 32.9 RDW 14.6 Plt Count 261 MPV 9.5 Immature Gran % (Auto) 0.7 H Neut % (Auto) 63.4 Lymph % (Auto) 18.7 L [place] % (Auto) 15.8 H Eos % (Auto) 1.0 Baso % (Auto) 0.4 Lymph # (Auto) 1.8 [place] # (Auto) 1.6 H Eos # (Auto) 0.1 Baso # (Auto) 0.0 Abs Immat Gran (auto) 0.07 H Absolute Neuts (auto) 6.3 Absolute Nucleated RBC 0.000 Nucleated RBC % (auto) 0.0 Smear Tech's Comments VERIFIED Anion Gap 17 Estim Creat Clear Calc 23.5 Estimated GFR 26 Random Glucose 133 H Calcium 8.4 D Magnesium 1.3 L* Total Bilirubin 0.5 Direct Bilirubin 0.3 AST 15 ALT 8 Alkaline Phosphatase 73 Troponin I High Sens 12.4 22.5 H D B-Natriuretic Peptide 912 H Total Protein 8.1 H Albumin 2.9 L Lipase 25 Urine Color Yellow Urine Appearance Turbid Urine pH 5.5 Ur Specific [place] 1.025 Urine Protein >=1000 (4+) H Urine Glucose (UA) Negative Urine Ketones Trace Urine Blood Large (3+) H Urine Nitrite Negative Ur Leukocyte Esterase Small (1+) H Urine RBC >20 H Urine WBC >50 H Ur Squamous Epith Cells 6-10 Urine Bacteria 1+ Hyaline Casts >20 Granular Casts Present Influenza Type A (PCR) NEGATIVE Influenza Type B (PCR) NEGATIVE RSV RNA Qual (PCR) NEGATIVE SARS-CoV-2 RNA (RT-PCR) NEGATIVE <PAT Alfred - Last Filed: 11/09/23 23:56> Imaging Radiologist's Impressions: Impressions Chest X-Ray 11/09/23 16:40 IMPRESSION: 1. Suspected right midlung mass. Recommend chest CT. 2. Suspected right lower lobe consolidation. 3. Bilateral small effusions. The [facility] physician technical support associate will call this critical result. Head CT 11/09/23 19:24 IMPRESSION: No acute intracranial hemorrhage or territorial loss of gardiner-white differentiation. <PAT Alfred - Last Filed: 11/09/23 23:56> Assessment and Plan (1) UTI (urinary tract infection): Status: Acute <PAT Alfred - Last Filed: 11/09/23 23:56> (2) MEGHANA (acute kidney injury): Status: Acute <PAT Alfred - Last Filed: 11/09/23 23:56> (3) CHF exacerbation: Status: Acute <PTA Alfred - Last Filed: 11/09/23 23:56> Pt is a 73-year-old [place]-speaking female with a PMH significant for?Parkinson's disease, HTN, HLD, [id number] type 2 diabetes, AAA, GERD, ANTONETTE not on CPAP, and osteoporosis who presents to the ED complaining of nausea, vomiting, diarrhea x6-7 days. Pt will be admitted to the hospital for treatment and further evaluation of new onset acute CHF as well as hypertensive urgency, MEGHANA, and UTI. New onset CHF Patient with increased SOB, BECKETT, nonproductive cough, fatigue times 6-[address] showing pulmonary edema with small bilateral pleural effusions and likely alveolar edema, BNP elevated at 912 Will treat with Lasix IV Follow Mag grace, I/O Low-salt diet Echocardiogram Consider cardiology consult Monitor on telemetry MEGHANA Creatinine 1.89 at time of presentation, up from 1.28 on 09/11/2023 Likely multifactorial: Cardiorenal as well as secondary to GI losses Treat as above Follow BMP Hypertensive urgency Patient's BP has been as high as 210/100 Likely contributory to pulmonary edema Patient received metoprolol 25 mg p.o., lisinopril 40 mg p.o., metoprolol 5 mg IV x2 doses in the ED Will treat with labetalol 20 mg IV Hold lisinopril due to MEGHANA Continue metoprolol Elevated troponins Initial troponin 12.2 with repeat 22.5 EKGs x3 negative for ischemic changes Patient complains of chest pressure times 2-3 days Repeat troponin in the morning Monitor on telemetry N/V/D Ongoing for 6-7 days Unclear etiology Has been chronic for some time now, though usually occurs for only 2-3 days at a time once or twice a month So far workup has been negative CT of abdomen and pelvis today negative for acute abdomen Has been referred to GI Will treat with antiemetics Anemia Patient's H&H 9.4/28.6, down from 11 0.9/36.9 on 09/11/2023 Unclear etiology: Patient denies hematemesis, hemoptysis, melena, or hematochezia Check stool for occult blood Follow H&H Acute UTI UA positive Patient does not meet sepsis criteria: Tachycardia but no fever, tachypnea, or leukocytosis Will treat with ceftriaxone, started 11/09/2023 Hypomagnesemia Magnesium 1.3 at time of presentation Likely secondary to GI losses Patient received Mag IV in the ED Follow Mag Hyperkalemia Patient's potassium 5.3 time of presentation Patient given Lokelma in the ED Follow potassium Abnormal imaging CXR initially showed suspicion for right mid lung mass CTA of chest showing numerous nodular opacities likely alveolar edema, however superimposed lesions can not be excluded Recommendation is for radiographic follow-up to verify resolution Parkinson's disease Continue carbidopa levodopa HLD Continue statin, fenofibrate Asthma Not in acute exacerbation Continue home inhaler GERD Continue PPI Full Code Attending:?Dr. Butler DVT Prophylaxis: Lovenox Pt will require a hospitalization of at least two nights for treatment of MEGHANA in the setting of?new onset CHF. Patient will require hospitalization for administration of IV diuretics and close monitoring of labs and cardiac function. <PAT Alfred - Last Filed: 11/09/23 23:56> Pt is a 73-year-old [place]-speaking female with a PMH significant for?Parkinson's disease, HTN, HLD, [id number] type 2 diabetes, AAA, GERD, ANTONETTE not on CPAP, and osteoporosis who presents to the ED complaining of nausea, vomiting, diarrhea x6-7 days. Pt will be admitted to the hospital for treatment and further evaluation of new onset acute CHF as well as hypertensive urgency, MEGHANA, and UTI. New onset CHF Patient with increased SOB, BECKETT, nonproductive cough, fatigue times 6-[address] showing pulmonary edema with small bilateral pleural effusions and likely alveolar edema, BNP elevated at 912 Will treat with Lasix IV Follow lytes, Mag, I/O Low-salt diet Echocardiogram Consider cardiology consult Monitor on telemetry MEGHANA Creatinine 1.89 at time of presentation, up from 1.28 on 09/11/2023 Cardiorenal Treat as above Follow BMP Hypertensive urgency Patient's BP has been as high as 210/100 Likely contributory to pulmonary edema Patient received metoprolol 25 mg p.o., lisinopril 40 mg p.o., metoprolol 5 mg IV x2 doses in the ED Will treat with labetalol 20 mg IV Hold lisinopril due to MEGHANA Continue metoprolol Elevated troponins Initial troponin 12.2 with repeat 22.5 EKGs x3 negative for ischemic changes Patient complains of chest pressure times 2-3 days Repeat troponin in the morning Monitor on telemetry N/V/D Ongoing for 6-7 days Unclear etiology Has been chronic for some time now, though usually occurs for only 2-3 days at a time once or twice a month So far workup has been negative CT of abdomen and pelvis today negative for acute abdomen Has been referred to GI Will treat with antiemetics Anemia Patient's H&H 9.4/28.6, down from 11 0.9/36.9 on 09/11/2023 Unclear etiology: Patient denies hematemesis, hemoptysis, melena, or hematochezia Check stool for occult blood Follow H&H Acute UTI UA positive Patient does not meet sepsis criteria: Tachycardia but no fever, tachypnea, or leukocytosis Will treat with ceftriaxone, started 11/09/2023 Hypomagnesemia Magnesium 1.3 at time of presentation Likely secondary to GI losses Patient received Mag IV in the ED Follow Mag Hyperkalemia Patient's potassium 5.3 time of presentation Patient given Lokelma in the ED Follow potassium Abnormal imaging CXR initially showed suspicion for right mid lung mass CTA of chest showing numerous nodular opacities likely alveolar edema, however superimposed lesions can not be excluded Recommendation is for radiographic follow-up to verify resolution Parkinson's disease Continue carbidopa levodopa HLD Continue statin, fenofibrate Asthma Not in acute exacerbation Continue home inhaler GERD Continue PPI Full Code Attending:?Dr. Butler DVT Prophylaxis: Lovenox Pt will require a hospitalization of at least two nights for treatment of MEGHANA in the setting of?new onset CHF. Patient will require hospitalization for administration of IV diuretics and close monitoring of labs and cardiac function. <Yudy Butler MD - Last Filed: 11/10/23 00:06> Quality Stroke Does the patient have a stroke diagnosis?: No <PAT Alfred - Last Filed: 11/09/23 23:56> VTE Prior VTE?: No <PAT Alfred - Last Filed: 11/09/23 23:56> VTE Risk Level:: Medical - moderate - high <PAT Alfred - Last Filed: 11/09/23 23:56> VTE Device Contraindication: Treatment Not Indicated <PAT Alfred - Last Filed: 11/09/23 23:56> VTE Drug Contraindication: N/A - Med Ordered <PAT Alfred - Last Filed: 11/09/23 23:56>
[2023-11-09] MEDS: Enoxaparin Sodium 30 MG/0.3 ML SYRINGE SUBCUT (22:02)
[2023-11-09] MEDS: cefTRIAXone sodium 1 GM in 0.9 % Sodium Chloride 50 ML IV (22:02)
[2023-11-09] MEDS: Sodium Zirconium Cyclosilicate 10 GM POWD.PACK PO (22:02)
[2023-11-09 22:17] LABS: Lactic Acid 0.9 mmol/L (0.5-2.0)
[2023-11-09] MEDS: Azithromycin 500 MG in 0.9 % Sodium Chloride 250 ML 125 MG IV (22:59)
[2023-11-09] MEDS: Furosemide 100 MG/10 ML VIAL 60 MG IVPUSH (23:00)
[2023-11-09] MEDS: Labetalol HCL 100 MG/20 ML VIAL 20 MG IVPUSH (23:00)
[2023-11-09] MEDS: 0.9 % Sodium Chloride Flush 3 ML SYRINGE IVFLUSH (23:01)
[2023-11-09] MEDS: ondansetron HCL 4 MG/2 ML VIAL IVPUSH (23:48)
[2023-11-10] VITALS (11 sets, daily range): BP systolic 132–198; BP diastolic 78–100; PULSE 73–108; RESP 18–24; TEMP 36.2–37.1; O2SAT 91–96
--- NOTE | 2023-11-10 | ECG_ITS ---
Test Reason : sob Blood Pressure : / mmHG Vent. Rate : 113 BPM Atrial Rate : 288 BPM P-R Int : 000 ms QRS Dur : 074 ms QT Int : 330 ms P-R-T Axes : 018 033 053 degrees QTc Int : 452 ms Poor data quality, interpretation may be adversely affected Normal sinus rhythm ST & T wave abnormality, consider lateral ischemia Abnormal ECG When compared with ECG of 09-NOV-2023 19:18, ST now depressed in Anterior leads T wave inversion now evident in Anterior leads Referred By: Adrianne Disla Electronically Signed By:LUISA CRUZ
[2023-11-10 05:56] LABS: Basophils Absolute Auto 0.1 X10*3/uL (0.0-0.2); Basophils Percent Auto 0.8 % (0-2); Eosinophils Absolute Auto 0.1 X10*3/uL (0.0-0.4); Eosinophils Percent Auto 0.9 % (0-4); Hematocrit 26.6 % (37.0-47.0); Hemoglobin 8.6 g/dl (12.0-16.0); Imm Gran Abs Auto 0.05 X10*3/uL (0.00-0.03); Imm Gran Pct Auto 0.5 % (0.0-0.4); Lymphocytes Absolute Auto 2.4 X10*3/uL (1.2-4.9); Lymphocytes Percent Auto 22.1 % (20-40); MANUAL DIFF FLAG SCAN; Mean Corpuscular HGB Conc 32.3 g/dl (31.0-35.0); Mean Corpuscular Hemoglobin 28.7 pg (27.0-33.0); Mean Corpuscular Volume 88.7 fL (80.0-98.0); Mean Platelet Volume 9.9 fL (9.4-12.3); Monocytes Absolute Auto 2.5 X10*3/uL (0.1-1.2); Monocytes Percent Auto 22.6 % (2-11); Neutrophils Absolute Auto 5.8 x10*3/uL (2.0-8.3); Neutrophils Percent Auto 53.1 % (45-73); Platelet Count 210 X10*3/uL (160-400); Red Cell Distribution Width 14.6 % (11.0-16.0); SCAN SMEAR FLAG 1; White Blood Count 10.8 X10*3/uL (4.8-10.8)
[2023-11-10 06:11] LABS: Anion Gap 15 (12-20); Blood Urea Nitrogen 34 mg/dL (9-16); Calcium 8.5 mg/dL (8.4-10.2); Carbon Dioxide 17 mmol/L (22-29); Chloride 111 mmol/L (96-108); Creatinine Clr Calc Pharmacy 26.6; Estimated Glomerular Filt Rate 30; Glucose Random 98 mg/dL (60-115); Magnesium 2.1 mg/dL (1.6-2.6); Potassium 5.4 mmol/L (3.3-5.1); Sodium 138 mmol/L (135-145)
[2023-11-10 06:13] LABS: SLIDE REVIEW VERIFIED
[2023-11-10 06:25] LABS: Troponin-I High Sensitivity 52.1 ng/L (<3.5-17.0)
[2023-11-10 06:41] LABS: Glucose, Whole Blood 84 mg/dL (60-115)
[2023-11-10 07:19] LABS: Glucose, Whole Blood 93 mg/dL (60-115)
[2023-11-10] MEDS: 0.9 % Sodium Chloride Flush 3 ML SYRINGE IVFLUSH ×3 (07:20→23:56)
[2023-11-10] MEDS: Furosemide 100 MG/10 ML VIAL 60 MG IVPUSH (08:31)
--- NOTE | 2023-11-10 08:53 | P.PNIM_ITS ---
Subjective Subjective Date of Service: 11/10/23 Review of Systems Follow up CHF sob is better no pain Physical Exam 2 Vital Signs: Vital Signs: Last Vital Signs Temp 98.7 F 11/10/23 08:51 Pulse 90 11/10/23 08:51 Resp 20 11/10/23 08:51 BP 190/90 H 11/10/23 08:51 Pulse Ox 92 11/10/23 08:51 O2 Del Method Nasal Cannula 11/10/23 08:51 O2 Flow Rate 3 11/10/23 08:51 BMI result Body Mass Index 23.6 Appearing in no acute distress lung sounds are clear to auscultation heart regular rate rhythm, clear S1, S2 positive bowel sounds, abdomen is soft, nontender neuro patient is alert x3, no focal deficits, tremors from parkinsons Objective Data Active Medications Acetaminophen (Acetaminophen 325 Mg Tablet) 650 mg PO Q6H PRN PRN Reason: Pain, Mild (Pain Scale 1-3), fever or headache Calcium Carbonate (Calcium Carbonate 750 Mg Tab.Chew) 750 mg PO Q4H PRN PRN Reason: Heartburn Enoxaparin Sodium (Enoxaparin Sodium 30 Mg/0.3 Ml Syringe) 30 mg SUBCUT Q24H [facility] Last Admin: 11/09/23 22:02 Dose: 30 mg Documented By: MICHAEL Furosemide (Furosemide 100 Mg/10 Ml Vial) 60 mg IVPUSH DAILY [facility]; Protocol Last Admin: 11/10/23 08:31 Dose: 60 mg Documented By: GEORGETTE Glucose (Glucose Gel 15 Gm Gel..Gram.) 15 gm PO Q15M PRN; Protocol PRN Reason: per Hypoglycemia Standing Ord. Dextrose (D10) 250 mls @ 750 mls/hr IV Q15M PRN; Protocol PRN Reason: per Hypoglycemia Standing Ord. Ceftriaxone Sodium 1 gm/ (Sodium Chloride) 50 mls @ 100 mls/hr IV Q24H [facility] Insulin Human Lispro (Insulin Lispro 100 Unit/Ml 3 Ml Vial) 0 unit SUBCUT QIDACHS [facility]; Protocol Last Admin: 11/10/23 07:19 Dose: Not Given Documented By: LAURA Non-Admin Reason: No Insulin Coverage Magnesium Hydroxide (Milk Of Magnesia 30 Ml Oral.Susp) 30 ml PO DAILY PRN PRN Reason: Constipation Melatonin (Melatonin 3 Mg Tablet) 6 mg PO BEDTIME PRN PRN Reason: Insomnia Ondansetron HCl (Ondansetron Hcl 4 Mg/2 Ml Vial) 4 mg IVPUSH Q8H PRN PRN Reason: Nausea and Vomiting Last Admin: 11/09/23 23:48 Dose: 4 mg Documented By: MICHAEL Sodium Chloride (0.9 % Sodium Chloride Flush 3 Ml Syringe) 3 ml IVFLUSH QSHIFT [facility] Last Admin: 11/10/23 07:20 Dose: 3 ml Documented By: LAURA Labs 11/10/23 05:47 11/10/23 05:47 Labs: Laboratory Results - last 24 hr 11/09/23 11/09/23 11/09/23 15:42 20:38 21:08 MCV 86.1 MCH 28.3 MCHC 32.9 RDW 14.6 Plt Count 261 MPV 9.5 Immature Gran % (Auto) 0.7 H Neut % (Auto) 63.4 Lymph % (Auto) 18.7 L [place] % (Auto) 15.8 H Eos % (Auto) 1.0 Baso % (Auto) 0.4 Lymph # (Auto) 1.8 [place] # (Auto) 1.6 H Eos # (Auto) 0.1 Baso # (Auto) 0.0 Abs Immat Gran (auto) 0.07 H Absolute Neuts (auto) 6.3 Absolute Nucleated RBC 0.000 Nucleated RBC % (auto) 0.0 Smear Tech's Comments VERIFIED Anion Gap 17 Estim Creat Clear Calc 23.5 Estimated GFR 26 POC Glucose Random Glucose 133 H Lactic Acid Calcium 8.4 D Magnesium 1.3 L* Total Bilirubin 0.5 Direct Bilirubin 0.3 AST 15 ALT 8 Alkaline Phosphatase 73 Troponin I High Sens 12.4 22.5 H D B-Natriuretic Peptide 912 H Total Protein 8.1 H Albumin 2.9 L Lipase 25 Urine Color Yellow Urine Appearance Turbid Urine pH 5.5 Ur Specific [place] 1.025 Urine Protein >=1000 (4+) H Urine Glucose (UA) Negative Urine Ketones Trace Urine Blood Large (3+) H Urine Nitrite Negative Ur Leukocyte Esterase Small (1+) H Urine RBC >20 H Urine WBC >50 H Ur Squamous Epith Cells 6-10 Urine Bacteria 1+ Hyaline Casts >20 Granular Casts Present Influenza Type A (PCR) NEGATIVE Influenza Type B (PCR) NEGATIVE RSV RNA Qual (PCR) NEGATIVE SARS-CoV-2 RNA (RT-PCR) NEGATIVE 11/09/23 11/10/23 11/10/23 22:00 05:47 05:47 MCV 88.7 MCH 28.7 MCHC 32.3 RDW 14.6 Plt Count 210 MPV 9.9 Immature Gran % (Auto) 0.5 H Neut % (Auto) 53.1 Lymph % (Auto) 22.1 [place] % (Auto) 22.6 H Eos % (Auto) 0.9 Baso % (Auto) 0.8 Lymph # (Auto) 2.4 [place] # (Auto) 2.5 H Eos # (Auto) 0.1 Baso # (Auto) 0.1 Abs Immat Gran (auto) 0.05 H Absolute Neuts (auto) 5.8 Absolute Nucleated RBC 0.000 Nucleated RBC % (auto) 0.0 Smear Tech's Comments VERIFIED Anion Gap 15 Estim Creat Clear Calc 26.6 Estimated GFR 30 POC Glucose Random Glucose 98 Lactic Acid 0.9 Calcium 8.5 Magnesium Cancelled 2.1 Total Bilirubin Direct Bilirubin AST ALT Alkaline Phosphatase Troponin I High Sens 52.1 H* D B-Natriuretic Peptide Total Protein Albumin Lipase Urine Color Urine Appearance Urine pH Ur Specific [place] Urine Protein Urine Glucose (UA) Urine Ketones Urine Blood Urine Nitrite Ur Leukocyte Esterase Urine RBC Urine WBC Ur Squamous Epith Cells Urine Bacteria Hyaline Casts Granular Casts Influenza Type A (PCR) Influenza Type B (PCR) RSV RNA Qual (PCR) SARS-CoV-2 RNA (RT-PCR) 11/10/23 11/10/23 06:37 07:11 MCV MCH MCHC RDW Plt Count MPV Immature Gran % (Auto) Neut % (Auto) Lymph % (Auto) [place] % (Auto) Eos % (Auto) Baso % (Auto) Lymph # (Auto) [place] # (Auto) Eos # (Auto) Baso # (Auto) Abs Immat Gran (auto) Absolute Neuts (auto) Absolute Nucleated RBC Nucleated RBC % (auto) Smear Tech's Comments Anion Gap Estim Creat Clear Calc Estimated GFR POC Glucose 84 93 Random Glucose Lactic Acid Calcium Magnesium Total Bilirubin Direct Bilirubin AST ALT Alkaline Phosphatase Troponin I High Sens B-Natriuretic Peptide Total Protein Albumin Lipase Urine Color Urine Appearance Urine pH Ur Specific [place] Urine Protein Urine Glucose (UA) Urine Ketones Urine Blood Urine Nitrite Ur Leukocyte Esterase Urine RBC Urine WBC Ur Squamous Epith Cells Urine Bacteria Hyaline Casts Granular Casts Influenza Type A (PCR) Influenza Type B (PCR) RSV RNA Qual (PCR) SARS-CoV-2 RNA (RT-PCR) Assessment and Plan (1) CHF exacerbation: Status: Acute Plan Pt is a 73-year-old Cymro-speaking female with a PMH significant for?Parkinson's disease, HTN, HLD, [id number] type 2 diabetes, AAA, GERD, ANTONETTE not on CPAP, and osteoporosis who presents to the ED complaining of nausea, vomiting, diarrhea x6-7 days. Pt will be admitted to the hospital for treatment and further evaluation of new onset acute CHF as well as hypertensive urgency, MEGHANA, and UTI. New onset CHF Patient with increased SOB, BECKETT, nonproductive cough, fatigue times 6-[address] showing pulmonary edema with small bilateral pleural effusions and likely alveolar edema, BNP elevated at 912 continue Lasix IV Follow lytes, Mag, I/O Low-salt diet Echocardiogram cardiology consult Monitor on telemetry MEGHANA Creatinine 1.67 Likely multifactorial: Cardiorenal as well as secondary to GI losses Treat as above Follow BMP Acute UTI UA positive Patient does not meet sepsis criteria: Tachycardia but no fever, tachypnea, or leukocytosis Will treat with ceftriaxone, started 11/09/2023 Hypertensive urgency Patient's BP has been as high as 210/100 Likely contributory to pulmonary edema Hold lisinopril due to MEGHANA Continue metoprolol Elevated troponins Initial troponin 12.2, 22.5, 52.1 EKGs x3 negative for ischemic changes Patient complains of chest pressure times 2-3 days cardiology consulation N/V/D acute on chronic Ongoing for 6-7 days Unclear etiology Has been chronic for some time now, though usually occurs for only 2-3 days at a time once or twice a month So far workup has been negative CT of abdomen and pelvis today negative for acute abdomen Has been referred to GI Will treat with antiemetics, PPI Anemia Patient's H&H 9.4/28.6, down from 11 0.9/36.9 on 09/11/2023 Unclear etiology: Patient denies hematemesis, hemoptysis, melena, or hematochezia Check stool for occult blood Follow H&H Hypomagnesemia Magnesium 1.3 at time of presentation Likely secondary to GI losses Patient received Mag IV in the ED Follow Mag Hyperkalemia Patient's potassium 5.3 time of presentation Patient given Lokelma in the ED Follow potassium Abnormal imaging CXR initially showed suspicion for right mid lung mass CTA of chest showing numerous nodular opacities likely alveolar edema, however superimposed lesions can not be excluded Recommendation is for radiographic follow-up to verify resolution Parkinson's disease Continue carbidopa levodopa HLD Continue statin, fenofibrate Asthma Not in acute exacerbation Continue home inhaler GERD Continue PPI Full Code Attending:?Dr. Huff DVT Prophylaxis: Lovenox Quality Stroke Does the patient have a stroke diagnosis?: No VTE Prior VTE?: No VTE Risk Level:: Medical - moderate - high VTE Device Contraindication: Treatment Not Indicated VTE Drug Contraindication: N/A - Med Ordered
--- NOTE | 2023-11-10 09:54 | PHA.MEDREC ---
Addendum entered by Mata Malik RPh 11/10/23 18:04: Reviewed by [facility] Original Note: Pharmacy Consult ? Medication Reconciliation Pharmacy has completed the medication reconciliation. Spoke with patient through an drill setup operator. She was able to confirm her medications after describing name and indication to her. She said she last took her alendronate the before last. She takes omeprazole as needed. She does not take trazodone. She was taking a pill for nausea about a month ago but does not know the name of it and said it was for diarrhea. She last took her medications Sunday. Patient also mentioned she takes codeine 5mg prn for pain. [facility] reported she had a 7 day supply of oxycodone 5mg last filled in 2021. Leaving off of med list for now and will let provider know.
[2023-11-10 12:02] LABS: Glucose, Whole Blood 98 mg/dL (60-115)
[2023-11-10 16:44] LABS: Glucose, Whole Blood 94 mg/dL (60-115)
[2023-11-10 17:16] LABS: Glucose, Whole Blood 109 mg/dL (60-115)
[2023-11-10] MEDS: Labetalol HCL 100 MG/20 ML VIAL 10 MG IVPUSH (17:18)
[2023-11-10] MEDS: Nitroglycerin 2 % Oint 1 GM Packet 0.5 INCH TRANSDERMA (17:20)
[2023-11-10 17:28] LABS: Hematocrit 28.6 % (37.0-47.0); Hemoglobin 9.2 g/dl (12.0-16.0); Mean Corpuscular HGB Conc 32.2 g/dl (31.0-35.0); Mean Corpuscular Volume 87.2 fL (80.0-98.0); Mean Platelet Volume 9.5 fL (9.4-12.3); Platelet Count 261 X10*3/uL (160-400); Red Blood Count 3.28 X10*6/uL (4.20-5.50); Red Cell Distribution Width 14.6 % (11.0-16.0); White Blood Count 11.8 X10*3/uL (4.8-10.8)
[2023-11-10] MEDS: LORazepam 0.5 MG TABLET 0.25 MG PO (17:30)
--- NOTE | 2023-11-10 17:35 | PM.EVENT ---
Event Note Date of Service: 11/10/23 Event Note: 1700 RN called to report hypertension with BP of 224/109, o2 sat 88%. Patient witnessed shaking, diaphoretic, c/o chest pain and sob Alert, anxious, diaphoretic 99.4, 99, 96% on 3 liters nc, 198/86, BS 109 EKG Aflutter, no acute ischemic changes AP Noted hypertensive urgency with likely flash pulmonary edema Hypertensive urgency administered >labetolol IV 10, lasix IV 40, nitro paste 0.5 in Labs>BNP 1350, trop 47 CXR results pending cycle blood pressure, repeat 166/92 IV lasix [address] fc for fluid management Anxiety ativan 0.25mg once Time Spent With Patient Time: Total time managing care of this patient today ____ minutes.
[2023-11-10 17:40] LABS: Anion Gap 17 (12-20); Blood Urea Nitrogen 33 mg/dL (9-16); Calcium 8.7 mg/dL (8.4-10.2); Carbon Dioxide 22 mmol/L (22-29); Chloride 107 mmol/L (96-108); Estimated Glomerular Filt Rate 28; Glucose Random 120 mg/dL (60-115); Sodium 141 mmol/L (135-145)
[2023-11-10 17:47] LABS: B Type Natriuretic Peptide 1350 pg/mL (<100)
[2023-11-10 17:48] LABS: Troponin-I High Sensitivity 47.4 ng/L (<3.5-17.0)
[2023-11-10] MEDS: Furosemide 40 MG/4 ML VIAL IVPUSH (18:15)
--- NOTE | 2023-11-10 18:19 | PC.NURSE ---
called to bedside at 1703 for increased WOB and new onset diaphoresis. Pt automated BP 224/109 with manual rechecked at 180/98. HCP ordered stat lasix, labetolol and nitropaste. PO ativan also administered per MAY Stat EKG obtained. Pt also began to report difficulty urinating to which she was bladder scanned for 363. Newton cath administered per HCP order at 1800. Upon catheter insertion, 460 ml of clear yellow urine obtained. Pt tolerated well and reports that she is feeling more comfortable HCP BOP now 189/84 manually
[2023-11-10] MEDS: amLODIPine Besylate 5 MG TABLET PO (18:26)
[2023-11-10] MEDS: cefTRIAXone sodium 1 GM in 0.9 % Sodium Chloride 50 ML IV (19:39)
[2023-11-10] MEDS: Metoprolol Tartrate 25 MG TABLET PO (19:45)
[2023-11-10] MEDS: Atorvastatin Calcium 40 MG TABLET PO (19:46)
[2023-11-10] MEDS: Carbidopa/Levodopa CR 50/200 TABLET.ER 1 TAB PO (19:46)
[2023-11-10] MEDS: metFORMIN HCl 500 MG TABLET PO (19:46)
[2023-11-10] MEDS: SITagliptin Phosphate 50 MG TABLET PO (19:47)
[2023-11-10] MEDS: Acetaminophen 325 MG TABLET 650 MG PO (19:53)
[2023-11-10] MEDS: Enoxaparin Sodium 30 MG/0.3 ML SYRINGE SUBCUT (19:54)
[2023-11-10 20:02] LABS: Glucose, Whole Blood 111 mg/dL (60-115)
[2023-11-11] VITALS (7 sets, daily range): BP systolic 156–184; BP diastolic 78–87; PULSE 70–84; RESP 20; TEMP 36.1–37.6; O2SAT 92–95
[2023-11-11] MEDS: Omeprazole 20 MG CAPSULE.DR PO (05:57)
[2023-11-11 06:40] LABS: Anion Gap 10 (12-20); Blood Urea Nitrogen 34 mg/dL (9-16); Calcium 8.2 mg/dL (8.4-10.2); Carbon Dioxide 26 mmol/L (22-29); Chloride 108 mmol/L (96-108); Creatinine Clr Calc Pharmacy 27.3; Estimated Glomerular Filt Rate 31; Glucose Random 85 mg/dL (60-115); Potassium 4.3 mmol/L (3.3-5.1); Sodium 140 mmol/L (135-145)
[2023-11-11 06:42] LABS: B Type Natriuretic Peptide 919 pg/mL (<100)
[2023-11-11] MEDS: amLODIPine Besylate 5 MG TABLET PO (07:45)
[2023-11-11] MEDS: Metoprolol Tartrate 25 MG TABLET PO ×2 (07:46→19:50)
[2023-11-11] MEDS: SITagliptin Phosphate 50 MG TABLET PO ×2 (07:46→19:50)
[2023-11-11] MEDS: Carbidopa/Levodopa CR 50/200 TABLET.ER 1 TAB PO ×2 (07:46→19:50)
[2023-11-11] MEDS: Furosemide 40 MG/4 ML VIAL IVPUSH ×2 (07:46→18:19)
[2023-11-11] MEDS: 0.9 % Sodium Chloride Flush 3 ML SYRINGE IVFLUSH ×2 (07:47→20:03)
[2023-11-11 08:08] LABS: Glucose, Whole Blood 92 mg/dL (60-115)
[2023-11-11] MEDS: LORazepam 0.5 MG TABLET 0.25 MG PO ×2 (08:20→18:20)
--- NOTE | 2023-11-11 10:19 | PM.CNCAR ---
History of Present Illness History of Present Illness Date of Service: 11/11/23 Chief complaint: Dyspnea Narrative: This is a cardiology consultation regarding question of hypertensive urgency/flash pulmonary edema. Patient has many comorbidities including Parkinson's disease. According to the patient's live-in nurse, patient has not been doing good for the last many days. He states that patient has been having nausea, vomiting, diarrhea, increasing shakes from Parkinson's among others. In this context, patient has been admitted. Then diagnosed to have new onset of congestive heart failure and thought to have pulmonary edema. Also with uncontrolled blood pressures willing to 200s. Hence we have been asked to see her for further evaluation. Today, blood pressure still seems high but she is not having the active shortness of breath type symptoms. Otherwise, she was last seen in clinic earlier this year. She has a history of SVT for which she underwent EP study and ablation. She also has coronary disease by CT scan but no ischemia on stress testing. Many comorbidities like diabetes, hypertension dyslipidemia. Off note, during the clinic visit, her blood pressure was only 118/64 mm, clearly well controlled. Review of Systems Review of Systems: Yes all other systems are reviewed and are negative Constitutional: Constitutional: Reports as per HPI and Reports no additional constitutional complaints Eyes: Eyes: Reports as per HPI and Denies no additional eye complaints ENT: Denies system reviewed and no additional complaints, except as documented and Reports as per HPI Cardiovascular: Cardiovascular: Reports as per HPI, Reports no additional cardiovascular complaints, Denies acrocyanosis, Denies cool extremities, Denies chest pain, Denies leg edema, Denies lightheadedness, Denies palpitations and Denies dyspnea Respiratory: Respiratory: Reports as per HPI, Denies no additional respiratory complaints and Denies dyspnea Gastrointestinal: Gastrointestinal: Reports as per HPI and Denies no additional gastrointestinal complaints Genitourinary: Genitourinary: Reports as per HPI Musculoskeletal: Musculoskeletal: Reports no additional musculoskeletal complaints and Reports as per HPI Integumentary/Breasts: Skin/Breast: Reports system reviewed and no additional complaints, except as docu Neurologic: Reports system reviewed and no additional complaints, except as documented and Reports as per HPI Psychiatric: Psychiatric: Reports no additional psychiatric complaints and Reports as per HPI Endocrine: Endocrine: Reports no additional endocrine complaints, Reports as per HPI and Denies palpitations Hematologic/Lymphatic: Hematologic/Lymphatic: Reports no additional hematologic/lymphatic complaints and Reports as per HPI Allergic/Immunologic: Allergic/Immunologic: Reports no additional allergic/immunologic complaints and Reports as per HPI [facility] Past Medical History Medical History Chronic painful diabetic neuropathy AAA (abdominal aortic aneurysm) Moderate recurrent major depression Surgery, elective Pain Hx of backache Hx of supraventricular tachycardia Hypersomnia Snoring Obstructive sleep apnea of adult Chronic hip pain, bilateral Eye pain Diffuse pain Chest pain Supraventricular tachycardia Cough Other and unspecified hyperlipidemia SOB (shortness of breath) Precordial chest pain Annual physical exam Nausea Encounter to establish care Peripheral vascular disease Bilateral artificial lens implant Allergic rhinitis Post menopausal syndrome Vaginitis and vulvovaginitis Diabetes type 2, controlled CAD (coronary artery disease) Hypertriglyceridemia Depression with anxiety GERD without esophagitis Hypertension Parkinsons disease Family History Family History Mother Diabetes Father Brain cancer Son Diabetes Surgical History Surgical History H/O prior ablation treatment History of tubal ligation History of cholecystectomy Social History Social History Household Members: Caregiver Housing: Apartment Do you presently have visiting nurse or other home services: No Alcohol intake: never Patient Tobacco Use Status: Former Tobacco user e-Cigarette/Vaping Use: Never Used Second Hand Smoke Exposure: No service: No Current occupational status: retired Cognitive needs: No Hearing needs: No Vision needs: Yes (glasses) Meds Allergies Allergy/AdvReac Type Severity Reaction Status Date / Time influenza virus vaccine, Allergy Intermediate SWELLING Verified 11/09/23 15:24 specific [Influenza Virus Vacc,Specific] Active Medications: Current Medications Acetaminophen (Acetaminophen 325 Mg Tablet) 650 mg PO Q6H PRN PRN Reason: Pain, Mild (Pain Scale 1-3), fever or headache Last Admin: 11/10/23 19:53 Dose: 650 mg Albuterol Sulfate (Albuterol Sulfate 90 Mcg 8 Gm Inhaler) 2 puff INHALE Q4H PRN PRN Reason: Shortness Of Breath Or Wheezing Amlodipine Besylate (Amlodipine Besylate 5 Mg Tablet) 5 mg PO DAILY [facility]; Protocol Last Admin: 11/11/23 07:45 Dose: 5 mg Atorvastatin Calcium (Atorvastatin Calcium 40 Mg Tablet) 40 mg PO BEDTIME [facility] Last Admin: 11/10/23 19:46 Dose: 40 mg Calcium Carbonate (Calcium Carbonate 750 Mg Tab.Chew) 750 mg PO Q4H PRN PRN Reason: Heartburn Carbidopa/Levodopa (Carbidopa/Levodopa Cr 50/200 Tablet.Er) 1 tab PO BID [facility] Last Admin: 11/11/23 07:46 Dose: 1 tab Enoxaparin Sodium (Enoxaparin Sodium 30 Mg/0.3 Ml Syringe) 30 mg SUBCUT Q24H [facility] Last Admin: 11/10/23 19:54 Dose: 30 mg Furosemide (Furosemide 40 Mg/4 Ml Vial) 40 mg IVPUSH BID@0900,1800 [facility]; Protocol Last Admin: 11/11/23 07:46 Dose: 40 mg Glucose (Glucose Gel 15 Gm Gel..Gram.) 15 gm PO Q15M PRN; Protocol PRN Reason: per Hypoglycemia Standing Ord. Dextrose (D10) 250 mls @ 750 mls/hr IV Q15M PRN; Protocol PRN Reason: per Hypoglycemia Standing Ord. Ceftriaxone Sodium 1 gm/ (Sodium Chloride) 50 mls @ 100 mls/hr IV Q24H [facility] Last Infusion: 11/10/23 20:53 Dose: Infused Insulin Human Lispro (Insulin Lispro 100 Unit/Ml 3 Ml Vial) 0 unit SUBCUT QIDACHS [facility]; Protocol Last Admin: 11/11/23 07:46 Dose: Not Given Lorazepam (Lorazepam 0.5 Mg Tablet) 0.25 mg PO Q8H PRN PRN Reason: Anxiety Last Admin: 11/11/23 08:20 Dose: 0.25 mg Magnesium Hydroxide (Milk Of Magnesia 30 Ml Oral.Susp) 30 ml PO DAILY PRN PRN Reason: Constipation Melatonin (Melatonin 3 Mg Tablet) 6 mg PO BEDTIME PRN PRN Reason: Insomnia Metformin HCl (Metformin Hcl 500 Mg Tablet) 500 mg PO BID [facility] Last Admin: 11/10/23 19:46 Dose: 500 mg Metoprolol Tartrate (Metoprolol Tartrate 25 Mg Tablet) 25 mg PO BID [facility]; Protocol Last Admin: 11/11/23 07:46 Dose: 25 mg Omeprazole (Omeprazole 20 Mg Capsule.Dr) 20 mg PO DAILY@0630 [facility] Last Admin: 11/11/23 05:57 Dose: 20 mg Omeprazole (Omeprazole 20 Mg Capsule.) 20 mg PO DAILY PRN PRN Reason: Acid Reflux Ondansetron HCl (Ondansetron Hcl 4 Mg/2 Ml Vial) 4 mg IVPUSH Q8H PRN PRN Reason: Nausea and Vomiting Last Admin: 11/09/23 23:48 Dose: 4 mg Sitagliptin Phosphate (Sitagliptin Phosphate 50 Mg Tablet) 50 mg PO BID [facility] Last Admin: 11/11/23 07:46 Dose: 50 mg Sodium Chloride (0.9 % Sodium Chloride Flush 3 Ml Syringe) 3 ml IVFLUSH QSHIFT [facility] Last Admin: 11/11/23 07:47 Dose: 3 ml Home Medications ?Medication ?Instructions ?Recorded ?Confirmed ?Last Taken ?Type albuterol sulfate 90 mcg/actuation 2 puff inhalation Q4-6H PRN 11/10/23 11/10/23 Unknown History aerosol inhaler Shortness Of Breath Or Wheezing alendronate 70 mg tablet 70 mg PO TH 11/10/23 11/10/23 11/01/23 History lidocaine 5 % topical patch 1 patch topical DAILY PRN Pain 11/10/23 11/10/23 Unknown History omeprazole 20 mg capsule,delayed 20 mg PO DAILY PRN Acid Reflux 11/10/23 11/10/23 Unknown History release Physical Exam Vital Signs: Vital Signs: Last Vital Signs Temp 97 F 11/11/23 07:28 Pulse 84 11/11/23 07:47 Resp 20 11/11/23 07:28 BP 187/80 H 11/11/23 07:47 Pulse Ox 95 11/11/23 07:28 O2 Del Method Nasal Cannula 11/11/23 07:28 O2 Flow Rate 4 11/11/23 07:28 BMI result Body Mass Index 23.6 Const: General: comfortable and no acute distress Orientation/consciousness: patient oriented x3 HEENT: Other: Unremarkable Head: Yes normal to inspection Neck: Neck: Yes normal visual inspection Chest: Chest palpation & inspection: normal inspection of the chest Resp: Auscultation: crackles and diminished lung sounds Cardio: Palpation: normal PMI Heart sounds: S1 normal heart sound present, S2 normal heart sound present, no gallops, no murmurs and no rubs GI: Palpation (GI): Soft to palpation Back/Spine/Pelvis: Other: unremarkable Skin: General skin exam: no rashes or lesions noted Neuro: General: patient oriented x3 Extrem: General: Yes normal to inspection Psych: Mental Status: mental status grossly normal Objective Labs and Meds 11/10/23 17:22 11/11/23 06:01 Lab results: Laboratory Results - last 24 hr 11/10/23 11/10/23 11/10/23 11:17 16:35 17:11 WBC RBC Hgb Hct MCV MCH MCHC RDW Plt Count MPV Absolute Nucleated RBC Nucleated RBC % (auto) Sodium Potassium Chloride Carbon Dioxide Anion Gap BUN Creatinine Estim Creat Clear Calc Estimated GFR POC Glucose 98 94 109 Random Glucose Calcium Troponin I High Sens B-Natriuretic Peptide 11/10/23 11/10/23 11/11/23 17:22 19:41 06:01 WBC 11.8 H RBC 3.28 L Hgb 9.2 L Hct 28.6 L MCV 87.2 MCH 28.0 MCHC 32.2 RDW 14.6 Plt Count 261 MPV 9.5 Absolute Nucleated RBC 0.000 Nucleated RBC % (auto) 0.0 Sodium 141 140 Potassium 5.0 4.3 Chloride 107 108 Carbon Dioxide 22 26 Anion Gap 17 10 L BUN 33 H 34 H Creatinine 1.78 H 1.63 H Estim Creat Clear Calc 25.0 27.3 Estimated GFR 28 31 POC Glucose 111 Random Glucose 120 H 85 Calcium 8.7 8.2 L Troponin I High Sens 47.4 H B-Natriuretic Peptide 1350 H 919 H 11/11/23 07:36 WBC RBC Hgb Hct MCV MCH MCHC RDW Plt Count MPV Absolute Nucleated RBC Nucleated RBC % (auto) Sodium Potassium Chloride Carbon Dioxide Anion Gap BUN Creatinine Estim Creat Clear Calc Estimated GFR POC Glucose 92 Random Glucose Calcium Troponin I High Sens B-Natriuretic Peptide ECG Interpretation: EKG with underlying sinus rhythm at 92/Min; LVH; no significant ST-T changes; normal MN and corrected QT. subsequent EKGs without any significant findings. The last EKG has lot of artifact. Imaging Radiologist's impression: Impressions Pulmonary Perfusion Imaging 11/10/23 10:40 IMPRESSION: Based on perfusion only modified PIOPED 2 criteria, the study is classified as non-diagnostic for pulmonary thromboembolism. Chest X-Ray 11/10/23 17:41 IMPRESSION: Diffuse bilateral airspace opacities, right greater than left, with interstitial prominence, with interval worsening compared to prior chest radiograph. Findings may be secondary to pulmonary edema or infectious/inflammatory etiology. Small bilateral pleural effusions. Assessment and Plan (1) Acute diastolic (congestive) heart failure: Status: Acute Prior blood pressures are mostly normal and hence unclear why the blood pressure went up so much. She did have GI symptoms and unclear if she actually took medications or was there any absorption issue. Diuretics while we watch the renal function. Echocardiogram. (2) Hypertensive emergency: Status: Acute Home medication for blood pressure listed as lisinopril 40 mg daily. Also on metoprolol 25 mg b.i.d. but she did have SVT ablation before. There is a slight increase in kidney function but okay to at least resume half the dose and monitor electrolytes/creatinine. Procedures Date of Service Date of Service: 11/11/23
--- NOTE | 2023-11-11 10:27 | P.PNIM_ITS ---
Subjective Subjective Date of Service: 11/11/23 Review of Systems Follow up CHF sob is better no pain Physical Exam 2 Vital Signs: Vital Signs: Last Vital Signs Temp 97 F 11/11/23 07:28 Pulse 84 11/11/23 07:47 Resp 20 11/11/23 07:28 BP 187/80 H 11/11/23 07:47 Pulse Ox 95 11/11/23 07:28 O2 Del Method Nasal Cannula 11/11/23 07:28 O2 Flow Rate 4 11/11/23 07:28 BMI result Body Mass Index 23.6 Appearing in no acute distress lung sounds are clear to auscultation heart regular rate rhythm, clear S1, S2 positive bowel sounds, abdomen is soft, nontender neuro patient is alert x3, no focal deficits Objective Data Active Medications Acetaminophen (Acetaminophen 325 Mg Tablet) 650 mg PO Q6H PRN PRN Reason: Pain, Mild (Pain Scale 1-3), fever or headache Last Admin: 11/10/23 19:53 Dose: 650 mg Documented By: TOMAS Albuterol Sulfate (Albuterol Sulfate 90 Mcg 8 Gm Inhaler) 2 puff INHALE Q4H PRN PRN Reason: Shortness Of Breath Or Wheezing Amlodipine Besylate (Amlodipine Besylate 5 Mg Tablet) 5 mg PO DAILY [facility]; Protocol Last Admin: 11/11/23 07:45 Dose: 5 mg Documented By: GEORGETTE Atorvastatin Calcium (Atorvastatin Calcium 40 Mg Tablet) 40 mg PO BEDTIME [facility] Last Admin: 11/10/23 19:46 Dose: 40 mg Documented By: TOMAS Calcium Carbonate (Calcium Carbonate 750 Mg Tab.Chew) 750 mg PO Q4H PRN PRN Reason: Heartburn Carbidopa/Levodopa (Carbidopa/Levodopa Cr 50/200 Tablet.Er) 1 tab PO BID [facility] Last Admin: 11/11/23 07:46 Dose: 1 tab Documented By: GEORGETTE Enoxaparin Sodium (Enoxaparin Sodium 30 Mg/0.3 Ml Syringe) 30 mg SUBCUT Q24H [facility] Last Admin: 11/10/23 19:54 Dose: 30 mg Documented By: TOMAS Furosemide (Furosemide 40 Mg/4 Ml Vial) 40 mg IVPUSH BID@0900,1800 [facility]; Protocol Last Admin: 11/11/23 07:46 Dose: 40 mg Documented By: GEORGETTE Glucose (Glucose Gel 15 Gm Gel..Gram.) 15 gm PO Q15M PRN; Protocol PRN Reason: per Hypoglycemia Standing Ord. Dextrose (D10) 250 mls @ 750 mls/hr IV Q15M PRN; Protocol PRN Reason: per Hypoglycemia Standing Ord. Ceftriaxone Sodium 1 gm/ (Sodium Chloride) 50 mls @ 100 mls/hr IV Q24H [facility] Last Infusion: 11/10/23 20:53 Dose: Infused Documented By: TOMAS Insulin Human Lispro (Insulin Lispro 100 Unit/Ml 3 Ml Vial) 0 unit SUBCUT QIDACHS [facility]; Protocol Last Admin: 11/11/23 07:46 Dose: Not Given Documented By: GEORGETTE Non-Admin Reason: No Insulin Coverage Lorazepam (Lorazepam 0.5 Mg Tablet) 0.25 mg PO Q8H PRN PRN Reason: Anxiety Last Admin: 11/11/23 08:20 Dose: 0.25 mg Documented By: GEORGETTE Magnesium Hydroxide (Milk Of Magnesia 30 Ml Oral.Susp) 30 ml PO DAILY PRN PRN Reason: Constipation Melatonin (Melatonin 3 Mg Tablet) 6 mg PO BEDTIME PRN PRN Reason: Insomnia Metformin HCl (Metformin Hcl 500 Mg Tablet) 500 mg PO BID [facility] Last Admin: 11/10/23 19:46 Dose: 500 mg Documented By: TOMAS Metoprolol Tartrate (Metoprolol Tartrate 25 Mg Tablet) 25 mg PO BID [facility]; Protocol Last Admin: 11/11/23 07:46 Dose: 25 mg Documented By: GEORGETTE Omeprazole (Omeprazole 20 Mg Capsule.) 20 mg PO DAILY@0630 [facility] Last Admin: 11/11/23 05:57 Dose: 20 mg Documented By: AMULIK Omeprazole (Omeprazole 20 Mg Capsule.) 20 mg PO DAILY PRN PRN Reason: Acid Reflux Ondansetron HCl (Ondansetron Hcl 4 Mg/2 Ml Vial) 4 mg IVPUSH Q8H PRN PRN Reason: Nausea and Vomiting Last Admin: 11/09/23 23:48 Dose: 4 mg Documented By: MICHAEL Sitagliptin Phosphate (Sitagliptin Phosphate 50 Mg Tablet) 50 mg PO BID [facility] Last Admin: 11/11/23 07:46 Dose: 50 mg Documented By: GEORGETTE Sodium Chloride (0.9 % Sodium Chloride Flush 3 Ml Syringe) 3 ml IVFLUSH QSHIFT [facility] Last Admin: 11/11/23 07:47 Dose: 3 ml Documented By: GEORGETTE Labs 11/10/23 17:22 11/11/23 06:01 Labs: Laboratory Results - last 24 hr 11/10/23 11/10/23 11/10/23 11:17 16:35 17:11 MCV MCH MCHC RDW Plt Count MPV Absolute Nucleated RBC Nucleated RBC % (auto) Anion Gap Estim Creat Clear Calc Estimated GFR POC Glucose 98 94 109 Random Glucose Calcium Troponin I High Sens B-Natriuretic Peptide 11/10/23 11/10/23 11/11/23 17:22 19:41 06:01 MCV 87.2 MCH 28.0 MCHC 32.2 RDW 14.6 Plt Count 261 MPV 9.5 Absolute Nucleated RBC 0.000 Nucleated RBC % (auto) 0.0 Anion Gap 17 10 L Estim Creat Clear Calc 25.0 27.3 Estimated GFR 28 31 POC Glucose 111 Random Glucose 120 H 85 Calcium 8.7 8.2 L Troponin I High Sens 47.4 H B-Natriuretic Peptide 1350 H 919 H 11/11/23 07:36 MCV MCH MCHC RDW Plt Count MPV Absolute Nucleated RBC Nucleated RBC % (auto) Anion Gap Estim Creat Clear Calc Estimated GFR POC Glucose 92 Random Glucose Calcium Troponin I High Sens B-Natriuretic Peptide Microbiology Microbiology Results: Microbiology 11/09/23 21:02 Urine Culture - Final Urine clean catch - Clean Catch Midstream No growth. 11/09/23 01:00 Blood Culture - Preliminary Blood - Venous No growth after 24 hours. 11/09/23 21:51 Blood Culture - Preliminary Blood - Venous No growth after 24 hours. Assessment and Plan (1) CHF exacerbation: Status: Acute Plan Pt is a 73-year-old Armenian-speaking female with a PMH significant for?Parkinson's disease, HTN, HLD, [id number] type 2 diabetes, AAA, GERD, ANTONETTE not on CPAP, and osteoporosis who presents to the ED complaining of nausea, vomiting, diarrhea x6-7 days. Pt will be admitted to the hospital for treatment and further evaluation of new onset acute CHF as well as hypertensive urgency, MEGHANA, and UTI. New onset CHF Patient with increased SOB, BECKETT, nonproductive cough, fatigue times 6-[address] showing pulmonary edema with small bilateral pleural effusions and likely alveolar edema BNP down to 919 Echocardiogram pending cardiology> switch back to lisinopril, monitor santana; function. continue diuresis for now continue IV lasix 40 IV BID Hypertensive urgency with flash pulmonary edema ? not takingmeds at home due to GI symptoms had episode with SBP over 220 last evening with c/o cp and sob given Labetolol, Nitro top, and iv lasix with good effect trop flat, no ischemic changes on EKG CXR showed worsening, likely pulm edema rather than PNA as pt has no fever and only mild elevation of WBC Anxiety contributes to worsening symptoms re BP lorazepam added prn MEGHANA Creatinine 1.67 Likely multifactorial, crdiorenal as well as secondary to GI losses Lisinopril on hold Acute UTI UA positive Patient does not meet sepsis criteria: Tachycardia but no fever, tachypnea, or leukocytosis Will treat with ceftriaxone, started 11/09/2023 Elevated troponins Initial troponin 12.2, 22.5, 52.1 EKGs x3 negative for ischemic changes Patient complains of chest pressure times 2-3 days cardiology consulation N/V/D acute on chronic Ongoing for 6-7 days Unclear etiology Has been chronic for some time now, though usually occurs for only 2-3 days at a time once or twice a month So far workup has been negative CT of abdomen and pelvis today negative for acute abdomen Has been referred to GI Will treat with antiemetics, PPI Anemia Patient's H&H 9.4/28.6, down from 11 0.9/36.9 on 09/11/2023 Unclear etiology: Patient denies hematemesis, hemoptysis, melena, or hematochezia Check stool for occult blood Follow H&H Hypomagnesemia Magnesium 1.3 at time of presentation Likely secondary to GI losses Patient received Mag IV in the ED Follow Mag Hyperkalemia Patient's potassium 5.3 time of presentation Patient given Lokelma in the ED Follow potassium Abnormal imaging CXR initially showed suspicion for right mid lung mass CTA of chest showing numerous nodular opacities likely alveolar edema, however superimposed lesions can not be excluded Recommendation is for radiographic follow-up to verify resolution Parkinson's disease Continue carbidopa levodopa HLD Continue statin, fenofibrate Asthma Not in acute exacerbation Continue home inhaler GERD Continue PPI Full Code Attending:?Dr. Huff DVT Prophylaxis: Lovenox Quality Stroke Does the patient have a stroke diagnosis?: No VTE Prior VTE?: No VTE Risk Level:: Medical - moderate - high VTE Device Contraindication: Treatment Not Indicated VTE Drug Contraindication: N/A - Med Ordered
[2023-11-11 12:10] LABS: Glucose, Whole Blood 111 mg/dL (60-115)
[2023-11-11] MEDS: lisinopriL 40 MG TABLET PO (12:31)
--- NOTE | 2023-11-11 13:43 | MHC.CM.PN ---
IMM 11/11/23 Patient lives at home with a live-in [employer] thru [employer]. She requires assist + supervision with adls. A walker is used for unsteady gait. PCP is Dr Wilbur Kennedy. A new HCP was documented at the patients request. A copy was provided to Patient. The HCP was scanned into the EMR. DP resume [employer] services with [employer]. [employer] Juan Jose will provide transportation home.
[2023-11-11 16:24] LABS: Glucose, Whole Blood 96 mg/dL (60-115)
[2023-11-11] MEDS: Acetaminophen 325 MG TABLET 650 MG PO (19:50)
[2023-11-11] MEDS: Atorvastatin Calcium 40 MG TABLET PO (19:50)
[2023-11-11] MEDS: cefTRIAXone sodium 1 GM in 0.9 % Sodium Chloride 50 ML IV (19:50)
[2023-11-11] MEDS: Enoxaparin Sodium 30 MG/0.3 ML SYRINGE SUBCUT (19:55)
[2023-11-11 20:39] LABS: Glucose, Whole Blood 109 mg/dL (60-115)
[2023-11-12] VITALS (9 sets, daily range): BP systolic 134–180; BP diastolic 62–88; PULSE 63–80; RESP 16–20; TEMP 36.1–36.9; O2SAT 94–98
[2023-11-12] MEDS: LORazepam 0.5 MG TABLET 0.25 MG PO ×2 (04:31→21:11)
[2023-11-12] MEDS: Omeprazole 20 MG CAPSULE.DR PO (05:56)
--- NOTE | 2023-11-12 07:00 | CA_ITS ---
Transthoracic Echocardiogram Patient (Last, First, Middle): Nely Jordan, Gender: Female Date of : 1950 Age: 73 Procedure Date: 11/12/2023 Procedure Type: Transthoracic Echocardiogram Location: [facility] [place] Height: 162.56 cm Weight: 62.14 kg BSA: 1.67 m2 Heart Rate: bpm BP: 180 / 80 mmHg Nursing Program Chair: ELISA Referring MD: Yudy Butler MD Symptoms: CHF Study Quality: Adequate Conclusions: - Normal left ventricular size and systolic function. There is mildly increased left ventricular wall thickness. The visually estimated ejection fraction is between 55-60%. - Elevated filling pressures. - Normal right ventricular cavity size and systolic function. - The left atrium is moderately dilated. - Mildly elevated right atrial pressure. Findings Left Ventricle Normal left ventricular size and systolic function. There is mildly increased left ventricular wall thickness. The visually estimated ejection fraction is between 55-60%. There is no evidence of regional wall motion abnormalities. Abnormal diastolic function is noted. Spectral Doppler is indicative of an impaired relaxation filling pattern. Elevated filling pressures. Right Ventricle Normal right ventricular cavity size and systolic function. Atria The left atrium is moderately dilated. The right atrium is mildly dilated. Aortic Valve There is a normal trileaflet aortic valve. There is no aortic valve stenosis. There is trace (trivial) aortic valve regurgitation. Mitral Valve The mitral valve appears normal. There is no mitral valve regurgitation. There is no mitral valve stenosis. Pulmonic Valve The pulmonic valve is likely normal. Tricuspid Valve Normal tricuspid valve structure. There is trace tricuspid valve regurgitation. Mildly elevated right atrial pressure. There is no evidence of pulmonary hypertension. Great Vessels There is mild dilatation of the sinuses of Valsalva measuring 3.90 cm and mild dilatation of the ascending aorta measuring 3.70 cm. Venous The inferior vena cava is dilated and collapses greater than 50% with inspiration. Pericardium/Pleural There is no evidence of pericardial effusion. Prior Study Comparison Changes noted compared to prior study dated: 08/04/2021. elevated filling pressures. Measurements 2D Linear Measurements IVSd: 1.18 0.6-0.9/0.6-1.0 cm LVIDd: 4.66 3.9-5.3/4.2-5.9 cm LVIDd Index: 2.79 2.4-3.2/2.2-3.1 cm/m2 LVIDs: 3.06 2.0-3.6 cm LVPWd: 1.30 0.7-1.1 cm LA Diam: 3.20 2.7-3.8/3.0-4.0 cm LAIDs Index: 1.92 1.5-2.3 cm/m2 LV Mass: 273.31 67-162/88-224 g LV Mass Index: 163.66 43-95/49-115 g/m2 LVOT Diam: 2.20 3.0+(-)1.3 cm 2D Systolic Function EF 4C: 67.80 >55% EF 2C: 54.00 >55% EF BiP: 63.10 >55% Mitral Valve MV Pk E: 0.93 MV PK A: 1.09 MV Decel Time: 236.00 E/A: 0.90 E'Lateral: 5.66 E'Medial: 4.46 E/E' Med: 20.90 E/E' Lat: 16.40 PHT: 69.00 MVA PHT: 3.19 Decel [place]: 3.95 Aortic Valve AoV Pk Nehemias: 1.44 AoV Mn Nehemias: 1.05 AoV VTI: 0.36 AoV Pk Grad: 8.00 Aov Mn Grad: 5.00 DANIEL Cont.VTI: 2.28 LVOT LVOT Pk Nehemias: 0.88 LVOT Mn Nehemias: 0.64 LVOT VTI: 0.22 LVOT Pk Grad: 3.00 LVOT Mn Grad: 2.00 LVOT Diam: 2.20 LVOT Area: 3.80 Diastolic Function MV Pk E: 0.93 MV Pk A: 1.09 E/A: 0.90 E'Medial: 4.46 E/E' Med: 20.90 E' Laterial: 5.66 E/E' Lat: 16.40 Right Ventricle TAPSE (mm): 23.50 TVS' Nehemias: 11.00 Tricuspid Valve TR Pk Nehemias: 2.29 TR Pk Grad: 21.00 RA Press: 8.00 RVSP: 29.00 Great Vessels Aorta Sinus of Valsalva: 3.90 2.0-3.[address] Ridge: 2.49 1.7-3.4 cm Ao Asc: 3.70 2.1-3.4 cm Updated in Other Vendor System with Status of Final Ray Singh MD electronically signed on 11/12/2023 3:02:33 PM with status of Final
[2023-11-12 07:06] LABS: Glucose, Whole Blood 85 mg/dL (60-115)
[2023-11-12] MEDS: lisinopriL 40 MG TABLET PO (07:46)
[2023-11-12] MEDS: SITagliptin Phosphate 50 MG TABLET PO ×2 (07:46→20:23)
[2023-11-12] MEDS: Furosemide 40 MG/4 ML VIAL IVPUSH (07:46)
[2023-11-12] MEDS: Metoprolol Tartrate 25 MG TABLET PO ×2 (07:47→20:23)
[2023-11-12] MEDS: Carbidopa/Levodopa CR 50/200 TABLET.ER 1 TAB PO ×2 (07:47→20:23)
[2023-11-12] MEDS: 0.9 % Sodium Chloride Flush 3 ML SYRINGE IVFLUSH ×3 (07:48→20:24)
--- NOTE | 2023-11-12 08:52 | P.PNIM_ITS ---
Subjective Subjective Date of Service: 11/12/23 Review of Systems Follow up CHF sob is better no pain Physical Exam 2 Vital Signs: Vital Signs: Last Vital Signs Temp 98.5 F 11/12/23 07:08 Pulse 69 11/12/23 07:08 Resp 18 11/12/23 07:08 BP 172/70 H 11/12/23 08:51 Pulse Ox 98 11/12/23 07:08 O2 Del Method Nasal Cannula 11/12/23 07:08 O2 Flow Rate 3 11/12/23 07:08 BMI result Body Mass Index 23.6 Appearing in no acute distress lung sounds are clear to auscultation heart regular rate rhythm, clear S1, S2 positive bowel sounds, abdomen is soft, nontender neuro patient is alert x3, no focal deficits, tremors from Parkinson's Objective Data Active Medications Acetaminophen (Acetaminophen 325 Mg Tablet) 650 mg PO Q6H PRN PRN Reason: Pain, Mild (Pain Scale 1-3), fever or headache Last Admin: 11/11/23 19:50 Dose: 650 mg Documented By: SAVAGE Albuterol Sulfate (Albuterol Sulfate 90 Mcg 8 Gm Inhaler) 2 puff INHALE Q4H PRN PRN Reason: Shortness Of Breath Or Wheezing Atorvastatin Calcium (Atorvastatin Calcium 40 Mg Tablet) 40 mg PO BEDTIME [facility] Last Admin: 11/11/23 19:50 Dose: 40 mg Documented By: SAVAGE Calcium Carbonate (Calcium Carbonate 750 Mg Tab.Chew) 750 mg PO Q4H PRN PRN Reason: Heartburn Carbidopa/Levodopa (Carbidopa/Levodopa Cr 50/200 Tablet.Er) 1 tab PO BID [facility] Last Admin: 11/12/23 07:47 Dose: 1 tab Documented By: ZAK Enoxaparin Sodium (Enoxaparin Sodium 30 Mg/0.3 Ml Syringe) 30 mg SUBCUT Q24H [facility] Last Admin: 11/11/23 19:55 Dose: 30 mg Documented By: SAVAGE Furosemide (Furosemide 40 Mg/4 Ml Vial) 40 mg IVPUSH BID@0900,1800 [facility]; Protocol Last Admin: 11/12/23 07:46 Dose: 40 mg Documented By: ZAK Glucose (Glucose Gel 15 Gm Gel..Gram.) 15 gm PO Q15M PRN; Protocol PRN Reason: per Hypoglycemia Standing Ord. Dextrose (D10) 250 mls @ 750 mls/hr IV Q15M PRN; Protocol PRN Reason: per Hypoglycemia Standing Ord. Ceftriaxone Sodium 1 gm/ (Sodium Chloride) 50 mls @ 100 mls/hr IV Q24H [facility] Last Infusion: 11/11/23 20:25 Dose: Infused Documented By: SAVAGE Insulin Human Lispro (Insulin Lispro 100 Unit/Ml 3 Ml Vial) 0 unit SUBCUT QIDACHS [facility]; Protocol Last Admin: 11/12/23 07:44 Dose: Not Given Documented By: ZAK Non-Admin Reason: no insulin coverage Lisinopril (Lisinopril 40 Mg Tablet) 40 mg PO DAILY [facility]; Protocol Last Admin: 11/12/23 07:46 Dose: 40 mg Documented By: ZAK Lorazepam (Lorazepam 0.5 Mg Tablet) 0.25 mg PO Q8H PRN PRN Reason: Anxiety Last Admin: 11/12/23 04:31 Dose: 0.25 mg Documented By: SAVAGE Magnesium Hydroxide (Milk Of Magnesia 30 Ml Oral.Susp) 30 ml PO DAILY PRN PRN Reason: Constipation Melatonin (Melatonin 3 Mg Tablet) 6 mg PO BEDTIME PRN PRN Reason: Insomnia Metformin HCl (Metformin Hcl 500 Mg Tablet) 500 mg PO BID [facility] Last Admin: 11/10/23 19:46 Dose: 500 mg Documented By: TOMAS Metoprolol Tartrate (Metoprolol Tartrate 25 Mg Tablet) 25 mg PO BID [facility]; Protocol Last Admin: 11/12/23 07:47 Dose: 25 mg Documented By: ZAK Omeprazole (Omeprazole 20 Mg Capsule.Dr) 20 mg PO DAILY@0630 [facility] Last Admin: 11/12/23 05:56 Dose: 20 mg Documented By: SAVAGE Ondansetron HCl (Ondansetron Hcl 4 Mg/2 Ml Vial) 4 mg IVPUSH Q8H PRN PRN Reason: Nausea and Vomiting Last Admin: 11/09/23 23:48 Dose: 4 mg Documented By: MICHAEL Sitagliptin Phosphate (Sitagliptin Phosphate 50 Mg Tablet) 50 mg PO BID [facility] [place] Last Admin: 11/12/23 07:46 Dose: 50 mg Documented By: ZAK Sodium Chloride (0.9 % Sodium Chloride Flush 3 Ml Syringe) 3 ml IVFLUSH QSHIFT [facility] [place] Last Admin: 11/12/23 07:48 Dose: 3 ml Documented By: ZAK Labs 11/10/23 17:22 11/11/23 06:01 Labs: Laboratory Results - last 24 hr 11/11/23 11/11/23 11/11/23 11:30 16:21 20:32 POC Glucose 111 96 109 11/12/23 07:02 POC Glucose 85 Microbiology Microbiology Results: Microbiology 11/09/23 01:00 Blood Culture - Preliminary Blood - Venous No growth after 48 hours. 11/09/23 21:51 Blood Culture - Preliminary Blood - Venous No growth after 48 hours. 11/09/23 21:02 Urine Culture - Final Urine clean catch - Clean Catch Midstream No growth. Assessment and Plan (1) CHF exacerbation: Status: Acute Plan Pt is a 73-year-old Cameroonian-speaking female with a PMH significant for?Parkinson's disease, HTN, HLD, dbb-fiugxax-ahrpsvids type 2 diabetes, AAA, GERD, ANTONETTE not on CPAP, and osteoporosis who presents to the ED complaining of nausea, vomiting, diarrhea x6-7 days. Pt will be admitted to the hospital for treatment and further evaluation of new onset acute CHF as well as hypertensive urgency, MEGHANA, and UTI. New onset CHF, unspecified Patient with increased SOB, BECKETT, nonproductive cough, fatigue times 6-[address] showing pulmonary edema with small bilateral pleural effusions and likely alveolar edema BNP down to 919 Echocardiogram pending cardiology> switch back to lisinopril, monitor renal function. continue diuresis for now continue IV lasix 40 IV BID Hypertensive urgency with flash pulmonary edema ? not taking meds at home due to GI symptoms had episode with SBP over 220 11/09 with c/o cp and sob given Labetolol, Nitro top, and iv lasix with good effect trop flat, no ischemic changes on EKG CXR showed worsening, likely pulm edema rather than PNA as pt has no fever and only mild elevation of WBC Anxiety contributes to worsening symptoms re BP lorazepam added prn MEGHANA Creatinine 1.63 Likely multifactorial, cardiorenal as well as secondary to GI losses Acute UTI UA positive Patient does not meet sepsis criteria: Tachycardia but no fever, tachypnea, or leukocytosis ceftriaxone completed 3 days urine cx neg Elevated troponins Initial troponin 12.2, 22.5, 52.1 EKGs x3 negative for ischemic changes Patient complains of chest pressure times 2-3 days cardiology consulation N/V/D acute on chronic. Resolved Ongoing for 6-7 days Unclear etiology Has been chronic for some time now, though usually occurs for only 2-3 days at a time once or twice a month So far workup has been negative CT of abdomen and pelvis today negative for acute abdomen antiemetics, PPI Normocytic Anemia Unclear etiology: Patient denies hematemesis, hemoptysis, melena, or hematochezia H&H above transfusion threshold Hypomagnesemia Repleted and resolved Hyperkalemia Resolved after treatment with Lokelma Abnormal imaging CXR initially showed suspicion for right mid lung mass CTA of chest showing numerous nodular opacities likely alveolar edema, however superimposed lesions can not be excluded Recommendation is for radiographic follow-up to verify resolution outpatient Parkinson's disease Continue carbidopa levodopa HLD Continue statin, fenofibrate Asthma Not in acute exacerbation Continue home inhaler GERD Continue PPI Full Code Attending:?Dr. Huff DVT Prophylaxis: Lovenox Quality Stroke Does the patient have a stroke diagnosis?: No VTE Prior VTE?: No VTE Risk Level:: Medical - moderate - high VTE Device Contraindication: Treatment Not Indicated VTE Drug Contraindication: N/A - Med Ordered
--- NOTE | 2023-11-12 10:18 | MHC.CM.PN ---
Per ROUNDS discussion, Patient is not yet medically cleared for dc and may benefit from a PT Eval to assist with disposition.CM will follow.
[2023-11-12 10:57] LABS: Glucose, Whole Blood 107 mg/dL (60-115)
[2023-11-12] MEDS: hydrALAZINE HCl 20 MG/ML VIAL 5 MG IVPUSH (12:52)
[2023-11-12] MEDS: ondansetron HCL 4 MG/2 ML VIAL IVPUSH (12:52)
[2023-11-12] MEDS: Acetaminophen 325 MG TABLET 650 MG PO (13:35)
--- NOTE | 2023-11-12 13:37 | PM.PNCARD ---
Subjective Subjective Date of Service: 11/12/23 Interval history: Seen examined at bedside. Feeling better. Blood pressure improving. Physical Exam Vital Signs: Last Vital Signs Temp 97.8 F 11/12/23 12:00 Pulse 67 11/12/23 12:00 Resp 20 11/12/23 12:00 BP 146/62 H 11/12/23 13:29 Pulse Ox 96 11/12/23 12:00 O2 Del Method Nasal Cannula 11/12/23 12:00 O2 Flow Rate 3 11/12/23 12:00 BMI result Body Mass Index 23.6 GENERAL APPEARANCE: in no acute distress, pleasant. NECK: no carotid bruit, no jugular venous distention. SKIN: no suspicious lesions, warm and dry. HEART: no murmurs, regular rate and rhythm. LUNGS: clear to auscultation bilaterally. ABDOMEN: soft, nontender. EXTREMITIES: no edema. PERIPHERAL PULSES: equal. NEUROLOGIC: No gross deficits, AAO X 3. Parkinsonian tremors left side of the body. Objective Labs and Meds 11/10/23 17:22 11/11/23 06:01 Lab results: Laboratory Results - last 24 hr 11/11/23 11/11/23 11/12/23 16:21 20:32 07:02 POC Glucose 96 109 85 11/12/23 10:43 POC Glucose 107 Imaging Radiologist's impression: Impressions Pulmonary Perfusion Imaging 11/10/23 10:40 IMPRESSION: Based on perfusion only modified PIOPED 2 criteria, the study is classified as non-diagnostic for pulmonary thromboembolism. Progress Note: A&P Assessment and plan (1) Acute diastolic (congestive) heart failure: Status: Acute Plan [age] female with background history of Parkinson's disease presenting with significantly elevated blood pressure and congestive heart failure. She was having nausea vomiting diarrhea and apparently did not absorb her medications. She also has parkinsonian tremor on the left side which is worse. She is currently back on her medications. Monitor closely. Blood pressure is improving currently. Stop IV diuretics and change her to p.o. Lasix 40 mg daily. Thank you for allowing me to participate in the care of your patient. Please feel free to contact me if you have any questions. Time Spent With Patient Time: Total time managing care of this patient today ____ minutes. Progress Note: Quality Stroke Does the patient have a stroke diagnosis?: No Procedures Date of Service Date of Service: 11/12/23
[2023-11-12 16:46] LABS: Glucose, Whole Blood 93 mg/dL (60-115)
[2023-11-12] MEDS: cefTRIAXone sodium 1 GM in 0.9 % Sodium Chloride 50 ML IV (20:24)
[2023-11-12] MEDS: Atorvastatin Calcium 40 MG TABLET PO (20:24)
[2023-11-12] MEDS: Milk of Magnesia 30 ML ORAL.SUSP PO (20:24)
[2023-11-12] MEDS: Enoxaparin Sodium 30 MG/0.3 ML SYRINGE SUBCUT (20:25)
[2023-11-12 20:43] LABS: Glucose, Whole Blood 86 mg/dL (60-115)
[2023-11-13] VITALS (7 sets, daily range): BP systolic 141–173; BP diastolic 67–86; PULSE 66–96; RESP 18; TEMP 36.2–36.7; O2SAT 92–98
[2023-11-13] MEDS: Omeprazole 20 MG CAPSULE.DR PO (06:27)
[2023-11-13] MEDS: hydrALAZINE HCl 20 MG/ML VIAL 10 MG IVPUSH (06:35)
[2023-11-13] MEDS: LORazepam 0.5 MG TABLET 0.25 MG PO (07:14)
[2023-11-13 07:27] LABS: Glucose, Whole Blood 87 mg/dL (60-115)
[2023-11-13] MEDS: Acetaminophen 325 MG TABLET 650 MG PO (08:43)
[2023-11-13] MEDS: Furosemide 40 MG TABLET PO (08:44)
[2023-11-13] MEDS: Metoprolol Tartrate 25 MG TABLET PO (08:44)
[2023-11-13] MEDS: amLODIPine Besylate 2.5 MG TABLET PO (08:44)
[2023-11-13] MEDS: SITagliptin Phosphate 50 MG TABLET PO (08:44)
[2023-11-13] MEDS: lisinopriL 40 MG TABLET PO (08:44)
[2023-11-13] MEDS: Carbidopa/Levodopa CR 50/200 TABLET.ER 1 TAB PO (08:44)
--- NOTE | 2023-11-13 10:49 | P.PNIM_ITS ---
Subjective Subjective Date of Service: 11/13/23 Review of Systems Follow up CHF sob is better no pain Physical Exam 2 Vital Signs: Vital Signs: Last Vital Signs Temp 97.2 F 11/13/23 03:46 Pulse 96 11/13/23 07:29 Resp 18 11/13/23 07:29 BP 148/86 H 11/13/23 08:47 Pulse Ox 92 11/13/23 03:46 O2 Del Method Nasal Cannula 11/13/23 03:46 O2 Flow Rate 3 11/13/23 03:46 BMI result Body Mass Index 23.6 Appearing in no acute distress lung sounds are clear to auscultation heart regular rate rhythm, clear S1, S2 positive bowel sounds, abdomen is soft, nontender neuro patient is alert x3, no focal deficits Objective Data Active Medications Acetaminophen (Acetaminophen 325 Mg Tablet) 650 mg PO Q6H PRN PRN Reason: Pain, Mild (Pain Scale 1-3), fever or headache Last Admin: 11/13/23 08:43 Dose: 650 mg Documented By: VIKY Albuterol Sulfate (Albuterol Sulfate 90 Mcg 8 Gm Inhaler) 2 puff INHALE Q4H PRN PRN Reason: Shortness Of Breath Or Wheezing Amlodipine Besylate (Amlodipine Besylate 2.5 Mg Tablet) 2.5 mg PO DAILY [facility]; Protocol Last Admin: 11/13/23 08:44 Dose: 2.5 mg Documented By: VIKY Atorvastatin Calcium (Atorvastatin Calcium 40 Mg Tablet) 40 mg PO BEDTIME [facility] Last Admin: 11/12/23 20:24 Dose: 40 mg Documented By: SAVAGE Calcium Carbonate (Calcium Carbonate 750 Mg Tab.Chew) 750 mg PO Q4H PRN PRN Reason: Heartburn Carbidopa/Levodopa (Carbidopa/Levodopa Cr 50/200 Tablet.Er) 1 tab PO BID [facility] Last Admin: 11/13/23 08:44 Dose: 1 tab Documented By: VIKY Enoxaparin Sodium (Enoxaparin Sodium 30 Mg/0.3 Ml Syringe) 30 mg SUBCUT Q24H JARED Last Admin: 11/12/23 20:25 Dose: 30 mg Documented By: SAVAGE Furosemide (Furosemide 40 Mg Tablet) 40 mg PO DAILY [facility]; Protocol Last Admin: 11/13/23 08:44 Dose: 40 mg Documented By: VIKY Glucose (Glucose Gel 15 Gm Gel..Gram.) 15 gm PO Q15M PRN; Protocol PRN Reason: per Hypoglycemia Standing Ord. Dextrose (D10) 250 mls @ 750 mls/hr IV Q15M PRN; Protocol PRN Reason: per Hypoglycemia Standing Ord. Insulin Human Lispro (Insulin Lispro 100 Unit/Ml 3 Ml Vial) 0 unit SUBCUT QIDACHS [facility]; Protocol Last Admin: 11/13/23 07:34 Dose: Not Given Documented By: VIKY Non-Admin Reason: poc oor Lisinopril (Lisinopril 40 Mg Tablet) 40 mg PO DAILY [facility]; Protocol Last Admin: 11/13/23 08:44 Dose: 40 mg Documented By: VIKY Lorazepam (Lorazepam 0.5 Mg Tablet) 0.25 mg PO Q8H PRN PRN Reason: Anxiety Last Admin: 11/13/23 07:14 Dose: 0.25 mg Documented By: SAVAGE Magnesium Hydroxide (Milk Of Magnesia 30 Ml Oral.Susp) 30 ml PO DAILY PRN PRN Reason: Constipation Last Admin: 11/12/23 20:24 Dose: 30 ml Documented By: SAVAGE Melatonin (Melatonin 3 Mg Tablet) 6 mg PO BEDTIME PRN PRN Reason: Insomnia Metformin HCl (Metformin Hcl 500 Mg Tablet) 500 mg PO BID [facility] Last Admin: 11/10/23 19:46 Dose: 500 mg Documented By: TOMAS Metoprolol Tartrate (Metoprolol Tartrate 25 Mg Tablet) 25 mg PO BID [facility]; Protocol Last Admin: 11/13/23 08:44 Dose: 25 mg Documented By: VIKY Omeprazole (Omeprazole 20 Mg Capsule.Dr) 20 mg PO DAILY@0630 [facility] Last Admin: 11/13/23 06:27 Dose: 20 mg Documented By: SAVAGE Ondansetron HCl (Ondansetron Hcl 4 Mg/2 Ml Vial) 4 mg IVPUSH Q8H PRN PRN Reason: Nausea and Vomiting Last Admin: 11/12/23 12:52 Dose: 4 mg Documented By: ZAK Sitagliptin Phosphate (Sitagliptin Phosphate 50 Mg Tablet) 50 mg PO BID [facility] Last Admin: 08/20/24 08:44 Dose: 50 mg Documented By: VIKY Sodium Chloride (0.9 % Sodium Chloride Flush 3 Ml Syringe) 3 ml IVFLUSH QSHIFT JARED Last Admin: 11/13/23 07:34 Dose: Not Given Documented By: VIKY Non-Admin Reason: Previously Administered Labs 11/10/23 17:22 11/11/23 06:01 Labs: Laboratory Results - last 24 hr 11/12/23 11/12/23 11/12/23 10:43 16:35 20:36 POC Glucose 107 93 86 11/13/23 07:13 POC Glucose 87 Assessment and Plan (1) CHF exacerbation: Status: Acute Plan Pt is a 73-year-old Cymraes-speaking female with a PMH significant for?Parkinson's disease, HTN, HLD, wny-ourvcie-lzdujqhas type 2 diabetes, AAA, GERD, ANTONETTE not on CPAP, and osteoporosis who presents to the ED complaining of nausea, vomiting, diarrhea x6-7 days. Pt will be admitted to the hospital for treatment and further evaluation of new onset acute CHF as well as hypertensive urgency, MEGHANA, and UTI. New onset CHF, unspecified Patient with increased SOB, BECKETT, nonproductive cough, fatigue times 6-[address] showing pulmonary edema with small bilateral pleural effusions and likely alveolar edema BNP down to 919 Echocardiogram pending cardiology> continue lisinopril, amlodipine 2.5 mg added change IV lasix to po 40 daily Hypertension, uncontrolled continue lisinopril amlodipine 2.5 mg added Hypertensive urgency with flash pulmonary edema. Resolved ? not taking meds at home due to GI symptoms had episode with SBP over 220 11/09 with c/o cp and sob given Labetolol, Nitro top, and iv lasix with good effect trop flat, no ischemic changes on EKG CXR showed worsening, likely pulm edema rather than PNA as pt has no fever and only mild elevation of WBC Anxiety contributes to worsening symptoms re BP lorazepam added prn MEGHANA Creatinine 1.63 Likely multifactorial, cardiorenal as well as secondary to GI losses Acute UTI UA positive Patient does not meet sepsis criteria ceftriaxone, completed 3 days urine cx neg Elevated troponins Initial troponin 12.2, 22.5, 52.1 EKGs x3 negative for ischemic changes Patient complains of chest pressure times 2-3 days cardiology following N/V/D acute on chronic. Resolved Ongoing for 6-7 days Unclear etiology Has been chronic for some time now, though usually occurs for only 2-3 days at a time once or twice a month So far workup has been negative CT of abdomen and pelvis today negative for acute abdomen antiemetics, PPI Normocytic Anemia Unclear etiology Patient denies hematemesis, hemoptysis, melena, or hematochezia H&H above transfusion threshold Hypomagnesemia Repleted and resolved Hyperkalemia Resolved after treatment with Lokelma Abnormal imaging CXR initially showed suspicion for right mid lung mass CTA of chest showing numerous nodular opacities likely alveolar edema, however superimposed lesions can not be excluded Recommendation is for radiographic follow-up to verify resolution outpatient Parkinson's disease Continue carbidopa levodopa HLD Continue statin, fenofibrate Asthma Not in acute exacerbation Continue home inhaler GERD Continue PPI Full Code Attending:?Dr. An DVT Prophylaxis: Lovenox Quality Stroke Does the patient have a stroke diagnosis?: No VTE Prior VTE?: No VTE Risk Level:: Medical - moderate - high VTE Device Contraindication: Treatment Not Indicated VTE Drug Contraindication: N/A - Med Ordered
--- NOTE | 2023-11-13 11:00 | MHC.CM.PN ---
PT is recommending home/with services;Per ORE DRESSING ENGINEER, Caregiver/PLASTERER FOREMAN feels strongly that Patient would benefit from STR r/t not being at her functional baseline. CM has made several SNF/STR referrals in an attempt to find a SNF who is in contract with Patient's insurance ([employer]), has an available bed, and can obtain [employer] auth. CM will follow.
[2023-11-13 11:04] LABS: Glucose, Whole Blood 115 mg/dL (60-115)
--- NOTE | 2023-11-13 12:15 | MHC.CM.PN ---
CM discussed dc plans with FEATHER SEPARATOR/HCP/Juan Jose and Patient; all are in agreement with SNF/STR. Per Patient & HCP's choice, CM has asked [facility] to initiate auth with [employer]. CM will follow.
--- NOTE | 2023-11-13 12:28 | PM.PNCARD ---
Subjective Subjective Date of Service: 11/13/23 Interval history: Seen examined at bedside. She is complaining of fatigue. No shortness of breath today. Blood pressure was elevated overnight and she received IV hydralazine. Physical Exam Vital Signs: Last Vital Signs Temp 98.0 F 11/13/23 11:24 Pulse 66 11/13/23 11:24 Resp 18 11/13/23 11:24 BP 141/67 H 11/13/23 11:24 Pulse Ox 93 11/13/23 11:24 O2 Del Method Room Air 11/13/23 11:24 O2 Flow Rate 3 11/13/23 03:46 BMI result Body Mass Index 23.6 GENERAL APPEARANCE: in no acute distress, pleasant. NECK: no carotid bruit, no jugular venous distention. SKIN: no suspicious lesions, warm and dry. HEART: no murmurs, regular rate and rhythm. LUNGS: clear to auscultation bilaterally. ABDOMEN: soft, nontender. EXTREMITIES: no edema. PERIPHERAL PULSES: equal. NEUROLOGIC: No gross deficits, AAO X 3. Parkinsonian tremors left side of the body. Objective Labs and Meds 11/10/23 17:22 11/11/23 06:01 Lab results: Laboratory Results - last 24 hr 11/12/23 11/12/23 11/13/23 16:35 20:36 07:13 POC Glucose 93 86 87 11/13/23 10:57 POC Glucose 115 Progress Note: A&P Assessment and plan (1) Acute diastolic (congestive) heart failure: Status: Acute Plan Pleasant 73 year female with acute diastolic heart failure in the setting of elevated blood pressures. She was having vomiting and diarrhea and apparently developed elevated blood pressures after that leading to pulmonary edema. She was diuresed and appears to be well compensated currently. Agree with oral 40 mg of Lasix. Lisinopril 40 mg daily and amlodipine 2.5 mg was added today. This can be titrated further if blood pressure continues to be elevated. Please avoid IV hydralazine-the response of the stroke is very unpredictable specially in older patients it can cause stroke and myocardial ischemia from hypoperfusion. Thank you for allowing me to participate in the care of your patient. Please feel free to contact me if you have any questions. Time Spent With Patient Time: Total time managing care of this patient today ____ minutes. Progress Note: Quality Stroke Does the patient have a stroke diagnosis?: No Procedures Date of Service Date of Service: 11/13/23
[2023-11-13 15:41] LABS: Glucose, Whole Blood 113 mg/dL (60-115)
--- NOTE | 2023-11-13 15:55 | PC.NURSE ---
informed md of pt's bp
--- NOTE | 2023-11-13 16:07 | P.DS_ITS ---
DS: Providers Provider Date of Service: 11/13/23 Date of admission: 11/09/23 21:26 Primary care physician: Madison Acosta MD Consults: 11/10/23 12:42 Consult to Cardiology Routine Consulting Provider: [facility] Reason for consultation: chf DS: Diagnosis Discharge Diagnosis (1) Acute diastolic (congestive) heart failure: Status: Acute DS: Summary Hospital Course Hospital Course: History and physical as per admitting provider. Pt is a 73-year-old Venezuelan- speaking female with a PMH significant for?Parkinson's disease, HTN, HLD, lev-wrnvbes-huyqpgyee type 2 diabetes, AAA, GERD, ANTONETTE not on CPAP, and osteoporosis who presents to the ED complaining of nausea, vomiting, diarrhea x6-7 days. Patient is accompanied by her live-in nurse who helps supplement HPI. Patient with long history of similar complaints and has had workup in the past that has been negative. Patient has also been referred to GI, though it is unclear whether or not she has ever seen a plumbing instructor. Patient normally experiences 2-3 days of N/V/D at a time, though current symptoms are more prolonged and severe. Patient has been unable to eat or drink much at all during this time. Intermittent abdominal pain 1-2 days ago, currently resolved. Has also been experiencing increased shortness of breath and dyspnea upon exertion, as well as generalized fatigue. Has had nonproductive cough and also complains of a ?heaviness? on her chest the past few days. Also complains that her Parkinson's tremors have worsened. Reports being compliant with all of her medications. Denies any hematemesis, hemoptysis, melena, or hematochezia. Patient is a former long-time smoker of 2 packs daily, quit 5-6 years ago. Denies fever, chills. In the ED pt was tachycardic up to 113 and hypertensive up to 210/100. Labs were significant for H&H 9.4/28.6 (down from 11 0.9/36.9 on 09/11/2023), potassium 5.3, BUN 37, creatinine 1.89 (elevated from 1.28 on 09/11/2023), magnesium 1.3, initial troponin 12.4 with repeat 22.5, BNP 912, and albumin 2.9. UA positive for UTI. Tested negative for influenza, RSV, COVID. CXR showed suspected right mid lung mass and right lower lobe consolidation with bilateral small effusions. CTA of head with no acute intracranial hemorrhage or territorial loss of gardiner-white differentiation. CT?of chest with pulmonary edema and small bilateral pleural effusions, numerous nodular opacities in the perihilar region of right upper lobe and both lower lobes most likely due to alveolar edema though superimposed lesions can not be excluded. Also found a 2.[address] of abdomen/pelvis found no acute abnormalities. EKG demonstrated normal sinus rhythm without evidence of significant ST elevations or depressions. Repeat EKG similar to previous showing normal sinus rhythm. Pt was treated with nitroglycerin, morphine, aspirin, metoprolol, lisinopril, magnesium, Lokelma, and ceftriaxone. Pt will be admitted to the hospital for treatment and further evaluation of new onset acute CHF as well as hypertensive urgency, MEGHANA, and UTI. 73-year-old woman treated for acute congestive heart failure. She had reported fatigue and nonproductive cough for over a week prior to admission. Chest CT showed pulmonary edema with small bilateral pleural effusions. Echocardiogram showed EF of 50-55% with no regional wall motion abnormalities. She was seen by Cardiology who agreed initially to keep patient on IV Lasix. Patient now euvolemic and transition to Lasix 40 mg oral daily. She did have an episode of hypertensive urgency with flash pulmonary edema during this hospitalization. Systolic blood pressure was over 220 with time she was treated with IV labetalol, topical nitroglycerin and IV Lasix with good effect. She was also started at that time on benzodiazepine as she does have very high anxiety which likely contributes to worsening of these symptoms especially with her blood pressure. Her sharemilker reported at 1 point she was on benzodiazepines but has not been stopped. We will send her with 7 days' worth and she can follow up with her primary care provider regarding restarting these medications. Patient was seen by Physical therapy who recommended short-term rehab. Plan will be to discharge patient to short-term rehab and then home with [facility] services. MEGHANA Creatinine 1.63 Likely multifactorial, cardiorenal as well as secondary to GI losses Acute UTI UA positive Patient does not meet sepsis criteria ceftriaxone, completed 3 days urine cx neg Elevated troponins Initial troponin 12.2, 22.5, 52.1 EKGs x3 negative for ischemic changes N/V/D acute on chronic. Resolved Has been chronic for some time now, though usually occurs for only 2-3 days at a time once or twice a month workup has been negative CT of abdomen and pelvisnegative for acute abdomen continue antiemetics, PPI Normocytic Anemia Unclear etiology Patient denies hematemesis, hemoptysis, melena, or hematochezia H&H above transfusion threshold Hypomagnesemia Repleted and resolved Hyperkalemia Resolved after treatment with Lokelma Abnormal imaging CXR initially showed suspicion for right mid lung mass CTA of chest showing numerous nodular opacities likely alveolar edema, however superimposed lesions can not be excluded Recommendation is for radiographic follow-up to verify resolution outpatient Parkinson's disease Continue carbidopa levodopa HLD Continue statin, fenofibrate Asthma Not in acute exacerbation Continue home inhaler GERD Continue PPI Less than 30 day stay Time Attestation Discharge Coordination Time (in mins): 35 Quality: Safe Use of Opioids Does Pt have an Active Cancer Diagnosis on the Problem List?: No Quality: Stroke Does the patient have a stroke diagnosis?: No Physical Exam 2 Vital Signs: Vital Signs: Last Vital Signs Temp 97.2 F 11/13/23 15:47 Pulse 69 11/13/23 15:47 Resp 18 11/13/23 15:47 BP 164/79 H 11/13/23 15:47 Pulse Ox 98 11/13/23 15:47 O2 Del Method Nasal Cannula 11/13/23 15:47 O2 Flow Rate 3 11/13/23 15:47 BMI result Body Mass Index 23.6 Appearing in no acute distress head is normocephalic atraumatic eyes pupils are PERRLA sclera is anicteric mouth throat mucous membranes are intact and moist neck is supple no lymphadenopathy, no JVD noted lung sounds are clear to auscultation heart regular rate rhythm, clear S1, S2 positive bowel sounds, abdomen is soft, nontender neuro patient is alert x3, no focal deficits Noted tremor from history of Parkinson's disease DS: Data Data Completed and Pending Labs on day of discharge: Laboratory Results - last 24 hr 11/12/23 11/12/23 11/13/23 16:35 20:36 07:13 POC Glucose 93 86 87 11/13/23 11/13/23 10:57 15:23 POC Glucose 115 113 Preliminary micro results at discharge 11/09/23 01:00 Blood Culture - Preliminary Blood - Venous No growth after 48 hours. 11/09/23 21:51 Blood Culture - Preliminary Blood - Venous No growth after 48 hours. Discharge Plan Discharge Anticipated Discharge Date/Time: 11/13/23 16:01 Patient Disposition: Xfer SNF Discharge Diagnosis: New onset congestive heart failure Hypertensive urgency Flash pulmonary edema MEGHANA UTI Hypomagnesemia/hyperkalemia Referrals: [facility] [Outside] - 1 Week Madison Carcamo MD [Primary Care Provider] - 1 Week Discharge Medications: New furosemide 40 mg Tablet 40 mg PO DAILY Qty: 30 0RF Protocol: Hold for SBP< HOLD for SBP < : 90 amlodipine 2.5 mg Tablet 2.5 mg PO DAILY Qty: 30 0RF Protocol: Hold for SBP< HOLD for SBP < : 90 lorazepam 0.5 mg Tablet 0.25 mg PO Q8H PRN (Reason: Anxiety) Qty: 18 0RF Continued (DME) walker Misc See Rx Instructions .Route Qty: 1 0RF Rx Instructions: rollator with seat (DME) CPAP Machine/Device Device See Rx Instructions .Route Qty: 1 0RF Rx Instructions: autoPAP 5-20 cm H2O (DME) lancets [Accu-Chek Softclix Lancets] Misc See Rx Instructions .ROUTE .COMPLEX Qty: 100 3RF Dose Instruction: USE 1 LANCET ONCE A DAY Rx Instructions: USE 1 LANCET ONCE A DAY (DME) True Metrix Glucose Test Strip Strip See Rx Instructions .Route Qty: 100 3RF Rx Instructions: Use 1 test strip once a day (DME) true metrix lancets See Rx Instructions .Route .MEDSUPPLY Qty: 100 3RF Rx Instructions: As directed carbidopa-levodopa 50-200 mg tablet extended release 1 tab PO BID Qty: 60 6RF Rx Instructions: divide evenly over waking hours Janumet 50-500 mg tablet 1 tab PO BID 90 Days Qty: 180 1RF calcium carbonate-vit D3-min 600 mg calcium- 400 unit tablet 1 tab PO BID 90 Days Qty: 180 2RF albuterol sulfate 90 mcg/actuation Hfa Aerosol Inhaler 2 puff INHALATION Q4-6H PRN (Reason: Shortness Of Breath Or Wheezing) alendronate 70 mg tablet 70 mg PO TH lidocaine 5 % adhesive patch,medicated 1 patch topical DAILY PRN (Reason: Pain) omeprazole 20 mg capsule,delayed release(DR/EC) 20 mg PO DAILY PRN (Reason: Acid Reflux) (DME) blood-glucose meter [FreeStyle Lite Meter] Kit See Rx Instructions .Route Qty: 1 0RF Rx Instructions: As directed (DME) FreeStyle Lite Strips Strip See Rx Instructions .Route Qty: 100 2RF Rx Instructions: Use 1 test strip once a day atorvastatin 40 mg tablet 40 mg PO BEDTIME 90 Days Qty: 90 1RF lisinopril 40 mg tablet 40 mg PO DAILY Qty: 90 3RF metoprolol tartrate 25 mg tablet 25 mg PO BID 90 Days Qty: 180 1RF Pepto-Bismol Max St 525 mg/15 mL suspension 525 mg PO Q30M PRN (Reason: diarrhea) 5 Days Qty: 118 0RF Rx Instructions: do not exceed 8 doses in a 24 hour period Discharge Orders: Discharge Order (Routine); Ordered 11/13/23 Ordered By: Adrianne Disla Diet: Advance to usual diet Activity on Discharge: As tolerated Stand Alone Forms: Patient Portal Discharge page Print Language: Venezuelan Care Plan Goals: Follow-up with primary care provider for further refills for benzodiazepine Monitor blood pressure closely and adjust medications as necessary Health Concerns: New onset congestive heart failure Hypertensive urgency Flash pulmonary edema MEGHANA UTI Hypomagnesemia/hyperkalemia Plan of Treatment: Follow-up with primary care provider as needed Take all medications as prescribed Assessment: See discharge summary
--- NOTE | 2023-11-13 16:13 | MHC.CM.PN ---
Patient has been medically cleared for dc to SNF/STR today. Patient will dc to first choice SNF/[facility] today at 5:30 PM, via [facility]. Last IMM addressed on 11/11/2023. HCP/Juan Jose @ [phone] has been informed of the dc plan.
== END 2023-11-13 18:34 | disposition skilled nursing facility (03) | DRG 291 ==
LOC: HO.ED 21:40 → HO.EDOVER 22:38 → HO.IMC 11-10 07:32
PROVIDERS: Physician Assistant; Admitting Provider Student in an Organized Health Care Education/Training Program; Emergency Provider Emergency Medicine; PCP Internal Medicine; Visit Provider Nurse Practitioner Acute Care
DX: I11.0 Hypertensive heart disease with heart failure (principal); I50.31 Acute diastolic (congestive) heart failure; I16.1 Hypertensive emergency; N17.9 Acute kidney failure, unspecified; N39.0 Urinary tract infection, site not specified; E83.42 Hypomagnesemia; F41.9 Anxiety disorder, unspecified; K21.9 Gastro-esophageal reflux disease without esophagitis; R91.8 Other nonspecific abnormal finding of lung field; J45.909 Unspecified asthma, uncomplicated; G20.A1 Parkinson's disease without dyskinesia, without mention of fluctuations; E78.5 Hyperlipidemia, unspecified; E87.5 Hyperkalemia; D64.9 Anemia, unspecified; I25.10 Atherosclerotic heart disease of native coronary artery without angina pectoris; E11.40 Type 2 diabetes mellitus with diabetic neuropathy, unspecified; Z20.822 Contact with and (suspected) exposure to COVID-19; Z79.899 Other long term (current) drug therapy
CPT/HCPCS: 0241U; 36415; 70450; 71045; 71250; 74176; 78580; 80048; 80076; 81001; 82947; 83605; 83690; 83735; 83880; 84484; 85025; 85027; 87040; 87086; 93005; 93306; 97162; 97530; 99285; A9540; C1758; J0360; J0456; J0696; J1650; J1920; J1940; J2270; J2405; J3475; Q9957

== ENCOUNTER 2023-11-09 21:26 | Outpatient (BNV) | payer MEDICARE, SELFPAY | END 2023-11-12 07:00 | PROVIDERS: Admitting Provider Student in an Organized Health Care Education/Training Program; Emergency Provider Emergency Medicine; PCP Internal Medicine; Visit Provider Internal Medicine Cardiovascular Disease | DX: I50.9 Heart failure, unspecified (principal) | CPT/HCPCS: 93306 ==

== ENCOUNTER → 2023-11-09 21:26 | Outpatient (BNV) | payer OTHER, SELFPAY | PROVIDERS: Admitting Provider Student in an Organized Health Care Education/Training Program; Emergency Provider Emergency Medicine; PCP Internal Medicine; Visit Provider Student in an Organized Health Care Education/Training Program | DX: I50.31 Acute diastolic (congestive) heart failure (principal) | CPT/HCPCS: 99223; 99232; 99239 ==

== ENCOUNTER → 2023-11-09 21:26 | Outpatient (BNV) | payer OTHER, SELFPAY | PROVIDERS: Admitting Provider Student in an Organized Health Care Education/Training Program; Emergency Provider Emergency Medicine; PCP Internal Medicine; Visit Provider Internal Medicine | DX: I50.31 Acute diastolic (congestive) heart failure (principal) | CPT/HCPCS: 99223; 99232 ==

== ENCOUNTER 2023-11-21 13:24 | Outpatient (REF) | payer OTHER, MEDICAID, SELFPAY ==
[2023-11-21 18:25] LABS: Hematocrit 30.3 % (37.0-47.0); Hemoglobin 9.4 g/dl (12.0-16.0); Mean Corpuscular Hemoglobin 27.6 pg (27.0-33.0); Mean Corpuscular Volume 89.1 fL (80.0-98.0); Platelet Count 241 X10*3/uL (160-400); Red Cell Distribution Width 14.8 % (11.0-16.0); White Blood Count 9.2 X10*3/uL (4.8-10.8)
[2023-11-21 18:56] LABS: Alanine Aminotransferase < 5 U/L (0-31); Albumin Level 3.7 g/dL (3.5-5.0); Alkaline Phosphatase 66 U/L (39-117); Anion Gap 13 (12-20); Aspartate Amino Transferase 21 U/L (5-31); Bilirubin Total 0.3 mg/dL (0.0-1.0); Blood Urea Nitrogen 33 mg/dL (9-16); Calcium 10.5 mg/dL (8.4-10.2); Carbon Dioxide 29 mmol/L (22-29); Chloride 101 mmol/L (96-108); Estimated Glomerular Filt Rate 39; Glucose Random 103 mg/dL (60-115); Iron 51 mcg/dL (30-160); Percent Iron Saturation 22 % (15-50); Potassium 4.4 mmol/L (3.3-5.1); Sodium 139 mmol/L (135-145); Total Iron Binding Capacity 229 mcg/dL (228-428); Total Protein 9.2 g/dL (6.5-8.0); Unsaturated Iron Binding 178 ug/dL
[2023-11-21 19:10] LABS: Ferritin 230 ng/mL (10-250); TSH reflex Free T4 1.05 uIU/mL (0.32-4.0)
[2023-11-21 19:26] LABS: Folate 10.9 ng/mL (> or = 4.0); Vitamin B12 382 pg/mL (200-900)
[2023-11-23 20:53] LABS: Immunoglobulin A 441 mg/dL (70-320)
[2023-11-28 07:33] LABS: Transglutaminase IgA <1.0 U/mL
== END 2023-11-21 13:25 | disposition home or self-care (01) ==
LOC: HO.LAB 13:24
PROVIDERS: PCP Internal Medicine; Visit Provider Internal Medicine
DX: K52.9 Noninfective gastroenteritis and colitis, unspecified (principal)
CPT/HCPCS: 36415; 80053; 82607; 82728; 82746; 82784; 83540; 84443; 85027; 86364

== ENCOUNTER 2023-11-21 13:24 | Outpatient (AMB) | payer OTHER, SELFPAY ==
--- NOTE | 2023-11-21 13:43 | A.OFFVIS_ITS ---
Vital Signs 11/21/23 13:45 Height 5 ft 4 in Weight 125 lb 10.616 oz BMI 21.6 BP 134/67 Blood Pressure Location Lt brachial Position Sitting Pulse 62 Intake Visit Reasons: Gastroenteritis, Colitis Intake Note: Nely presents in the office as a new patient for Colitis and Gastroenteritis. CC: She states that she has diarrhea, sometimes constipation lots of throwing up. Been in and out of the hospital. She was told she also had pneumonia and high BP - she is currently being treated for that. She feels like her food is coming back up and burning in her throat. [employer] Worker Required: Yes Allergies influenza virus vaccine, specific [Influenza Virus Vacc,Specific] Allergy (Intermediate, Verified 02/19/24 11:35) SWELLING HPI Comments Details: 73 y.o F with PMH of who is here for chronic abd pain, N,V and diarrhea. Pt had an admission to [facility] [place] earlier this month for the same as well. Says has been ongoing 6 months, says primary sent a referral to GI but never heard back. Its almost episodic where she has 2-3 days of severe burning epigastric pain with nausea and multiple episodes of vomiting in a day as well as watery diar cuong up to 5-6 episodes a day. No blood. Urgency +. Night time sx +. Pt started using depends. Now since shes in the rehab, sx are being symptomatically managed. Now has soft BMs up to 3 times a day. Gets anti-emetic frequently. Last colo >10 year ago. Labs reviewed and has had normoctyic anemia for majority of this year. Pt also with significant smoking hx and has a CT chest pending. [facility] Medical History (Updated 03/24/24 @ 15:43 by Nubia Resendiz MD) Moderate recurrent major depression Lung mass Chronic painful diabetic neuropathy AAA (abdominal aortic aneurysm) Surgery, elective Pain Hx of backache Hx of supraventricular tachycardia Hypersomnia Snoring Obstructive sleep apnea of adult Chronic hip pain, bilateral Eye pain Diffuse pain Chest pain Supraventricular tachycardia Cough Other and unspecified hyperlipidemia SOB (shortness of breath) Precordial chest pain Annual physical exam Nausea Encounter to establish care Peripheral vascular disease Bilateral artificial lens implant Allergic rhinitis Post menopausal syndrome Vaginitis and vulvovaginitis Diabetes type 2, controlled CAD (coronary artery disease) Hypertriglyceridemia Depression with anxiety GERD without esophagitis Hypertension Parkinsons disease Surgical History H/O prior ablation treatment History of tubal ligation History of cholecystectomy Family History Mother Diabetes Father Brain cancer Son Diabetes Family/Other Colon cancer Social History Household Members: Caregiver Housing: Apartment Do you presently have visiting nurse or other home services: No Alcohol intake: never Patient Tobacco Use Status: Former Tobacco user Tobacco use type: Cigarette Years Smoked: started at age 27, 3PPD, quit 5 years ago (2019) e-Cigarette/Vaping Use: Never Used Second Hand Smoke Exposure: No service: No Current occupational status: retired Cognitive needs: No Hearing needs: No Vision needs: Yes (glasses) Review of Systems Const All systems reviewed & are unremarkable except as noted in HPI and below Physical Exam Vital Signs: Last Vital Signs Pulse 62 11/21/23 13:45 BP 134/67 11/21/23 13:45 BMI result Body Mass Index 21.6 No apparent distress Nonicteric Abdomen soft, nondistended Alert and oriented x3, normal gait Assessment & Plan Assessment & Plan (1) Chronic diarrhea: Code(s): K52.9 - Noninfective gastroenteritis and colitis, unspecified Category: Medical (2) GERD without esophagitis: Code(s): K21.9 - Gastro-esophageal reflux disease without esophagitis Category: Medical (3) Chronic anemia: Code(s): D64.9 - Anemia, unspecified Category: Medical Plan Needs EGD/colo for both chronic anemia as well as chronic diarrhea. Will get updated CBC as well as iron/folate/b12. Will also get work up for chronic diarrhea to r/o celiac (kymberly since anemic), IBD, hyperthyroid. PLan: - Labs as below - EGD/colo to be booked - Pt aware will need pulm clearance for this - PEG prep given and instructions reviewed Follow up after procedures Orders: Orders Complete Blood Count no Diff 11/21/23 K52.9 - Noninfective gastroenteritis and colitis, unspecified Transglutaminase IgA 11/21/23 K52.9 - Noninfective gastroenteritis and colitis, unspecified Immunoglobulin A 11/21/23 K52.9 - Noninfective gastroenteritis and colitis, unspecified Comprehensive Met. Panel 11/21/23 K52.9 - Noninfective gastroenteritis and colitis, unspecified Ferritin 11/21/23 K52.9 - Noninfective gastroenteritis and colitis, unspecified IRON PROFILE 11/21/23 K52.9 - Noninfective gastroenteritis and colitis, unspec ified TSH reflex Free T4 11/21/23 K52.9 - Noninfective gastroenteritis and colitis, unspecified Vitamin B12 and Folate 11/21/23 K52.9 - Noninfective gastroenteritis and colitis, unspecified Medications: New peg 3350-electrolytes [id number] -5.86 gram (Golytely) as per split prep instructions, until fecal effluent is clear 240 mL PO Q10M 4,000 mL 0RF colonoscopy Coding Level of Care Code New Pt Level 4 (01682) Diagnoses Chronic diarrhea K52.9 GERD without esophagitis K21.9 Chronic anemia D64.9
[2023-11-21 13:45] VITALS: BP 134/67; PULSE 62; BMI 21.6
== END 2023-11-21 15:23 | disposition home or self-care (01) ==
PROVIDERS: PCP Internal Medicine; Visit Provider Internal Medicine
DX: K52.9 Noninfective gastroenteritis and colitis, unspecified (principal); K21.9 Gastro-esophageal reflux disease without esophagitis; D64.9 Anemia, unspecified
CPT/HCPCS: 99499

== ENCOUNTER 2023-11-22 12:00 | Outpatient (REF) | payer OTHER, MEDICAID, SELFPAY ==
[2023-11-22 15:30] LABS: CDiff Gene PCR NEGATIVE (Negative)
[2023-11-22 15:37] LABS: Adenovirus F 40/41 Not Detected (Not Detect.); Astrovirus Not Detected (Not Detect.); Campylobacter Not Detected (Not Detect.); Cryptosporidium Not Detected (Not Detect.); Cyclospora cayetanensis Not Detected (Not Detect.); E. coli EAEC Not Detected (Not Detect.); E. coli EPEC Not Detected (Not Detect.); E. coli ETEC Not Detected (Not Detect.); E. coli STEC Not Detected (Not Detect.); Entamoeba histolytica Not Detected (Not Detect.); Giardia lamblia Not Detected (Not Detect.); Norovirus GI/GII Not Detected (Not Detect.); Plesiomonas shigelloides Not Detected (Not Detect.); Rotavirus A Not Detected (Not Detect.); Salmonella Not Detected (Not Detect.); Sapovirus Not Detected (Not Detect.); Shigella sp./EIEC Not Detected (Not Detect.); Vibrio Not Detected (Not Detect.); Vibrio Cholerae Not Detected (Not Detect.); Yersinia enterocolitica Not Detected (Not Detect.)
[2023-12-05 11:04] LABS: Calprotectin, Fecal 49
== END 2023-11-22 12:01 | disposition home or self-care (01) ==
LOC: HO.LNP 12:00
PROVIDERS: Visit Provider Internal Medicine
DX: K52.9 Noninfective gastroenteritis and colitis, unspecified (principal)
CPT/HCPCS: 83993; 87493; 87507

== ENCOUNTER 2023-11-27 13:11 | Emergency (ER) | payer OTHER, MEDICAID, SELFPAY ==
--- NOTE | ~2023-11-27 | XR_ITS ---
EXAMINATION: XR CHEST CLINICAL INFORMATION: Cough. Shortness of breath. COMPARISON: Chest x-ray November 10, 2023. CT chest November 09, 2023 TECHNIQUE: Frontal portable view of the chest was obtained. 1448 hours FINDINGS: There are mild diffuse increased lung markings. This has improved since chest x-ray of November 09, 2023. No acute airspace disease. No pleural effusion or pneumothorax. Heart size is normal. Cardiac and mediastinal contours are normal. XR/XR chest 1V IMPRESSION: Mild diffuse increased lung markings. This has improved since chest x-ray of November 09, 2023. Electronically signed by: Talon Lao MD 11/27/2023 03:38 PM EDT
[2023-11-27 13:20] VITALS: BP 127/56; PULSE 64; RESP 19; TEMP 36.6; O2SAT 98; BMI 21.5
--- NOTE | 2023-11-27 13:21 | ED_ITS ---
HPI - General Adult General Chief complaint: Recheck/Abnormal Lab/Rx Stated complaint: Abnormal labs Time Seen by Provider: 11/27/23 14:24 History of Present Illness ED Provider: Alfredo VELASCO narrative: The patient is a 73-year-old woman with a history of Parkinson's disease. She was hospitalized here last month. She had presented to the emergency department on November 08 with a variety of nonspecific symptoms. She was hospitalized from November 08 through November 12 his diagnosed with an acute exacerbation of diastolic heart failure. At the time of discharge she went to the [facility] in [place]. While at the nursing facility she was found to have COVID 4 days ago. She was discharged from the nursing facility today to go home. Apparently almost as soon as she arrived home the facility called to say that laboratory studies that has been ordered this morning showed that her 0.9 and that she should present to the emergency room for possible dehydration. Her [employer]PER[employer] then drove her to the hospital. The patient is complaining of some nausea and upset stomach. These are apparently fairly chronic complaints. No fever in the last few days. She had apparently not had significant symptoms of COVID. The testing has been screening testing because there was a lot of COVID in the facility. Related Data Home Medications ?Medication ?Instructions ?Recorded ?Confirmed albuterol sulfate 90 mcg/actuation 2 puff inhalation Q4-6H PRN 11/10/23 11/10/23 aerosol inhaler Shortness Of Breath Or Wheezing lidocaine 5 % topical patch 1 patch topical DAILY PRN Pain 11/10/23 11/10/23 omeprazole 20 mg capsule,delayed 20 mg PO DAILY PRN Acid Reflux 11/10/23 11/10/23 release Previous Rx's ?Medication ?Instructions ?Recorded blood sugar diagnostic (FreeStyle #100 ea 09/21/21 Lite Strips) blood-glucose meter (FreeStyle #1 ea 09/21/21 Lite Meter kit) walker #1 ea 11/24/21 CPAP (CPAP Machine/Device) #1 ea 11/06/22 lancets (Accu-Chek Softclix ##100 11/08/22 Lancets) atorvastatin 40 mg tablet 40 mg PO BEDTIME 90 days #90 tabs 12/20/22 metoprolol tartrate 25 mg tablet 25 mg PO BID 90 days #180 tabs 12/20/22 bismuth subsalicylate 525 mg/15 mL 525 mg (15 mL) PO Q30M PRN 04/23/23 oral suspension (Pepto-Bismol Max diarrhea 5 days #[address]) blood sugar diagnostic (True #100 ea 05/14/23 Metrix Glucose Test Strip) true metrix lancets #100 ea 05/14/23 carbidopa ER 50 mg-levodopa 200 mg 1 tab PO BID #60 tabs 06/25/23 tablet,extended release sitagliptin phosphate 50 1 tab PO BID 90 days #180 tabs 09/08/23 mg-metformin 500 mg tablet (Janumet) calcium carb-vit D3-minerals 600 1 tab PO BID 90 days #180 tabs 09/12/23 mg calcium-400 unit tablet amlodipine 2.5 mg tablet 2.5 mg PO DAILY #30 tabs 11/13/23 furosemide 40 mg tablet 40 mg PO DAILY #30 tabs 11/13/23 lorazepam 0.5 mg tablet 0.25 mg (1/2 x 0.5 mg) PO Q8H PRN 11/13/23 Anxiety #18 tabs peg 3350-electrolytes 236 240 ml PO Q10M colonoscopy #4,000 11/21/23 gram-22.74 gram-6.74 gram-5.86 mL gram solution (Golytely) lisinopril 40 mg tablet 40 mg PO DAILY hypertension #90 11/27/23 tabs Allergies Allergy/AdvReac Type Severity Reaction Status Date / Time influenza virus vaccine, Allergy Intermediate SWELLING Verified 11/27/23 13:22 specific [Influenza Virus Vacc,Specific] Review of Systems 2 Review of Systems: Yes all other systems are reviewed and are negative [facility] Past Medical History Medical History Lung mass Chronic painful diabetic neuropathy AAA (abdominal aortic aneurysm) Moderate recurrent major depression Surgery, elective Pain Hx of backache Hx of supraventricular tachycardia Hypersomnia Snoring Obstructive sleep apnea of adult Chronic hip pain, bilateral Eye pain Diffuse pain Chest pain Supraventricular tachycardia Cough Other and unspecified hyperlipidemia SOB (shortness of breath) Precordial chest pain Annual physical exam Nausea Encounter to establish care Peripheral vascular disease Bilateral artificial lens implant Allergic rhinitis Post menopausal syndrome Vaginitis and vulvovaginitis Diabetes type 2, controlled CAD (coronary artery disease) Hypertriglyceridemia Depression with anxiety GERD without esophagitis Hypertension Parkinsons disease Surgical History H/O prior ablation treatment History of tubal ligation History of cholecystectomy Family History Family History (Updated 11/21/23 @ 13:50 by SANDRA Card) Mother Diabetes Father Brain cancer Son Diabetes Family/Other Colon cancer Social History Social History Household Members: Caregiver Housing: Apartment Do you presently have visiting nurse or other home services: No Alcohol intake: never Patient Tobacco Use Status: Former Tobacco user e-Cigarette/Vaping Use: Never Used Second Hand Smoke Exposure: No Advance Directives: Yes Advance Directives Information Provided: Yes Advance Directives on File: No Do you have a plan to hurt others: No Plan service: No Current occupational status: retired Cognitive needs: No Hearing needs: No Vision needs: Yes (glasses) Physical Exam ED Vital Signs: Vital Signs - 24 hr 11/27/23 13:20 11/27/23 16:22 11/27/23 18:12 Temperature 98 F 97.7 F 97.8 F Pulse Rate 64 67 76 Respiratory Rate 19 16 16 Blood Pressure 127/56 L 133/67 147/67 H Pulse Oximetry 98 97 98 Oxygen Delivery Method Room Air Room Air 11/27/23 19:01 Temperature 98.0 F Pulse Rate 75 Respiratory Rate 16 Blood Pressure 144/68 H Pulse Oximetry 97 Oxygen Delivery Method Room Air BMI result Body Mass Index 21.5 Const Other: The patient is a frail looking 73-year-old who was awake and alert. She does not appear in obvious distress. She had an occasional cough. No increased work of breathing. She does not seem in acute pain. She looks chronically ill. HENMT Other: The face is symmetrical. Mucous membranes not obviously dry. Eyes Other: Pupils are round equal, conjunctivae are clear, extraocular movements intact Neck Neck: Yes no JVD Resp Effort & Inspection: normal respiratory effort Auscultation: clear to auscultation bilaterally Cardio Rate: regular rate Rhythm: regular rhythm Heart sounds: S1 normal heart sound present and S2 normal heart sound present GI Other: Abdomen is soft and nontender Skin Other: The skin is dry and unremarkable Neuro Other: The patient is awake and alert. Face is symmetrical. Speech seems clear. She seems to move her extremities symmetrically. No lateralizing findings Extrem Other: No calf swelling or tenderness, no peripheral edema, no asymmetry. Course Course Course Narrative: RME, this is a rapid medical exam performed by Oj Bruce please refer to primary provider for complete H&P- patient was discharged from [facility] this morning. That he had labs this morning and she was called to go to the ER due to a creatinine of 1.9. An expected was called and they recommended IV fluids for the patient. The patient endorses feeling tired but has no other symptoms. She is known to be COVID positive. Plan for repeat labs and urinalysis Medications Administered Discontinued Medications Generic Name Dose Route Start Last Admin Trade Name Freq PRN Reason Stop Dose Admin Lactated Ringer's 1,000 mls @ 999 mls/hr 11/27/23 16:00 11/27/23 16:33 Lr IV 11/27/23 17:00 999 mls/hr .Q1H1M [facility] Administration Medical Decision Making Medical Decision Making [facility] Narrative: The patient is a 73-year-old woman with Parkinson's disease who was discharged from the [facility] earlier today. She has been there since being hospitalized here last month. There was concern that her renal function had worsened. Reportedly the residential had told them that her creatinine had gone up to 1.9. The patient's creatinine by our lab today is 1.77. Her creatinine at the time of discharge on November 20 was 1.34. Her BUN is 56, up from 33 on November 20. The patient has been hospitalized for diastolic heart failure. Her BNP today is 87. Her BNP when she has been admitted to the hospital was 912 on November 08, 50 on November 09, and 919 on November 10. I think these labs suggest that the patient has been diuresed and is probably a bit dehydrated. I do not think her rise in her creatinine meets criteria for an acute kidney injury requiring hospitalization. On the whole I think this probably suggests some degree of dehydration as a result of diuresis. She was given 1 L of lactated Ringer's in the emergency department. She seemed to feel better after the liter of fluid. She felt well enough to go home and she seemed very eager to go home as she has not been home for several weeks. She should follow up with her PCP soon. Lab Data 11/27/23 13:54 11/27/23 14:58 Labs: Lab Results 11/27/23 11/27/23 11/27/23 Range/Units 13:54 14:58 14:58 WBC 7.6 (4.8-10.8) X10*3/uL RBC 3.48 L (4.20-5.50) X10*6/uL Hgb 9.7 L (12.0-16.0) g/dl Hct 30.6 L (37.0-47.0) % MCV 87.9 (80.0-98.0) fL MCH 27.9 (27.0-33.0) pg MCHC 31.7 (31.0-35.0) g/dl RDW 15.0 (11.0-16.0) % Plt Count 210 (160-400) X10*3/uL MPV 11.1 (9.4-12.3) fL Immature Gran % (Auto) 0.4 (0.0-0.4) % Neut % (Auto) 51.5 (45-73) % Lymph % (Auto) 36.0 (20-40) % Edwards % (Auto) 10.6 (2-11) % Eos % (Auto) 1.2 (0-4) % Baso % (Auto) 0.3 (0-2) % Lymph # (Auto) 2.7 (1.2-4.9) X10*3/uL Edwards # (Auto) 0.8 (0.1-1.2) X10*3/uL Eos # (Auto) 0.1 (0.0-0.4) X10*3/uL Baso # (Auto) 0.0 (0.0-0.2) X10*3/uL Abs Immat Gran (auto) 0.03 (0.00-0.03) X10*3/uL Absolute Neuts (auto) 3.9 (2.0-8.3) x10*3/uL Absolute Nucleated RBC 0.000 (0.0-0.012) X10*3/uL Nucleated RBC % (auto) 0.0 (0.0-0.2) /100WBC Sodium 143 142 (135-145) mmol/L Potassium 5.3 H D (3.3-5.1) mmol/L Chloride (96-108) mmol/L Carbon Dioxide (22-29) mmol/L Anion Gap (12-20) BUN (9-16) mg/dL Creatinine (0.5-1.4) mg/dL Estim Creat Clear Calc Estimated GFR Random Glucose (60-115) mg/dL Calcium (8.4-10.2) mg/dL Magnesium (1.6-2.6) mg/dL Total Bilirubin (0.0-1.0) mg/dL Direct Bilirubin (0.0-0.5) mg/dL AST (5-31) U/L ALT (0-31) U/L Alkaline Phosphatase (39-117) U/L C-Reactive Protein (< or = 0.50) mg/dL B-Natriuretic Peptide (<100) pg/mL Total Protein (6.5-8.0) g/dL Albumin (3.5-5.0) g/dL Urine Color Urine Appearance Urine pH (5.0-9.0) Ur Specific [place] (1.005-1.025) Urine Protein (Neg-Trace) mg/dL Urine Glucose (UA) (Negative) mg/dL Urine Ketones (Negative) mg/dL Urine Blood (Negative) Urine Nitrite (Negative) Ur Leukocyte Esterase (Negative) Urine RBC (0-2) /HPF Urine WBC (0-5) /HPF Ur Squamous Epith Cells (0-2) /HPF Urine Bacteria (None Seen) Hyaline Casts (0-2) /LPF Influenza Type A (PCR) (Negative) Influenza Type B (PCR) (Negative) RSV RNA Qual (PCR) (Negative) SARS-CoV-2 RNA (RT-PCR) (Negative) 11/27/23 11/27/23 11/27/23 Range/Units 14:58 14:58 14:58 WBC (4.8-10.8) X10*3/uL RBC (4.20-5.50) X10*6/uL Hgb (12.0-16.0) g/dl Hct (37.0-47.0) % MCV (80.0-98.0) fL MCH (27.0-33.0) pg MCHC (31.0-35.0) g/dl RDW (11.0-16.0) % Plt Count (160-400) X10*3/uL MPV (9.4-12.3) fL Immature Gran % (Auto) (0.0-0.4) % Neut % (Auto) (45-73) % Lymph % (Auto) (20-40) % Edwards % (Auto) (2-11) % Eos % (Auto) (0-4) % Baso % (Auto) (0-2) % Lymph # (Auto) (1.2-4.9) X10*3/uL Edwards # (Auto) (0.1-1.2) X10*3/uL Eos # (Auto) (0.0-0.4) X10*3/uL Baso # (Auto) (0.0-0.2) X10*3/uL Abs Immat Gran (auto) (0.00-0.03) X10*3/uL Absolute Neuts (auto) (2.0-8.3) x10*3/uL Absolute Nucleated RBC (0.0-0.012) X10*3/uL Nucleated RBC % (auto) (0.0-0.2) /100WBC Sodium (135-145) mmol/L Potassium 4.7 (3.3-5.1) mmol/L Chloride 104 103 (96-108) mmol/L Carbon Dioxide 28 28 (22-29) mmol/L Anion Gap 16 (12-20) BUN (9-16) mg/dL Creatinine (0.5-1.4) mg/dL Estim Creat Clear Calc Estimated GFR Random Glucose (60-115) mg/dL Calcium (8.4-10.2) mg/dL Magnesium (1.6-2.6) mg/dL Total Bilirubin (0.0-1.0) mg/dL Direct Bilirubin (0.0-0.5) mg/dL AST (5-31) U/L ALT (0-31) U/L Alkaline Phosphatase (39-117) U/L C-Reactive Protein (< or = 0.50) mg/dL B-Natriuretic Peptide (<100) pg/mL Total Protein (6.5-8.0) g/dL Albumin (3.5-5.0) g/dL Urine Color Urine Appearance Urine pH (5.0-9.0) Ur Specific [place] (1.005-1.025) Urine Protein (Neg-Trace) mg/dL Urine Glucose (UA) (Negative) mg/dL Urine Ketones (Negative) mg/dL Urine Blood (Negative) Urine Nitrite (Negative) Ur Leukocyte Esterase (Negative) Urine RBC (0-2) /HPF Urine WBC (0-5) /HPF Ur Squamous Epith Cells (0-2) /HPF Urine Bacteria (None Seen) Hyaline Casts (0-2) /LPF Influenza Type A (PCR) (Negative) Influenza Type B (PCR) (Negative) RSV RNA Qual (PCR) (Negative) SARS-CoV-2 RNA (RT-PCR) (Negative) 11/27/23 11/27/23 11/27/23 Range/Units 14:58 14:58 14:58 WBC (4.8-10.8) X10*3/uL RBC (4.20-5.50) X10*6/uL Hgb (12.0-16.0) g/dl Hct (37.0-47.0) % MCV (80.0-98.0) fL MCH (27.0-33.0) pg MCHC (31.0-35.0) g/dl RDW (11.0-16.0) % Plt Count (160-400) X10*3/uL MPV (9.4-12.3) fL Immature Gran % (Auto) (0.0-0.4) % Neut % (Auto) (45-73) % Lymph % (Auto) (20-40) % Edwards % (Auto) (2-11) % Eos % (Auto) (0-4) % Baso % (Auto) (0-2) % Lymph # (Auto) (1.2-4.9) X10*3/uL Edwards # (Auto) (0.1-1.2) X10*3/uL Eos # (Auto) (0.0-0.4) X10*3/uL Baso # (Auto) (0.0-0.2) X10*3/uL Abs Immat Gran (auto) (0.00-0.03) X10*3/uL Absolute Neuts (auto) (2.0-8.3) x10*3/uL Absolute Nucleated RBC (0.0-0.012) X10*3/uL Nucleated RBC % (auto) (0.0-0.2) /100WBC Sodium (135-145) mmol/L Potassium (3.3-5.1) mmol/L Chloride (96-108) mmol/L Carbon Dioxide (22-29) mmol/L Anion Gap 16 (12-20) BUN 56 H 56 H (9-16) mg/dL Creatinine 1.79 H 1.77 H (0.5-1.4) mg/dL Estim Creat Clear Calc 24.8 Estimated GFR Random Glucose (60-115) mg/dL Calcium (8.4-10.2) mg/dL Magnesium (1.6-2.6) mg/dL Total Bilirubin (0.0-1.0) mg/dL Direct Bilirubin (0.0-0.5) mg/dL AST (5-31) U/L ALT (0-31) U/L Alkaline Phosphatase (39-117) U/L C-Reactive Protein (< or = 0.50) mg/dL B-Natriuretic Peptide (<100) pg/mL Total Protein (6.5-8.0) g/dL Albumin (3.5-5.0) g/dL Urine Color Urine Appearance Urine pH (5.0-9.0) Ur Specific [place] (1.005-1.025) Urine Protein (Neg-Trace) mg/dL Urine Glucose (UA) (Negative) mg/dL Urine Ketones (Negative) mg/dL Urine Blood (Negative) Urine Nitrite (Negative) Ur Leukocyte Esterase (Negative) Urine RBC (0-2) /HPF Urine WBC (0-5) /HPF Ur Squamous Epith Cells (0-2) /HPF Urine Bacteria (None Seen) Hyaline Casts (0-2) /LPF Influenza Type A (PCR) (Negative) Influenza Type B (PCR) (Negative) RSV RNA Qual (PCR) (Negative) SARS-CoV-2 RNA (RT-PCR) (Negative) 11/27/23 11/27/23 11/27/23 Range/Units 14:58 14:58 14:58 WBC (4.8-10.8) X10*3/uL RBC (4.20-5.50) X10*6/uL Hgb (12.0-16.0) g/dl Hct (37.0-47.0) % MCV (80.0-98.0) fL MCH (27.0-33.0) pg MCHC (31.0-35.0) g/dl RDW (11.0-16.0) % Plt Count (160-400) X10*3/uL MPV (9.4-12.3) fL Immature Gran % (Auto) (0.0-0.4) % Neut % (Auto) (45-73) % Lymph % (Auto) (20-40) % Edwards % (Auto) (2-11) % Eos % (Auto) (0-4) % Baso % (Auto) (0-2) % Lymph # (Auto) (1.2-4.9) X10*3/uL Edwards # (Auto) (0.1-1.2) X10*3/uL Eos # (Auto) (0.0-0.4) X10*3/uL Baso # (Auto) (0.0-0.2) X10*3/uL Abs Immat Gran (auto) (0.00-0.03) X10*3/uL Absolute Neuts (auto) (2.0-8.3) x10*3/uL Absolute Nucleated RBC (0.0-0.012) X10*3/uL Nucleated RBC % (auto) (0.0-0.2) /100WBC Sodium (135-145) mmol/L Potassium (3.3-5.1) mmol/L Chloride (96-108) mmol/L Carbon Dioxide (22-29) mmol/L Anion Gap (12-20) BUN (9-16) mg/dL Creatinine (0.5-1.4) mg/dL Estim Creat Clear Calc 25.2 Estimated GFR 28 28 Random Glucose 96 95 (60-115) mg/dL Calcium 9.7 D (8.4-10.2) mg/dL Magnesium (1.6-2.6) mg/dL Total Bilirubin (0.0-1.0) mg/dL Direct Bilirubin (0.0-0.5) mg/dL AST (5-31) U/L ALT (0-31) U/L Alkaline Phosphatase (39-117) U/L C-Reactive Protein (< or = 0.50) mg/dL B-Natriuretic Peptide (<100) pg/mL Total Protein (6.5-8.0) g/dL Albumin (3.5-5.0) g/dL Urine Color Urine Appearance Urine pH (5.0-9.0) Ur Specific [place] (1.005-1.025) Urine Protein (Neg-Trace) mg/dL Urine Glucose (UA) (Negative) mg/dL Urine Ketones (Negative) mg/dL Urine Blood (Negative) Urine Nitrite (Negative) Ur Leukocyte Esterase (Negative) Urine RBC (0-2) /HPF Urine WBC (0-5) /HPF Ur Squamous Epith Cells (0-2) /HPF Urine Bacteria (None Seen) Hyaline Casts (0-2) /LPF Influenza Type A (PCR) (Negative) Influenza Type B (PCR) (Negative) RSV RNA Qual (PCR) (Negative) SARS-CoV-2 RNA (RT-PCR) (Negative) 11/27/23 11/27/23 11/27/23 Range/Units 14:58 14:58 14:58 WBC (4.8-10.8) X10*3/uL RBC (4.20-5.50) X10*6/uL Hgb (12.0-16.0) g/dl Hct (37.0-47.0) % MCV (80.0-98.0) fL MCH (27.0-33.0) pg MCHC (31.0-35.0) g/dl RDW (11.0-16.0) % Plt Count (160-400) X10*3/uL MPV (9.4-12.3) fL Immature Gran % (Auto) (0.0-0.4) % Neut % (Auto) (45-73) % Lymph % (Auto) (20-40) % Edwards % (Auto) (2-11) % Eos % (Auto) (0-4) % Baso % (Auto) (0-2) % Lymph # (Auto) (1.2-4.9) X10*3/uL Edwards # (Auto) (0.1-1.2) X10*3/uL Eos # (Auto) (0.0-0.4) X10*3/uL Baso # (Auto) (0.0-0.2) X10*3/uL Abs Immat Gran (auto) (0.00-0.03) X10*3/uL Absolute Neuts (auto) (2.0-8.3) x10*3/uL Absolute Nucleated RBC (0.0-0.012) X10*3/uL Nucleated RBC % (auto) (0.0-0.2) /100WBC Sodium (135-145) mmol/L Potassium (3.3-5.1) mmol/L Chloride (96-108) mmol/L Carbon Dioxide (22-29) mmol/L Anion Gap (12-20) BUN (9-16) mg/dL Creatinine (0.5-1.4) mg/dL Estim Creat Clear Calc Estimated GFR Random Glucose (60-115) mg/dL Calcium 9.7 (8.4-10.2) mg/dL Magnesium 1.9 (1.6-2.6) mg/dL Total Bilirubin 0.4 0.4 (0.0-1.0) mg/dL Direct Bilirubin 0.2 (0.0-0.5) mg/dL AST 24 24 (5-31) U/L ALT 7 (0-31) U/L Alkaline Phosphatase (39-117) U/L C-Reactive Protein (< or = 0.50) mg/dL B-Natriuretic Peptide (<100) pg/mL Total Protein (6.5-8.0) g/dL Albumin (3.5-5.0) g/dL Urine Color Urine Appearance Urine pH (5.0-9.0) Ur Specific [place] (1.005-1.025) Urine Protein (Neg-Trace) mg/dL Urine Glucose (UA) (Negative) mg/dL Urine Ketones (Negative) mg/dL Urine Blood (Negative) Urine Nitrite (Negative) Ur Leukocyte Esterase (Negative) Urine RBC (0-2) /HPF Urine WBC (0-5) /HPF Ur Squamous Epith Cells (0-2) /HPF Urine Bacteria (None Seen) Hyaline Casts (0-2) /LPF Influenza Type A (PCR) (Negative) Influenza Type B (PCR) (Negative) RSV RNA Qual (PCR) (Negative) SARS-CoV-2 RNA (RT-PCR) (Negative) 11/27/23 11/27/23 11/27/23 Range/Units 14:58 14:58 14:58 WBC (4.8-10.8) X10*3/uL RBC (4.20-5.50) X10*6/uL Hgb (12.0-16.0) g/dl Hct (37.0-47.0) % MCV (80.0-98.0) fL MCH (27.0-33.0) pg MCHC (31.0-35.0) g/dl RDW (11.0-16.0) % Plt Count (160-400) X10*3/uL MPV (9.4-12.3) fL Immature Gran % (Auto) (0.0-0.4) % Neut % (Auto) (45-73) % Lymph % (Auto) (20-40) % Edwards % (Auto) (2-11) % Eos % (Auto) (0-4) % Baso % (Auto) (0-2) % Lymph # (Auto) (1.2-4.9) X10*3/uL Edwards # (Auto) (0.1-1.2) X10*3/uL Eos # (Auto) (0.0-0.4) X10*3/uL Baso # (Auto) (0.0-0.2) X10*3/uL Abs Immat Gran (auto) (0.00-0.03) X10*3/uL Absolute Neuts (auto) (2.0-8.3) x10*3/uL Absolute Nucleated RBC (0.0-0.012) X10*3/uL Nucleated RBC % (auto) (0.0-0.2) /100WBC Sodium (135-145) mmol/L Potassium (3.3-5.1) mmol/L Chloride (96-108) mmol/L Carbon Dioxide (22-29) mmol/L Anion Gap (12-20) BUN (9-16) mg/dL Creatinine (0.5-1.4) mg/dL Estim Creat Clear Calc Estimated GFR Random Glucose (60-115) mg/dL Calcium (8.4-10.2) mg/dL Magnesium (1.6-2.6) mg/dL Total Bilirubin (0.0-1.0) mg/dL Direct Bilirubin (0.0-0.5) mg/dL AST (5-31) U/L ALT 7 (0-31) U/L Alkaline Phosphatase 63 60 (39-117) U/L C-Reactive Protein 0.57 H (< or = 0.50) mg/dL B-Natriuretic Peptide 87 (<100) pg/mL Total Protein 8.8 H 8.7 H (6.5-8.0) g/dL Albumin 3.7 (3.5-5.0) g/dL Urine Color Urine Appearance Urine pH (5.0-9.0) Ur Specific [place] (1.005-1.025) Urine Protein (Neg-Trace) mg/dL Urine Glucose (UA) (Negative) mg/dL Urine Ketones (Negative) mg/dL Urine Blood (Negative) Urine Nitrite (Negative) Ur Leukocyte Esterase (Negative) Urine RBC (0-2) /HPF Urine WBC (0-5) /HPF Ur Squamous Epith Cells (0-2) /HPF Urine Bacteria (None Seen) Hyaline Casts (0-2) /LPF Influenza Type A (PCR) (Negative) Influenza Type B (PCR) (Negative) RSV RNA Qual (PCR) (Negative) SARS-CoV-2 RNA (RT-PCR) (Negative) 11/27/23 11/27/23 Range/Units 14:58 15:41 WBC (4.8-10.8) X10*3/uL RBC (4.20-5.50) X10*6/uL Hgb (12.0-16.0) g/dl Hct (37.0-47.0) % MCV (80.0-98.0) fL MCH (27.0-33.0) pg MCHC (31.0-35.0) g/dl RDW (11.0-16.0) % Plt Count (160-400) X10*3/uL MPV (9.4-12.3) fL Immature Gran % (Auto) (0.0-0.4) % Neut % (Auto) (45-73) % Lymph % (Auto) (20-40) % Edwards % (Auto) (2-11) % Eos % (Auto) (0-4) % Baso % (Auto) (0-2) % Lymph # (Auto) (1.2-4.9) X10*3/uL Edwards # (Auto) (0.1-1.2) X10*3/uL Eos # (Auto) (0.0-0.4) X10*3/uL Baso # (Auto) (0.0-0.2) X10*3/uL Abs Immat Gran (auto) (0.00-0.03) X10*3/uL Absolute Neuts (auto) (2.0-8.3) x10*3/uL Absolute Nucleated RBC (0.0-0.012) X10*3/uL Nucleated RBC % (auto) (0.0-0.2) /100WBC Sodium (135-145) mmol/L Potassium (3.3-5.1) mmol/L Chloride (96-108) mmol/L Carbon Dioxide (22-29) mmol/L Anion Gap (12-20) BUN (9-16) mg/dL Creatinine (0.5-1.4) mg/dL Estim Creat Clear Calc Estimated GFR Random Glucose (60-115) mg/dL Calcium (8.4-10.2) mg/dL Magnesium (1.6-2.6) mg/dL Total Bilirubin (0.0-1.0) mg/dL Direct Bilirubin (0.0-0.5) mg/dL AST (5-31) U/L ALT (0-31) U/L Alkaline Phosphatase (39-117) U/L C-Reactive Protein (< or = 0.50) mg/dL B-Natriuretic Peptide (<100) pg/mL Total Protein (6.5-8.0) g/dL Albumin 3.6 (3.5-5.0) g/dL Urine Color Yellow Urine Appearance Cloudy Urine pH 5.5 (5.0-9.0) Ur Specific [place] 1.015 (1.005-1.025) Urine Protein 30 (1+) H (Neg-Trace) mg/dL Urine Glucose (UA) Negative (Negative) mg/dL Urine Ketones Negative (Negative) mg/dL Urine Blood Moderate (2+) H (Negative) Urine Nitrite Negative (Negative) Ur Leukocyte Esterase Moderate (2+) H (Negative) Urine RBC 6-10 H (0-2) /HPF Urine WBC 21-50 H (0-5) /HPF Ur Squamous Epith Cells 6-10 (0-2) /HPF Urine Bacteria None Seen (None Seen) Hyaline Casts 11-20 (0-2) /LPF Influenza Type A (PCR) NEGATIVE (Negative) Influenza Type B (PCR) NEGATIVE (Negative) RSV RNA Qual (PCR) NEGATIVE (Negative) SARS-CoV-2 RNA (RT-PCR) POSITIVE A (Negative) Independent Interpretation I performed an independent interpretation of an: EKG Interpretation: EKG at 14:48 shows normal sinus rhythm at 61 beats per minute. No acute findings Discharge Plan Discharge Clinical Impression: Dehydration Patient Disposition: Home, Self-Care Additional Instructions: Continue your regular medications. Please keep your appointment with Dr. Weiner next week. Call Dr. Weiner if you have any questions before then. Return to the emergency room if you feel significantly worse. Prescriptions: No Action (DME) walker Misc See Rx Instructions .Route Qty: 1 0RF Rx Instructions: rollator with seat (DME) CPAP Machine/Device Device See Rx Instructions .Route Qty: 1 0RF Rx Instructions: autoPAP 5-20 cm H2O (DME) lancets [Accu-Chek Softclix Lancets] Misc See Rx Instructions .ROUTE .COMPLEX Qty: 100 3RF Dose Instruction: USE 1 LANCET ONCE A DAY Rx Instructions: USE 1 LANCET ONCE A DAY (DME) True Metrix Glucose Test Strip Strip See Rx Instructions .Route Qty: 100 3RF Rx Instructions: Use 1 test strip once a day (DME) true metrix lancets See Rx Instructions .Route .MEDSUPPLY Qty: 100 3RF Rx Instructions: As directed carbidopa-levodopa 50-200 mg tablet extended release 1 tab PO BID Qty: 60 6RF Rx Instructions: divide evenly over waking hours Janumet 50-500 mg tablet 1 tab PO BID 90 Days Qty: 180 1RF calcium carbonate-vit D3-min 600 mg calcium- 400 unit tablet 1 tab PO BID 90 Days Qty: 180 2RF lisinopril 40 mg tablet 40 mg PO DAILY Qty: 90 3RF albuterol sulfate 90 mcg/actuation Hfa Aerosol Inhaler 2 puff INHALATION Q4-6H PRN (Reason: Shortness Of Breath Or Wheezing) lidocaine 5 % adhesive patch,medicated 1 patch topical DAILY PRN (Reason: Pain) omeprazole 20 mg capsule,delayed release(DR/EC) 20 mg PO DAILY PRN (Reason: Acid Reflux) furosemide 40 mg Tablet 40 mg PO DAILY Qty: 30 0RF Protocol: Hold for SBP< HOLD for SBP < : 90 amlodipine 2.5 mg Tablet 2.5 mg PO DAILY Qty: 30 0RF Protocol: Hold for SBP< HOLD for SBP < : 90 lorazepam 0.5 mg Tablet 0.25 mg PO Q8H PRN (Reason: Anxiety) Qty: 18 0RF (DME) blood-glucose meter [FreeStyle Lite Meter] Kit See Rx Instructions .Route Qty: 1 0RF Rx Instructions: As directed (DME) FreeStyle Lite Strips Strip See Rx Instructions .Route Qty: 100 2RF Rx Instructions: Use 1 test strip once a day atorvastatin 40 mg tablet 40 mg PO BEDTIME 90 Days Qty: 90 1RF metoprolol tartrate 25 mg tablet 25 mg PO BID 90 Days Qty: 180 1RF Pepto-Bismol Max St 525 mg/15 mL suspension 525 mg PO Q30M PRN (Reason: diarrhea) 5 Days Qty: 118 0RF Rx Instructions: do not exceed 8 doses in a 24 hour period peg 3350-electrolytes [Golytely] 236-22.74-6.74 -5.86 gram recon soln 240 ml PO Q10M Qty: 4000 0RF Rx Instructions: as per split prep instructions, until fecal effluent is clear Interventions: ED Discharge Assessment Last Done: 11/27/23 19:01 Discharge Date/Time: 11/27/23 19:02 Print Language: Uzbek
[2023-11-27 13:57] LABS: MANUAL DIFF FLAG NO
[2023-11-27 14:00] LABS: Basophils Percent Auto 0.3 % (0-2); Eosinophils Absolute Auto 0.1 X10*3/uL (0.0-0.4); Eosinophils Percent Auto 1.2 % (0-4); Hematocrit 30.6 % (37.0-47.0); Hemoglobin 9.7 g/dl (12.0-16.0); Imm Gran Abs Auto 0.03 X10*3/uL (0.00-0.03); Imm Gran Pct Auto 0.4 % (0.0-0.4); Lymphocytes Absolute Auto 2.7 X10*3/uL (1.2-4.9); Mean Corpuscular HGB Conc 31.7 g/dl (31.0-35.0); Mean Corpuscular Hemoglobin 27.9 pg (27.0-33.0); Mean Corpuscular Volume 87.9 fL (80.0-98.0); Mean Platelet Volume 11.1 fL (9.4-12.3); Monocytes Absolute Auto 0.8 X10*3/uL (0.1-1.2); Monocytes Percent Auto 10.6 % (2-11); Neutrophils Absolute Auto 3.9 x10*3/uL (2.0-8.3); Neutrophils Percent Auto 51.5 % (45-73); Platelet Count 210 X10*3/uL (160-400); Red Blood Count 3.48 X10*6/uL (4.20-5.50); White Blood Count 7.6 X10*3/uL (4.8-10.8)
--- NOTE | 2023-11-27 14:40 | ECG_ITS ---
Test Reason : WEAKNESS Blood Pressure : / mmHG Vent. Rate : 061 BPM Atrial Rate : 061 BPM P-R Int : 174 ms QRS Dur : 082 ms QT Int : 440 ms P-R-T Axes : 000 -01 059 degrees QTc Int : 442 ms Normal sinus rhythm Minimal voltage criteria for LVH, may be normal variant ( R in aVL ) Borderline ECG When compared with ECG of 10-NOV-2023 17:11, Vent. rate has decreased BY [address] no longer depressed in Anterolateral leads Nonspecific T wave abnormality no longer evident in Inferior leads T wave inversion no longer evident in Anterior leads Referred By: Franklin Fuentes Electronically Signed By:LUISA CRUZ
[2023-11-27 15:24] LABS: Alanine Aminotransferase 7 U/L (0-31); Albumin Level 3.7 g/dL (3.5-5.0); Alkaline Phosphatase 63 U/L (39-117); Anion Gap 16 (12-20); Aspartate Amino Transferase 24 U/L (5-31); Bilirubin Total 0.4 mg/dL (0.0-1.0); Blood Urea Nitrogen 56 mg/dL (9-16); Calcium 9.7 mg/dL (8.4-10.2); Carbon Dioxide 28 mmol/L (22-29); Chloride 104 mmol/L (96-108); Creatinine Clr Calc Pharmacy 24.8; Estimated Glomerular Filt Rate 28; Glucose Random 96 mg/dL (60-115); Potassium 5.3 mmol/L (3.3-5.1); Sodium 143 mmol/L (135-145); Total Protein 8.8 g/dL (6.5-8.0)
[2023-11-27 15:26] LABS: Alanine Aminotransferase 7 U/L (0-31); Albumin Level 3.6 g/dL (3.5-5.0); Alkaline Phosphatase 60 U/L (39-117); Anion Gap 16 (12-20); Aspartate Amino Transferase 24 U/L (5-31); Bilirubin Direct 0.2 mg/dL (0.0-0.5); Bilirubin Total 0.4 mg/dL (0.0-1.0); Blood Urea Nitrogen 56 mg/dL (9-16); C Reactive Protein 0.57 mg/dL (< or = 0.50); Calcium 9.7 mg/dL (8.4-10.2); Carbon Dioxide 28 mmol/L (22-29); Chloride 103 mmol/L (96-108); Creatinine Clr Calc Pharmacy 25.2; Estimated Glomerular Filt Rate 28; Glucose Random 95 mg/dL (60-115); Magnesium 1.9 mg/dL (1.6-2.6); Potassium 4.7 mmol/L (3.3-5.1); Sodium 142 mmol/L (135-145); Total Protein 8.7 g/dL (6.5-8.0)
[2023-11-27 15:30] LABS: B Type Natriuretic Peptide 87 pg/mL (<100)
[2023-11-27 15:50] LABS: Appearance Urine Cloudy; Color Urine Yellow; Glucose Urine UA Negative (Negative); Leukocyte Esterase Urine Moderate (2+) (Negative); Nitrite Urine Negative (Negative); PH 5.5 (5.0-9.0); Specific Gravity - Urine 1.015 (1.005-1.025); UMIC TRIGGER UACC YES; Urine Blood Moderate (2+) (Negative); Urine Ketones Negative (Negative); Urine Protein 30 (1+) mg/dL (Neg-Trace)
[2023-11-27 15:56] LABS: Influenza A PCR NEGATIVE (Negative); Influenza B PCR NEGATIVE (Negative); Resp Syncy Virus RNA Qual PCR NEGATIVE (Negative); SARS COV2 PCR INHOUSE POSITIVE (Negative)
[2023-11-27 16:12] LABS: Bacteria Urine None Seen (None Seen); UACC Culture Trigger YES; WBC Urine 21-50 /HPF (0-5)
[2023-11-27 16:22] VITALS: BP 133/67; PULSE 67; RESP 16; TEMP 36.5; O2SAT 97
[2023-11-27] MEDS: Lactated Ringers 1,000 ML 999 ML IV (16:33)
[2023-11-27 18:12] VITALS: BP 147/67; PULSE 76; RESP 16; TEMP 36.6; O2SAT 98
[2023-11-27 19:01] VITALS: BP 144/68; PULSE 75; RESP 16; TEMP 36.7; O2SAT 97
== END 2023-11-27 19:02 | disposition home or self-care (01) ==
PROVIDERS: Physician Assistant; Emergency Provider Emergency Medicine; PCP Internal Medicine
DX: E86.0 Dehydration (principal); G20.A1 Parkinson's disease without dyskinesia, without mention of fluctuations; R94.31 Abnormal electrocardiogram [ECG] [EKG]; R06.02 Shortness of breath; Z87.891 Personal history of nicotine dependence; Z79.899 Other long term (current) drug therapy; Z03.818 Encounter for observation for suspected exposure to other biological agents ruled out
CPT/HCPCS: 0241U; 36415; 71045; 80048; 80053; 80076; 81001; 82248; 83735; 83880; 85025; 86140; 87086; 93005; 99284; J7120

== ENCOUNTER 2023-12-07 10:00 | Outpatient (AMB) | payer OTHER, MEDICAID, SELFPAY ==
[2023-12-07 10:02] VITALS: BP 112/70; PULSE 60; O2SAT 98; BMI 21.6
--- NOTE | 2023-12-07 10:02 | A.OFFPC_ITS ---
Vital Signs 12/07/23 10:02 Height 5 ft 4 in Weight 125 lb 10.616 oz BMI 21.6 BP 112/70 Blood Pressure Location Lt brachial Position Sitting Pulse 60 Pulse Source Pulse Oximeter Pulse Oximetry (%) 98 Oxygen Delivery Method Room Air Intake Visit Reasons: [facility] [place] Pneumonia Fiberglass Ski Maker Required: Yes Fiberglass Ski Maker Language: Maltese Accompanied by: Proxy-Juan Jose Reynolds Allergies influenza virus vaccine, specific [Influenza Virus Vacc,Specific] Allergy (Intermediate, Verified 12/07/23 10:08) SWELLING Tobacco use date assessed: 04/23/23 Fall risk assessment: No Falls in past year Last assessed Fall Risk: 12/07/23 Dental Screening Dental Screen Date: 04/23/23 HPI HPI Comments History of Present Illness Details 73 y/o female [facility]. She was admitted at [facility] [place] for dehydration. Was originally admitted at Rehab center from 11/08-11/12 for CHF and Pneumonia. Today she is accompanied by Son who provides history. She doing well and has no concerns. [facility] Medical History Lung mass Chronic painful diabetic neuropathy AAA (abdominal aortic aneurysm) Moderate recurrent major depression Surgery, elective Pain Hx of backache Hx of supraventricular tachycardia Hypersomnia Snoring Obstructive sleep apnea of adult Chronic hip pain, bilateral Eye pain Diffuse pain Chest pain Supraventricular tachycardia Cough Other and unspecified hyperlipidemia SOB (shortness of breath) Precordial chest pain Annual physical exam Nausea Encounter to establish care Peripheral vascular disease Bilateral artificial lens implant Allergic rhinitis Post menopausal syndrome Vaginitis and vulvovaginitis Diabetes type 2, controlled CAD (coronary artery disease) Hypertriglyceridemia Depression with anxiety GERD without esophagitis Hypertension Parkinsons disease Surgical History H/O prior ablation treatment History of tubal ligation History of cholecystectomy Family History Mother Diabetes Father Brain cancer Son Diabetes Family/Other Colon cancer Social History Household Members: Caregiver Housing: Apartment Do you presently have visiting nurse or other home services: No Alcohol intake: never Patient Tobacco Use Status: Former Tobacco user e-Cigarette/Vaping Use: Never Used Second Hand Smoke Exposure: No service: No Current occupational status: retired Cognitive needs: No Hearing needs: No Vision needs: Yes (glasses) Questionnaire Thrive Questionnaire Date Thrive assessed: 11/11/23 AUDIT C Alcohol Use Questionnaire (AUDIT-C) 3. How often do you have six or more drinks on one occasion?: Never Total Score: 0 EH-7 AMB Questionnaire EH-7 Date EH - 7 assessed: 04/23/23 Source: Developed by Drs. Mic Garcia, Nazia Mcdaniel, Yannick Ling and colleagues, with an educational kp from [employer]. Physical exam (Primary Care) Vital Signs: Last Vital Signs Pulse 60 12/07/23 10:02 BP 112/70 12/07/23 10:02 Pulse Ox 98 12/07/23 10:02 Oxygen Delivery Method Room Air 12/07/23 10:02 BMI result Body Mass Index 21.6 Tobacco/Smoking Status: Tobacco use Status Tobacco use date assessed 04/23/23 12/07/23 10:03 Patient Tobacco Use Status Former Tobacco user 12/07/23 10:03 Tobacco use type 02/08/23 14:54 e-Cigarette/Vaping Use Never Used 12/07/23 10:03 Thrive Assessment: Date of Thrive Assessment Date Thrive assessed 11/11/23 12/07/23 10:03 Const General: cooperative and no acute distress Orientation/consciousness: patient oriented x3 Resp Effort & Inspection: normal respiratory effort Auscultation: clear to auscultation bilaterally Cardio Heart sounds: S1 normal heart sound present and S2 normal heart sound present Neuro General: patient oriented x3 Assessment and Plan Assessment & Plan (1) Dehydration: Code(s): E86.0 - Dehydration Plan: Stable, advised to increase fluid intake (2) CHF (congestive heart failure): Code(s): I50.9 - Heart failure, unspecified Qualifiers: Heart failure type: diastolic Heart failure chronicity: acute Qualified Code(s): I50.31 - Acute diastolic (congestive) heart failure Plan: F/U with cardiology Coding Level of Care Code Est Pt Level 4 (94668) Diagnoses Dehydration E86.0 Acute diastolic congestive heart failure I50.31 Heart failure type: diastolic Heart failure chronicity: acute Time Spent (min) 20
== END 2023-12-07 10:27 | disposition home or self-care (01) ==
PROVIDERS: PCP Internal Medicine; Visit Provider Nurse Practitioner Family
DX: E86.0 Dehydration (principal); I50.31 Acute diastolic (congestive) heart failure
CPT/HCPCS: 99214

== ENCOUNTER 2024-01-01 12:54 | Outpatient (REF) | payer OTHER, MEDICAID, SELFPAY ==
--- NOTE | ~2024-01-01 | US_ITS ---
EXAMINATION: US RETROPERITONEAL LIMITED (RENAL ONLY) CLINICAL INFORMATION: Calculus of kidney. COMPARISON: CT abdomen and pelvis 11/09/2023. Renal ultrasound 05/04/2023 and 03/14/2022. TECHNIQUE: Real-time imaging of the kidneys. FINDINGS: RIGHT KIDNEY: 10.3 x 3.8 x 4.3 cm (SAG x AP x TRV). The kidney is normal in size, contour, and echogenicity. Renal cortical thickness is normal. No calculi or focal parenchymal lesions. No hydronephrosis. LEFT KIDNEY: 10.1 x 4.7 x 4.0 cm (SAG x AP x TRV). The kidney is normal in size, contour, and echogenicity. Renal cortical thickness is normal. No focal parenchymal lesions or hydronephrosis. Echogenic focus lower pole 5 mm probably nonobstructing stone. US/US renal BI IMPRESSION: 1. Echogenic 5 mm focus lower pole left kidney probably nonobstructing stone. 2. No ultrasound evidence of renal obstruction or hydronephrosis. Electronically signed by: Ronald Franks MD 02/10/2024 07:47 PM EST
== END 2024-01-01 12:55 | disposition home or self-care (01) ==
LOC: HO.US 12:54
PROVIDERS: PCP Internal Medicine; Visit Provider Urology
DX: N20.0 Calculus of kidney (principal)
CPT/HCPCS: 76775

== ENCOUNTER 2024-01-16 16:20 | Outpatient (AMB) | payer OTHER, MEDICAID, SELFPAY ==
[2024-01-16 16:30] VITALS: BP 126/70; BMI 21.5
--- NOTE | 2024-01-16 16:30 | A.OFFPC_ITS ---
Vital Signs 01/16/24 16:30 Height 5 ft 4 in Weight 125 lb BMI 21.5 BP 126/70 Blood Pressure Location Lt brachial Position Sitting Intake Visit Reasons: dm Intake Note: Patient here for a follow up DM Manager Medicare Marketing Required: No Accompanied by: manager of data Allergies influenza virus vaccine, specific [Influenza Virus Vacc,Specific] Allergy (Intermediate, Verified 01/16/24 16:52) SWELLING Medication List - Last Reconciled 01/16/24 by Madison Acosta MD albuterol sulfate 90 mcg/actuation 2 puffs inhalation Q4-6H PRN amlodipine 2.5 mg See Protocol PO DAILY atorvastatin 40 mg PO BEDTIME 90 days bismuth subsalicylate (Pepto-Bismol Max St) 525 mg (15 mL) PO Q30M PRN 5 days blood sugar diagnostic (True Metrix Glucose Test Strip) Use 1 test strip once a day blood sugar diagnostic (Accu-Chek Guide test strips) Testing once a day as needed blood sugar diagnostic (FreeStyle Lite Strips) Use 1 test strip once a day blood-glucose meter (FreeStyle Lite Meter kit) As directed blood-glucose meter (Accu-Chek Guide Glucose Meter) As directed calcium carbonate-vit D3-min 600 mg calcium- 400 unit 1 tab PO BID 90 days carbidopa-levodopa 50-200 mg ER 1 tab PO BID CPAP (CPAP Machine/Device) autoPAP 5-20 cm H2O furosemide 40 mg See Protocol PO DAILY lancets (Accu-Chek Softclix Lancets) USE 1 LANCET ONCE A DAY lancets (FreeStyle Lancets) As directed daily lidocaine 5% 1 patch topical DAILY PRN lisinopril 40 mg PO DAILY lorazepam 0.25 mg (1/2 x 0.5 mg) PO Q8H PRN metoprolol tartrate 25 mg PO BID 90 days omeprazole 20 mg PO DAILY PRN peg 3350-electrolytes 236-22.74-6.74 -5.86 gram (Golytely) 240 mL PO Q10M sitagliptin phos-metformin 50-500 mg (Janumet) 1 tab PO BID 90 days [true metrix lancets As directed] walker rollator with seat Tobacco use date assessed: 04/23/23 Fall risk assessment: No Falls in past year Last assessed Fall Risk: 01/16/24 Dental Screening Dental Screen Date: 04/23/23 HPI HPI Comments History of Present Illness Details This is a 74-year-old female with diabetes mellitus type 2, hypertension, mixed hyperlipidemia and Parkinson's disease that comes accompanied by INSIDE TECHNICAL SALES REPRESENTATIVE complaining of more anxiety. Lorazepam was given to her at ER with marked improvement. I will keep her on lorazepam and she is aware can cause addiction, sedation and memory loss. She will be referred to psych outpatient to see if lorazepam is the best option to treat her anxiety. A1c within goal. Blood pressure stable. LDL within goal. On carbidopa-levodopa for her Parkinson's disease. Denies any chest pain or shortness on breath. [facility] Medical History (Updated 01/16/24 @ 17:02 by Madison Acosta MD) Lung mass Chronic painful diabetic neuropathy AAA (abdominal aortic aneurysm) Moderate recurrent major depression Surgery, elective Pain Hx of backache Hx of supraventricular tachycardia Hypersomnia Snoring Obstructive sleep apnea of adult Chronic hip pain, bilateral Eye pain Diffuse pain Chest pain Supraventricular tachycardia Cough Other and unspecified hyperlipidemia SOB (shortness of breath) Precordial chest pain Annual physical exam Nausea Encounter to establish care Peripheral vascular disease Bilateral artificial lens implant Allergic rhinitis Post menopausal syndrome Vaginitis and vulvovaginitis Diabetes type 2, controlled CAD (coronary artery disease) Hypertriglyceridemia Depression with anxiety GERD without esophagitis Hypertension Parkinsons disease Surgical History H/O prior ablation treatment History of tubal ligation History of cholecystectomy Family History Mother Diabetes Father Brain cancer Son Diabetes Family/Other Colon cancer Social History Household Members: Caregiver Housing: Apartment Do you presently have visiting nurse or other home services: No Alcohol intake: never Patient Tobacco Use Status: Former Tobacco user e-Cigarette/Vaping Use: Never Used Second Hand Smoke Exposure: No service: No Current occupational status: retired Cognitive needs: No Hearing needs: No Vision needs: Yes (glasses) Questionnaire Thrive Questionnaire Date Thrive assessed: 11/11/23 Are you currently unemployed and looking for a job?: No EH-7 AMB Questionnaire EH-7 Date EH - 7 assessed: 04/23/23 Source: Developed by Drs. Mic Garcia, Nazia Mcdaniel, Yannick Ling and colleagues, with an educational kp from [employer]. Review of Systems Const All systems reviewed & are unremarkable except as noted in HPI and below Card Denies chest pain at rest, Denies chest pain with activity, Denies edema, Denies irregular heart rhythm, Denies claudication, Denies dyspnea, Denies dyspnea on exertion, Denies orthopnea, Denies paroxysmal nocturnal dyspnea and Denies slow heart rate Resp Denies cough, Denies dyspnea and Denies dyspnea on exertion GI Denies abdominal pain, Denies change in bowel habits, Denies excessive flatus, Denies nausea and Denies vomiting Physical exam (Primary Care) Vital Signs: Last Vital Signs BP 126/70 01/16/24 16:30 BMI result Body Mass Index 21.5 Tobacco/Smoking Status: Tobacco use Status Tobacco use date assessed 04/23/23 01/16/24 16:34 Patient Tobacco Use Status Former Tobacco user 01/16/24 16:34 Tobacco use type 02/08/23 14:54 e-Cigarette/Vaping Use Never Used 01/16/24 16:34 Thrive Assessment: Date of Thrive Assessment Date Thrive assessed 11/11/23 01/16/24 16:34 Resp Effort & Inspection: normal respiratory effort Auscultation: clear to auscultation bilaterally Cardio Jugular venous distension: no JVD Rate: regular rate Rhythm: regular rhythm Heart sounds: S1 normal heart sound present and S2 normal heart sound present Extrem General: Yes full ROM Office Procedures Flu Questionnaire Does the patient have a severe egg allergy?: No Results AMB Hemoglobin A1c AMB Hemoglobin A1c 5.6 % Last Edit by SANDRA Thomas on 01/16/24 16:3 8 Immunizations Fluarix Triv [id number] (PF) 45 mcg (15 mcg x 3)/0.5 mL IM syringe Performing Provider: Madison Acosta MD [facility] Documented (not given) by: SANDRA Thomas on 01/16/24 16:35 Reason Not Given: Patient Refused Results Reviewed Results Reviewed: Laboratory Last Values Hgb A1c (Clinic) 5.6 % (4.0-6.0) 01/16/24 16:35 Coding Level of Care Code Est Pt Level 4 (44024) Complex EM visit Add On G2211 Diagnoses Anxiety F41.9 Mixed hyperlipidemia E78.2 Essential hypertension I10 Type 2 diabetes mellitus with unspecified complications E11.8 Parkinson's disease with dyskinesia and fluctuating manifestations G20.B2 Dyskinesia presence: with dyskinesia Fluctuating manifestations: with fluctuating manifestations Time Spent (min) 21 Assessment & Plan Assessment & Plan (1) Anxiety: Code(s): F41.9 - Anxiety disorder, unspecified Category: Medical Plan: Continue lorazepam for now. Referred to psych outpatient services for medication adjustment. (2) Mixed hyperlipidemia: Code(s): E78.2 - Mixed hyperlipidemia Category: Medical Plan: Continue statins and fibrates. LDL goal is less than 70. (3) Essential hypertension: Code(s): I10 - Essential (primary) hypertension Category: Medical Plan: Continue amlodipine. Blood pressure goal is equal or less than 130/80. (4) Type 2 diabetes mellitus with unspecified complications: Code(s): E11.8 - Type 2 diabetes mellitus with unspecified complications Category: Medical Plan: Continue Janumet. A1c goal is equal or less than 7%. (5) Parkinsons disease: Code(s): G20 - Parkinson's disease Category: Medical Qualifiers: Dyskinesia presence: with dyskinesia Fluctuating manifestations: with fluctuating manifestations Qualified Code(s): G20.B2 - Parkinson's disease with dyskinesia, with fluctuations Plan: Continue carbidopa-levodopa. Orders: Orders Influenza [id number] Immunization 01/16/24 Z23 - Encounter for immunization Lipid Panel 01/16/24 E78.5 - Hyperlipidemia, unspecified Vitamin D 25-OH Total 01/16/24 E55.9 - Vitamin D deficiency, unspecified IRON PROFILE 01/16/24 D64.9 - Anemia, unspecified Vitamin B12 and Folate 01/16/24 E53.8 - Deficiency of other specified B group vitamins Comprehensive [place]. Panel Fast 01/16/24 I71.43 - Infrarenal abdominal aortic aneurysm, without rupture AMB Hemoglobin A1c 01/16/24 E11.8 - Type 2 diabetes mellitus with unspecified complications Microalbumin, Random (w Creat) 01/16/24 R80.9 - Proteinuria, unspecified Complete Blood Count Auto Diff 01/16/24 D64.9 - Anemia, unspecified Referrals Psychiatry Outpatient Consultation Service F41.9 - Anxiety disorder, unspecified Medications: Changed From lorazepam 0.25 mg (1/2 x 0.5 mg) PO Q8H PRN 18 tabs 0RF Anxiety To lorazepam 0.5 mg PO Q12H PRN 60 tabs 0RF Anxiety 30 days
== END 2024-01-16 17:03 | disposition home or self-care (01) ==
PROVIDERS: PCP Internal Medicine; Visit Provider Internal Medicine
DX: E11.8 Type 2 diabetes mellitus with unspecified complications (principal); G20.B2 Parkinson's disease with dyskinesia, with fluctuations; F41.9 Anxiety disorder, unspecified; E78.2 Mixed hyperlipidemia; I10 Essential (primary) hypertension

== ENCOUNTER → 2024-01-16 16:20 | Outpatient (BNVA) | payer OTHER, MEDICAID, SELFPAY | PROVIDERS: PCP Internal Medicine; Visit Provider Internal Medicine | DX: F41.9 Anxiety disorder, unspecified (principal); E78.2 Mixed hyperlipidemia; I10 Essential (primary) hypertension; E11.8 Type 2 diabetes mellitus with unspecified complications; G20.B2 Parkinson's disease with dyskinesia, with fluctuations; Z79.899 Other long term (current) drug therapy; Z28.21 Immunization not carried out because of patient refusal | CPT/HCPCS: 83036; 90471 ==

== ENCOUNTER 2024-01-22 12:17 | Outpatient (AMB) | payer OTHER, SELFPAY ==
[2024-01-22 12:32] VITALS: BP 118/50; PULSE 59; O2SAT 98; BMI 22.3
--- NOTE | 2024-01-22 12:32 | MHC.OFFVIS ---
Vital Signs 01/22/24 12:32 Height 5 ft 4 in Weight 130 lb 2 oz BMI 22.3 BP 118/50 L Blood Pressure Location Lt brachial Position Sitting Pulse 59 Pulse Source Pulse Oximeter Pulse Oximetry (%) 98 Oxygen Delivery Method Room Air Intake Visit Reasons: 6 Month F/U Intake Note: Patient presents for a follow up. ( ANTONETTE ) Ship/Rec/Doc Control Required: No Registered Private Duty Nurse: Registered Private Duty Nurse Present Accompanied by: Unknown Allergies influenza virus vaccine, specific [Influenza Virus Vacc,Specific] Allergy (Intermediate, Verified 01/22/24 12:36) SWELLING Medication List - Last Reconciled 01/22/24 by Chloe Hensley MD albuterol sulfate 90 mcg/actuation 2 puffs inhalation Q4-6H PRN amlodipine 2.5 mg See Protocol PO DAILY atorvastatin 40 mg PO BEDTIME 90 days bismuth subsalicylate (Pepto-Bismol Max St) 525 mg (15 mL) PO Q30M PRN 5 days blood sugar diagnostic (True Metrix Glucose Test Strip) Use 1 test strip once a day blood sugar diagnostic (Accu-Chek Guide test strips) Testing once a day as needed blood sugar diagnostic (FreeStyle Lite Strips) Use 1 test strip once a day blood-glucose meter (FreeStyle Lite Meter kit) As directed blood-glucose meter (Accu-Chek Guide Glucose Meter) As directed calcium carbonate-vit D3-min 600 mg calcium- 400 unit 1 tab PO BID 90 days carbidopa-levodopa 25-100 mg (Sinemet) 1 tab PO QID CPAP (CPAP Machine/Device) autoPAP 5-20 cm H2O furosemide 40 mg See Protocol PO DAILY lancets (Accu-Chek Softclix Lancets) USE 1 LANCET ONCE A DAY lancets (FreeStyle Lancets) As directed daily lidocaine 5% 1 patch topical DAILY PRN lisinopril 40 mg PO DAILY lorazepam 0.5 mg PO Q12H PRN 30 days metoprolol tartrate 25 mg PO BID 90 days omeprazole 20 mg PO DAILY PRN peg 3350-electrolytes 236-22.74-6.74 -5.86 gram (Golytely) 240 mL PO Q10M sitagliptin phos-metformin 50-500 mg (Janumet) 1 tab PO BID 90 days [true metrix lancets As directed] walker rollator with seat Do you need a note to return to daycare/school/sports/work: No HPI Comments Details: 74 y/o female comes for follow up of Parkinson disease and sleep study. Mild worsening since last visit . No falls . her tremors are worse. she uses a walker . she was recently admitted at [facility] ( October 2023)- she had diarrhea, pneumonia, anxiety and HTN and was inr ehab for 2 weeks She has mild tremor, but can have more intense hand tremor occasionally. She can do daily activities independently mostly, and her MEAT INSPECTOR also can help her. Denies difficulty eating or swallowing. She has mild constipation. Denies hallucination she has trouble falling asleep Home sleep test result- AHI 20/hr and oxygen gela 83%. CPAP ordered, but patient declined to use CPAP due to high co-payment. Pt's hx-sHe was diagnosed with Parkinsons disease in [place] 6 years ago when she presented with left sided tremors and gait issues. She also has lumbar spondylosis which affects her gait. [facility] Medical History Lung mass Chronic painful diabetic neuropathy AAA (abdominal aortic aneurysm) Moderate recurrent major depression Surgery, elective Pain Hx of backache Hx of supraventricular tachycardia Hypersomnia Snoring Obstructive sleep apnea of adult Chronic hip pain, bilateral Eye pain Diffuse pain Chest pain Supraventricular tachycardia Cough Other and unspecified hyperlipidemia SOB (shortness of breath) Precordial chest pain Annual physical exam Nausea Encounter to establish care Peripheral vascular disease Bilateral artificial lens implant Allergic rhinitis Post menopausal syndrome Vaginitis and vulvovaginitis Diabetes type 2, controlled CAD (coronary artery disease) Hypertriglyceridemia Depression with anxiety GERD without esophagitis Hypertension Parkinsons disease Surgical History H/O prior ablation treatment History of tubal ligation History of cholecystectomy Family History Mother Diabetes Father Brain cancer Son Diabetes Family/Other Colon cancer Social History Household Members: Caregiver Housing: Apartment Do you presently have visiting nurse or other home services: No Alcohol intake: never Patient Tobacco Use Status: Former Tobacco user e-Cigarette/Vaping Use: Never Used Second Hand Smoke Exposure: No service: No Current occupational status: retired Cognitive needs: No Hearing needs: No Vision needs: Yes (glasses) Physical Exam Vital Signs: Last Vital Signs Pulse 59 01/22/24 12:32 BP 118/50 L 01/22/24 12:32 Pulse Ox 98 01/22/24 12:32 Oxygen Delivery Method Room Air 01/22/24 12:32 BMI result Body Mass Index 22.3 Const General: cooperative, healthy appearing and comfortable Nutritional Appearance: average body habitus Orientation/consciousness: patient oriented x3 Limitations: physical limitations HEENT Head: Yes normal to inspection and No normocephalic Neuro Other: left LE rest tremors Mild cog wheel rigidty Left UE Decreased facial expression and blink FFM and foot taps decreased kianna L>R Gait- slow , mildly antalgic Voice- normal General: patient oriented x3 Cranial nerves: Yes Nystagmus not present and Yes Normal facial strength present Cognition (Neuro): normal cognition Motor exam (neuro): 5/5 motor strength present throughout Coordination: [id number] test normal Assessment & Plan Assessment & Plan (1) Parkinsons disease: Code(s): G20 - Parkinson's disease Category: Medical Qualifiers: Dyskinesia presence: without dyskinesia Fluctuating manifestations: without fluctuating manifestations Qualified Code(s): G20.A1 - Parkinson's disease without dyskinesia, without mention of fluctuations (2) ANTONETTE (obstructive sleep apnea): Code(s): G47.33 - Obstructive sleep apnea (adult) (pediatric) Category: Medical Plan D/C sinemet CR 50/200 bid. Start patient on carbidopa/levodopa 25/100 qid will resend prescription for CPAP - unclear why she had a high co pay with Medicare and medicaid Medications: New carbidopa-levodopa 25-100 mg (Sinemet) 1 tab PO QID 120 tabs 6RF Discontinued carbidopa-levodopa 50-200 mg ER divide evenly over waking hours Discontinued Reason: Doctor's Order 1 tab PO BID 60 tabs 0RF G20 - Parkinson's disease Coding Level of Care Code Est Pt Level 4 (54145) Complex EM visit Add On G2211 Diagnoses Parkinson's disease without dyskinesia or fluctuating manifestations G20.A1 Dyskinesia presence: without dyskinesia Fluctuating manifestations: without fluctuating manifestations ANTONETTE (obstructive sleep apnea) G47.33
== END 2024-01-22 13:08 | disposition home or self-care (01) ==
LOC: HO.HSMS 12:18
PROVIDERS: PCP Internal Medicine; Visit Provider Psychiatry & Neurology Neurology
DX: G20.A1 Parkinson's disease without dyskinesia, without mention of fluctuations (principal); G47.33 Obstructive sleep apnea (adult) (pediatric)
CPT/HCPCS: 99214; G2211

== ENCOUNTER → 2024-01-22 12:17 | Outpatient (BNVA) | payer OTHER, SELFPAY | PROVIDERS: PCP Internal Medicine; Visit Provider Psychiatry & Neurology Neurology ==

== ENCOUNTER 2024-01-31 10:37 | Outpatient (AMB) | payer OTHER, MEDICAID, SELFPAY ==
--- NOTE | 2024-01-31 10:39 | A.OFFVIS_ITS ---
Vital Signs 01/31/24 10:41 Height 5 ft 4 in Weight 130 lb BMI 22.3 BP 112/62 Blood Pressure Location Lt brachial Pulse 64 Pulse Source Doppler Pulse Oximetry (%) 98 Oxygen Delivery Method Room Air Intake Visit Reasons: sleep apnea Allergies influenza virus vaccine, specific [Influenza Virus Vacc,Specific] Allergy (Intermediate, Verified 01/31/24 10:45) SWELLING HPI HPI sleep apnea: Details: 74-year-old lady, former 60+ pack-year smoker, quit 2019 with underlying ANTONETTE being started on CPAP by her sleep medicine provider referred for pulmonary evaluation. Patient states that she has been experiencing some dyspnea on exertion, particularly with stairs. She has been using albuterol MDI with suboptimal control of her symptoms. She denies having recent pulmonary function testing. She also has underlying diastolic dysfunction. She denies family history of lung disease. [facility], [facility] Medical History Lung mass Chronic painful diabetic neuropathy AAA (abdominal aortic aneurysm) Moderate recurrent major depression Surgery, elective Pain Hx of backache Hx of supraventricular tachycardia Hypersomnia Snoring Obstructive sleep apnea of adult Chronic hip pain, bilateral Eye pain Diffuse pain Chest pain Supraventricular tachycardia Cough Other and unspecified hyperlipidemia SOB (shortness of breath) Precordial chest pain Annual physical exam Nausea Encounter to establish care Peripheral vascular disease Bilateral artificial lens implant Allergic rhinitis Post menopausal syndrome Vaginitis and vulvovaginitis Diabetes type 2, controlled CAD (coronary artery disease) Hypertriglyceridemia Depression with anxiety GERD without esophagitis Hypertension Parkinsons disease Surgical History H/O prior ablation treatment History of tubal ligation History of cholecystectomy Family History Mother Diabetes Father Brain cancer Son Diabetes Family/Other Colon cancer Social History (Updated 01/31/24 @ 10:47 by SANDRA Rainey) Household Members: Caregiver Housing: Apartment Do you presently have visiting nurse or other home services: No Alcohol intake: never Patient Tobacco Use Status: Former Tobacco user Tobacco use type: Cigarette Years Smoked: started at age 27, 3PPD, quit 5 years ago (2019) e-Cigarette/Vaping Use: Never Used Second Hand Smoke Exposure: No service: No Current occupational status: retired Cognitive needs: No Hearing needs: No Vision needs: Yes (glasses) Review of Systems Const Denies excessive sweating, Denies fatigue, Denies fever(s), Denies malaise, Michael es night sweats and Denies weight loss Eyes Denies blurry vision and Denies itchy eyes ENT Denies nasal congestion, Denies post nasal drip, Denies sinus pain, Denies sinus pressure and Denies other ( Thrush) Card Denies chest pain, Denies pedal edema, Denies dyspnea, Reports dyspnea on exertion, Denies orthopnea and Denies paroxysmal nocturnal dyspnea Resp Denies cough, Denies hemoptysis, Denies excessive phlegm production, Denies dyspnea, Reports dyspnea on exertion and Denies wheezing GI Denies abdominal pain and Denies heartburn Musc Denies myalgias, Denies arthralgias and Denies joint swelling Skin/Breast Denies rash Endo Denies excessive sweating, Denies fatigue and Denies heat intolerance Abhilash/Lymph Denies easy bruising Aller/Immun Denies itchy eyes, Denies seasonal rhinorrhea and Denies wheezing Physical Exam Vital Signs: Last Vital Signs Pulse 64 01/31/24 10:41 BP 112/62 01/31/24 10:41 Pulse Ox 98 01/31/24 10:41 Oxygen Delivery Method Room Air 01/31/24 10:41 BMI result Body Mass Index 22.3 Const General: no acute distress and alert Nutritional Appearance: not obese Orientation/consciousness: Other orientation findings ( oriented) HEENT Head: Yes atraumatic Eyes General: appearance normal, both eyes and all related structures Sclerae: sclerae normal EOM: EOMs intact bilaterally Neck Neck: Yes supple Lymphatic: no lymphadenopathy noted Resp Effort & Inspection: normal respiratory effort and no use of accessory muscles Auscultation: clear to auscultation bilaterally Cardio Rate: regular rate Rhythm: regular rhythm Heart sounds: no gallops, no murmurs and no rubs Skin General skin exam: other ( warm) Extrem General: No clubbing, No cyanosis and No edema Assessment & Plan Assessment & Plan (1) COPD (chronic obstructive pulmonary disease): Code(s): J44.9 - Chronic obstructive pulmonary disease, unspecified Category: Medical Plan: Likely COPD of unclear severity. Will start on Anoro and obtain full PFT. Co ntinue albuterol MDI. (2) Personal history of nicotine dependence: Code(s): Z87.891 - Personal history of nicotine dependence Category: Medical Plan: Results of CT chest from October of 2023 reviewed, no worrisome parenchymal nodules. Continue with yearly screening, next in October of 2024, ordered. Orders: Orders PFT pulmonary function test Today J44.9 - Chronic obstructive pulmonary disease, unspecified CT lung screening 10/30/24 Z87.891 - Personal history of nicotine dependence Medications: New umeclidinium-vilanterol 62.5-25 mcg/actuation (Anoro Ellipta) 1 inh inhalation Q24H 1 ea 6RF Coding Level of Care Code New Pt Level 4 (19198) Diagnoses COPD (chronic obstructive pulmonary disease) J44.9 Personal history of nicotine dependence Z87.891
[2024-01-31 10:41] VITALS: BP 112/62; PULSE 64; O2SAT 98; BMI 22.3
== END 2024-01-31 11:14 | disposition home or self-care (01) ==
LOC: HO.HPS 10:38
PROVIDERS: PCP Internal Medicine; Visit Provider Internal Medicine Pulmonary Disease
DX: J44.9 Chronic obstructive pulmonary disease, unspecified (principal); Z87.891 Personal history of nicotine dependence
CPT/HCPCS: 99204

== ENCOUNTER → 2024-01-31 10:37 | Outpatient (BNVA) | payer OTHER, MEDICAID, SELFPAY | PROVIDERS: PCP Internal Medicine; Visit Provider Internal Medicine Pulmonary Disease | DX: N20.0 Calculus of kidney (principal); K52.9 Noninfective gastroenteritis and colitis, unspecified; G20.A1 Parkinson's disease without dyskinesia, without mention of fluctuations; J44.9 Chronic obstructive pulmonary disease, unspecified; Z87.891 Personal history of nicotine dependence | CPT/HCPCS: 81003 ==

== ENCOUNTER 2024-01-31 12:47 | Outpatient (AMB) | payer OTHER, SELFPAY ==
--- NOTE | 2024-01-30 19:14 | MHC.OFFVIS ---
Intake Visit Reasons: 7m/US(US Pending) Allergies influenza virus vaccine, specific [Influenza Virus Vacc,Specific] Allergy (Intermediate, Verified 01/31/24 10:45) SWELLING HPI Comments Details: 01/31/24--7 month FU Renal US - reviewed films 01/01/24 07/02/23--Nely is a 73 year old female PMH- parkinson's, who was seen in the ED on 04/17/23 with complaints of nausea and abdominal pain. CTAP 04/18/23 was done noting tiny right calcification right side bladder, suggestive that she passed a stone. Currently she is asymptomatic. She had a renal US done on 05/04/23. I have reviewed results- bilateral tiny renal calculi. Plan discussed, importance of adequate hydration, low sodium and low oxalate diet, monitor kidneys, follow up renal US in 6 months. PENDING SALE TO [facility] Medical History Lung mass Chronic painful diabetic neuropathy AAA (abdominal aortic aneurysm) Moderate recurrent major depression Surgery, elective Pain Hx of backache Hx of supraventricular tachycardia Hypersomnia Snoring Obstructive sleep apnea of adult Chronic hip pain, bilateral Eye pain Diffuse pain Chest pain Supraventricular tachycardia Cough Other and unspecified hyperlipidemia SOB (shortness of breath) Precordial chest pain Annual physical exam Nausea Encounter to establish care Peripheral vascular disease Bilateral artificial lens implant Allergic rhinitis Post menopausal syndrome Vaginitis and vulvovaginitis Diabetes type 2, controlled CAD (coronary artery disease) Hypertriglyceridemia Depression with anxiety GERD without esophagitis Hypertension Parkinsons disease Surgical History H/O prior ablation treatment History of tubal ligation History of cholecystectomy Family History Mother Diabetes Father Brain cancer Son Diabetes Family/Other Colon cancer Social History (Updated 01/31/24 @ 10:47 by SANDRA Rainey) Household Members: Caregiver Housing: Apartment Do you presently have visiting nurse or other home services: No Alcohol intake: never Patient Tobacco Use Status: Former Tobacco user Tobacco use type: Cigarette Years Smoked: started at age 27, 3PPD, quit 5 years ago (2019) e-Cigarette/Vaping Use: Never Used Second Hand Smoke Exposure: No service: No Current occupational status: retired Cognitive needs: No Hearing needs: No Vision needs: Yes (glasses) Results Reviewed Results Reviewed: Date of Service: 05/04/23 EXAMINATION: US RETROPERITONEAL LIMITED (RENAL ONLY) CLINICAL INFORMATION: Calculus of kidney. COMPARISON: CT abdomen and pelvis 04/18/2023. TECHNIQUE: Real-time imaging of the kidneys. FINDINGS: RIGHT KIDNEY: 9.9 x 4.1 x 4.2 cm (SAG x AP x TRV). The kidney is normal in size, contour, and echogenicity. Renal cortical thickness is normal. No focal parenchymal lesions or hydronephrosis. Nonobstructing renal stone measuring 0.2 cm new from prior. LEFT KIDNEY: 10.4 x 5.1 x 3.7 cm (SAG x AP x TRV). The kidney is normal in size, contour, and echogenicity. Renal cortical thickness is normal. No focal parenchymal lesions or hydronephrosis. Nonobstructing renal stone measuring 0.2 cm new from prior. IMPRESSION: Bilateral nonobstructing renal stones measuring 0.2 cm on the right and 0.2 cm on the left. Date of Service: 04/18/23 EXAMINATION: CT ABDOMEN AND PELVIS WITH CONTRAST CLINICAL INFORMATION: Diffuse abdominal pain, nausea/vomiting/diarrhea COMPARISON: 11/20/2021 TECHNIQUE: Multidetector volumetric images were obtained from the superior aspect of the liver through the pubic symphysis following administration 85 mL of Omnipaque 350 intravenous contrast. Sagittal and coronal reformatted images were obtained on the technologist's workstation. Oral contrast: No This CT examination was performed using dose optimization techniques as appropriate, variously including the following: *Automated exposure control *Adjustment of mA and/or kV according to patient size (this includes techniques or standardized protocols for targeted exams where dose is matched to indication/reason for exam; i.e. extremities or head) *Use of iterative reconstruction technique DLP: 312 mGy-cm FINDINGS: LUNG BASES: The visualized lung bases are unremarkable. Coronary artery calcifications are present. LIVER, GALLBLADDER, AND BILIARY TREE: The liver is normal in size, shape, and attenuation. No focal hepatic lesion or biliary ductal dilatation is present. Patient is status post cholecystectomy. PANCREAS: Unremarkable. SPLEEN: Unremarkable. ADRENAL GLANDS: Unremarkable. KIDNEYS AND URETERS: Bilateral nephrograms are symmetric. No hydronephrosis or obstructing calculus identified. Right renal renal cortical scarring noted. Small hypodensities in the right kidney favor cysts; no follow-up recommended. BLADDER: Partially distended without significant wall thickening. There is suggestion of a tiny calcification along the right posterior bladder wall on image 80/99. GASTROINTESTINAL TRACT: Colonic diverticulosis is noted. The small and large bowel are otherwise unremarkable without evidence of obstruction or pericolonic inflammatory change. The appendix is unremarkable. No free fluid or free air is seen. ABDOMINAL WALL: No significant hernia is appreciated. LYMPH NODES: Normal. VASCULAR: There is atherosclerotic calcification along the aorta and iliac arteries. There is aneurysmal dilation of the infrarenal aorta to 3.1 cm. PELVIC VISCERA: Unremarkable. OSSEOUS STRUCTURES: Degenerative changes are noted in the spine. IMPRESSION: 1. No acute findings identified in the abdomen/pelvis. 2. Suggestion of a tiny calcification along the right posterior bladder, which could represent a calculus or bladder wall calcification. The possibility of neoplastic wall thickening cannot be excluded with this appearance. Correlation with urinalysis is recommended. 3. Infrarenal abdominal aortic aneurysm measuring 3.1 cm. Recommend followup every 3 years. Reference: J Am Coby Radiol 2013; 10 (10): 789-794. 4. Coronary artery calcifications. Correlation with cardiac risk factors is recommended. Assessment & Plan Assessment & Plan Plan FU renal US in one year Coding
--- NOTE | 2024-01-31 13:00 | A.OFFVIS_ITS ---
Intake Visit Reasons: 7m/US(US Pending) Intake Note: Patient is present for 7m/US Urology Medication:NONE Antibiotic Allergy:NONE Blood Thinner:NONE Bakery Demonstrator Required: No Allergies influenza virus vaccine, specific [Influenza Virus Vacc,Specific] Allergy (Intermediate, Verified 01/31/24 13:02) SWELLING Medication List - Last Reconciled 01/31/24 by Ralph Anthony MD albuterol sulfate 90 mcg/actuation 2 puffs inhalation Q4-6H PRN amlodipine 2.5 mg See Protocol PO DAILY atorvastatin 40 mg PO BEDTIME 90 days bismuth subsalicylate (Pepto-Bismol Max St) 525 mg (15 mL) PO Q30M PRN 5 days blood sugar diagnostic (True Metrix Glucose Test Strip) Use 1 test strip once a day blood sugar diagnostic (Accu-Chek Guide test strips) Testing once a day as needed blood sugar diagnostic (FreeStyle Lite Strips) Use 1 test strip once a day blood-glucose meter (FreeStyle Lite Meter kit) As directed blood-glucose meter (Accu-Chek Guide Glucose Meter) As directed calcium carbonate-vit D3-min 600 mg calcium- 400 unit 1 tab PO BID 90 days carbidopa-levodopa 25-100 mg (Sinemet) 1 tab PO QID CPAP (CPAP Machine/Device) autoPAP 5-20 cm H2O lancets (Accu-Chek Softclix Lancets) USE 1 LANCET ONCE A DAY lancets (FreeStyle Lancets) As directed daily lidocaine 5% 1 patch topical DAILY PRN lisinopril 40 mg PO DAILY lorazepam 0.5 mg PO Q12H PRN 30 days metoprolol tartrate 25 mg PO BID 90 days omeprazole 20 mg PO DAILY PRN peg 3350-electrolytes 236-22.74-6.74 -5.86 gram (Golytely) 240 mL PO Q10M sitagliptin phos-metformin 50-500 mg (Janumet) 1 tab PO BID 90 days [true metrix lancets As directed] umeclidinium-vilanterol 62.5-25 mcg/actuation (Anoro Ellipta) 1 inh inhalation Q24H walker rollator with seat HPI Comments Details: 01/31/24--Nely is a 74-year-old female who is being followed for kidney stones. The patient has a history of Parkinson's denies significant bladder symptoms at this time. She had follow-up renal ultrasound 01/01/2024. Marketing Area Manager pending I have reviewed imaging and discussed with the patient left kidney 5 mm nonobstructing kidney stone. In review of her chart she had a CT done in October when she was in the emergency room with complaints of diarrhea that time left kidney noted to tiny stones 2 mm in 3 mm. She denies any problems with urination. I have discussed that it is important that she continue to hydrate well especially when she has bouts of diarrhea. Will continue to monitor kidneys. Follow-up in 10 months renal ultrasound prior. Review of chart: 07/02/23--Nely is a 73 year old female PMH- parkinson's, who was seen in the ED on 04/17/23 with complaints of nausea and abdominal pain. CTAP 04/18/23 was done noting tiny right calcification right side bladder, suggestive that she passed a stone. Currently she is asymptomatic. She had a renal US done on 05/04/23. I have reviewed results- bilateral tiny renal calculi. Plan discussed, importance of adequate hydration, low sodium and low oxalate diet, monitor kidneys, follow up renal US in 6 months. [facility] Medical History Lung mass Chronic painful diabetic neuropathy AAA (abdominal aortic aneurysm) Moderate recurrent major depression Surgery, elective Pain Hx of backache Hx of supraventricular tachycardia Hypersomnia Snoring Obstructive sleep apnea of adult Chronic hip pain, bilateral Eye pain Diffuse pain Chest pain Supraventricular tachycardia Cough Other and unspecified hyperlipidemia SOB (shortness of breath) Precordial chest pain Annual physical exam Nausea Encounter to establish care Peripheral vascular disease Bilateral artificial lens implant Allergic rhinitis Post menopausal syndrome Vaginitis and vulvovaginitis Diabetes type 2, controlled CAD (coronary artery disease) Hypertriglyceridemia Depression with anxiety GERD without esophagitis Hypertension Parkinsons disease Surgical History H/O prior ablation treatment History of tubal ligation History of cholecystectomy Family History Mother Diabetes Father Brain cancer Son Diabetes Family/Other Colon cancer Social History Household Members: Caregiver Housing: Apartment Do you presently have visiting nurse or other home services: No Alcohol intake: never Patient Tobacco Use Status: Former Tobacco user Tobacco use type: Cigarette Years Smoked: started at age 27, 3PPD, quit 5 years ago (2019) e-Cigarette/Vaping Use: Never Used Second Hand Smoke Exposure: No service: No Current occupational status: retired Cognitive needs: No Hearing needs: No Vision needs: Yes (glasses) Review of Systems Const All systems reviewed & are unremarkable except as noted in HPI and below Reports no additional complaints Eyes Reports no additional complaints ENT Reports no additional complaints Card Reports no additional complaints Resp Reports no additional complaints GI Reports no additional complaints Reports as per HPI Musc Reports no additional complaints Skin/Breast Reports system reviewed and no additional complaints, except as documented Neuro Reports no additional complaints Psych Reports no additional complaints Endo Reports no additional complaints Abhilash/Lymph Reports no additional complaints Aller/Immun Reports no additional complaints Results AMB Urinalysis, Automated UA Leukoctes 500 Tim/uL Last Edit by SHASHANK Fong on 01/31/24 13:32 UA Nitrite Negative Last Edit by SHASHANK Fong on 01/31/24 13:32 UA Urobilinogen 0.2 mg/dL Last Edit by SHASHANK Fong on 01/31/24 13:3 2 UA Protein 100 mg/dL Last Edit by SHASHANK Fong on 01/31/24 13:32 UA pH 6.0 Last Edit by SHASHANK Fong on 01/31/24 13:32 UA Blood 0 [place]/uL Last Edit by SHASHANK Fong on 01/31/24 13:32 UA Specific [place] 1.030 Last Edit by SHASHANK Fong on 01/31/24 13: 32 UA Ketone Last Edit by SHASHANK Fong on 01/31/24 13:32 UA Bilirubin 5 mg/dL Last Edit by SHASHANK Fong on 01/31/24 13:32 UA Glucose 2 mg/dL Last Edit by SHASHANK Fong on 01/31/24 13:32 Results Reviewed Results Reviewed: Reviewed renal ultrasound 01/01/2024--left kidney 5 mm nonobstructing renal calculus Date of Service: 11/09/23 CT CHEST WITHOUT CONTRAST CT ABDOMEN AND PELVIS WITHOUT CONTRAST CLINICAL INFORMATION: Shortness of breath. COMPARISON: 09/12/2023. TECHNIQUE: Multidetector volumetric imaging was performed from the thoracic inlet through the pubic symphysis. Sagittal and coronal images were reformatted. This CT examination was performed using dose optimization techniques as appropriate, variously including the following: *Automated exposure control *Adjustment of mA and/or kV according to patient size (this includes techniques or standardized protocols for targeted exams where dose is matched to indication/reason for exam; i.e. extremities or head) *Use of iterative reconstruction technique DOSE: 849 mGy-cm FINDINGS: -CHEST- LUNG: Interlobular septal thickening is present throughout both lungs with interspersed groundglass attenuation, most consistent with pulmonary edema. Numerous nodular opacities are present in both lungs, predominantly in the perihilar region of the right upper lobe and both lower lobes. The lower lobe opacities are new as compared to the prior CT from 09/12/2023 and may correspond to alveolar edema. Superimposed lesions cannot be excluded. Central airways are clear. MEDIASTINUM: Atherosclerotic calcifications are present in the coronary arteries. Heart is normal in size. Borderline enlarged bilateral mediastinal lymph nodes measuring up to 1 cm in diameter in the AP window. Thyroid gland is unremarkable. Atherosclerotic calcification is present in the thoracic aorta. PERICARDIUM/PLEURA: Small pleural effusions, right greater than left. No pericardial effusion. CHEST WALL/AXILLA: Unremarkable. -ABDOMEN/PELVIS- LIVER, GALLBLADDER, BILIARY TREE: The liver is normal in size, shape, and attenuation. No focal hepatic lesion or biliary ductal dilatation is present. Gallbladder surgically absent. PANCREAS: Pancreas is atrophic. No biliary ductal dilatation. No focal lesions. SPLEEN: Normal size. No focal lesion. ADRENAL GLANDS: Normal; no mass. KIDNEYS AND URETERS: The kidneys are normal in size, shape, and attenuation. No hydronephrosis or hydroureter. Mild perinephric stranding. Two 2 mm calculi are present in the left kidney, one in the upper pole, one in the lower pole. BLADDER: Unremarkable. GASTROINTESTINAL TRACT: Stomach, small bowel, and colon are normal in caliber. Mild diffuse colonic diverticulosis. No bowel wall thickening or surrounding inflammatory changes. Appendix is normal. No intraperitoneal free fluid or free air. ABDOMINAL WALL: No significant hernia is appreciated. VASCULATURE: Atherosclerotic calcifications are present in the abdominal aorta and iliac arteries. There is a 2.9 cm infrarenal abdominal aortic aneurysm, though this is only slightly larger than the aortic diameter proximal to it (2.4 cm). LYMPH NODES: No lymphadenopathy. . PELVIC VISCERA: The uterus and adnexa are unremarkable. OSSEUS STRUCTURES: Bones are osteopenic. Moderate multilevel degenerative disc disease and facet arthropathy and lumbar spine ankylosis of much of the thoracic spine due to diffuse idiopathic skeletal hyperostosis (DISH). Chronic superior endplate compression deformities at T11 and T12 are unchanged. No acute fractures. Mild to moderate osteoarthritis in both hips. IMPRESSION: 1. Pulmonary edema with small bilateral pleural effusions. 2. Numerous nodular opacities in the perihilar regions of the right upper lobe and both lower lobes, most likely due to alveolar edema. Superimposed lesions cannot be excluded. Radiographic follow-up is advised to verify resolution. 3. No acute abnormalities are identified in the abdomen and pelvis. 4. Nonobstructing left renal calculi. 5. Mild colonic diverticulosis without evidence of acute diverticulitis. 6. A 2.9 cm infrarenal abdominal aortic aneurysm. Date of Service: 05/04/23 EXAMINATION: US RETROPERITONEAL LIMITED (RENAL ONLY) CLINICAL INFORMATION: Calculus of kidney. COMPARISON: CT abdomen and pelvis 04/18/2023. TECHNIQUE: Real-time imaging of the kidneys. FINDINGS: RIGHT KIDNEY: 9.9 x 4.1 x 4.2 cm (SAG x AP x TRV). The kidney is normal in size, contour, and echogenicity. Renal cortical thickness is normal. No focal parenchymal lesions or hydronephrosis. Nonobstructing renal stone measuring 0.2 cm new from prior. LEFT KIDNEY: 10.4 x 5.1 x 3.7 cm (SAG x AP x TRV). The kidney is normal in size, contour, and echogenicity. Renal cortical thickness is normal. No focal parenchymal lesions or hydronephrosis. Nonobstructing renal stone measuring 0.2 cm new from prior. IMPRESSION: Bilateral nonobstructing renal stones measuring 0.2 cm on the right and 0.2 cm on the left. Date of Service: 04/18/23 EXAMINATION: CT ABDOMEN AND PELVIS WITH CONTRAST CLINICAL INFORMATION: Diffuse abdominal pain, nausea/vomiting/diarrhea COMPARISON: 11/20/2021 TECHNIQUE: Multidetector volumetric images were obtained from the superior aspect of the liver through the pubic symphysis following administration 85 mL of Omnipaque 350 intravenous contrast. Sagittal and coronal reformatted images were obtained on the technologist's workstation. Oral contrast: No This CT examination was performed using dose optimization techniques as appropriate, variously including the following: *Automated exposure control *Adjustment of mA and/or kV according to patient size (this includes techniques or standardized protocols for targeted exams where dose is matched to indication/reason for exam; i.e. extremities or head) *Use of iterative reconstruction technique DLP: 312 mGy-cm FINDINGS: LUNG BASES: The visualized lung bases are unremarkable. Coronary artery calcifications are present. LIVER, GALLBLADDER, AND BILIARY TREE: The liver is normal in size, shape, and attenuation. No focal hepatic lesion or biliary ductal dilatation is present. Patient is status post cholecystectomy. PANCREAS: Unremarkable. SPLEEN: Unremarkable. ADRENAL GLANDS: Unremarkable. KIDNEYS AND URETERS: Bilateral nephrograms are symmetric. No hydronephrosis or obstructing calculus identified. Right renal renal cortical scarring noted. Small hypodensities in the right kidney favor cysts; no follow-up recommended. BLADDER: Partially distended without significant wall thickening. There is suggestion of a tiny calcification along the right posterior bladder wall on image 80/99. GASTROINTESTINAL TRACT: Colonic diverticulosis is noted. The small and large bowel are otherwise unremarkable without evidence of obstruction or pericolonic inflammatory change. The appendix is unremarkable. No free fluid or free air is seen. ABDOMINAL WALL: No significant hernia is appreciated. LYMPH NODES: Normal. VASCULAR: There is atherosclerotic calcification along the aorta and iliac arteries. There is aneurysmal dilation of the infrarenal aorta to 3.1 cm. PELVIC VISCERA: Unremarkable. OSSEOUS STRUCTURES: Degenerative changes are noted in the spine. IMPRESSION: 1. No acute findings identified in the abdomen/pelvis. 2. Suggestion of a tiny calcification along the right posterior bladder, which could represent a calculus or bladder wall calcification. The possibility of neoplastic wall thickening cannot be excluded with this appearance. Correlation with urinalysis is recommended. 3. Infrarenal abdominal aortic aneurysm measuring 3.1 cm. Recommend followup every 3 years. Reference: J Am Coby Radiol 2013; 10 (10): 789-794. 4. Coronary artery calcifications. Correlation with cardiac risk factors is recommended. Assessment & Plan Assessment & Plan (1) Kidney stone on left side: Code(s): N20.0 - Calculus of kidney Category: Medical (2) Chronic diarrhea: Code(s): K52.9 - Noninfective gastroenteritis and colitis, unspecified Category: Medical (3) Parkinsons disease: Code(s): G20 - Parkinson's disease Category: Medical Qualifiers: Dyskinesia presence: without dyskinesia Fluctuating manifestations: without fluctuating manifestations Qualified Code(s): G20.A1 - Parkinson's disease without dyskinesia, without mention of fluctuations Plan I have discussed that it is important that she continue to hydrate well especially when she has bouts of diarrhea. Will continue to monitor kidneys. Follow-up in 10 months renal ultrasound prior. Orders: Orders US renal BI 9 Months N20.0 - Calculus of kidney AMB Urinalysis Automated Today Z13.9 - Encounter for screening, unspecified Patient Instructions: The patient had an opportunity to ask questions regarding treatment plan. The patient expressed understanding and agreement with the above treatment plan. The patient is aware they should contact our office by phone for worsening of their current condition or the appearance of new symptoms. Compliance is encouraged with any medications and followup testing that is ordered. It is a privilege to be allowed the opportunity to participate in the urologic care of your patient. If you have any questions or concerns regarding treatment for the above conditions please do not hesitate to contact me. The office telephone contact is [phone]. This note is constructed in part using voice recognition software. While every effort has been made to ensure accuracy treating inspector errors may have been included. Yours sincerely, Ralph Anthony MD Coding Level of Care Code Est Pt Level 4 (44697) Diagnoses Kidney stone on left side N20.0 Chronic diarrhea K52.9 Parkinson's disease without dyskinesia or fluctuating manifestations G20.A1 Dyskinesia presence: without dyskinesia Fluctuating manifestations: without fluctuating manifestations
== END 2024-01-31 13:52 | disposition home or self-care (01) ==
LOC: HO.HUSH 12:48
PROVIDERS: PCP Internal Medicine; Visit Provider Urology
DX: N20.0 Calculus of kidney (principal); K52.9 Noninfective gastroenteritis and colitis, unspecified; G20.A1 Parkinson's disease without dyskinesia, without mention of fluctuations; Z13.9 Encounter for screening, unspecified
CPT/HCPCS: 99214

== ENCOUNTER 2024-02-01 15:01 | Outpatient (REF) | payer MEDICARE, MEDICAID, SELFPAY ==
--- NOTE | 2024-02-01 15:02 | PFT_ITS ---
Flows: FEV1: 80 % of predicted at 1.72 L FVC: 79 % of predicted at 2.19 L FEV1/FVC: 70 % Bronchodilator response: Present Volumes: Patient unable to perform lung volumes maneuvers. Diffusion capacity: Moderately decreased, corrects to normal after adjustment for alveolar ventilation. Impression: Moderate reversible obstructive ventilatory defect with positive bronchodilator response. Patient unable to perform lung volumes maneuvers. Decreased diffusion capacity suggests emphysema. MTDD
== END 2024-02-01 15:02 | disposition home or self-care (01) ==
LOC: HO.RESP 15:01
PROVIDERS: PCP Internal Medicine; Visit Provider Internal Medicine Pulmonary Disease
DX: J44.9 Chronic obstructive pulmonary disease, unspecified (principal)
CPT/HCPCS: 94010; 94640; 94727; 94729

== ENCOUNTER → 2024-02-01 15:02 | Outpatient (BNV) | payer MEDICARE, MEDICAID, SELFPAY | PROVIDERS: PCP Internal Medicine; Visit Provider Internal Medicine Pulmonary Disease | DX: J44.9 Chronic obstructive pulmonary disease, unspecified (principal) | CPT/HCPCS: 94060; 94729 ==

== ENCOUNTER 2024-02-18 14:14 | Outpatient (AMB) | payer MEDICARE, MEDICAID, SELFPAY ==
--- NOTE | 2024-02-18 14:13 | A.OFFPSYCH_ITS ---
Intake Intake Visit Reasons: consultation Director Of People Required: Yes Provided:: Director Of People ([id number]) Type:: Employee Allergies influenza virus vaccine, specific [Influenza Virus Vacc,Specific] Allergy (Intermediate, Verified 02/19/24 11:35) SWELLING HPI- Psychiatric Chief Complaint: consultation HPI Narrative: pt referred by PCP for evaluation of anxiety and depression in the context of Parkinson disease. Pt is in session with hospital approved hand miter operator and pts longtime roommate and billboard erector, Juan Jose Reynolds. Pt reports sadness since she was a teenager. She says she feels sad every day. She grew up in [place] and reports difficult childhood. she has moved around the living in [place], [place] . She reports being especially sad and down since the loss of her adult son 3 yrs ago. Pts PHQ9 is 18 and her GAD7 is 14. She feels the ativan is helpful. she agrees to trial of wellbutrin which is the recommeneded antidepressant in people with Parkinson Disease. SSRIs can at time make motor symptoms worse and induce or worsen hallucinations. Past Psychiatric History: saw a psychiatrist when living in [place] does not recall name. [facility] and therapy. Disabled x 30 yrs due to depression. No known IPLOC. Diagnosed 5 yrs ago with Parkinson Disease while living in [facility]. has been tried on prozac, zoloft, and mirtazapine all ineffective or intolerable side effects Subjective Subjective Subjective Medication Compliance: Yes Side effects from medications: No Review of Systems Medical Review of Systems: unchanged Mental Status Exam Mental Status Exam Patient Appearance: Appropriate Patient Orientation: Person, Place, Time and Situation Level of Consciousness: Awake and Appropriate Patient Behavior: Appropriate, Cooperative and Crying Mood Description: Withdrawn and Sad Affect Description: Withdrawn and Sad Patient Cognition Impaired: No Ability to Follow Directions: Good Speech Pattern: Impoverished and Soft-Spoken Memory Description: Intact Hallucinations: None Delusions: Not Present Thought Process: Intact and Goal Oriented Thought Content: positive for Intact and positive for Goal Oriented Judgement: Fair Assessment and Plan Assessment & Plan (1) EH (generalized anxiety disorder): Status: Acute Code(s): F41.1 - Generalized anxiety disorder (2) Moderate recurrent major depression: Status: Acute Code(s): F33.1 - Major depressive disorder, recurrent, moderate Plan start wellbutrin 37.5 mg daily continue lorazepam 0.5mg q12 hours retrun in 3 weeks Medications: New bupropion HCl 37.5 mg (1/2 x 75 mg) PO DAILY 15 tabs 1RF Refilled lorazepam 0.5 mg PO Q12H PRN 60 tabs 2RF Anxiety 30 days Counseling and coordination of Care Pt. Self Management counseling: Maintenance-social rhythm and Mod caffeine/ETOH intake Medication management counseling: Effectiveness, Side effects, Dosing range, Duration, Drug interaction and Adherence Diagnosis and Prognosis Counseling: Accuracy of diagnosis, Prognosis over time, Impact of diagnosis on life functions, Impact of family relationship, Problematic behaviors secondary to diagnosis and Adequacy of current interventions Details: I spent 90 minutes reviewing the record, seeing the patient and documenting in the medical record. Counseling provided to the patient/caregiver as outlined below. Addressed patient/caregiver concerns regarding current medication regime including effective adherence. Addressed patient/caregiver concerns regarding diagnosis and prognosis including accuracy of diagnosis, prognosis over time, impact of diagnosis. Addressed patient/caregiver concerns regarding impact of recent stressors. [facility] Medical History (Updated 02/26/24 @ 11:15 by Riana Briscoe APRN) Moderate recurrent major depression Lung mass Chronic painful diabetic neuropathy AAA (abdominal aortic aneurysm) Surgery, elective Pain Hx of backache Hx of supraventricular tachycardia Hypersomnia Snoring Obstructive sleep apnea of adult Chronic hip pain, bilateral Eye pain Diffuse pain Chest pain Supraventricular tachycardia Cough Other and unspecified hyperlipidemia SOB (shortness of breath) Precordial chest pain Annual physical exam Nausea Encounter to establish care Peripheral vascular disease Bilateral artificial lens implant Allergic rhinitis Post menopausal syndrome Vaginitis and vulvovaginitis Diabetes type 2, controlled CAD (coronary artery disease) Hypertriglyceridemia Depression with anxiety GERD without esophagitis Hypertension Parkinsons disease Surgical History H/O prior ablation treatment History of tubal ligation History of cholecystectomy Family History Mother Diabetes Father Brain cancer Son Diabetes Family/Other Colon cancer Social History Household Members: Caregiver Housing: Apartment Do you presently have visiting nurse or other home services: No Alcohol intake: never Patient Tobacco Use Status: Former Tobacco user Tobacco use type: Cigarette Years Smoked: started at age 27, 3PPD, quit 5 years ago (2019) e-Cigarette/Vaping Use: Never Used Second Hand Smoke Exposure: No service: No Current occupational status: retired Cognitive needs: No Hearing needs: No Vision needs: Yes (glasses) Social History: She grew up in [place] and reports difficult childhood. she has moved around the living in [place], [place]. Pt had 3 children 1 son 3 yrs ago. she has 2 daughters who live in [facility] and several grandchildren and one great-grandchild. Pt lives in [place] with longtime roommate and billboard erector Juan Jose Reynolds. Substance History: none Trauma History: childhood Coding Level of Care Code Psych Diag Eval w/Med ([id number]) Diagnoses EH (generalized anxiety disorder) F41.1 Moderate recurrent major depression F33.1
== END 2024-02-18 15:11 | disposition home or self-care (01) ==
LOC: HO.HOP 14:14
PROVIDERS: PCP Internal Medicine; Visit Provider Clinical Nurse Specialist Psychiatric/Mental Health
DX: F41.1 Generalized anxiety disorder (principal); F33.1 Major depressive disorder, recurrent, moderate
CPT/HCPCS: 90792

== ENCOUNTER → 2024-02-18 14:14 | Outpatient (BNVA) | payer MEDICARE, MEDICAID, SELFPAY | PROVIDERS: PCP Internal Medicine; Visit Provider Clinical Nurse Specialist Psychiatric/Mental Health | DX: F41.1 Generalized anxiety disorder (principal); F33.1 Major depressive disorder, recurrent, moderate; G20.A1 Parkinson's disease without dyskinesia, without mention of fluctuations; Z71.89 Other specified counseling | CPT/HCPCS: 90792 ==

== ENCOUNTER 2024-02-19 11:27 | Outpatient (AMB) | payer OTHER, MEDICAID, SELFPAY ==
[2024-02-19 11:28] VITALS: BP 134/70; PULSE 68; O2SAT 94; BMI 22.7
--- NOTE | 2024-02-19 11:28 | A.OFFVIS_ITS ---
Vital Signs 02/19/24 11:28 Height 5 ft 4 in Weight 132 lb BMI 22.7 BP 134/70 Blood Pressure Location Rt brachial Position Sitting Pulse 68 Pulse Source Doppler Pulse Oximetry (%) 94 Oxygen Delivery Method Room Air Intake Visit Reasons: Sleep apnea/PFT Follow Up Allergies influenza virus vaccine, specific [Influenza Virus Vacc,Specific] Allergy (Intermediate, Verified 02/19/24 11:35) SWELLING HPI HPI Sleep apnea/PFT Follow Up: Details: 74-year-old lady, former 60+ pack-year smoker, quit 2018 with underlying ANTONETTE being started on CPAP by her sleep medicine provider referred for pulmonary evaluation. Patient states that she has been experiencing some dyspnea on exertion, particularly with stairs. She has been using albuterol MDI with suboptimal control of her symptoms. She denies having recent pulmonary function testing. She also has underlying diastolic dysfunction. She denies family history of lung disease. After the last office visit patient has completed her pulmonary function test that shows underlying moderate reversible obstructive ventilatory defect. She also was started on Anoro with significantly improved symptom control. She denies recent exacerbations. [facility] Medical History Lung mass Chronic painful diabetic neuropathy AAA (abdominal aortic aneurysm) Moderate recurrent major depression Surgery, elective Pain Hx of backache Hx of supraventricular tachycardia Hypersomnia Snoring Obstructive sleep apnea of adult Chronic hip pain, bilateral Eye pain Diffuse pain Chest pain Supraventricular tachycardia Cough Other and unspecified hyperlipidemia SOB (shortness of breath) Precordial chest pain Annual physical exam Nausea Encounter to establish care Peripheral vascular disease Bilateral artificial lens implant Allergic rhinitis Post menopausal syndrome Vaginitis and vulvovaginitis Diabetes type 2, controlled CAD (coronary artery disease) Hypertriglyceridemia Depression with anxiety GERD without esophagitis Hypertension Parkinsons disease Surgical History H/O prior ablation treatment History of tubal ligation History of cholecystectomy Family History Mother Diabetes Father Brain cancer Son Diabetes Family/Other Colon cancer Social History Household Members: Caregiver Housing: Apartment Do you presently have visiting nurse or other home services: No Alcohol intake: never Patient Tobacco Use Status: Former Tobacco user Tobacco use type: Cigarette Years Smoked: started at age 27, 3PPD, quit 5 years ago (2019) e-Cigarette/Vaping Use: Never Used Second Hand Smoke Exposure: No service: No Current occupational status: retired Cognitive needs: No Hearing needs: No Vision needs: Yes (glasses) Review of Systems Const Denies daytime sleepiness, Denies excessive sweating, Denies fatigue, Denies fever(s), Denies lethargy, Denies malaise, Denies night sweats, Denies snoring and Denies weight loss Eyes Denies blurry vision and Denies itchy eyes ENT Denies nasal congestion, Denies post nasal drip, Denies sinus pain, Denies sinus pressure and Denies other ( Thrush) Card Denies chest pain, Denies pedal edema, Denies dyspnea, Denies orthopnea and Denies paroxysmal nocturnal dyspnea Resp Denies cough, Denies hemoptysis, Denies excessive phlegm production, Denies dyspnea, Denies snoring and Denies wheezing GI Denies abdominal pain and Denies heartburn Musc Denies myalgias, Denies arthralgias and Denies joint swelling Skin/Breast Denies rash Neuro Denies memory loss and Denies seizure-like activity Psych Denies abnormal sleep pattern, Denies anxiety and Denies memory loss Endo Denies excessive sweating, Denies fatigue and Denies heat intolerance Abhilash/Lymph Denies easy bruising Aller/Immun Denies itchy eyes, Denies seasonal rhinorrhea and Denies wheezing Physical Exam Vital Signs: Last Vital Signs Pulse 68 02/19/24 11:28 BP 134/70 02/19/24 11:28 Pulse Ox 94 02/19/24 11:28 Oxygen Delivery Method Room Air 02/19/24 11:28 BMI result Body Mass Index 22.7 Const General: no acute distress and alert Nutritional Appearance: not obese Orientation/consciousness: Other orientation findings ( oriented) HEENT Head: Yes atraumatic Eyes General: appearance normal, both eyes and all related structures Sclerae: sclerae normal EOM: EOMs intact bilaterally Neck Neck: Yes supple Lymphatic: no lymphadenopathy noted Resp Effort & Inspection: normal respiratory effort and no use of accessory muscles Auscultation: clear to auscultation bilaterally Cardio Rate: regular rate Rhythm: regular rhythm Heart sounds: no gallops, no murmurs and no rubs Skin General skin exam: other ( warm) Extrem General: No clubbing, No cyanosis and No edema Assessment & Plan Assessment & Plan (1) COPD (chronic obstructive pulmonary disease): Code(s): J44.9 - Chronic obstructive pulmonary disease, unspecified Category: Medical Plan: Results of pulmonary function test reviewed, underlying moderate COPD well controlled on current regimen of Anoro and albuterol MDI. Continue current regimen. (2) Personal history of nicotine dependence: Code(s): Z87.891 - Personal history of nicotine dependence Category: Medical Plan: Continue with yearly screening, next in October of 2024. Coding Level of Care Code Est Pt Level 4 (43540) Diagnoses COPD (chronic obstructive pulmonary disease) J44.9 Personal history of nicotine dependence Z87.891
== END 2024-02-19 11:45 | disposition home or self-care (01) ==
PROVIDERS: PCP Internal Medicine; Visit Provider Internal Medicine Pulmonary Disease
DX: J44.9 Chronic obstructive pulmonary disease, unspecified (principal); Z87.891 Personal history of nicotine dependence
CPT/HCPCS: 99214

== ENCOUNTER 2024-03-11 13:53 | Outpatient (AMB) | payer OTHER, MEDICAID, SELFPAY ==
--- NOTE | 2024-03-11 14:18 | A.OFFPSYCH_ITS ---
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: Yes Provided:: Language: (employee number [id number]) Language Interpreted:: Lao and Industrial Maintenance Manager Allergies influenza virus vaccine, specific [Influenza Virus Vacc,Specific] Allergy (Intermediate, Verified 03/25/24 08:03) SWELLING Medication List - Last Reconciled 03/11/24 by Riana Briscoe APRN albuterol sulfate 90 mcg/actuation 2 puffs inhalation Q4-6H PRN amlodipine 2.5 mg See Protocol PO DAILY atorvastatin 40 mg PO BEDTIME 90 days bismuth subsalicylate (Pepto-Bismol Max St) 525 mg (15 mL) PO Q30M PRN 5 days blood sugar diagnostic (True Metrix Glucose Test Strip) Use 1 test strip once a day blood sugar diagnostic (Accu-Chek Guide test strips) Testing once a day as needed blood sugar diagnostic (FreeStyle Lite Strips) Use 1 test strip once a day blood-glucose meter (FreeStyle Lite Meter kit) As directed blood-glucose meter (Accu-Chek Guide Glucose Meter) As directed bupropion HCl 37.5 mg (1/2 x 75 mg) PO DAILY calcium carbonate-vit D3-min 600 mg-10 mcg (400 unit) 1 tab PO BID 90 days carbidopa-levodopa 25-100 mg (Sinemet) 1 tab PO QID CPAP (CPAP Machine/Device) autoPAP 5-20 cm H2O lancets (Accu-Chek Softclix Lancets) USE 1 LANCET ONCE A DAY lancets (FreeStyle Lancets) As directed daily lidocaine 5% 1 patch topical DAILY PRN lisinopril 40 mg PO DAILY lorazepam 0.5 mg PO Q12H PRN 30 days metoprolol tartrate 25 mg PO BID 90 days omeprazole 20 mg PO DAILY PRN peg 3350-electrolytes 236-22.74-6.74 -5.86 gram (Golytely) 240 mL PO Q10M sitagliptin phos-metformin 50-500 mg (Janumet) 1 tab PO BID 90 days tiotropium-olodaterol 2.5-2.5 mcg/actuation (Stiolto Respimat) 2 puffs inhalation DAILY [true metrix lancets As directed] walker rollator with seat HPI- Psychiatric Chief Complaint: consult follow up HPI Narrative: Pt reports improvement; PHQ9 went from 18 to 11 and GAD7 went from 14 to 3. pt reports medications are helping; no side effects; no SI or HI; no dizziness, no trouble with balance or gait. roomate and entry specialist concurs that patient mood and anxiety appears improved. she is often less overwhelmed and less tearful. Past Psychiatric History: saw a psychiatrist when living in [place] does not recall name. Went to [facility] in past for psych and therapy. Disabled x 30 yrs due to depression. No known IPLOC. Diagnosed 5 yrs ago with Parkinson Disease while living in [facility]. has been tried on prozac, zoloft, and mirtazapine all ineffective or intolerable side effects Subjective Subjective Subjective Medication Compliance: Yes Side effects from medications: No Review of Systems Medical Review of Systems: unchanged Mental Status Exam Mental Status Exam Patient Appearance: Well Grooomed and Appropriate Patient Orientation: Person, Place, Time and Situation Level of Consciousness: Awake and Appropriate Patient Behavior: Appropriate, Talkative and Good Eye Contact Mood Description: Calm and Happy Affect Description: Calm and Happy Patient Cognition Impaired: No Ability to Follow Directions: Good Speech Pattern: Clear and Appropriate Hallucinations: None Delusions: Not Present Thought Process: Intact and Goal Oriented Thought Content: positive for Intact and positive for Goal Oriented Judgement: Good Assessment and Plan Assessment & Plan (1) Moderate recurrent major depression: Status: Acute Code(s): F33.1 - Major depressive disorder, recurrent, moderate (2) Anxiety: Status: Acute Code(s): F41.9 - Anxiety disorder, unspecified Plan continue wellbutrin and ativan; take ativan on scheduled basis to reduce rebound anxiety follow up with PCP Medications: Changed From lorazepam 0.5 mg PO Q12H 30 days PRN 60 tabs 2RF Anxiety To lorazepam 0.5 mg PO Q12H 60 tabs 4RF Anxiety 30 days Refilled bupropion HCl 37.5 mg (1/2 x 75 mg) PO DAILY 15 tabs 3RF Counseling and coordination of Care Pt. Self Management counseling: Maintenance-social rhythm, Med illness tx adherence, Mod caffeine/ETOH intake, Nutrition education and improvement, Sleep hygiene and General coping skills Medication management counseling: Effectiveness, Side effects, Dosing range, Duration, Drug interaction and Adherence Diagnosis and Prognosis Counseling: Accuracy of diagnosis, Prognosis over time, Impact of diagnosis on life functions, Impact of family relationship, Problematic behaviors secondary to diagnosis and Adequacy of current interventions Details: I spent 45 minutes reviewing the record, seeing the patient and documenting in the medical record. Counseling provided to the patient/caregiver as outlined below. Addressed patient/caregiver concerns regarding current medication regime including effective adherence. Addressed patient/caregiver concerns regarding diagnosis and prognosis including accuracy of diagnosis, prognosis over time, impact of diagnosis. Addressed patient/caregiver concerns regarding impact of recent stressors. [facility] Medical History Moderate recurrent major depression Lung mass Chronic painful diabetic neuropathy AAA (abdominal aortic aneurysm) Surgery, elective Pain Hx of backache Hx of supraventricular tachycardia Hypersomnia Snoring Obstructive sleep apnea of adult Chronic hip pain, bilateral Eye pain Diffuse pain Chest pain Supraventricular tachycardia Cough Other and unspecified hyperlipidemia SOB (shortness of breath) Precordial chest pain Annual physical exam Nausea Encounter to establish care Peripheral vascular disease Bilateral artificial lens implant Allergic rhinitis Post menopausal syndrome Vaginitis and vulvovaginitis Diabetes type 2, controlled CAD (coronary artery disease) Hypertriglyceridemia Depression with anxiety GERD without esophagitis Hypertension Parkinsons disease Surgical History H/O prior ablation treatment History of tubal ligation History of cholecystectomy Family History Mother Diabetes Father Brain cancer Son Diabetes Family/Other Colon cancer Social History Household Members: Caregiver Housing: Apartment Are you a primary primary care nurse to a significant other at home: No Do you presently have visiting nurse or other home services: No Alcohol intake: never Patient Tobacco Use Status: Former Tobacco user Tobacco use type: Cigarette Years Smoked: started at age 27, 3PPD, quit 5 years ago (2019) e-Cigarette/Vaping Use: Never Used Second Hand Smoke Exposure: No service: No Current occupational status: retired Cognitive needs: No Hearing needs: No Vision needs: Yes (glasses) Social History: She grew up in [place] and reports difficult childhood. she has moved around the living in [place], [place], [place]. Pt had 3 children 1 son 3 yrs ago. she has 2 daughters who live in [facility] and several grandchildren and one great-grandchild. Pt lives in [place] with longtime roommate and entry specialist Juan Jose Reynolds. Substance History: none Trauma History: childhood Coding Level of Care Code Est Pt Level 5 (67392) Diagnoses Moderate recurrent major depression F33.1 Anxiety F41.9
== END 2024-03-11 14:49 | disposition home or self-care (01) ==
PROVIDERS: PCP Internal Medicine; Visit Provider Clinical Nurse Specialist Psychiatric/Mental Health
DX: F33.1 Major depressive disorder, recurrent, moderate (principal); F41.9 Anxiety disorder, unspecified
CPT/HCPCS: 99215

== ENCOUNTER 2024-03-20 11:26 | Outpatient (REF) | payer MEDICARE, MEDICAID, SELFPAY ==
[2024-03-20 11:50] LABS: MANUAL DIFF FLAG NO
[2024-03-20 12:04] LABS: Basophils Percent Auto 0.4 % (0-2); Eosinophils Percent Auto 8.8 % (0-4); Hematocrit 34.8 % (37.0-47.0); Hemoglobin 11.1 g/dl (12.0-16.0); Imm Gran Abs Auto 0.07 X10*3/uL (0.00-0.03); Imm Gran Pct Auto 0.6 % (0.0-0.4); Lymphocytes Absolute Auto 2.1 X10*3/uL (1.2-4.9); Lymphocytes Percent Auto 18.5 % (20-40); Mean Corpuscular HGB Conc 31.9 g/dl (31.0-35.0); Mean Corpuscular Hemoglobin 28.4 pg (27.0-33.0); Mean Platelet Volume 10.5 fL (9.4-12.3); Monocytes Absolute Auto 1.3 X10*3/uL (0.1-1.2); Monocytes Percent Auto 11.8 % (2-11); Neutrophils Absolute Auto 6.7 x10*3/uL (2.0-8.3); Neutrophils Percent Auto 59.9 % (45-73); Platelet Count 244 X10*3/uL (160-400); Red Blood Count 3.91 X10*6/uL (4.20-5.50); Red Cell Distribution Width 13.6 % (11.0-16.0); White Blood Count 11.1 X10*3/uL (4.8-10.8)
[2024-03-20 12:29] LABS: Influenza A PCR NEGATIVE (Negative); Influenza B PCR NEGATIVE (Negative); Resp Syncy Virus RNA Qual PCR NEGATIVE (Negative); SARS COV2 PCR INHOUSE NEGATIVE (Negative)
[2024-03-20 12:37] LABS: Iron 47 mcg/dL (30-160); Percent Iron Saturation 21 % (15-50); Total Iron Binding Capacity 226 mcg/dL (228-428); Unsaturated Iron Binding 179 ug/dL
[2024-03-20 12:55] LABS: Vitamin D 25-OH Total 23.2 ng/mL (>30)
[2024-03-20 13:03] LABS: Folate 10.2 ng/mL (> or = 4.0); Vitamin B12 257 pg/mL (200-900)
== END 2024-03-20 11:27 | disposition home or self-care (01) ==
LOC: HO.LAB 11:26
PROVIDERS: Absent Provider Internal Medicine; PCP Internal Medicine; Visit Provider Internal Medicine
DX: E55.9 Vitamin D deficiency, unspecified (principal); E53.8 Deficiency of other specified B group vitamins; D64.9 Anemia, unspecified; R09.89 Other specified symptoms and signs involving the circulatory and respiratory systems
CPT/HCPCS: 0241U; 82306; 82607; 82746; 83540; 85025

== ENCOUNTER 2024-03-25 06:56 | Day surgery (SDC) | payer MEDICARE, MEDICAID, SELFPAY ==
[2024-03-21 11:44] VITALS: BMI 22.7
--- NOTE | 2024-03-25 07:40 | HO.ANESPROP2 ---
[facility] Active Problems Active Problems: All Active Problems Chronic anemia (Acute) Moderate recurrent major depression (Acute) EH (generalized anxiety disorder) (Acute) Kidney stone on left side (Acute) Personal history of nicotine dependence (Acute) COPD (chronic obstructive pulmonary disease) (Acute) Anxiety (Acute) Asthma (Acute) Kidney injury (Acute) Physical exam (Acute) Chronic diarrhea (Acute) Osteoporosis (Acute) Kidney stones, calcium oxalate (Acute) AAA (abdominal aortic aneurysm) without rupture (Acute) Hospital discharge follow-up (Acute) Osteoarthritis of right hip (Acute) Osteoarthritis of left hip (Acute) Osteoporosis (Acute) Bilateral hip pain (Acute) ANTONETTE (obstructive sleep apnea) (Acute) Bilateral lumbar radiculopathy (Acute) Flank pain (Acute) Lumbar spondylosis (Acute) Renal calculi (Acute) Degenerative disc disease, lumbar (Acute) Osteoarthritis of both hips (Chronic) Mixed hyperlipidemia (Acute) Lumbar degenerative disc disease (Acute) Coronary artery calcification seen on CT scan (Acute) Essential hypertension (Acute) Type 2 diabetes mellitus with unspecified complications (Acute) Persistent insomnia (Acute) Hypersomnia (Acute) Snoring (Acute) Supraventricular tachycardia (Acute) GERD without esophagitis (Acute) Depression with anxiety (Acute) Hypertriglyceridemia (Acute) CAD (coronary artery disease) (Acute) Allergic rhinitis (Acute) Parkinsons disease (Acute) Past Medical History Medical History Moderate recurrent major depression Lung mass Chronic painful diabetic neuropathy AAA (abdominal aortic aneurysm) Surgery, elective Pain Hx of backache Hx of supraventricular tachycardia Hypersomnia Snoring Obstructive sleep apnea of adult Chronic hip pain, bilateral Eye pain Diffuse pain Chest pain Supraventricular tachycardia Cough Other and unspecified hyperlipidemia SOB (shortness of breath) Precordial chest pain Annual physical exam Nausea Encounter to establish care Peripheral vascular disease Bilateral artificial lens implant Allergic rhinitis Post menopausal syndrome Vaginitis and vulvovaginitis Diabetes type 2, controlled CAD (coronary artery disease) Hypertriglyceridemia Depression with anxiety GERD without esophagitis Hypertension Parkinsons disease Functional capacity: independent ambulation Patient : No Family History Family History Mother Diabetes Father Brain cancer Son Diabetes Family/Other Colon cancer Family history of problems with anesthesia: No Surgical History Surgical History H/O prior ablation treatment History of tubal ligation History of cholecystectomy History of Problems with Anesthesia: No Social History Social History Household Members: Caregiver Housing: Apartment Do you presently have visiting nurse or other home services: No Alcohol intake: never Patient Tobacco Use Status: Former Tobacco user Tobacco use type: Cigarette Years Smoked: started at age 27, 3PPD, quit 5 years ago (2019) e-Cigarette/Vaping Use: Never Used Second Hand Smoke Exposure: No Advance Directives: No Advance Directives Information Provided: Yes service: No Current occupational status: retired Cognitive needs: No Hearing needs: No Vision needs: Yes (glasses) Meds Allergies Allergy/AdvReac Type Severity Reaction Status Date / Time influenza virus vaccine, Allergy Intermediate SWELLING Verified 02/19/24 11:35 specific [Influenza Virus Vacc,Specific] Active Medications: Current Medications Lactated Ringer's (Lr) 1,000 mls @ 80 mls/hr IVCONT .[id number] [facility] Home Medications ?Medication ?Instructions ?Recorded ?Confirmed ?Last Taken ?Type albuterol sulfate 90 mcg/actuation 2 puff inhalation Q4-6H PRN 11/10/23 03/11/24 Unknown History aerosol inhaler Shortness Of Breath Or Wheezing omeprazole 20 mg capsule,delayed 20 mg PO DAILY PRN Acid Reflux 11/10/23 03/11/24 Unknown History release Exam Height,Weight and Vital Signs: Height 5 ft 4 in Weight 59.874 kg Airway Mallampati Class: II TM Dist: >3cm Neck ROM: Full Heart: RRR Lungs: severe wheezing Assessment and Plan Assessment Anesthesia Assessment: Anesthesia Plan Discussed and Chart Reviewed Final Anesthetic Review Family History of Problems with Anesthesia: No History of Problems with Anesthesia: No NPO: Yes ASA Class: III Final Preanesthetic Review: Meds/Allgs Chart Reviewed, Consent Obtained/Reviewed and Anes Risks/Benef Reviewed Patient Risk: Intermediate Anesthetic Plan Anesthetic Plan: MAC: Disposition: Standard PACU
[2024-03-25 07:46] VITALS: BP 142/76; PULSE 78; RESP 16; TEMP 36.7; O2SAT 95; BMI 22.3
[2024-03-25 07:56] LABS: Glucose, Whole Blood 117 mg/dL (60-115)
--- NOTE | 2024-03-25 08:00 | MHC.SHP ---
Pre-Procedural Eval Section A - 24 Hr Update-Section A only Date of Service: 03/25/24 Section B - Complete if H&P > 30 days Chief Complaint: Chronic diarrhea, anemia Details of Present Illness: Moderate recurrent major depression Lung mass Chronic painful diabetic neuropathy AAA (abdominal aortic aneurysm) Surgery, elective Pain Hx of backache Hx of supraventricular tachycardia Hypersomnia Snoring Obstructive sleep apnea of adult Chronic hip pain, bilateral Eye pain Diffuse pain Chest pain Supraventricular tachycardia Cough Other and unspecified hyperlipidemia SOB (shortness of breath) Precordial chest pain Annual physical exam Nausea Encounter to establish care Peripheral vascular disease Bilateral artificial lens implant Allergic rhinitis Post menopausal syndrome Vaginitis and vulvovaginitis Diabetes type 2, controlled CAD (coronary artery disease) Hypertriglyceridemia Depression with anxiety GERD without esophagitis Hypertension Parkinsons disease Surgical History H/O prior ablation treatment History of tubal ligation History of cholecystectomy Present Medications: see Short Stay Collaborative assessment Allergies: Allergies Allergy/AdvReac Type Severity Reaction Status Date / Time influenza virus vaccine, Allergy Intermediate SWELLING Verified 02/19/24 11:35 specific [Influenza Virus Vacc,Specific] Review of Systems Review of Systems Comment: Ten point ROS negative Exam Exam Comment: Gen appear: No acute distress HEENT: no icterus Chest: No overt resp distress Abd: soft, nontender, nondistended Psych: Stable affect, answering questions appropriately Neuro: A/Ox3 noted to move all extremities spontaneously Ext: no peripheral edema Plan Diagnosis/Plan: Change I have reviewed the history and physical and performed a pertinent physical examination on my patient. No changes have occurred unless specified. Patient has a cold with productive cough and increased upper respiratory secretions at the time of assessment today. We will only proceed with colonoscopy, and bring her back for the upper endoscopy at a later date. Time Spent With Patient Time: Total time managing care of this patient today ____ minutes.
[2024-03-25] MEDS: Lactated Ringers 1,000 ML 80 ML IVCONT (08:05)
[2024-03-25] MEDS: Albuterol Sulfate (0.083%) 2.5 MG/3 ML VIAL.NEB INHALE (08:07)
[2024-03-25 08:08] VITALS: PULSE 75; RESP 17; O2SAT 93
--- NOTE | 2024-03-25 08:14 | PC.NURSE ---
Patient arrived to preop. Per her and her nurse Juan Jose, patient has had a productive cough for the last three days, sputum light green/creamy. Patient brought into preop for further assessment. SaO2 93-95%, Afebrile. Lung sounds wheezing and rhonchi throughout. Dr. Gu made aware and at bedside to assess. New order for preop Nebulizer. Per her, okay with proceeding with colonoscopy only, and holding off on upper endo until later date when patient is not sick. Patient agreeable. Dr. Resendiz at bedside and made aware. Respiratory called to bedside, nebulizer administered, tolerated well.
--- NOTE | 2024-03-25 08:44 | HO.POSTANES ---
Post Anesthesia Evaluation Post Anesthesia Evaluation Date of Service: 03/25/24 Vital Signs: Vital Signs Temp Pulse Resp BP Pulse Ox O2 Del Method 03/25/24 08:08 75 17 03/25/24 07:46 98.0 F 78 16 142/76 H 95 Room Air Anesthesia: Monitored Mental Status: Awake Pain Control: Satisfactory Nausea/Vomiting: None Hydration: Adequate Anesthesia-Related Issues: No Anes. Related Issues
--- NOTE | 2024-03-25 08:44 | HO.ANESPROP2 ---
[facility] Active Problems Active Problems: All Active Problems Chronic anemia (Acute) Moderate recurrent major depression (Acute) EH (generalized anxiety disorder) (Acute) Kidney stone on left side (Acute) Personal history of nicotine dependence (Acute) COPD (chronic obstructive pulmonary disease) (Acute) Anxiety (Acute) Asthma (Acute) Kidney injury (Acute) Physical exam (Acute) Chronic diarrhea (Acute) Osteoporosis (Acute) Kidney stones, calcium oxalate (Acute) AAA (abdominal aortic aneurysm) without rupture (Acute) Hospital discharge follow-up (Acute) Osteoarthritis of right hip (Acute) Osteoarthritis of left hip (Acute) Osteoporosis (Acute) Bilateral hip pain (Acute) ANTONETTE (obstructive sleep apnea) (Acute) Bilateral lumbar radiculopathy (Acute) Flank pain (Acute) Lumbar spondylosis (Acute) Renal calculi (Acute) Degenerative disc disease, lumbar (Acute) Osteoarthritis of both hips (Chronic) Mixed hyperlipidemia (Acute) Lumbar degenerative disc disease (Acute) Coronary artery calcification seen on CT scan (Acute) Essential hypertension (Acute) Type 2 diabetes mellitus with unspecified complications (Acute) Persistent insomnia (Acute) Hypersomnia (Acute) Snoring (Acute) Supraventricular tachycardia (Acute) GERD without esophagitis (Acute) Depression with anxiety (Acute) Hypertriglyceridemia (Acute) CAD (coronary artery disease) (Acute) Allergic rhinitis (Acute) Parkinsons disease (Acute) Past Medical History Medical History Moderate recurrent major depression Lung mass Chronic painful diabetic neuropathy AAA (abdominal aortic aneurysm) Surgery, elective Pain Hx of backache Hx of supraventricular tachycardia Hypersomnia Snoring Obstructive sleep apnea of adult Chronic hip pain, bilateral Eye pain Diffuse pain Chest pain Supraventricular tachycardia Cough Other and unspecified hyperlipidemia SOB (shortness of breath) Precordial chest pain Annual physical exam Nausea Encounter to establish care Peripheral vascular disease Bilateral artificial lens implant Allergic rhinitis Post menopausal syndrome Vaginitis and vulvovaginitis Diabetes type 2, controlled CAD (coronary artery disease) Hypertriglyceridemia Depression with anxiety GERD without esophagitis Hypertension Parkinsons disease Functional capacity: independent ambulation Patient : No Family History Family History Mother Diabetes Father Brain cancer Son Diabetes Family/Other Colon cancer Family history of problems with anesthesia: No Surgical History Surgical History H/O prior ablation treatment History of tubal ligation History of cholecystectomy History of Problems with Anesthesia: No Social History Social History Household Members: Caregiver Housing: Apartment Are you a primary managed care liaison to a significant other at home: No Do you presently have visiting nurse or other home services: No Alcohol intake: never Patient Tobacco Use Status: Former Tobacco user Tobacco use type: Cigarette Years Smoked: started at age 27, 3PPD, quit 5 years ago (2019) Smoked in Last 30 Days: No e-Cigarette/Vaping Use: Never Used Second Hand Smoke Exposure: No Use of substances other than those prescribed or required for medical reasons: No Have you been hit, kicked, punched, or otherwise hurt by someone within the past year? If so, by whom?: No Are you DNR?: No Advance Directives: No Advance Directives Information Provided: Yes (Juan Jose Reynolds (Nurse/Friend) per patient) Advance Directives on File: No (No paperwork on file) Recently lost weight without trying: No How much weight loss: Not applicable Eating poorly because of decreased appetite: No Nutrition screen score: 0 Nutrition Risks: No Nutritional Risk Patient : No : No Poor oral hygiene: Yes (upper dentures, lower missing teeth) service: No Current occupational status: retired Cognitive needs: No Hearing needs: No Vision needs: Yes (glasses) Meds Allergies Allergy/AdvReac Type Severity Reaction Status Date / Time influenza virus vaccine, Allergy Intermediate SWELLING Verified 03/25/24 08:03 specific [Influenza Virus Vacc,Specific] Active Medications: Current Medications Lactated Ringer's (Lr) 1,000 mls @ 80 mls/hr IVCONT .[id number] JARED Last Admin: 03/25/24 08:05 Dose: 80 mls/hr Naloxone HCl (Naloxone Hcl 0.4 Mg/Ml Vial) 0.04 mg IVPUSH Q5M PRN PRN Reason: Excessive sedation or RR < 8 Home Medications ?Medication ?Instructions ?Recorded ?Confirmed ?Last Taken ?Type albuterol sulfate 90 mcg/actuation 2 puff inhalation Q4-6H PRN 11/10/23 03/11/24 Unknown History aerosol inhaler Shortness Of Breath Or Wheezing omeprazole 20 mg capsule,delayed 20 mg PO DAILY PRN Acid Reflux 11/10/23 03/11/24 Unknown History release Exam Height,Weight and Vital Signs: Height 5 ft 4 in Weight 58.967 kg Last Vital Signs Temp 98.0 F 03/25/24 07:46 Pulse 75 03/25/24 08:08 Resp 17 03/25/24 08:08 BP 142/76 H 03/25/24 07:46 Pulse Ox 95 03/25/24 07:46 O2 Del Method Room Air 03/25/24 07:46 Pertinent Lab Results Pertinent Lab Results: Laboratory Tests 03/25/24 07:49 POC Glucose 117 H Assessment and Plan Assessment Anesthesia Assessment: Anesthesia Plan Discussed and Chart Reviewed Final Anesthetic Review Family History of Problems with Anesthesia: No History of Problems with Anesthesia: No NPO: Yes ASA Class: III Final Preanesthetic Review: Meds/Allgs Chart Reviewed, Consent Obtained/Reviewed and Anes Risks/Benef Reviewed Patient Risk: Intermediate Procedure Risk: Low Anesthetic Plan Anesthetic Plan: MAC: Disposition: Standard PACU
--- NOTE | 2024-03-25 08:47 | P.OPN-COLO_ITS ---
Colonoscopy Operative Note Operative Note Date of Service: 03/25/24 Narrative: Procedure: Colonoscopy Indication: Chronic diarrhea Endoscopist: Nubia Resendiz MD Anesthesia Provider: Dr Tamika Gu Anesthesia type: MAC Instrument: Olympus [id number]-H190L Consent: Indication, risks vs benefits, and alternatives were discussed with the patient who gave written informed consent to proceed. An laboratory technical specialist was utilized to assist with the consent. EKG, pulse, pulse oximetry and blood pressure were monitored throughout the procedure. Please see anesthesia flowsheet. Procedure: The patient was brought to the procedure room and placed in the left lateral decubitus position. IV medications were administered by the anesthesia provider in attendance. A digital rectal exam was performed which was abnormal due to finding of hemorrhoids. A distal attachment cap was affixed to the tip of the colonoscope which was then inserted through the anus and advanced through the colon to the cecum at 75 cm,and terminal ileum. Appendiceal orifice and ileocecal valve were identified. Mucosa was carefully examined under high definition white light as the instrument was slowly withdrawn in a retrograde panoramic fashion. Retroflexion was performed in rectum. The procedure was not difficult. There were no immediate obvious complications. The quality of the prep was BBPS: 3+2+3 = adequate \ Withdrawal time 7 minutes. Limitations: No limitations. Findings: Mucosa: Normal to cecum and terminal ileum. Cold forceps biopsies were taken to r/o microscopic colitis. Protruding lesions: * Large internal hemorrhoids without stigmata of recent bleeding. Excavated lesions: * Moderate diverticulosis of L sided colon. Impression: 1. Normal colon mucosa (biopsy) 2. Diverticulosis 3. External and internal hemorrhoids Recommendations: - Follow path results. - Repeat colonoscopy for asymptomatic colorectal ca screening not recommended due to age and comorbidities. - An upper endoscopy will be arranged in near future for evaluation of diarrhea.
[2024-03-25 08:55] VITALS: BP 88/45; PULSE 72; RESP 16; TEMP 36.1; O2SAT 96
[2024-03-25 09:10] VITALS: BP 125/61; PULSE 75; RESP 16; O2SAT 96
[2024-03-25 09:25] VITALS: BP 163/75; PULSE 75; RESP 16; TEMP 36.2; O2SAT 95
--- NOTE | 2024-03-25 09:33 | HO.POSTANES ---
Post Anesthesia Evaluation Post Anesthesia Evaluation Date of Service: 03/25/24 Vital Signs: Vital Signs Temp Pulse Resp BP Pulse Ox O2 Del Method 03/25/24 09:25 97.1 F 75 16 163/75 H 95 Room Air 03/25/24 09:10 75 16 125/61 96 Room Air 03/25/24 08:55 97 F 72 16 88/45 L 96 Room Air 03/25/24 08:08 75 17 03/25/24 07:46 98.0 F 78 16 142/76 H 95 Room Air Anesthesia: Monitored Mental Status: Awake Pain Control: Satisfactory Nausea/Vomiting: None Hydration: Adequate Anesthesia-Related Issues: No Anes. Related Issues
== END 2024-03-25 10:12 | disposition home or self-care (01) ==
PROVIDERS: PCP Internal Medicine; Visit Provider Internal Medicine
PROC: (CPT 45380; principal; 2024-03-25 08:10)
DX: K52.9 Noninfective gastroenteritis and colitis, unspecified (principal); K57.30 Diverticulosis of large intestine without perforation or abscess without bleeding; K64.8 Other hemorrhoids; K64.4 Residual hemorrhoidal skin tags; K21.9 Gastro-esophageal reflux disease without esophagitis; R10.13 Epigastric pain; I25.10 Atherosclerotic heart disease of native coronary artery without angina pectoris; I10 Essential (primary) hypertension; E78.5 Hyperlipidemia, unspecified; E11.40 Type 2 diabetes mellitus with diabetic neuropathy, unspecified; G20.A1 Parkinson's disease without dyskinesia, without mention of fluctuations; J44.9 Chronic obstructive pulmonary disease, unspecified; G47.33 Obstructive sleep apnea (adult) (pediatric); I73.9 Peripheral vascular disease, unspecified; F33.1 Major depressive disorder, recurrent, moderate; Z79.84 Long term (current) use of oral hypoglycemic drugs; Z79.899 Other long term (current) drug therapy; Z99.89 Dependence on other enabling machines and devices; Z87.891 Personal history of nicotine dependence; Z98.890 Other specified postprocedural states
CPT/HCPCS: 45380; 82947; 88305; 94640; J2003; J2704

== ENCOUNTER → 2024-03-25 06:56 | Outpatient (BNV) | payer MEDICARE, MEDICAID, SELFPAY | PROVIDERS: PCP Internal Medicine; Visit Provider Internal Medicine | DX: K52.9 Noninfective gastroenteritis and colitis, unspecified (principal); K64.8 Other hemorrhoids; K57.30 Diverticulosis of large intestine without perforation or abscess without bleeding | CPT/HCPCS: 45380 ==

== ENCOUNTER 2024-04-07 13:16 | Outpatient (AMB) | payer OTHER, MEDICAID, SELFPAY ==
--- NOTE | 2024-04-07 13:23 | MHC.OFFVIS ---
Vital Signs 04/07/24 13:29 Height 5 ft 4 in Weight 138 lb BMI 23.7 BP 157/70 H Blood Pressure Location Lt brachial Position Sitting Pulse 60 Intake Visit Reasons: S/P double; Dr. Resendiz Intake Note: Nely presents in the office as a follow up EGD / COLO CC: She comes into with her nurse. States that they are here for results. Pipeline Systems Operator Required: Yes Pipeline Systems Operator Language: Steel Spar Operator Services: Pipeline Systems Operator Present (CLARENCE Jones) Pipeline Systems Operator Name: CLARENCE Jones Allergies influenza virus vaccine, specific [Influenza Virus Vacc,Specific] Allergy (Intermediate, Verified 04/07/24 13:26) SWELLING HPI Comments Details: 73 y.o F with PMH of who is here for chronic abd pain, N,V and diarrhea. Pt had an admission to [facility] earlier this month for the same as well. Says has been ongoing 6 months, says primary sent a referral to GI but never heard back. Its almost episodic where she has 2-3 days of severe burning epigastric pain with nausea and multiple episodes of vomiting in a day as well as watery diarrhea up to 5-6 episodes a day. No blood. Urgency +. Night time sx +. Pt started using depends. Now since shes in the rehab, sx are being symptomatically managed. Now has soft BMs up to 3 times a day. Gets anti-emetic frequently. Last colo >10 year ago. Labs reviewed and has had normoctyic anemia for majority of this year. Pt also with significant smoking hx and has a CT chest pending. 03/25/24: [place] 1. Normal colon mucosa (biopsy) 2. Diverticulosis 3. External and internal hemorrhoids Diagnosis A. Colon, right, biopsy: Colonic mucosa with no specific change. B. Colon, left, biopsy: Colonic mucosa with no specific change 04/07/24: Results of the colo reviewed. An EGD was not performed as pt had active URI on the day of the procedure. Continues with diarrhea - has been having 6-7 loose BMs per day, including night time. If doesn't eat, no diarrhea. CT abd/pel was done without contrast so wasn't able to look at pancreas. [facility] Medical History (Updated 04/07/24 @ 14:01 by Nubia Resendiz MD) Moderate recurrent major depression Lung mass Chronic painful diabetic neuropathy AAA (abdominal aortic aneurysm) Surgery, elective Pain Hx of backache Hx of supraventricular tachycardia Hypersomnia Snoring Obstructive sleep apnea of adult Chronic hip pain, bilateral Eye pain Diffuse pain Chest pain Supraventricular tachycardia Cough Other and unspecified hyperlipidemia SOB (shortness of breath) Precordial chest pain Annual physical exam Nausea Encounter to establish care Peripheral vascular disease Bilateral artificial lens implant Allergic rhinitis Post menopausal syndrome Vaginitis and vulvovaginitis Diabetes type 2, controlled CAD (coronary artery disease) Hypertriglyceridemia Depression with anxiety GERD without esophagitis Hypertension Parkinsons disease Surgical History (Updated 04/07/24 @ 13:27 by SANDRA Card) Hx of colonoscopy H/O prior ablation treatment History of tubal ligation History of cholecystectomy Family History Mother Diabetes Father Brain cancer Son Diabetes Family/Other Colon cancer Social History Household Members: Caregiver Housing: Apartment Are you a primary healthcare administration intern to a significant other at home: No Do you presently have visiting nurse or other home services: No Alcohol intake: never Patient Tobacco Use Status: Former Tobacco user Tobacco use type: Cigarette Years Smoked: started at age 27, 3PPD, quit 5 years ago (2019) e-Cigarette/Vaping Use: Never Used Second Hand Smoke Exposure: No service: No Current occupational status: retired Cognitive needs: No Hearing needs: No Vision needs: Yes (glasses) Review of Systems Const All systems reviewed & are unremarkable except as noted in HPI and below Physical Exam Vital Signs: Last Vital Signs Pulse 60 04/07/24 13:29 BP 157/70 H 04/07/24 13:29 BMI result Body Mass Index 23.7 No apparent distress Elderly Nonicteric Abdomen soft, nondistended Alert and oriented x3, normal gait Assessment & Plan Assessment & Plan (1) Chronic diarrhea: Code(s): K52.9 - Noninfective gastroenteritis and colitis, unspecified Category: Medical Plan Continues with chronic watery diarrhea - based on hx appears to eb osmotic since improves when not eating/fasting. Prev was having unintentional weight loss but that has now resolved and in fact pt has gained 10 lbs in 6 months. Plan: - Stool studies as below for chornic infection, panc insufficiency and NET - EGD to be booked - Recheck renal function to see if permissive for CT with contrast - If unable to do CT, will order MRI - will have to be done under sedation as pt has severe tremors from PD Follow up 2 months Orders: Orders Pancreatic Elastase-1 Today Nubia Resendiz MD K52.9 - Noninfective gastroenteritis and colitis, unspecified Chromogranin A Today Nubia Resendiz MD K52.9 - Noninfective gastroenteritis and colitis, unspecified Cyclospora & Isospora Stool Today Nubia Resendiz MD K52.9 - Noninfective gastroenteritis and colitis, unspecified Giardia Ag Stool EIA Today Nubia Resendiz MD K52.9 - Noninfective gastroenteritis and colitis, unspecified Cryptosporidium Ag DFA Today Nubia Resendiz MD K52.9 - Noninfective gastroenteritis and colitis, unspecified Basic Metabolic Panel Today Nubia Resendiz MD N18.9 - Chronic kidney disease, unspecified Medications: New loperamide (Imodium A-D) 2 mg PO BID 90 days PRN 90 tabs 0RF loose stool Nubia Resendiz MD Refilled tiotropium-olodaterol 2.5-2.5 mcg/actuation (Stiolto Respimat) 2 puffs inhalation DAILY 4 grams 6RF Madison Acosta MD Coding Level of Care Code Est Pt Level 4 (95172) Diagnoses Chronic diarrhea K52.9
[2024-04-07 13:29] VITALS: BP 157/70; PULSE 60; BMI 23.7
== END 2024-04-07 14:13 | disposition home or self-care (01) ==
PROVIDERS: PCP Internal Medicine; Visit Provider Internal Medicine
DX: K52.9 Noninfective gastroenteritis and colitis, unspecified (principal)
CPT/HCPCS: 99214

== ENCOUNTER → 2024-04-07 13:16 | Outpatient (BNVA) | payer OTHER, MEDICAID, SELFPAY | PROVIDERS: PCP Internal Medicine; Visit Provider Internal Medicine ==

== ENCOUNTER 2024-04-16 12:32 | Outpatient (REF) | payer OTHER, MEDICAID, SELFPAY ==
[2024-04-16 13:48] LABS: Anion Gap 9 (12-20); Blood Urea Nitrogen 23 mg/dL (9-16); Calcium 9.5 mg/dL (8.4-10.2); Carbon Dioxide 28 mmol/L (22-29); Chloride 108 mmol/L (96-108); Estimated Glomerular Filt Rate 59; Glucose Random 133 mg/dL (60-115); Potassium 4.4 mmol/L (3.3-5.1); Sodium 141 mmol/L (135-145)
[2024-04-24 12:43] LABS: Chromogranin A 248 ng/mL (ADULTS: <311)
== END 2024-04-16 12:33 | disposition home or self-care (01) ==
LOC: HO.LAB 12:32
PROVIDERS: PCP Internal Medicine; Visit Provider Internal Medicine
DX: N18.9 Chronic kidney disease, unspecified (principal); K52.9 Noninfective gastroenteritis and colitis, unspecified
CPT/HCPCS: 36415; 80048; 86316

== ENCOUNTER 2024-04-17 | Outpatient (REF) | payer OTHER, MEDICAID, SELFPAY | END 2024-04-17 00:01 | disposition home or self-care (01) | LOC: HO.LNP | PROVIDERS: Visit Provider Internal Medicine | DX: K52.9 Noninfective gastroenteritis and colitis, unspecified (principal) | CPT/HCPCS: 82656; 87015; 87207; 87272; 87329 ==

== ENCOUNTER 2024-05-16 07:51 | Outpatient (REF) | payer OTHER, MEDICAID, SELFPAY ==
--- NOTE | ~2024-05-16 | US_ITS ---
CLINICAL HISTORY: I71.43 - Infrarenal abdominal aortic aneurysm, without rupture US Abdomen (AAA) Comparison: CT/MT/SR - CT ABDOMEN PELVIS WO IV CON - 11/09/23 18:57 EDT Findings: Aorta proximal 2.9 x 2.9 cm. Aorta mid 2.4 x 2.4 cm. Aorta distal 3.0 x 3.0 cm. Right common iliac artery 1.0 x 0.8 cm. Left common iliac artery 1.1 x 0.6 cm. IMPRESSION: 1. 2.4 cm aneurysm of the mid abdominal aorta. 2. 3.0 cm aneurysm of the distal abdominal aorta This document has been electronically signed by: Martita Posada MD on 05/16/2024 14:11:04
== END 2024-05-16 07:52 | disposition home or self-care (01) ==
LOC: HO.US 07:51
PROVIDERS: PCP Internal Medicine; Visit Provider Surgery Vascular Surgery
DX: I71.43 Infrarenal abdominal aortic aneurysm, without rupture (principal)
CPT/HCPCS: 76706

== ENCOUNTER → 2024-05-16 07:53 | Outpatient (BNV) | payer OTHER, MEDICAID, SELFPAY | PROVIDERS: PCP Internal Medicine; Visit Provider Radiology Diagnostic Radiology | DX: I71.43 Infrarenal abdominal aortic aneurysm, without rupture (principal) | CPT/HCPCS: 76706 ==

== ENCOUNTER 2024-05-19 16:54 | Outpatient (AMB) | payer OTHER, MEDICAID, SELFPAY ==
[2024-05-19 17:00] VITALS: BP 130/72; BMI 23.0
--- NOTE | 2024-05-19 17:00 | MHC.PC.OV ---
Vital Signs 05/19/24 17:00 Height 5 ft 4 in Weight 133 lb 13.129 oz BMI 23.0 BP 130/72 Blood Pressure Location Lt brachial Position Sitting Intake Visit Reasons: 4 mo follow up dm Intake Note: Patient here for a 4 month follow up DM Surgical Nurse Required: Yes Surgical Nurse Language: Cook Chief Name: Madison Acosta MD Information Interpreted: non-clinical & clinical Accompanied by: LEARNING SPECIALIST Allergies influenza virus vaccine, specific [Influenza Virus Vacc,Specific] Allergy (Intermediate, Verified 05/19/24 17:05) SWELLING Medication List - Last Reconciled 05/19/24 by Madison Acosta MD albuterol sulfate 90 mcg/actuation 2 puffs inhalation Q4-6H PRN alendronate 70 mg PO QWEEK 90 days amlodipine 2.5 mg See Protocol PO DAILY atorvastatin 40 mg PO BEDTIME 90 days blood sugar diagnostic (Accu-Chek Guide test strips) Use 1 test strip once a day bupropion HCl 37.5 mg (1/2 x 75 mg) PO DAILY calcium carbonate-vit D3-min 600 mg-10 mcg (400 unit) 1 tab PO BID 90 days carbidopa-levodopa 25-100 mg (Sinemet) 1 tab PO QID lancets (Accu-Chek Fastclix Lancet Drum) Use 1 lancet once a day mrefoh-wdlakcep-xysgjvn 6,000-19,000 -30,000 unit (Creon) 4 caps orally with meals and 2 caps with snacks; do not exceed 10,000 unit/kg lipase per 24 hrs lisinopril 40 mg PO DAILY loperamide (Imodium A-D) 2 mg PO BID PRN 90 days lorazepam 0.5 mg PO Q12H 30 days metoprolol tartrate 25 mg PO BID 90 days omeprazole 20 mg PO DAILY PRN sitagliptin phos-metformin 50-500 mg (Janumet) 1 tab PO BID 90 days tiotropium-olodaterol 2.5-2.5 mcg/actuation (Stiolto Respimat) 2 puffs inhalation DAILY Tobacco use date assessed: 05/19/24 Fall risk assessment: 1 Fall in past year Last assessed Fall Risk: 05/19/24 Dental Screening Dental Screen Date: 05/19/24 Did you have a dental visit in the last 12 months?: No Did you have a dental problem in the last 6 months where you did not have access to dental care?: No Was dental information given to patient?: Patient declined HPI HPI Comments History of Present Illness Details This is a 74-year-old female with mild major depression, diabetes mellitus type 2, COPD, Parkinson's disease, supraventricular tachycardia and abdominal aortic aneurysm that comes today in a wheelchair accompanied by LEARNING SPECIALIST complaining of more tremors that started about 2 months ago. She also has loss of balance and memory loss. She follows with Neurology her Parkinson's disease which recently increase carbidopa-levodopa dose. I will order MRI of the brain. She looks more depressed and weak. A1c within goal. COPD well control. On metoprolol for supraventricular tachycardia. Recent ultrasound of the abdomen showing abdominal aortic aneurysm that is follow by vascular surgery. No need for surgical intervention at this point. [facility] Medical History (Updated 05/19/24 @ 17:29 by Madison Acosta MD) Moderate recurrent major depression Lung mass Chronic painful diabetic neuropathy AAA (abdominal aortic aneurysm) Surgery, elective Pain Hx of backache Hx of supraventricular tachycardia Hypersomnia Snoring Obstructive sleep apnea of adult Chronic hip pain, bilateral Eye pain Diffuse pain Chest pain Supraventricular tachycardia Cough Other and unspecified hyperlipidemia SOB (shortness of breath) Precordial chest pain Annual physical exam Nausea Encounter to establish care Peripheral vascular disease Bilateral artificial lens implant Allergic rhinitis Post menopausal syndrome Vaginitis and vulvovaginitis Diabetes type 2, controlled CAD (coronary artery disease) Hypertriglyceridemia Depression with anxiety GERD without esophagitis Hypertension Parkinsons disease Surgical History Hx of colonoscopy H/O prior ablation treatment History of tubal ligation History of cholecystectomy Family History Mother Diabetes Father Brain cancer Son Diabetes Family/Other Colon cancer Social History Household Members: Caregiver Housing: Apartment Are you a primary career education teacher to a significant other at home: No Do you presently have visiting nurse or other home services: No Alcohol intake: never Patient Tobacco Use Status: Former Tobacco user Tobacco use type: Cigarette Years Smoked: started at age 27, 3PPD, quit 5 years ago (2019) e-Cigarette/Vaping Use: Never Used Second Hand Smoke Exposure: No service: No Current occupational status: retired Cognitive needs: No Hearing needs: No Vision needs: Yes (glasses) Questionnaire PHQ-9 Over the last 2 weeks, how often have you been bothered by any of the following problems? 1. Little interest or pleasure in doing things: not at all 2. Feeling down, depressed, or hopeless: several days 3. Trouble falling or staying asleep, or sleeping too much: several days 4. Feeling tired or having little energy: several days 5. Poor appetite or overeating: several days 6. Feeling bad about yourself - or that you are a failure or have let yourself or your family down: several days 7. Trouble concentrating on things, such as reading the newspaper or watching television: nearly every day 8. Moving or speaking so slowly that other people could have noticed. Or the opposite - being so fidgety or restless that you have been moving around a lot more than usual: not at all 9. Thoughts that you would be better off or of hurting yourself in some way: not at all Total score: 8 Depression Screening Interpretation: Positive Depression Screening Follow-up: Existing condition, In treatment, Community Mental Health Worker F/U and Follow-up Visit Requested Depression Screening Done: Yes 43823 - PHQ-9 Billing: Yes Source: Developed by Drs. Mic Garcia, Nazia Mcdaniel, Yannick Ling and colleagues, with an educational kp from [employer]. Thrive Questionnaire Date Thrive assessed: 05/19/24 I am a: Patient What is your living situation today?: I have a steady place to live Within the past 12 months, did the food you bought not last and you didn't have the money to get more?: Never true Within the past 12 months, did you worry whether your food would run out before you got money to buy more?: Never true Do you have trouble paying for medicines?: No Do you have trouble getting transportation to medical appointments?: No Do you have trouble paying your heating and electricity bill?: No Do you have trouble taking care of your child, family member or friend?: No Do you have trouble with day-to-day activities such as bathing, preparing meals, shopping, managing finances, etc.?: Yes Are you currently unemployed and looking for a job?: No Are you interested in more education?: No Please select the resources that you would like help with: None Currently or been in a relationship where the following occur: No concerns reported THRIVE Score: 0 AUDIT C Alcohol Use Questionnaire (AUDIT-C) 1. How often do you have a drink containing alcohol?: Never Total Score: 0 Score Reviewed/Action Taken: No EH-7 AMB Questionnaire EH-7 Date EH - 7 assessed: 05/19/24 Feeling nervous, anxious, or on edge: 2 = More than half the days Not being able to stop or control worryin = Not at all Worrying too much about different things: 2 = More than half the days Trouble relaxin = Not at all Being so restless that it is hard to sit still: 0 = Not at all Becoming easily annoyed or irritable: 0 = Not at all Feeling afraid as if something awful might happen: 0 = Not at all Total EH-7 score (0-4 normal; 5-9 mild; 10-14 moderate; 15-21 severe): 4 Source: Developed by Drs. Mic Garcia, Nazia Mcdaniel, Yannick Ling and colleagues, with an educational kp from [employer]. EH-7 Assessment Billing EH-7 Assessment Tool: EH-7 Assessment 27070 Review of Systems Const All systems reviewed & are unremarkable except as noted in HPI and below Reports weakness Card Denies chest pain at rest, Denies chest pain with activity, Denies edema, Denies irregular heart rhythm, Denies claudication, Denies dyspnea, Denies dyspnea on exertion, Denies orthopnea, Denies paroxysmal nocturnal dyspnea and Denies slow heart rate Resp Denies cough, Denies dyspnea and Denies dyspnea on exertion GI Denies abdominal pain, Denies change in bowel habits, Denies excessive flatus, Denies nausea and Denies vomiting Denies urinary incontinence, Denies urinary hesitancy and Denies urinary urgency Musc Denies abnormal gait, Denies atrophy, Denies deformity and Denies limited range of motion Skin/Breast Denies bleeding lesions, Denies changing lesions and Denies rash Neuro Denies abnormal gait, Denies lack of coordination, Reports tremor(s) and Reports weakness Psych Reports depression Physical exam (Primary Care) Vital Signs: Last Vital Signs BP 130/72 05/19/24 17:00 BMI result Body Mass Index 23.0 Tobacco/Smoking Status: Tobacco use Status Tobacco use date assessed 05/19/24 05/19/24 17:07 Patient Tobacco Use Status Former Tobacco user 05/19/24 17:07 Tobacco use type Cigarette 05/19/24 17:07 e-Cigarette/Vaping Use Never Used 05/19/24 17:07 PHQ-9: PHQ-9 Score PHQ-9: Total score 8 05/19/24 17:38 Depression Screening Interpretation: Positive Depression Screening Follow-up: Existing condition, In treatment, Community Mental Health Worker F/U and Follow-up Visit Requested Thrive Assessment: Date of Thrive Assessment Date Thrive assessed 05/19/24 05/19/24 17:07 Currently or been in a relationship where the following occur: No concerns reported Const Limitations: wheelchair Resp Effort & Inspection: normal respiratory effort Auscultation: clear to auscultation bilaterally Cardio Jugular venous distension: no JVD Rate: regular rate Rhythm: regular rhythm Heart sounds: S1 normal heart sound present and S2 normal heart sound present Neuro Motor exam (neuro): Tremors during motor activity present bilateral upper extremity resting tremor and intention tremor Results AMB Hemoglobin A1c AMB Hemoglobin A1c 6.0 % Last Edit by SANDRA Thomas on 05/19/24 17:39 Results Reviewed Results Reviewed: Laboratory Last Values Hgb A1c (Clinic) 6.0 % (4.0-6.0) 05/19/24 17:38 Coding Level of Care Code Est Pt Level 4 (70145) Complex EM visit Add On G2211 Diagnoses Moderate recurrent major depression F33.1 COPD (chronic obstructive pulmonary disease) J44.9 Infrarenal abdominal aortic aneurysm (AAA) without rupture I71.43 Abdominal aorta location: infrarenal aorta Type 2 diabetes mellitus with unspecified complications E11.8 Parkinson's disease without dyskinesia or fluctuating manifestations G20.A1 Dyskinesia presence: without dyskinesia Fluctuating manifestations: without fluctuating manifestations Supraventricular tachycardia I47.1 Memory loss R41.3 Additional Codes EH-7 Assessment Billing - EH-7 Assessment Tool: EH-7 Assessment 42792 ([id number]) PHQ-9 - 20562 - PHQ-9 Billing: Yes ([id number]) Time Spent (min) 25 Assessment & Plan Assessment & Plan (1) Moderate recurrent major depression: Code(s): F33.1 - Major depressive disorder, recurrent, moderate Category: Medical Plan: Continue bupropion. (2) COPD (chronic obstructive pulmonary disease): Code(s): J44.9 - Chronic obstructive pulmonary disease, unspecified Category: Medical Plan: Continue Stiolto. (3) AAA (abdominal aortic aneurysm) without rupture: Code(s): I71.40 - Abdominal aortic aneurysm, without rupture, unspecified Category: Medical Qualifiers: Abdominal aorta location: infrarenal aorta Qualified Code(s): I71.43 - Infrarenal abdominal aortic aneurysm, without rupture Plan: Follow-up with vascular surgery. (4) Type 2 diabetes mellitus with unspecified complications: Code(s): E11.8 - Type 2 diabetes mellitus with unspecified complications Category: Medical Plan: Continue Janumet. A1c goal is equal or less than 7%. (5) Parkinsons disease: Code(s): G20 - Parkinson's disease Category: Medical Qualifiers: Dyskinesia presence: without dyskinesia Fluctuating manifestations: without fluctuating manifestations Qualified Code(s): G20.A1 - Parkinson's disease without dyskinesia, without mention of fluctuations Plan: Continue carbidopa-levodopa. Follow-up with Neurology. (6) Supraventricular tachycardia: Code(s): I47.1 - Supraventricular tachycardia Category: Medical Plan: Continue metoprolol. (7) Memory loss: Code(s): R41.3 - Other amnesia Category: Medical Plan: MRI of the brain ordered. Orders: Orders MR head/brain wo con Today R26.89 - Other abnormalities of gait and mobility, R41.3 - Other amnesia Vitamin B12 and Folate Today E53.8 - Deficiency of other specified B group vitamins Lipid Panel Today E78.5 - Hyperlipidemia, unspecified Microalbumin, Random (w Creat) Today R80.9 - Proteinuria, unspecified Vitamin D 25-OH Total Today E55.9 - Vitamin D deficiency, unspecified Thyroid Stimulating Hormone Today R41.3 - Other amnesia Complete Blood Count Auto Diff Today R41.3 - Other amnesia AMB Hemoglobin A1c Today E11.8 - Type 2 diabetes mellitus with unspecified complications
== END 2024-05-19 17:34 | disposition home or self-care (01) ==
PROVIDERS: PCP Internal Medicine; Visit Provider Internal Medicine
DX: J44.9 Chronic obstructive pulmonary disease, unspecified (principal); F33.1 Major depressive disorder, recurrent, moderate; I71.43 Infrarenal abdominal aortic aneurysm, without rupture; E11.8 Type 2 diabetes mellitus with unspecified complications; G20.A1 Parkinson's disease without dyskinesia, without mention of fluctuations; I47.10 Supraventricular tachycardia, unspecified; R41.3 Other amnesia

== ENCOUNTER → 2024-05-19 16:54 | Outpatient (BNVA) | payer OTHER, MEDICAID, SELFPAY | PROVIDERS: PCP Internal Medicine; Visit Provider Internal Medicine | DX: F33.1 Major depressive disorder, recurrent, moderate (principal); J44.9 Chronic obstructive pulmonary disease, unspecified; I71.43 Infrarenal abdominal aortic aneurysm, without rupture; E11.8 Type 2 diabetes mellitus with unspecified complications; G20.A1 Parkinson's disease without dyskinesia, without mention of fluctuations; I47.10 Supraventricular tachycardia, unspecified; R41.3 Other amnesia; Z79.899 Other long term (current) drug therapy | CPT/HCPCS: 83036; 96127 ==

== ENCOUNTER 2024-05-27 14:59 | Outpatient (AMB) | payer OTHER, MEDICAID, SELFPAY ==
--- NOTE | 2024-05-27 15:14 | A.OFFVIS_ITS ---
Intake Visit Reasons: follow up s/p Abd Arterial 05/16/24 Intake Note: Patient presents for s/p ABD arterial US 05/16/24. Patient states her legs hurt everyday. She is ambulating with a walker. Allergies influenza virus vaccine, specific [Influenza Virus Vacc,Specific] Allergy (Intermediate, Verified 05/27/24 15:18) SWELLING HPI HPI follow up s/p Abd Arterial 05/16/24: Details: Very pleasant 74-year-old female presents for routine annual surveillance follow-up regarding abdominal aortic aneurysm. She does have a history of diabetes and Parkinson's along with hypertension hyperlipidemia. It does appear that her Parkinson seems to be progressing and she does seem weaker than she did last year. Overall in good spirits and is at bedside they appeared to be doing relatively well. She is asymptomatic and now presents for routine follow-up. [facility] Medical History Moderate recurrent major depression Lung mass Chronic painful diabetic neuropathy AAA (abdominal aortic aneurysm) Surgery, elective Pain Hx of backache Hx of supraventricular tachycardia Hypersomnia Snoring Obstructive sleep apnea of adult Chronic hip pain, bilateral Eye pain Diffuse pain Chest pain Supraventricular tachycardia Cough Other and unspecified hyperlipidemia SOB (shortness of breath) Precordial chest pain Annual physical exam Nausea Encounter to establish care Peripheral vascular disease Bilateral artificial lens implant Allergic rhinitis Post menopausal syndrome Vaginitis and vulvovaginitis Diabetes type 2, controlled CAD (coronary artery disease) Hypertriglyceridemia Depression with anxiety GERD without esophagitis Hypertension Parkinsons disease Surgical History Hx of colonoscopy H/O prior ablation treatment History of tubal ligation History of cholecystectomy Family History Mother Diabetes Father Brain cancer Son Diabetes Family/Other Colon cancer Social History Household Members: Caregiver Housing: Apartment Are you a primary healthcare financial analyst to a significant other at home: No Do you presently have visiting nurse or other home services: No Alcohol intake: never Patient Tobacco Use Status: Former Tobacco user Tobacco use type: Cigarette Years Smoked: started at age 27, 3PPD, quit 5 years ago (2019) e-Cigarette/Vaping Use: Never Used Second Hand Smoke Exposure: No service: No Current occupational status: retired Cognitive needs: No Hearing needs: No Vision needs: Yes (glasses) Review of Systems Const All systems reviewed & are unremarkable except as noted in HPI and below Reports no additional complaints ENT Reports Normal hearing present Card Denies chest pain, Denies chest pain at rest, Denies chest pain with activity and Denies pedal edema Resp Denies cough GI Denies abdominal pain Musc Denies abnormal gait, Denies muscle cramps and Denies radiating pain into limb Skin/Breast Denies skin ulcer and Denies wounds Neuro Reports Normal hearing present and Denies abnormal gait Psych Reports no additional complaints Physical Exam Const General: cooperative, healthy appearing and comfortable Orientation/consciousness: oriented to person, oriented to place and oriented to time HEENT Head: Yes normal to inspection Neck Neck: Yes normal visual inspection Carotids: no bruits Chest Chest palpation & inspection: normal inspection of the chest Resp Effort & Inspection: normal respiratory effort and able to speak in complete sentences Auscultation: clear to auscultation bilaterally, no crackles, no rales, no rhonchi and no wheezes Cardio Rate: regular rate Rhythm: regular rhythm Heart sounds: S1 normal heart sound present and S2 normal heart sound present Bruits: no carotid bruits Peripheral pulses: Peripheral pulses 2+ throughout GI Inspection: Yes normal to inspection Skin Wounds: no wounds Hair: normal Neuro General: oriented to person, oriented to place and oriented to time Cranial nerves: Yes CN's II-XII intact bilaterally and Yes Normal hearing present Cognition (Neuro): normal cognition Motor exam (neuro): 5/5 motor strength present throughout Extrem Other: venous exam: No significant superficial varicosities or spider telangie ctasias, minimal edema General: No clubbing, No cyanosis and No edema Psych Appearance: grossly normal Mental Status: mental status grossly normal Speech and movement: Normal speech and movement present Results Reviewed Results Reviewed: Noninvasive arterial testing dated 05/16/2024 demonstrates distal aorta measuring 3 cm. Written report and images were reviewed. Assessment & Plan Assessment & Plan (1) AAA (abdominal aortic aneurysm) without rupture: Code(s): I71.40 - Abdominal aortic aneurysm, without rupture, unspecified Category: Medical Qualifiers: Abdominal aorta location: infrarenal aorta Qualified Code(s): I71.43 - Infrarenal abdominal aortic aneurysm, without rupture Plan: In short patient has radiologic evidence of a AAA on ultrasound of 3 cm. We have discussed the pathophysiology of aortic aneurysms and the risk of ruptures. We have discussed rupture risk based on size. In addition we have discussed conservative measures and risk factor modification for prevention of increase in size of the aneurysm. the [facility] Thank you for allowing us to participate in the care of this patient Orders: Orders US abdominal aortic aneurysm 1 Year I71.43 - Infrarenal abdominal aortic aneurysm, without rupture Coding Level of Care Code Est Pt Level 4 (85718) Complex EM visit Add On G2211 Diagnoses Infrarenal abdominal aortic aneurysm (AAA) without rupture I71.43 Abdominal aorta location: infrarenal aorta
== END 2024-05-27 16:00 | disposition home or self-care (01) ==
PROVIDERS: PCP Internal Medicine; Visit Provider Surgery Vascular Surgery
DX: I71.43 Infrarenal abdominal aortic aneurysm, without rupture (principal)
CPT/HCPCS: 99214; G2211

== ENCOUNTER → 2024-05-27 14:59 | Outpatient (BNVA) | payer OTHER, MEDICAID, SELFPAY | PROVIDERS: PCP Internal Medicine; Visit Provider Surgery Vascular Surgery ==

== ENCOUNTER 2024-06-04 07:42 | Outpatient (REF) | payer MEDICARE, MEDICAID, SELFPAY ==
--- NOTE | ~2024-06-04 | CT_ITS ---
CLINICAL HISTORY: K52.9 - Noninfective gastroenteritis and colitis, unspecified CT ABDOMEN AND PELVIS WITH CONTRAST Comparison: CT/AZ/SR - CT ABDOMEN PELVIS WO IV CON - 11/09/23 18:57 EDT Findings: No basilar consolidation or pleural effusion. Mild atelectasis and/or scarring. No hydronephrosis, significant perinephric edema or abnormal renal cortical attenuation. Tiny nonobstructing left intrarenal calculus. Several tiny right renal cysts. No acute abnormalities in the remaining solid organs. Cholecystectomy. Atherosclerotic changes throughout the aorta. Stable 3 cm infrarenal AAA. No bowel obstruction, pneumoperitoneum, or pneumatosis. No ascites. Large colonic stool burden. Multiple colonic diverticula. No significant mucosal, mesenteric or paracolic edema. The appendix is identified. No acute appendicitis. Urinary bladder and uterus unremarkable. Questionable rectal prolapse. No acute fracture. IMPRESSION: 1. No obstructive or acute inflammatory changes in the gastrointestinal and genitourinary tracts. 2. Nonobstructing punctate left nephrolithiasis. 3. Diverticulosis coli. Large colonic stool burden. This document has been electronically signed by: Mayela Keene DO on 06/04/2024 16:24:04
[2024-06-04] MEDS: iohexoL 350 MG/ML 100 ML INFUS..BTL IV (08:56)
[2024-06-04 15:08] LABS: Creatinine POC 0.7 mg/dL (0.5-1.4); GFR POC > 60
== END 2024-06-04 07:43 | disposition home or self-care (01) ==
LOC: HO.CT 07:42
PROVIDERS: PCP Internal Medicine; Visit Provider Internal Medicine
DX: K52.9 Noninfective gastroenteritis and colitis, unspecified (principal)
CPT/HCPCS: 74177; 82565; Q9967

== ENCOUNTER → 2024-06-04 07:43 | Outpatient (BNV) | payer MEDICARE, MEDICAID, SELFPAY | PROVIDERS: PCP Internal Medicine; Visit Provider Radiology Diagnostic Radiology | DX: N20.0 Calculus of kidney (principal); K57.30 Diverticulosis of large intestine without perforation or abscess without bleeding; K56.41 Fecal impaction | CPT/HCPCS: 74177 ==

== ENCOUNTER → 2024-06-09 16:41 | Outpatient (BNV) | payer MEDICARE, MEDICAID, SELFPAY | PROVIDERS: PCP Internal Medicine; Visit Provider Radiology Diagnostic Radiology | DX: R41.3 Other amnesia (principal) | CPT/HCPCS: 70551 ==

== ENCOUNTER 2024-06-09 16:46 | Outpatient (REF) | payer MEDICARE, MEDICAID, SELFPAY ==
--- NOTE | ~2024-06-09 | MR_ITS ---
EXAMINATION: MR BRAIN WITHOUT IV CONTRAST HISTORY: R41.3 - Other amnesia TECHNIQUE: Sagittal T1, coronal FLAIR, and axial T1, FLAIR, T2, gradient echo, and diffusion weighted MR images of the brain were obtained. COMPARISON: Correlation is made with an unenhanced head CT dated 11/09/2023. FINDINGS: There is diffuse prominence of the ventricular system and cortical sulci, consistent with atrophy. Periventricular and subcortical white matter hyperintensities are noted on the FLAIR and T2-weighted images which are nonspecific, but often seen in the setting of small vessel ischemic disease. There is no mass effect or midline shift. There are foci of magnetic susceptibility artifact in the bilateral thalami, consistent with hemosiderin. There is no evidence of acute intracranial hemorrhage. There are no foci of restricted diffusion. Normal vascular flow voids are noted in the basilar and carotid arteries. The visualized paranasal sinuses are clear. MR/MR head/brain wo con IMPRESSION: No acute intracranial abnormality. Electronically signed by: Mic Lujan MD 06/10/2024 08:09 AM EDT
== END 2024-06-09 16:47 | disposition home or self-care (01) ==
LOC: HO.MRI 16:46
PROVIDERS: PCP Internal Medicine; Visit Provider Internal Medicine
DX: R41.3 Other amnesia (principal); R26.89 Other abnormalities of gait and mobility
CPT/HCPCS: 70551

== ENCOUNTER 2024-07-02 11:01 | Outpatient (AMB) | payer OTHER, MEDICAID, SELFPAY ==
--- NOTE | 2024-07-02 11:14 | A.OFFVIS_ITS ---
Vital Signs 07/02/24 11:19 Height 5 ft 4 in Weight 132 lb 4.438 oz BMI 22.7 Intake Visit Reasons: CT Follow Up Intake Note: Nely presents in the office as a follow up CT scan. CC: States that she is not having any differences - everything is the same from the visit before. Putty And Caulking Supervisor Required: Yes Allergies influenza virus vaccine, specific [Influenza Virus Vacc,Specific] Allergy (Intermediate, Verified 05/27/24 15:18) SWELLING HPI Comments Details: 73 y.o F with PMH of who is here for chronic abd pain, N,V and diarrhea. Pt had an admission to [facility] earlier this month for the same as well. Says has been ongoing 6 months, says primary sent a referral to GI but never heard back. Its almost episodic where she has 2-3 days of severe burning epigastric pain with nausea and multiple episodes of vomiting in a day as well as watery diar cuong up to 5-6 episodes a day. No blood. Urgency +. Night time sx +. Pt started using depends. Now since shes in the rehab, sx are being symptomatically managed. Now has soft BMs up to 3 times a day. Gets anti-emetic frequently. Last colo >10 year ago. Labs reviewed and has had normoctyic anemia for majority of this year. Pt also with significant smoking hx and has a CT chest pending. 03/25/24: [place] 1. Normal colon mucosa (biopsy) 2. Diverticulosis 3. External and internal hemorrhoids Diagnosis A. Colon, right, biopsy: Colonic mucosa with no specific change. B. Colon, left, biopsy: Colonic mucosa with no specific change 04/07/24: Results of the colo reviewed. An EGD was not performed as pt had active URI on the day of the procedure. Continues with diarrhea - has been having 6-7 loose BMs per day, including night time. If doesn't eat, no diarrhea. CT abd/pel was done without contrast so wasn't able to look at pancreas. 07/02/24: Here for follow up. Stool testing suggestive of possible EPI. CT abd/pel without any chronic panc or panc mass. Pt reports excellent response to creon. On 2 caps with breakfast and lunch and 1 cap with dinner. Has 1 BM every day or every other day which is formed. She is off depends ! Laboratory Tests 11/22/23 04/16/24 04/17/24 12:45 12:56 09:39 Stool Calprotectin 49 Stool Pancreat Elastase SEE NOTE Chromogranin A 248 PFSH Medical History Moderate recurrent major depression Lung mass Chronic painful diabetic neuropathy AAA (abdominal aortic aneurysm) Surgery, elective Pain Hx of backache Hx of supraventricular tachycardia Hypersomnia Snoring Obstructive sleep apnea of adult Chronic hip pain, bilateral Eye pain Diffuse pain Chest pain Supraventricular tachycardia Cough Other and unspecified hyperlipidemia SOB (shortness of breath) Precordial chest pain Annual physical exam Nausea Encounter to establish care Peripheral vascular disease Bilateral artificial lens implant Allergic rhinitis Post menopausal syndrome Vaginitis and vulvovaginitis Diabetes type 2, controlled CAD (coronary artery disease) Hypertriglyceridemia Depression with anxiety GERD without esophagitis Hypertension Parkinsons disease Surgical History Hx of colonoscopy H/O prior ablation treatment History of tubal ligation History of cholecystectomy Family History Mother Diabetes Father Brain cancer Son Diabetes Family/Other Colon cancer Social History Household Members: Caregiver Housing: Apartment Are you a primary career consultant to a significant other at home: No Do you presently have visiting nurse or other home services: No Alcohol intake: never Patient Tobacco Use Status: Former Tobacco user Tobacco use type: Cigarette Years Smoked: started at age 27, 3PPD, quit 5 years ago (2019) e-Cigarette/Vaping Use: Never Used Second Hand Smoke Exposure: No service: No Current occupational status: retired Cognitive needs: No Hearing needs: No Vision needs: Yes (glasses) Review of Systems Const All systems reviewed & are unremarkable except as noted in HPI and below Physical Exam Vital Signs: BMI result Body Mass Index 22.7 No apparent distress Elderly Nonicteric Abdomen soft, nondistended Alert and oriented x3, no significant tremors noted on exam today Assessment & Plan Assessment & Plan (1) Chronic diarrhea: Code(s): K52.9 - Noninfective gastroenteritis and colitis, unspecified Category: Medical (2) Exocrine pancreatic insufficiency: Code(s): K86.81 - Exocrine pancreatic insufficiency Category: Medical Plan Had malabsorption 2/2 EPI based on testing so far. Excellent response to Creon. Pt now has 1 BM per day which is formed and no furhter incontinence. Weight has also stabilized. They would like to cancel the EGD for now since sx resolved with PERT. Plan: - Cont creon 2 caps TID and 1 cap with snacks - Msg sent to cancel egd as per their request - Follow up 6 months Coding Level of Care Code Est Pt Level 3 (52372) Diagnoses Chronic diarrhea K52.9 Exocrine pancreatic insufficiency K86.81
[2024-07-02 11:19] VITALS: BMI 22.7
== END 2024-07-02 11:53 | disposition home or self-care (01) ==
LOC: HO.HGI 11:02
PROVIDERS: PCP Internal Medicine; Visit Provider Internal Medicine
DX: K52.9 Noninfective gastroenteritis and colitis, unspecified (principal); K86.81 Exocrine pancreatic insufficiency
CPT/HCPCS: 99213

== ENCOUNTER 2024-08-12 13:21 | Outpatient (AMB) | payer OTHER, MEDICAID, SELFPAY ==
--- NOTE | 2024-08-12 13:44 | MHC.OFFVIS ---
Vital Signs 08/12/24 13:47 Height 5 ft 4 in Weight 134 lb 14.766 oz BMI 23.2 BP 130/64 Blood Pressure Location Lt brachial Position Sitting Pulse 69 Pulse Source Monitor Intake Visit Reasons: 1 yr f/up General Merchandise Salesperson Required: No General Merchandise Salesperson Services: General Merchandise Salesperson Offered & Declined General Merchandise Salesperson Name: adarsh/Paras/ Accompanied by: Employer Allergies influenza virus vaccine, specific [Influenza Virus Vacc,Specific] Allergy (Intermediate, Verified 05/27/24 15:18) SWELLING Medication List - Last Reconciled 08/12/24 by Flako Pulliam MD albuterol sulfate 90 mcg/actuation 2 puffs inhalation Q4-6H PRN alendronate 70 mg PO QWEEK 90 days amlodipine 2.5 mg See Protocol PO DAILY atorvastatin 40 mg PO BEDTIME 90 days blood sugar diagnostic (Accu-Chek Guide test strips) Use 1 test strip once a day bupropion HCl 37.5 mg (1/2 x 75 mg) PO DAILY calcium carbonate-vit D3-min 600 mg-10 mcg (400 unit) 1 tab PO BID 90 days carbidopa-levodopa 25-100 mg (Sinemet) 1 tab PO TID lancets (Accu-Chek Fastclix Lancet Drum) Use 1 lancet once a day [id number] 6,000-19,000 -30,000 unit (Creon) 2 caps orally with meals and 1 caps with snacks; do not exceed 10,000 unit/kg lipase per 24 hrs; lisinopril 40 mg PO DAILY loperamide (Anti-Diarrheal (loperamide)) 2 mg PO BID PRN lorazepam 0.5 mg PO Q12H 30 days metoprolol tartrate 25 mg PO BID 90 days omeprazole 20 mg PO DAILY PRN sitagliptin phos-metformin 50-500 mg (Janumet) 1 tab PO BID 90 days tiotropium-olodaterol 2.5-2.5 mcg/actuation (Stiolto Respimat) 2 puffs inhalation DAILY HPI Comments Details: Nely returns for follow-up regarding supraventricular tachycardia. In the past, she has had several episodes of supraventricular tachycardia in spite of being on verapamil/beta-blockers. Subsequently, underwent EP study and ablation. It seems that she has Parkinson's disease and that apparently is getting worse. She is having tremors. Otherwise, gets 3-4 episodes of chest pains per month. This can happen with and without exertion. Apparently she cannot do anything when those pains happened. Seems somewhat atypical for angina. [facility] Medical History Moderate recurrent major depression Lung mass Chronic painful diabetic neuropathy AAA (abdominal aortic aneurysm) Surgery, elective Pain Hx of backache Hx of supraventricular tachycardia Hypersomnia Snoring Obstructive sleep apnea of adult Chronic hip pain, bilateral Eye pain Diffuse pain Chest pain Supraventricular tachycardia Cough Other and unspecified hyperlipidemia SOB (shortness of breath) Precordial chest pain Annual physical exam Nausea Encounter to establish care Peripheral vascular disease Bilateral artificial lens implant Allergic rhinitis Post menopausal syndrome Vaginitis and vulvovaginitis Diabetes type 2, controlled CAD (coronary artery disease) Hypertriglyceridemia Depression with anxiety GERD without esophagitis Hypertension Parkinsons disease Surgical History Hx of colonoscopy H/O prior ablation treatment History of tubal ligation History of cholecystectomy Family History Mother Diabetes Father Brain cancer Son Diabetes Family/Other Colon cancer Social History Household Members: Caregiver Housing: Apartment Are you a primary laboratory animal care veterinarian to a significant other at home: No Do you presently have visiting nurse or other home services: No Alcohol intake: never Patient Tobacco Use Status: Former Tobacco user Tobacco use type: Cigarette Years Smoked: started at age 27, 3PPD, quit 5 years ago (2019) e-Cigarette/Vaping Use: Never Used Second Hand Smoke Exposure: No service: No Current occupational status: retired Cognitive needs: No Hearing needs: No Vision needs: Yes (glasses) Review of Systems Const Denies chills, Denies fatigue, Denies fever(s), Denies frequent falls, Denies weakness, Denies weight gain and Denies weight loss ENT Denies dizziness Card Denies chest pain, Denies leg edema, Denies lightheadedness, Denies palpitations, Denies dyspnea and Denies dyspnea on exertion Resp Denies cough, Denies dyspnea and Denies dyspnea on exertion GI Denies hematochezia Musc Denies abnormal gait, Denies muscle weakness, Denies numbness, Denies radiating pain into limb and Denies tingling Neuro Denies abnormal gait, Denies dizziness, Denies frequent falls, Denies numbness, Denies tingling and Denies weakness Endo Denies fatigue and Denies palpitations Physical Exam Vital Signs: Last Vital Signs Pulse 69 08/12/24 13:47 BP 130/64 08/12/24 13:47 BMI result Body Mass Index 23.2 Const General: comfortable and no acute distress Orientation/consciousness: patient oriented x3 HEENT Other: Unremarkable Head: Yes normal to inspection Neck Neck: Yes normal visual inspection Chest Chest palpation & inspection: normal inspection of the chest Resp Auscultation: clear to auscultation bilaterally Cardio Palpation: normal PMI Heart sounds: S1 normal heart sound present, S2 normal heart sound present, no gallops, no murmurs and no rubs GI Palpation (GI): Soft to palpation Back/Spine/Pelvis Other: unremarkable Skin General skin exam: no rashes or lesions noted Neuro General: patient oriented x3 Extrem General: Yes normal to inspection Psych Mental Status: mental status grossly normal Office Procedures EKG Details: EKG with underlying sinus rhythm at 69/Min; no significant ischemic changes; normal OK and corrected QT. artifact from tremors. [id number], Complete Assessment & Plan Assessment & Plan (1) Supraventricular tachycardia: Code(s): I47.1 - Supraventricular tachycardia Category: Medical Plan: Status post slow pathway modification. Follow-up EP study noninducible for any arrhythmias. She remains on a small dose of beta-blockers. (2) Coronary artery calcification seen on CT scan: Code(s): I25.10 - Atherosclerotic heart disease of [place] coronary artery without angina pectoris Category: Medical Plan: Records from [place] reviewed. It seems that she had CAD detected by CT scan, but no evidence of ischemia by perfusion imaging in 2019. Another perfusion imaging study from 2021 showed normal perfusion. Chest pain is somewhat atypical but we will repeat her perfusion imaging to evaluate for any obstructive disease. (3) Type 2 diabetes mellitus with unspecified complications: Code(s): E11.8 - Type 2 diabetes mellitus with unspecified complications Category: Medical Plan: On . Last hemoglobin A1c is 6%. (4) Essential hypertension: Code(s): I10 - Essential (primary) hypertension Category: Medical Plan: On amlodipine/lisinopril. (5) Other and unspecified hyperlipidemia: Code(s): E78.5 - Hyperlipidemia, unspecified Category: Medical Plan: On atorvastatin. LDL is well controlled. Most recently 62 mg/dL. Triglycerides 130 mg/dL. Plan Discussion Notes The patient and I discussed episodic acute pain. I recommended a chemical stress test to identify any cardiac issues, explaining the importance of this evaluation given previous normal results but persistent symptoms. Patient consented to the stress test understanding the risks and benefits involved. Patient was informed and verbally consented to the use of an ambient scribe for clinic note documentation during this visit. Discussed with significant other. Orders: Orders NM cardiolite stress test Today Flako Pulliam MD R07.2 - Precordial pain CA lexiscan stress w alvaro Today Flako Pulliam MD I20.9 - Angina pectoris, unspecified Medications: Changed From carbidopa-levodopa 25-100 mg (Sinemet) 1 tab PO QID 120 tabs 6RF To carbidopa-levodopa 25-100 mg (Sinemet) 1 tab PO TID Chloe Hensley MD Patient Instructions: - Undergo the scheduled chemical stress test as discussed. - Continue taking medications as prescribed. - Monitor for any worsening symptoms and report them immediately. - Practice stress-reduction techniques to help manage tremors. - Follow up as advised to review test results and modify the treatment plan. Coding Level of Care Code Est Pt Level 4 (73832) Complex EM visit Add On G2211 Diagnoses Supraventricular tachycardia I47.1 Coronary artery calcification seen on CT scan I25.10 Type 2 diabetes mellitus with unspecified complications E11.8 Essential hypertension I10 Other and unspecified hyperlipidemia E78.5 CPT Codes EKG - CPT: 36913-[id number], Complete ([id number])
[2024-08-12 13:47] VITALS: BP 130/64; PULSE 69; BMI 23.2
== END 2024-08-12 14:27 | disposition home or self-care (01) ==
PROVIDERS: PCP Internal Medicine; Visit Provider Internal Medicine
DX: I47.10 Supraventricular tachycardia, unspecified (principal); I25.10 Atherosclerotic heart disease of native coronary artery without angina pectoris; E11.8 Type 2 diabetes mellitus with unspecified complications; I10 Essential (primary) hypertension; E78.5 Hyperlipidemia, unspecified
CPT/HCPCS: 93010; 99214; G2211

== ENCOUNTER → 2024-08-12 13:21 | Outpatient (BNVA) | payer OTHER, SELFPAY | PROVIDERS: PCP Internal Medicine; Visit Provider Internal Medicine | DX: I47.10 Supraventricular tachycardia, unspecified (principal) | CPT/HCPCS: 93005 ==

== ENCOUNTER → 2024-10-08 07:48 | Outpatient (REF) | payer OTHER, MEDICAID, SELFPAY ==
--- NOTE | ~2024-10-08 | NM_ITS ---
Lexiscan Myocardial perfusion study Indication: Chest pain Technique: The patient was brought in for a Lexiscan perfusion study on 10/08/2024 and was injected 0.4 mg of Lexiscan intravenously. Within a minute of this injection 25 mCi of sestamibi was given intravenously. Images were obtained using the SPECT gamma camera interlaced with the gating device. Images were obtained in supine position. Resting perfusion study was performed on 10/09/2024. Patient was administered 25 mCi of sestamibi intravenously at rest. Images were then obtained in supine position. Total DLP 116 mGy-cm. Images were processed with the software and compared side to side in short axis, horizontal long axis and vertical long axis views. Findings: Raw aquisition reviewed. Arms by the patient's side. The stress perfusion study showed diminished tracer uptake along the inferior wall. There is improved uptake with CT attenuation correction suggestive of diaphragmatic attenuation artifact. The gated study shows normal LV systolic function with calculated LVEF of 72%. LV cavity is normal in size. The gated study shows normal wall thickening and contraction of segments. Resting study shows no significant perfusion abnormality. Gating at rest reveals normal wall motion with ejection fraction at 68%. The findings are consistent with no clear reversible or fixed perfusion abnormality. NM/NM cardiolite stress test Impression: 1. Myocardial perfusion imaging study shows normal myocardial perfusion. 2. Gated LVEF is 72% during stress and 68% during rest. 3. Transient ischemic dilatation not present. EKG component of the test reported separately. Electronically signed by: Flako Pulliam MD 10/12/2024 10:49 AM EDT
--- NOTE | 2024-10-08 07:53 | CA_ITS ---
Acquisition Time: 2024-10-08 08:02:28 Total Exercise Time: 00:02:00 Test Indications: CP,Dyspnea Medications: SEE H&P Protocol: LEXISCAN Max HR: 104 BPM 70% of Pred: 148 BPM Max BP: 140/72 mmHG Max Work Load: 1.0 METS Pharmacological stress test with Lexiscan while pt moves her legs, with reports of SOB, 6/10 mid chest pressure, and abdominal discomfort, without any arrythmias, with normotensive response to injection. Nondiagnostic EKG for ischemia. In recovery, pt treated with IVP Aminophylline 75 mg to reverse Lexiscan after which pt gradually feeling back to baseline. Nuclear images pending. Test reviewed with Dr. Pulliam. Referred By: Flako Pulliam Electronically Signed By: Wellington Rosario
== END ==
LOC: HO.CARD 07:48
PROVIDERS: PCP Internal Medicine; Visit Provider Internal Medicine
DX: R07.2 Precordial pain (principal); I20.9 Angina pectoris, unspecified; I47.10 Supraventricular tachycardia, unspecified; R06.02 Shortness of breath; Z88.7 Allergy status to serum and vaccine; Z86.79 Personal history of other diseases of the circulatory system; Z85.29 Personal history of malignant neoplasm of other respiratory and intrathoracic organs
CPT/HCPCS: 78452; 93017; A9500; J0280; J2785

== ENCOUNTER → 2024-10-08 07:53 | Outpatient (BNV) | payer OTHER, MEDICAID, SELFPAY | PROVIDERS: PCP Internal Medicine | DX: R07.9 Chest pain, unspecified (principal) | CPT/HCPCS: 78452; 93016; 93018 ==

== ENCOUNTER 2024-10-10 13:51 | Outpatient (REF) | payer OTHER, MEDICAID, SELFPAY ==
--- NOTE | ~2024-10-10 | CT_ITS ---
EXAMINATION: CT LUNG SCREENING HISTORY: Z87.891 - Personal history of nicotine dependence TECHNIQUE: Low dose axial images were obtained from the sternal notch to upper abdomen without IV contrast per standard departmental protocol. Sagittal and coronal reformatted images were also obtained and reviewed. One or more of the following techniques was used for dose reduction: Automated exposure control, adjustment of the mA and/or kV according to patient size, use of iterative reconstruction technique. DLP: 39 mGy-cm COMPARISON: Comparison is made with the prior examination dated 11/09/2023. FINDINGS: Lung nodules: Again seen is a 4 mm nodule at the left lung apex (series 4, image 91) and a punctate calcified granuloma in the right middle lobe of the series 4, image 97). No new pulmonary nodules are identified. Emphysema: none Coronary Calcification: severe Aortic Arch Calcification: moderate Potentially Significant Incidentals : none Additional Chest Findings: There is no pleural or pericardial effusion. No mediastinal or axillary lymphadenopathy is identified. Visualized upper abdomen: The visualized portions of the liver, spleen, and adrenals have an unremarkable unenhanced appearance. CT/CT lung screening IMPRESSION: No suspicious pulmonary nodules are identified. LUNG-RADS ASSESSMENT: Lung-RADS 2: Benign MANAGEMENT: Continue annual screening with LDCT in 12 months Category S: N/A Electronically signed by: Mic Lujan MD 10/10/2024 02:47 PM EDT
== END 2024-10-10 13:52 | disposition home or self-care (01) ==
LOC: HO.CT 13:51
PROVIDERS: PCP Internal Medicine; Visit Provider Internal Medicine Pulmonary Disease
DX: Z12.2 Encounter for screening for malignant neoplasm of respiratory organs (principal); Z87.891 Personal history of nicotine dependence
CPT/HCPCS: 71271

== ENCOUNTER → 2024-10-10 13:53 | Outpatient (BNV) | payer OTHER, MEDICAID, SELFPAY | PROVIDERS: PCP Internal Medicine; Visit Provider Radiology Diagnostic Radiology | DX: Z12.2 Encounter for screening for malignant neoplasm of respiratory organs (principal); Z87.891 Personal history of nicotine dependence; R91.1 Solitary pulmonary nodule | CPT/HCPCS: 71271 ==

== ENCOUNTER 2024-10-12 14:37 | Emergency (ER) | payer OTHER, MEDICAID, SELFPAY ==
--- NOTE | ~2024-10-12 | XR_ITS ---
CLINICAL HISTORY: fall, pain 4 view, chest and left ribs Comparison: CR/SR - XR CHEST 1V - 11/27/23 14:38 EDT Findings: No fractures or dislocations. No pneumothorax. The lungs are unremarkable. IMPRESSION: No acute rib fractures. This document has been electronically signed by: Mynor Arambula MD on 10/12/2024 15:30:30
--- NOTE | ~2024-10-12 | CT_ITS ---
CLINICAL HISTORY: fall CT cervical spine without contrast Comparison: None provided Findings: Vertebral alignment is within normal limits. Moderate degenerative changes of the cervical spine present. No acute fractures or dislocations. Visualized intracranial contents are unremarkable. No cervical fluid collections or masses. Lung apices are clear. Straightening of the cervical spine is present, likely due to patient positioning or muscular spasm. IMPRESSION: No acute findings. This document has been electronically signed by: Mynor Arambula MD on 10/12/2024 15:57:35
--- NOTE | ~2024-10-12 | CT_ITS ---
CLINICAL HISTORY: LUQ pain tenderness after fall, ? splenic injury CT abdomen and pelvis with contrast Comparison: CT/SR - CT ABDOMEN PELVIS W IV CON - 06/04/24 08:37 EDT Findings: No consolidation or effusion. Heart size mildly enlarged. Coronary artery calcifications are present. Lung bases are clear. Spleen is intact. No evidence of splenic laceration or perisplenic hematoma. Adrenal glands, pancreas and kidneys are normal. There is a few small cysts within the right kidney. No hydronephrosis. No renal or ureteral stones. Liver is normal. No bowel obstruction, pneumoperitoneum, or pneumatosis. Abdominal aorta has a fusiform infrarenal abdominal aortic aneurysm measuring 3.1 x 2.8 cm. Pelvic contents unremarkable. Normal appendix. Nondisplaced posterior left rib fractures involving the left 8th through 10th ribs, adjacent to the costovertebral junction. No acute fracture deformity of the spine. There are chronic central compression deformities of T11 and T12. Multilevel moderate degenerative change of the lumbar spine. IMPRESSION: Nondisplaced left 8th through 10th rib fractures. No solid or hollow organ injury. Infrarenal abdominal aortic aneurysm measuring 3.1 cm. This document has been electronically signed by: Mynor Arambula MD on 10/12/2024 18:44:40
--- NOTE | ~2024-10-12 | CT_ITS ---
CLINICAL HISTORY: fall CT head without contrast Comparison: MR - MR HEAD/BRAIN WO CON - 06/09/24 17:[address]/IN/SR - CT HEAD/BRAIN WO IV CON - 11/09/23 18:52 EDT Findings: No intra-axial mass, midline shift, hydrocephalus, or acute hemorrhage. Moderate cerebral atrophy. Extensive low attenuation in the periventricular white matter consistent with chronic small-vessel ischemic gliosis. Old lacunar infarcts in the bilateral basal ganglia. There is no sinus or mastoid fluid. The orbits are within normal limits. There is no acute fracture. IMPRESSION: 1. No acute intracranial findings. This document has been electronically signed by: Mynro Arambula MD on 10/12/2024 15:56:56
--- NOTE | 2024-10-12 14:48 | ED.FALL ---
HPI - Fall General Chief Complaint: Fall Stated Complaint: fall on cement/ bruised on left side Time Seen by Provider: 10/12/24 16:04 History of Present Illness ED Provider: Alfredo VELASCO Narrative: The patient is a 74-year-old female with a history of Parkinson's disease who was in her apartment during the night last night when she lost her balance and fell. She fell to her left side. She landed on her knees. She also injured the left side of her body. She is complaining primarily of pain in the left lower ribcage or left abdomen. It is not clear if she hit her head. Related Data Home Medications ?Medication ?Instructions ?Recorded ?Confirmed albuterol sulfate 90 mcg/actuation 2 puff inhalation Q4-6H PRN 11/10/23 08/12/24 aerosol inhaler Shortness Of Breath Or Wheezing carbidopa 25 mg-levodopa 100 mg 1 tab PO TID 08/12/24 08/12/24 tablet (Sinemet) Previous Rx's ?Medication ?Instructions ?Recorded calcium 600 mg (as carbonate)-vit 1 tab PO BID 90 days #180 tabs 09/12/23 D3 10 mcg (400 unit)-minerals tablet lisinopril 40 mg tablet 40 mg PO DAILY hypertension #90 11/27/23 tabs tiotropium 2.5 mcg-olodaterol 2.5 2 puff inhalation DAILY #4 grams 04/07/24 mcg/actuation mist for inhalation (Stiolto Respimat) alendronate 70 mg tablet 70 mg PO QWEEK 90 days #13 tabs 04/08/24 atorvastatin 40 mg tablet 40 mg PO BEDTIME 90 days #90 tabs 05/13/24 lorazepam 0.5 mg tablet 0.5 mg PO Q12H Anxiety 30 days #60 05/26/24 tabs metoprolol tartrate 25 mg tablet 25 mg PO BID 90 days #180 tabs 06/11/24 sitagliptin phosphate 50 1 tab PO BID 90 days #180 tabs 07/08/24 mg-metformin 500 mg tablet (Janumet) ckawlq-[id number]-yjjxsfh 2 cap PO .COMPLEX #240 caps 07/09/24 6,000-19,000-30,000 unit capsule,delayed rel (Creon) loperamide 2 mg tablet 2 mg PO BID PRN loose stool #90 07/09/24 (Anti-Diarrheal (loperamide)) tabs lancets (Accu-Chek Fastclix Lancet #100 ea 07/22/24 Drum) blood sugar diagnostic (Accu-Chek #100 ea 08/12/24 Guide test strips) omeprazole 20 mg capsule,delayed 20 mg PO DAILY PRN Acid Reflux 90 09/05/24 release days #90 caps bupropion HCl 75 mg tablet 37.5 mg (1/2 x 75 mg) PO DAILY #15 09/24/24 tabs amlodipine 2.5 mg tablet 2.5 mg PO DAILY #30 tabs 10/06/24 acetaminophen 500 mg capsule 1,000 mg (2 x 500 mg) PO Q8H PRN 10/12/24 fever or pain #14 caps Allergies Allergy/AdvReac Type Severity Reaction Status Date / Time influenza virus vaccine, Allergy Intermediate SWELLING Verified 10/12/24 14:58 specific (Influenza Virus Vacc,Specific) Review of Systems Review of Systems: Yes all other systems are reviewed and are negative PMFSH Past Medical History Medical History Moderate recurrent major depression Lung mass Chronic painful diabetic neuropathy AAA (abdominal aortic aneurysm) Surgery, elective Pain Hx of backache Hx of supraventricular tachycardia Hypersomnia Snoring Obstructive sleep apnea of adult Chronic hip pain, bilateral Eye pain Diffuse pain Chest pain Supraventricular tachycardia Cough Other and unspecified hyperlipidemia SOB (shortness of breath) Precordial chest pain Annual physical exam Nausea Encounter to establish care Peripheral vascular disease Bilateral artificial lens implant Allergic rhinitis Post menopausal syndrome Vaginitis and vulvovaginitis Diabetes type 2, controlled CAD (coronary artery disease) Hypertriglyceridemia Depression with anxiety GERD without esophagitis Hypertension Parkinsons disease Surgical History Hx of colonoscopy H/O prior ablation treatment History of tubal ligation History of cholecystectomy Family History Family History Mother Diabetes Father Brain cancer Son Diabetes Family/Other Colon cancer Social History Social History Household Members: Caregiver Housing: Apartment Are you a primary caretaker resort to a significant other at home: No Do you presently have visiting nurse or other home services: No Alcohol intake: never Patient Tobacco Use Status: Former Tobacco user Tobacco use type: Cigarette Years Smoked: started at age 27, 3PPD, quit 5 years ago (2019) Smoked in Last 30 Days: No e-Cigarette/Vaping Use: Never Used Second Hand Smoke Exposure: No Use of substances other than those prescribed or required for medical reasons: No Advance Directives: Yes Advance Directives on File: Yes Advance Directives Date on File: 11/14/23 Do you have a plan to hurt others: No Plan service: No Current occupational status: retired Cognitive needs: No Hearing needs: No Vision needs: Yes (glasses) Physical Exam Vital Signs: Vital Signs: Last Vital Signs Temp 97.7 F 10/12/24 19:18 Pulse 68 10/12/24 19:18 Resp 18 10/12/24 19:18 BP 155/65 H 10/12/24 19:18 Pulse Ox 97 10/12/24 19:18 O2 Del Method Room Air 10/12/24 19:18 BMI result Body Mass Index 26.2 Const: Other: The patient is a somewhat chronically ill-appearing 74-year-old. She is awake and alert and quite pleasant. She seems to have a parkinsonian tremor. She does not seem in obvious acute distress in any way. No signs of respiratory difficulty. She does not seem in overt discomfort except when she moves or changes position. HEENT: Other: No obvious signs of trauma to the head or the face. No raccoon eyes. No knowles sign. Eyes: Other: Pupils are round equal, conjunctivae are clear, extraocular movements intact Neck: Other: Mild posterior C-spine tenderness. No step-off. Chest: Other: There is chest wall tenderness to the left lower chest wall just above the costal margin at the anterior axillary line. No crepitus or subcutaneous emphysema. Resp: Effort & Inspection: normal respiratory effort Auscultation: clear to auscultation bilaterally Cardio: Rate: regular rate Rhythm: regular rhythm Heart sounds: S1 normal heart sound present and S2 normal heart sound present GI: Other: There is some tenderness of the left upper quadrant at the costal margin. The abdomen is otherwise soft. It is difficult to say of the left upper quadrant tenderness is actual abdominal tenderness or simply causing pain related to the chest wall. Back/Spine/Pelvis: Other: No signs of trauma to the back Skin: Other: Skin is dry and unremarkable. No bruising. Neuro: Other: The patient is awake and alert. She seemed to be quite frail. She has a parkinsonian tremor. No definite cranial nerve deficit. She moves her extremities symmetrically Extrem: Other: No deformities to knees. She moves her legs reasonably well. Course Course Course Narrative: 10/13 1447 Maria Guadalupe Gatitocipriano ARECHIGA This is a rapid medical exam. Deferred additional HPI, ROS, PE to primary provider. 74 yo female with PMH hx of osteoporosis, kidney stones, AAA, HLD, HTN, DM, CAD, GERD, parkinsons disease here with complaints of left rib pain after mechanical fall yesterday. It was unwitnessed by family. She does have some memory issues so family reports not a great historian. No AC therapy. Will obtain x-rays left rib, CT head/cervical spine. May need Ct chest/abdomen imaging. BP 92/54 in triage. Medications Administered Discontinued Medications Generic Name Dose Route Start Last Admin Trade Name Flakoq PRN Reason Stop Dose Admin Acetaminophen 975 mg 10/12/24 18:59 10/12/24 19:13 Acetaminophen 325 Mg Tablet PO 10/12/24 19:00 975 mg ONCE ONE Administration Iohexol 100 ml 10/12/24 17:55 10/12/24 17:55 Iohexol 350 Mg/Ml 100 Ml Infus..Btl IV 10/12/24 17:56 85 ml ONCE ONE Administration Medical Decision Making Medical Decision Making [facility] Narrative: The patient is a 74-year-old woman with Parkinson's disease who fell last night. She is here primarily with pain in the left lower chest wall and upper abdomen. It is not clear if she hit her head in the fall. A CT scan of the head and the cervical spine were ordered at triage which are negative. Labs are unremarkable. A chest x-ray with rib series shows no fracture. A CT scan to evaluate for a possible splenic injury shows no intra-abdominal injuries but does show left-sided nondisplaced rib fractures of the 8th, 9th, and 10th ribs. Clinically the patient looks stable and well. I think she may be a managed as an outpatient. She is advised to use acetaminophen as needed for pain. She should follow up with the regular doctor. Lab Data 10/12/24 16:15 10/12/24 16:15 Labs: Lab Results 10/12/24 Range/Units 16:15 WBC 9.3 (4.8-10.8) X10*3/uL RBC 3.67 L (4.20-5.50) X10*6/uL Hgb 10.9 L (12.0-16.0) g/dl Hct 33.1 L (37.0-47.0) % MCV 90.2 (80.0-98.0) fL MCH 29.7 (27.0-33.0) pg MCHC 32.9 (31.0-35.0) g/dl RDW 13.1 (11.0-16.0) % Plt Count 233 (160-400) X10*3/uL MPV 9.9 (9.4-12.3) fL Immature Gran % (Auto) 0.6 H (0.0-0.4) % Neut % (Auto) 54.8 (45-73) % Lymph % (Auto) 26.0 (20-40) % Webster % (Auto) 14.8 H (2-11) % Eos % (Auto) 3.5 (0-4) % Baso % (Auto) 0.3 (0-2) % Lymph # (Auto) 2.4 (1.2-4.9) X10*3/uL Webster # (Auto) 1.4 H (0.1-1.2) X10*3/uL Eos # (Auto) 0.3 (0.0-0.4) X10*3/uL Baso # (Auto) 0.0 (0.0-0.2) X10*3/uL Abs Immat Gran (auto) 0.06 H (0.00-0.03) X10*3/uL Absolute Neuts (auto) 5.1 (2.0-8.3) x10*3/uL Absolute Nucleated RBC 0.000 (0.0-0.012) X10*3/uL Nucleated RBC % (auto) 0.0 (0.0-0.2) /100WBC Sodium 143 (135-145) mmol/L Potassium 4.2 (3.3-5.1) mmol/L Chloride 108 (96-108) mmol/L Carbon Dioxide 25 (22-29) mmol/L Anion Gap 14 (12-20) BUN 22 H (9-16) mg/dL Creatinine 1.06 (0.5-1.4) mg/dL Estim Creat Clear Calc 39.0 Estimated GFR 51 Random Glucose 87 (60-115) mg/dL Calcium 9.2 (8.4-10.2) mg/dL Total Bilirubin 0.2 (0.0-1.0) mg/dL Direct Bilirubin < 0.2 (0.0-0.5) mg/dL AST 21 (5-31) U/L ALT 14 (0-31) U/L Alkaline Phosphatase 86 (39-117) U/L Total Protein 7.0 (6.5-8.0) g/dL Albumin 4.0 (3.5-5.0) g/dL Discharge Plan Discharge Clinical Impression: Multiple rib fractures, Fall, Abdominal aortic aneurysm (AAA), 30-34 mm diameter Patient Disposition: Home, Self-Care Instructions: Rib Fracture (ED), Aortic Disease (DC) Additional Instructions: The CAT scan shows that you have 3 fractured ribs in the left side. Specifically you have fractures of the 8th, 9th, and 10th ribs. These fractures are not displaced. Treatment of rib fractures is to treat the pain. There was no other particular treatments at his helpful. These should heal well on their own with time. Please continue your regular medications. Please make a follow up appointment with your regular doctor. Please be aware that you have a mild aortic aneurysm seen on your CAT scan. This measured 3.1 cm in size. This is similar to previous CAT scans you have had. This should be monitored over time. Please discuss this with your regular doctor. Prescriptions: New acetaminophen 500 mg capsule 1,000 mg PO Q8H PRN (Reason: fever or pain) Qty: 14 0RF No Action calcium carbonate-vit D3-min 600 mg calcium- 400 unit tablet 1 tab PO BID 90 Days Qty: 180 2RF lisinopril 40 mg tablet 40 mg PO DAILY Qty: 90 3RF alendronate 70 mg tablet 70 mg PO QWEEK 90 Days Qty: 13 3RF atorvastatin 40 mg tablet 40 mg PO BEDTIME 90 Days Qty: 90 1RF lorazepam 0.5 mg tablet 0.5 mg PO Q12H 30 Days Qty: 60 4RF metoprolol tartrate 25 mg tablet 25 mg PO BID 90 Days Qty: 180 1RF Janumet 50-500 mg tablet 1 tab PO BID 90 Days Qty: 180 1RF loperamide [Anti-Diarrheal (loperamide)] 2 mg tablet 2 mg PO BID PRN (Reason: loose stool) Qty: 90 0RF Creon 6,000-19,000 -30,000 unit capsule,delayed release(DR/EC) 2 cap PO .COMPLEX Qty: 240 1RF Rx Instructions: 2 caps orally with meals and 1 caps with snacks; do not exceed 10,000 unit/kg lipase per 24 hrs; (DME) lancets [Accu-Chek Fastclix Lancet Drum] Misc See Rx Instructions .Route Qty: 100 3RF Rx Instructions: Use 1 lancet once a day (DME) Accu-Chek Guide test strips Strip See Rx Instructions .Route Qty: 100 3RF Rx Instructions: Use 1 test strip once a day omeprazole 20 mg capsule,delayed release(DR/EC) 20 mg PO DAILY PRN (Reason: Acid Reflux) 90 Days Qty: 90 1RF bupropion HCl 75 mg tablet 37.5 mg PO DAILY Qty: 15 1RF amlodipine 2.5 mg tablet 2.5 mg PO DAILY Qty: 30 2RF Protocol: Hold for SBP< HOLD for SBP < : 90 albuterol sulfate 90 mcg/actuation Hfa Aerosol Inhaler 2 puff INHALATION Q4-6H PRN (Reason: Shortness Of Breath Or Wheezing) carbidopa-levodopa [Sinemet] 25-100 mg tablet 1 tab PO TID Stiolto Respimat 2.5-2.5 mcg/actuation mist 2 puff inhalation DAILY Qty: 4 6RF Referrals: Madison Carcamo MD [Primary Care Provider, Internal Medicine] Interventions: ED Discharge Assessment Last Done: 10/12/24 19:11 Discharge Date/Time: 10/12/24 19:28 Print Language: Italian
[2024-10-12 14:49] VITALS: BP 92/54; PULSE 61; RESP 16; TEMP 36.1; O2SAT 97; BMI 26.2
[2024-10-12 15:50] VITALS: BP 120/62; BP 92/54; PULSE 61; PULSE 66; RESP 16; TEMP 36.1; TEMP 36.6; O2SAT 95; O2SAT 97
--- NOTE | 2024-10-12 15:54 | PC.NURSE ---
Vincentian speaking. Son at bedside to help translate. Patient had a fall at home after tripping and landing on left side. Denies headstrke, LOC, Dizziness, Lightheadedness, vision changes. Pain on left flank 7/10 non radiating pain. Patient usually uses walker and cane when out of house, no device used during fall. VSS and up to date. Rib xray negative. Awaiting results of head and spine CT.
[2024-10-12 16:06] VITALS: BP 118/58; PULSE 65; RESP 13; TEMP 36.8; O2SAT 97
[2024-10-12 16:20] LABS: MANUAL DIFF FLAG NO
[2024-10-12 16:21] LABS: Hematocrit 33.1 % (37.0-47.0); Hemoglobin 10.9 g/dl (12.0-16.0); Imm Gran Abs Auto 0.06 X10*3/uL (0.00-0.03); Imm Gran Pct Auto 0.6 % (0.0-0.4); Lymphocytes Absolute Auto 2.4 X10*3/uL (1.2-4.9); Mean Corpuscular HGB Conc 32.9 g/dl (31.0-35.0); Mean Corpuscular Hemoglobin 29.7 pg (27.0-33.0); Mean Corpuscular Volume 90.2 fL (80.0-98.0); NRBC Abs Auto 0.000 X10*3/uL (0.0-0.012); NRBC Pct Auto 0.0 /100WBC (0.0-0.2); Platelet Count 233 X10*3/uL (160-400); Red Blood Count 3.67 X10*6/uL (4.20-5.50); White Blood Count 9.3 X10*3/uL (4.8-10.8)
[2024-10-12 16:34] LABS: Alanine Aminotransferase 14 U/L (0-31); Albumin Level 4.0 g/dL (3.5-5.0); Alkaline Phosphatase 86 U/L (39-117); Anion Gap 14 (12-20); Aspartate Amino Transferase 21 U/L (5-31); Blood Urea Nitrogen 22 mg/dL (9-16); Calcium 9.2 mg/dL (8.4-10.2); Carbon Dioxide 25 mmol/L (22-29); Chloride 108 mmol/L (96-108); Creatinine Clr Calc Pharmacy 39.0; Estimated Glomerular Filt Rate 51; Potassium 4.2 mmol/L (3.3-5.1); Sodium 143 mmol/L (135-145); Total Protein 7.0 g/dL (6.5-8.0)
[2024-10-12] MEDS: iohexoL 350 MG/ML 100 ML INFUS..BTL IV (17:55)
[2024-10-12 18:45] VITALS: BP 110/57; PULSE 61; RESP 14; TEMP 36.8; O2SAT 98
[2024-10-12 19:11] VITALS: BP 155/65; PULSE 68; RESP 14; TEMP 36.8; O2SAT 97
[2024-10-12 19:18] VITALS: BP 155/65; PULSE 68; RESP 18; TEMP 36.5; O2SAT 97
== END 2024-10-12 19:28 | disposition home or self-care (01) ==
PROVIDERS: Nurse Practitioner Family; Emergency Provider Emergency Medicine; PCP Internal Medicine
DX: S22.42XA Multiple fractures of ribs, left side, initial encounter for closed fracture (principal); S20.212A Contusion of left front wall of thorax, initial encounter; I71.40 Abdominal aortic aneurysm, without rupture, unspecified; R07.89 Other chest pain; R51.9 Headache, unspecified; R10.2 Pelvic and perineal pain; M54.2 Cervicalgia; Z79.899 Other long term (current) drug therapy; X58.XXXA Exposure to other specified factors, initial encounter; Y93.9 Activity, unspecified; Y92.9 Unspecified place or not applicable; Y99.8 Other external cause status
CPT/HCPCS: 36415; 70450; 71101; 72125; 74177; 80048; 80076; 85025; 99284; Q9967

== ENCOUNTER → 2024-10-12 14:51 | Outpatient (BNV) | payer OTHER, MEDICAID, SELFPAY | PROVIDERS: PCP Internal Medicine; Visit Provider Radiology Diagnostic Radiology | DX: I71.43 Infrarenal abdominal aortic aneurysm, without rupture (principal); M54.2 Cervicalgia; S09.90XA Unspecified injury of head, initial encounter; R07.81 Pleurodynia; W18.30XA Fall on same level, unspecified, initial encounter | CPT/HCPCS: 70450; 71101; 72125; 74177 ==

== ENCOUNTER 2024-10-23 11:04 | Outpatient (AMB) | payer OTHER, SELFPAY ==
--- NOTE | 2024-10-23 11:12 | MHC.OFFVIS ---
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 Now she reports tremors in her right leg.she reports balance issues . she had a fall 1 week ago - fell when she tried to get out of the house to the porch her tremors are worse. she uses a walker . She has mild tremor, but can have more intense hand tremor occasionally. She can do daily activities independently mostly, and her [employer] also can help her. Denies difficulty eating or swallowing. She has mild constipation. Denies hallucination she has trouble falling asleep Home sleep test result- AHI 20/hr and oxygen gela 83%. CPAP ordered, but patient declined to use CPAP due to high co-payment. Pt's hx-sHe was diagnosed with Parkinsons disease in [place] 6 years ago when she presented with left sided tremors and gait issues. She also has lumbar spondylosis which affects her gait. [facility] Medical History Moderate recurrent major depression Lung mass Chronic painful diabetic neuropathy AAA (abdominal aortic aneurysm) Surgery, elective Pain Hx of backache Hx of supraventricular tachycardia Hypersomnia Snoring Obstructive sleep apnea of adult Chronic hip pain, bilateral Eye pain Diffuse pain Chest pain Supraventricular tachycardia Cough Other and unspecified hyperlipidemia SOB (shortness of breath) Precordial chest pain Annual physical exam Nausea Encounter to establish care Peripheral vascular disease Bilateral artificial lens implant Allergic rhinitis Post menopausal syndrome Vaginitis and vulvovaginitis Diabetes type 2, controlled CAD (coronary artery disease) Hypertriglyceridemia Depression with anxiety GERD without esophagitis Hypertension Parkinsons disease Surgical History Hx of colonoscopy H/O prior ablation treatment History of tubal ligation History of cholecystectomy Family History Mother Diabetes Father Brain cancer Son Diabetes Family/Other Colon cancer Social History Household Members: Caregiver Housing: Apartment Are you a primary progressive care unit registered nurse to a significant other at home: No Do you presently have visiting nurse or other home services: No Alcohol intake: never Patient Tobacco Use Status: Former Tobacco user Tobacco use type: Cigarette Years Smoked: started at age 27, 3PPD, quit 5 years ago (2019) e-Cigarette/Vaping Use: Never Used Second Hand Smoke Exposure: No Advance Directives Date on File: 11/14/23 service: No Current occupational status: retired Cognitive needs: No Hearing needs: No Vision needs: Yes (glasses) Physical Exam Vital Signs: Last Vital Signs Pulse 61 10/23/24 11:13 BP 120/60 10/23/24 11:13 Pulse Ox 99 10/23/24 11:13 Oxygen Delivery Method Room Air 10/23/24 11:13 Const General: cooperative, healthy appearing and comfortable Nutritional Appearance: average body habitus Orientation/consciousness: patient oriented x3 Limitations: physical limitations HEENT Head: Yes normal to inspection and No normocephalic Neuro Other: left LE rest tremors Mild cog wheel rigidty Left UE Decreased facial expression and blink FFM and foot taps decreased kianna L>R Gait- slow , mildly antalgic Voice- normal General: patient oriented x3 Cranial nerves: Yes Nystagmus not present and Yes Normal facial strength present Cognition (Neuro): normal cognition Motor exam (neuro): 5/5 motor strength present throughout Coordination: [id number] test normal Assessment & Plan Assessment & Plan (1) Parkinsons disease: Code(s): G20 - Parkinson's disease Category: Medical Qualifiers: Dyskinesia presence: without dyskinesia Fluctuating manifestations: without fluctuating manifestations Qualified Code(s): G20.A1 - Parkinson's disease without dyskinesia, without mention of fluctuations (2) ANTONETTE (obstructive sleep apnea): Code(s): G47.33 - Obstructive sleep apnea (adult) (pediatric) Category: Medical Plan increase carbidopa/levodopa 25/100 qid PT for gait and balance will resend prescription for CPAP - unclear why she had a high co pay with Medicare and medicaid Orders: Orders PT Evaluation and Treatment Today G20.A1 - Parkinson's disease without dyskinesia, without mention of fluctuations Medications: Changed From carbidopa-levodopa 25-100 mg (Sinemet) 1 tab PO TID To carbidopa-levodopa 25-100 mg (Sinemet) 1 tab PO QID 120 tabs 6RF Coding Level of Care Code Est Pt Level 4 (79902) Complex EM visit Add On G2211 Diagnoses Parkinson's disease without dyskinesia or fluctuating manifestations G20.A1 Dyskinesia presence: without dyskinesia Fluctuating manifestations: without fluctuating manifestations ANTONETTE (obstructive sleep apnea) G47.33
[2024-10-23 11:13] VITALS: BP 120/60; PULSE 61; O2SAT 99
== END 2024-10-23 11:45 | disposition home or self-care (01) ==
LOC: HO.HSMS 11:05
PROVIDERS: PCP Internal Medicine; Visit Provider Psychiatry & Neurology Neurology
DX: G20.A1 Parkinson's disease without dyskinesia, without mention of fluctuations (principal); G47.33 Obstructive sleep apnea (adult) (pediatric)
CPT/HCPCS: 99214; G2211

== ENCOUNTER 2024-10-30 10:37 | Outpatient (REF) | payer OTHER, MEDICAID, SELFPAY ==
--- NOTE | ~2024-10-30 | US_ITS ---
CLINICAL HISTORY: N20.0 - Calculus of kidney US of kidneys Comparison: CT/REG/SR - CT ABDOMEN PELVIS W IV CON - 10/12/24 17:[address]/SR - CT ABDOMEN PELVIS W IV CON - 06/04/24 08:37 EDT US/TN/SR - US KIDNEY BILATERAL - 01/01/24 13:08 EDT Findings: Right kidney is normal in size, echogenicity and morphology, 10.1 cm in length. No calculus or hydronephrosis. Exophytic homogeneously hypoechoic lesion 1.3 x 0.6 x 0.9 cm of the midpole, no internal vascular flow or increased through transmission, corresponding to the hypodense lesion seen on prior CT and not seen on prior ultrasound. Left kidney is normal in size, echogenicity and morphology, 10.7 cm in length. No calculus, mass or hydronephrosis. Limited color Doppler demonstrates unremarkable bilateral blood flow. Impression: 1. No nephrolithiasis. 2. Right renal 1.3 cm exophytic lesion is indeterminate, cystic nature is not confirmed by current ultrasound, renal CT or MRI can be confirmatory if warranted. This document has been electronically signed by: Araceli Whyte MD on 10/30/2024 15:06:35
== END 2024-10-30 10:38 | disposition home or self-care (01) ==
LOC: HO.US 10:37
PROVIDERS: PCP Internal Medicine; Visit Provider Urology
DX: N20.0 Calculus of kidney (principal)
CPT/HCPCS: 76775

== ENCOUNTER → 2024-10-30 10:39 | Outpatient (BNV) | payer OTHER, MEDICAID, SELFPAY | PROVIDERS: PCP Internal Medicine; Visit Provider Radiology Diagnostic Radiology | DX: N20.0 Calculus of kidney (principal) | CPT/HCPCS: 76775 ==

== ENCOUNTER 2024-10-31 13:45 | Outpatient (AMB) | payer OTHER, MEDICAID, SELFPAY ==
[2024-10-31 13:57] VITALS: BP 104/60; PULSE 61; O2SAT 98; BMI 23.7
--- NOTE | 2024-10-31 13:57 | A.OFFVIS_ITS ---
Vital Signs 10/31/24 13:57 Height 5 ft 4 in Weight 138 lb BMI 23.7 BP 104/60 Blood Pressure Location Lt brachial Position Sitting Pulse 61 Pulse Source Pulse Oximeter Pulse Oximetry (%) 98 Oxygen Delivery Method Room Air Intake Visit Reasons: sleep apnea Allergies influenza virus vaccine, specific (Influenza Virus Vacc,Specific) Allergy (Intermediate, Verified 10/31/24 14:07) SWELLING HPI HPI sleep apnea: Details: 74-year-old lady, former 60+ pack-year smoker, quit 2018 with underlying ANTONETTE being started on CPAP by her sleep medicine provider referred for pulmonary evaluation. P she is followed for COPD now well controlled on Stiolto and albuterol MDI. She denies recent exacerbations. [facility] Medical History Moderate recurrent major depression Lung mass Chronic painful diabetic neuropathy AAA (abdominal aortic aneurysm) Surgery, elective Pain Hx of backache Hx of supraventricular tachycardia Hypersomnia Snoring Obstructive sleep apnea of adult Chronic hip pain, bilateral Eye pain Diffuse pain Chest pain Supraventricular tachycardia Cough Other and unspecified hyperlipidemia SOB (shortness of breath) Precordial chest pain Annual physical exam Nausea Encounter to establish care Peripheral vascular disease Bilateral artificial lens implant Allergic rhinitis Post menopausal syndrome Vaginitis and vulvovaginitis Diabetes type 2, controlled CAD (coronary artery disease) Hypertriglyceridemia Depression with anxiety GERD without esophagitis Hypertension Parkinsons disease Surgical History Hx of colonoscopy H/O prior ablation treatment History of tubal ligation History of cholecystectomy Family History Mother Diabetes Father Brain cancer Son Diabetes Family/Other Colon cancer Social History Household Members: Caregiver Housing: Apartment Are you a primary senior care manager to a significant other at home: No Do you presently have visiting nurse or other home services: No Alcohol intake: never Patient Tobacco Use Status: Former Tobacco user Tobacco use type: Cigarette Years Smoked: started at age 27, 3PPD, quit 5 years ago (2019) e-Cigarette/Vaping Use: Never Used Second Hand Smoke Exposure: No Advance Directives Date on File: 11/14/23 service: No Current occupational status: retired Cognitive needs: No Hearing needs: No Vision needs: Yes (glasses) Review of Systems Const Denies daytime sleepiness, Denies excessive sweating, Denies fatigue, Denies fever(s), Denies lethargy, Denies malaise, Denies night sweats, Denies snoring and Denies weight loss Eyes Denies blurry vision and Denies itchy eyes ENT Denies nasal congestion, Denies post nasal drip, Denies sinus pain, Denies sinus pressure and Denies other ( Thrush) Card Denies chest pain, Denies pedal edema, Denies dyspnea, Denies orthopnea and Denies paroxysmal nocturnal dyspnea Resp Denies cough, Denies hemoptysis, Denies excessive phlegm production, Denies dys pnea, Denies snoring and Denies wheezing GI Denies abdominal pain and Denies heartburn Musc Denies myalgias, Denies arthralgias and Denies joint swelling Skin/Breast Denies rash Neuro Denies memory loss and Denies seizure-like activity Psych Denies abnormal sleep pattern, Denies anxiety and Denies memory loss Endo Denies excessive sweating, Denies fatigue and Denies heat intolerance Abhilash/Lymph Denies easy bruising Aller/Immun Denies itchy eyes, Denies seasonal rhinorrhea and Denies wheezing Physical Exam Vital Signs: Last Vital Signs Pulse 61 10/31/24 13:57 BP 104/60 10/31/24 13:57 Pulse Ox 98 10/31/24 13:57 Oxygen Delivery Method Room Air 10/31/24 13:57 BMI result Body Mass Index 23.7 Const General: no acute distress and alert Nutritional Appearance: not obese Orientation/consciousness: Other orientation findings ( oriented) HEENT Head: Yes atraumatic Eyes General: appearance normal, both eyes and all related structures Sclerae: sclerae normal EOM: EOMs intact bilaterally Neck Neck: Yes supple Lymphatic: no lymphadenopathy noted Resp Effort & Inspection: normal respiratory effort and no use of accessory muscles Auscultation: clear to auscultation bilaterally Cardio Rate: regular rate Rhythm: regular rhythm Heart sounds: no gallops, no murmurs and no rubs Skin General skin exam: other ( warm) Extrem General: No clubbing, No cyanosis and No edema Assessment & Plan Assessment & Plan (1) COPD (chronic obstructive pulmonary disease): Code(s): J44.9 - Chronic obstructive pulmonary disease, unspecified Category: Medical Plan: Well controlled on current regimen of Stiolto and albuterol MDI. Continue current regimen. (2) Personal history of nicotine dependence: Code(s): Z87.891 - Personal history of nicotine dependence Category: Medical Plan: Lung cancer screening CT chest is pending for later this month. Coding Level of Care Code Est Pt Level 4 (29379) Diagnoses COPD (chronic obstructive pulmonary disease) J44.9 Personal history of nicotine dependence Z87.891
== END 2024-10-31 14:22 | disposition home or self-care (01) ==
LOC: HO.HPS 13:45
PROVIDERS: PCP Internal Medicine; Visit Provider Internal Medicine Pulmonary Disease
DX: J44.9 Chronic obstructive pulmonary disease, unspecified (principal); Z87.891 Personal history of nicotine dependence
CPT/HCPCS: 99214

== ENCOUNTER 2024-11-27 12:44 | Outpatient (AMB) | payer MEDICARE, MEDICAID, SELFPAY ==
--- NOTE | 2024-11-27 13:20 | A.OFFVIS_ITS ---
Intake Visit Reasons: 10m/ US Intake Note: Patient is present for 10m/US * Renal US 10/30 Urology Medication:NONE Antibiotic Allergy:NONE Blood Thinner:NONE Machinist 2Nd Shift Required: Yes Machinist 2Nd Shift Name: Leonard--[id number] Information Interpreted: non-clinical & clinical Allergies influenza virus vaccine, specific (Influenza Virus Vacc,Specific) Allergy (Intermediate, Verified 11/27/24 13:21) SWELLING Medication List - Last Reconciled 11/27/24 by Ralph Anthony MD acetaminophen 1,000 mg (2 x 500 mg) PO Q8H PRN albuterol sulfate 90 mcg/actuation 2 puffs inhalation Q4-6H PRN alendronate 70 mg PO QWEEK 90 days amlodipine 2.5 mg See Protocol PO DAILY atorvastatin 40 mg PO BEDTIME 90 days blood sugar diagnostic (Accu-Chek Guide test strips) Use 1 test strip once a day bupropion HCl 37.5 mg (1/2 x 75 mg) PO DAILY calcium carbonate-vit D3-min 600 mg-10 mcg (400 unit) 1 tab PO BID 90 days carbidopa-levodopa 25-100 mg (Sinemet) 1 tab PO QID lancets (Accu-Chek Fastclix Lancet Drum) Use 1 lancet once a day [id number] 6,000-19,000 -30,000 unit (Creon) 2 caps orally with meals and 1 caps with snacks; do not exceed 10,000 unit/kg lipase per 24 hrs; lisinopril 40 mg PO DAILY loperamide (Anti-Diarrheal (loperamide)) 2 mg PO BID PRN lorazepam 0.5 mg PO Q12H 30 days metoprolol tartrate 25 mg PO BID 90 days omeprazole 20 mg PO DAILY PRN 90 days sitagliptin phos-metformin 50-500 mg (Janumet) 1 tab PO BID 90 days tiotropium-olodaterol 2.5-2.5 mcg/actuation (Stiolto Respimat) 2 puffs inh alation DAILY vibegron (Gemtesa) 75 mg PO DAILY HPI Comments Details: 11/27/24-- History of Present Illness The patient is a 74-year-old female presenting h/o kidney stones, she complains of urinary frequency. She reports visiting the bathroom approximately 10 times during the day and 2 to 4 times at night, which varies. Comobidity- Parkinson's disease. Results - Ultrasound: No kidney stones detected. Plan 1. Urinary Frequency - Prescribe gemtesa - Follow-up in 10 to 12 weeks to assess changes in frequency. - If medication is not covered by insurance, pt instructed to contact the office for alternatives. 01/31/24--Nely is a 74-year-old female who is being followed for kidney stones. The patient has a history of Parkinson's denies significant bladder symptoms at this time. She had follow-up renal ultrasound 01/01/2024. Telemetry Tech pending I have reviewed imaging and discussed with the patient left kidney 5 mm nonobstructing kidney stone. In review of her chart she had a CT done in October when she was in the emergency room with complaints of diarrhea that time left kidney noted to tiny stones 2 mm in 3 mm. She denies any problems with urination. I have discussed that it is important that she continue to hydrate well especially when she has bouts of diarrhea. Will continue to monitor kidneys. Follow-up in 10 months renal ultrasound prior. 07/02/23--Nely is a 73 year old female PMH- parkinson's, who was seen in the ED on 04/17/23 with complaints of nausea and abdominal pain. CTAP 04/18/23 was done noting tiny right calcification right side bladder, suggestive that she passed a stone. Currently she is asymptomatic. She had a renal US done on 05/04/23. I have reviewed results- bilateral tiny renal calculi. Plan discussed, importance of adequate hydration, low sodium and low oxalate diet, monitor kidneys, follow up renal US in 6 months. [facility] Medical History Moderate recurrent major depression Lung mass Chronic painful diabetic neuropathy AAA (abdominal aortic aneurysm) Surgery, elective Pain Hx of backache Hx of supraventricular tachycardia Hypersomnia Snoring Obstructive sleep apnea of adult Chronic hip pain, bilateral Eye pain Diffuse pain Chest pain Supraventricular tachycardia Cough Other and unspecified hyperlipidemia SOB (shortness of breath) Precordial chest pain Annual physical exam Nausea Encounter to establish care Peripheral vascular disease Bilateral artificial lens implant Allergic rhinitis Post menopausal syndrome Vaginitis and vulvovaginitis Diabetes type 2, controlled CAD (coronary artery disease) Hypertriglyceridemia Depression with anxiety GERD without esophagitis Hypertension Parkinsons disease Surgical History Hx of colonoscopy H/O prior ablation treatment History of tubal ligation History of cholecystectomy Family History Mother Diabetes Father Brain cancer Son Diabetes Family/Other Colon cancer Social History Household Members: Caregiver Housing: Apartment Are you a primary student career development specialist to a significant other at home: No Do you presently have visiting nurse or other home services: No Alcohol intake: never Patient Tobacco Use Status: Former Tobacco user Tobacco use type: Cigarette Years Smoked: started at age 27, 3PPD, quit 5 years ago (2019) e-Cigarette/Vaping Use: Never Used Second Hand Smoke Exposure: No Advance Directives Date on File: 11/14/23 service: No Current occupational status: retired Cognitive needs: No Hearing needs: No Vision needs: Yes (glasses) Review of Systems Const All systems reviewed & are unremarkable except as noted in HPI and below Reports no additional complaints Eyes Reports no additional complaints ENT Reports no additional complaints Card Reports no additional complaints Resp Reports no additional complaints GI Reports no additional complaints Reports as per HPI Musc Reports no additional complaints Skin/Breast Reports system reviewed and no additional complaints, except as documented Neuro Reports no additional complaints Psych Reports no additional complaints Endo Reports no additional complaints Abhilash/Lymph Reports no additional complaints Aller/Immun Reports no additional complaints Results AMB Urinalysis, Automated UA Leukoctes 70 Tim/uL Last Edit by Deisy Schilling on 11/27/24 14:53 UA Nitrite Negative Last Edit by Deisy Schilling on 11/27/24 14:53 UA Urobilinogen 3.5 mg/dL Last Edit by Deisy Schilling on 11/27/24 14:53 UA Protein 1.0 mg/dL Last Edit by Deisy Schilling on 11/27/24 14:53 UA pH 5.5 Last Edit by Deisy Schilling on 11/27/24 14:53 UA Blood 0 Monroe/uL Last Edit by Deisy Schilling on 11/27/24 14:53 UA Specific Underwood 1.020 Last Edit by Deisy Schilling on 11/27/24 14:53 UA Ketone Positive Last Edit by Deisy Schilling on 11/27/24 14:53 UA Bilirubin 17 mg/dL Last Edit by Deisy Schilling on 11/27/24 14:53 UA Glucose 0 mg/dL Last Edit by Deisy Schilling on 11/27/24 14:53 Results Reviewed Results Reviewed: Laboratory Last Values Urine pH (Auto) 5.5 11/27/24 14:43 Specific [place]wood (Auto) 1.020 11/27/24 14:43 Urine Protein (Auto) 1.0 mg/dL 11/27/24 14:43 Glucose (UA)(Auto) 0 mg/dL 11/27/24 14:43 Urine Ketones (Auto) Positive 11/27/24 14:43 Urine Blood (Auto) 0 Monroe/uL 11/27/24 14:43 Urine Nitrite (Auto) Negative 11/27/24 14:43 Urine Bilirubin (Auto) 17 mg/dL 11/27/24 14:43 Urine Urobilinogen (Auto) 3.5 mg/dL 11/27/24 14:43 Leukocyte Esterase (Auto) 70 Tim/uL 11/27/24 14:43 Date of Service: 10/30/24 CLINICAL HISTORY: N20.0 - Calculus of kidney US of kidneys Comparison: CT/REG/SR - CT ABDOMEN PELVIS W IV CON - 10/12/24 17:[address]/SR - CT ABDOMEN PELVIS W IV CON - 06/04/24 08:37 EDT US/MA/SR - US KIDNEY BILATERAL - 01/01/24 13:08 EDT Findings: Right kidney is normal in size, echogenicity and morphology, 10.1 cm in length. No calculus or hydronephrosis. Exophytic homogeneously hypoechoic lesion 1.3 x 0.6 x 0.9 cm of the midpole, no internal vascular flow or increased through transmission, corresponding to the hypodense lesion seen on prior CT and not seen on prior ultrasound. Left kidney is normal in size, echogenicity and morphology, 10.7 cm in length. No calculus, mass or hydronephrosis. Limited color Doppler demonstrates unremarkable bilateral blood flow. Impression: 1. No nephrolithiasis. 2. Right renal 1.3 cm exophytic lesion is indeterminate, cystic nature is not confirmed by current ultrasound, renal CT or MRI can be confirmatory if warranted. Assessment & Plan Assessment & Plan (1) Parkinsons disease: Code(s): G20 - Parkinson's disease Category: Medical Qualifiers: Dyskinesia presence: without dyskinesia Fluctuating manifestations: without fluctuating manifestations Qualified Code(s): G20.A1 - Parkinson's disease without dyskinesia, without mention of fluctuations (2) History of kidney stones: Code(s): Z87.442 - Personal history of urinary calculi Category: Medical Plan Plan 1. Urinary Frequency - Prescribe gemtesa - Follow-up in 10 to 12 weeks to assess changes in frequency. - If medication is not covered by insurance, pt instructed to contact the office for alternatives. Orders: Orders AMB Urinalysis Automated Today Z13.9 - Encounter for screening, unspecified Medications: New vibegron (Gemtesa) 75 mg PO DAILY 30 tabs 2RF Patient Instructions: The patient had an opportunity to ask questions regarding treatment plan. The patient expressed understanding and agreement with the above treatment plan. The patient is aware they should contact our office by phone for worsening of their current condition or the appearance of new symptoms. Compliance is encouraged with any medications and followup testing that is ordered. It is a privilege to be allowed the opportunity to participate in the urologic care of your patient. If you have any questions or concerns regarding treatment for the above conditions please do not hesitate to contact me. The office telephone contact is [phone]. This note is constructed in part using voice recognition software. While every effort has been made to ensure accuracy bonded structures repairer errors may have been included. Yours sincerely, Ralph Anthony MD Scribe Plan - Not visible on output: Patient was informed and verbally consented to the use of an ambient scribe for clinic note documentation during this visit. Coding Level of Care Code Est Pt Level 4 (41627) Diagnoses Parkinson's disease without dyskinesia or fluctuating manifestations G20.A1 Dyskinesia presence: without dyskinesia Fluctuating manifestations: without fluctuating manifestations History of kidney stones Z87.442
== END 2024-11-27 13:58 | disposition home or self-care (01) ==
LOC: HO.HUSH 12:45
PROVIDERS: PCP Internal Medicine; Visit Provider Urology
DX: G20.A1 Parkinson's disease without dyskinesia, without mention of fluctuations (principal); Z87.442 Personal history of urinary calculi; Z13.9 Encounter for screening, unspecified
CPT/HCPCS: 99214

== ENCOUNTER → 2024-11-27 12:44 | Outpatient (BNVA) | payer MEDICARE, MEDICAID, SELFPAY | PROVIDERS: PCP Internal Medicine; Visit Provider Urology | DX: R35.0 Frequency of micturition (principal); G20.A1 Parkinson's disease without dyskinesia, without mention of fluctuations; Z87.442 Personal history of urinary calculi; Z13.9 Encounter for screening, unspecified | CPT/HCPCS: 81003; 99212 ==

== ENCOUNTER 2024-12-23 16:57 | Outpatient (AMB) | payer OTHER, MEDICAID, SELFPAY ==
[2024-12-23 17:03] VITALS: BP 122/62; PULSE 61; RESP 18; TEMP 36.2; O2SAT 93; BMI 23.9
--- NOTE | 2024-12-23 17:03 | A.OFFPC_ITS ---
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 Manager Required: No Accompanied by: Self / Same As Patient Allergies influenza virus vaccine, specific (Influenza Virus Vacc,Specific) Allergy (Intermediate, Verified 12/23/24 17:33) SWELLING Medication List - Last Reconciled 12/23/24 by Madison Acosta MD acetaminophen 1,000 mg (2 x 500 mg) PO Q8H PRN albuterol sulfate 90 mcg/actuation 2 puffs inhalation Q4-6H PRN alendronate 70 mg PO QWEEK 90 days amlodipine 2.5 mg See Protocol PO DAILY atorvastatin 40 mg PO BEDTIME 90 days blood sugar diagnostic (Accu-Chek Guide test strips) Use 1 test strip once a day bupropion HCl 37.5 mg (1/2 x 75 mg) PO DAILY calcium carbonate-vit D3-min 600 mg-10 mcg (400 unit) 1 tab PO BID 90 days carbidopa-levodopa 25-100 mg (Sinemet) 1 tab PO QID lancets (Accu-Chek Fastclix Lancet Drum) Use 1 lancet once a day jflkxk-hdznyvjd-zujqicy 6,000-19,000 -30,000 unit (Creon) 2 caps orally with meals and 1 caps with snacks; do not exceed 10,000 unit/kg lipase per 24 hrs; lisinopril 40 mg PO DAILY loperamide (Anti-Diarrheal (loperamide)) 2 mg PO BID PRN lorazepam 0.5 mg PO Q12H 30 days metoprolol tartrate 25 mg PO BID 90 days omeprazole 20 mg PO DAILY PRN 90 days sitagliptin phos-metformin 50-500 mg (Janumet) 1 tab PO BID 90 days tiotropium-olodaterol 2.5-2.5 mcg/actuation (Stiolto Respimat) 2 puffs inhalation DAILY vibegron (Gemtesa) 75 mg PO DAILY Tobacco use date assessed: 12/23/24 Fall risk assessment: 1 Fall in past year Last assessed Fall Risk: 12/23/24 Dental Screening Dental Screen Date: 12/23/24 Did you have a dental visit in the last 12 months?: No Did you have a dental problem in the last 6 months where you did not have access to dental care?: No Was dental information given to patient?: No HPI HPI Comments History of Present Illness Details The patient is a 74-year-old female presenting for a physical exam. Colonoscopy done last year. Needs pneumonia vaccine that will be placed today. She has diabetes mellitus type 2 with an A1c of 6.1% today which is within goal. Blood pressure within goal. LDL within goal. Needs mammogram and a bone density which both has been in few years. Complains of chest wall pain after a fall that happened few months ago and I will order an x-ray. She has a history of osteoporosis for which she takes alendronate weekly. Her me dication regimen also includes amlodipine for hypertension, atorvastatin for hyperlipidemia, bupropion for depression, metoprolol, omeprazole for gastroesophageal reflux disease, and Janumet for diabetes mellitus. The patient uses Stiolto for chronic obstructive pulmonary disease and has recently started using a CPAP machine for obstructive sleep apnea. She underwent a colonoscopy last year and has not had a mammogram in the past two to three years. Her mother had a history of diabetes, and the patient previously smoked but has since quit. [facility] Medical History (Updated 12/23/24 @ 20:39 by Madison Acosta MD) Moderate recurrent major depression Lung mass Chronic painful diabetic neuropathy AAA (abdominal aortic aneurysm) Surgery, elective Pain Hx of backache Hx of supraventricular tachycardia Hypersomnia Snoring Obstructive sleep apnea of adult Chronic hip pain, bilateral Eye pain Diffuse pain Chest pain Supraventricular tachycardia Cough Other and unspecified hyperlipidemia SOB (shortness of breath) Precordial chest pain Annual physical exam Nausea Encounter to establish care Peripheral vascular disease Bilateral artificial lens implant Allergic rhinitis Post menopausal syndrome Vaginitis and vulvovaginitis Diabetes type 2, controlled CAD (coronary artery disease) Hypertriglyceridemia Depression with anxiety GERD without esophagitis Hypertension Parkinsons disease Surgical History Hx of colonoscopy H/O prior ablation treatment History of tubal ligation History of cholecystectomy Family History Mother Diabetes Father Brain cancer Son Diabetes Family/Other Colon cancer Social History Household Members: Caregiver Housing: Apartment Are you a primary childbirth and infant care teacher to a significant other at home: No Do you presently have visiting nurse or other home services: No Alcohol intake: never Patient Tobacco Use Status: Former Tobacco user Tobacco use type: Cigarette Years Smoked: started at age 27, 3PPD, quit 5 years ago (2019) e-Cigarette/Vaping Use: Never Used Second Hand Smoke Exposure: No Advance Directives Date on File: 11/14/23 service: No Current occupational status: retired Cognitive needs: No Hearing needs: No Vision needs: Yes (glasses) Questionnaire PHQ-9 Over the last 2 weeks, how often have you been bothered by any of the following problems? 1. Little interest or pleasure in doing things: not at all 2. Feeling down, depressed, or hopeless: not at all 3. Trouble falling or staying asleep, or sleeping too much: nearly every day 4. Feeling tired or having little energy: nearly every day 5. Poor appetite or overeating: several days 6. Feeling bad about yourself - or that you are a failure or have let yourself or your family down: several days 7. Trouble concentrating on things, such as reading the newspaper or watching television: more than half the days 8. Moving or speaking so slowly that other people could have noticed. Or the opposite - being so fidgety or restless that you have been moving around a lot more than usual: nearly every day 9. Thoughts that you would be better off or of hurting yourself in some way: not at all Total score: 13 Depression Screening Interpretation: Positive Depression Screening Follow-up: Existing condition and Follow-up Visit Requested Depression Screening Done: Yes 99856 - PHQ-9 Billing: Yes Source: Developed by Drs. Mic Garcia, Nazia Mcdaniel, Yannick Ling and colleagues, with an educational kp from [employer]. Thrive Questionnaire Date Thrive assessed: 09/17/24 I am a: Patient What is your living situation today?: I have a steady place to live Within the past 12 months, did the food you bought not last and you didn't have the money to get more?: Never true Within the past 12 months, did you worry whether your food would run out before you got money to buy more?: Never true Do you have trouble paying for medicines?: No Do you have trouble getting transportation to medical appointments?: No Do you have trouble paying your heating and electricity bill?: No Do you have trouble taking care of your child, family member or friend?: No Do you have trouble with day-to-day activities such as bathing, preparing meals, shopping, managing finances, etc.?: Yes Are you currently unemployed and looking for a job?: No Are you interested in more education?: No Please select the resources that you would like help with: None Currently or been in a relationship where the following occur: No concerns reported THRIVE Score: 0 HE-7 AMB Questionnaire EH-7 Date EH - 7 assessed: 05/19/24 Source: Developed by Drs. Mic Garcia, Nazia Mcdaniel, Yannick Ling and colleagues, with an educational kp from [employer]. Review of Systems Const All systems reviewed & are unremarkable except as noted in HPI and below Card Denies chest pain at rest, Denies chest pain with activity, Denies edema, Denies irregular heart rhythm, Denies claudication, Denies dyspnea, Denies dyspnea on exertion, Denies orthopnea, Denies paroxysmal nocturnal dyspnea and Denies slow heart rate Resp Denies cough, Denies dyspnea and Denies dyspnea on exertion GI Denies abdominal pain, Denies change in bowel habits, Denies excessive flatus, Denies nausea and Denies vomiting Neuro Denies lack of coordination Physical exam (Primary Care) Vital Signs: Last Vital Signs Temp 97.1 F 12/23/24 17:03 Pulse 61 12/23/24 17:03 Resp 18 12/23/24 17:03 BP 122/62 12/23/24 17:03 Pulse Ox 93 12/23/24 17:03 Oxygen Delivery Method Room Air 12/23/24 17:03 BMI result Body Mass Index 23.9 Tobacco/Smoking Status: Tobacco use Status Tobacco use date assessed 12/23/24 12/23/24 17:16 Patient Tobacco Use Status Former Tobacco user 12/23/24 17:16 Tobacco use type Cigarette 12/23/24 17:16 e-Cigarette/Vaping Use Never Used 12/23/24 17:16 PHQ-9: PHQ-9 Score PHQ-9: Total score 13 12/23/24 17:48 Depression Screening Interpretation: Positive Depression Screening Follow-up: Existing condition and Follow-up Visit Requested Thrive Assessment: Date of Thrive Assessment Date Thrive assessed 09/17/24 12/23/24 17:16 Currently or been in a relationship where the following occur: No concerns reported HENMT Head: Yes normal to inspection, Yes normocephalic and Yes atraumatic Ears: external ears normal Eyes General: appearance normal, both eyes and all related structures Eyelids: Yes eyelids normal Conjunctivae: conjunctivae normal Neck Neck: Yes normal visual inspection and Yes supple Resp Effort & Inspection: normal respiratory effort Auscultation: clear to auscultation bilaterally Cardio Jugular venous distension: no JVD Rate: regular rate Rhythm: regular rhythm Heart sounds: S1 normal heart sound present and S2 normal heart sound present GI Inspection: Yes normal to inspection Palpation (GI): Soft to palpation and nontender Auscultation: normal bowel sounds Skin General skin exam: no rashes or lesions noted Neuro General: no focal motor deficits Motor exam (neuro): Tremors during motor activity present Extrem General: Yes full ROM Psych Appearance: grossly normal Results AMB Hemoglobin A1c AMB Hemoglobin A1c 6.1 % Last Edit by SANDRA Polanco on 12/23/24 17 :59 Immunizations pneumoc 20-alvina conj-dip cr(PF) 0.5 mL IM syringe Performing Provider: Madison Acosta MD [facility] Administered by: SANDRA Polanco on 12/23/24 17:53 Dose Route Admin Location Dispensed Lot Number Expiration Date [facility] Rn Emergency 0.5 mL IM Right Deltoid 0.5 mL [id number] 11/24/25 [email or web address] Total Dispensed Waste 0.5 mL 0 % VIS Given Date VIS Provided VIS Publication Date 12/23/24 Single Vaccine 24 Eligibility Eligibility Date Funding Source Not [facility] Eligible 12/23/24 Private Results Reviewed Results Reviewed: Laboratory Last Values Hgb A1c (Clinic) 6.1 % (4.0-6.0) H 12/23/24 17:45 Coding Level of Care Code Est Pt Level 3 (03082) Est Pt Prev Care >65y(94972) Diagnoses Physical exam Z00.00 Chest wall discomfort R07.89 Moderate recurrent major depression F33.1 Additional Codes PHQ-9 - 30120 - PHQ-9 Billing: Yes ([id number]) Time Spent (min) 35 Assessment & Plan Assessment & Plan (1) Physical exam: Code(s): Z00.00 - Encounter for general adult medical examination without abnormal findings Category: Medical (2) Chest wall discomfort: Code(s): R07.89 - Other chest pain Category: Medical (3) Moderate recurrent major depression: Code(s): F33.1 - Major depressive disorder, recurrent, moderate Category: Medical Plan Plan Patient was informed and verbally consented to the use of an ambient scribe for clinic note documentation during this visit. 1. Osteoporosis The patient is currently on alendronate for osteoporosis management, which she takes once a week. 2. Depression The patient is prescribed bupropion for depression management. 3. Gastroesophageal Reflux Disease (Gerd) Omeprazole is being used to manage gastroesophageal reflux disease symptoms. 4. Diabetes Mellitus The patient is on Janumet for diabetes management, taken twice daily.. Orders: Orders Lipid Panel 4 Months E78.5 - Hyperlipidemia, unspecified Microalbumin, Random (w Creat) 4 Months R80.9 - Proteinuria, unspecified AMB Hemoglobin A1c Today Z13.9 - Encounter for screening, unspecified Pneumococcal 20 Immunization Today Z23 - Encounter for immunization Vitamin D 25-OH Total 4 Months E55.9 - Vitamin D deficiency, unspecified Vitamin B12 and Folate 4 Months E53.8 - Deficiency of other specified B group vitamins Comprehensive [place]. Panel Fast 4 Months I10 - Essential (primary) hypertension
== END 2024-12-23 17:52 | disposition home or self-care (01) ==
LOC: HO.HMCH 16:58
PROVIDERS: PCP Internal Medicine; Visit Provider Internal Medicine
DX: Z00.00 Encounter for general adult medical examination without abnormal findings (principal); R07.89 Other chest pain; F33.1 Major depressive disorder, recurrent, moderate; Z23 Encounter for immunization; Z13.9 Encounter for screening, unspecified

== ENCOUNTER → 2024-12-23 16:57 | Outpatient (BNVA) | payer OTHER, MEDICAID, SELFPAY | PROVIDERS: PCP Internal Medicine; Visit Provider Internal Medicine | DX: Z00.00 Encounter for general adult medical examination without abnormal findings (principal); M81.0 Age-related osteoporosis without current pathological fracture; J44.9 Chronic obstructive pulmonary disease, unspecified; R07.89 Other chest pain; F33.1 Major depressive disorder, recurrent, moderate; R80.9 Proteinuria, unspecified; E78.5 Hyperlipidemia, unspecified; E55.9 Vitamin D deficiency, unspecified; E53.8 Deficiency of other specified B group vitamins; I10 Essential (primary) hypertension; E11.9 Type 2 diabetes mellitus without complications; Z23 Encounter for immunization | CPT/HCPCS: 83036; 90471; 90677; 96127 ==

== ENCOUNTER 2025-01-19 10:35 | Outpatient (AMB) | payer OTHER, MEDICAID, SELFPAY ==
[2025-01-19 10:42] VITALS: BP 106/54; PULSE 62; TEMP 36.2; O2SAT 97; BMI 24.3
--- NOTE | 2025-01-19 10:42 | A.OFFPC_ITS ---
Vital Signs 01/19/25 10:42 Height 5 ft 4 in Weight 141 lb 6 oz BMI 24.3 BP 106/54 L Blood Pressure Location Lt brachial Position Sitting Pulse 62 Pulse Source Pulse Oximeter Temp 97.1 F Temp Source Temporal Artery Scan Pulse Oximetry (%) 97 Oxygen Delivery Method Room Air Intake Visit Reasons: Lumps on breast Accompanied by: Friend Allergies influenza virus vaccine, specific (Influenza Virus Vacc,Specific) Allergy (Intermediate, Verified 01/19/25 10:45) SWELLING Medication List - Last Reconciled 01/19/25 by Joshua Sebastian MD acetaminophen 1,000 mg (2 x 500 mg) PO Q8H PRN albuterol sulfate 90 mcg/actuation 2 puffs inhalation Q4-6H PRN alendronate 70 mg PO QWEEK 90 days amlodipine 2.5 mg See Protocol PO DAILY atorvastatin 40 mg PO BEDTIME 90 days blood sugar diagnostic (Accu-Chek Guide test strips) Use 1 test strip once a day bupropion HCl 37.5 mg (1/2 x 75 mg) PO DAILY calcium carbonate-vit D3-min 600 mg-10 mcg (400 unit) 1 tab PO BID 90 days carbidopa-levodopa 25-100 mg (Sinemet) 1 tab PO QID cholestyramine 4 grams PO BID 30 days lancets (Accu-Chek Fastclix Lancet Drum) Use 1 lancet once a day pwsceh-udbsixcv-qcplvto (pork) 6,000-19,000 -30,000 unit (Creon) 2 caps orally with meals and 1 caps with snacks; do not exceed 10,000 unit/kg lipase per 24 hrs; 30 days lisinopril 40 mg PO DAILY loperamide (Anti-Diarrheal (loperamide)) 2 mg PO BID PRN lorazepam 0.5 mg PO Q12H 30 days metoprolol tartrate 25 mg PO BID 90 days omeprazole 20 mg PO DAILY PRN 90 days sitagliptin phos-metformin 50-500 mg (Janumet) 1 tab PO BID 90 days tiotropium-olodaterol 2.5-2.5 mcg/actuation (Stiolto Respimat) 2 puffs inhalation DAILY vibegron (Gemtesa) 75 mg PO DAILY Tobacco use date assessed: 01/19/25 Fall risk assessment: No Falls in past year Last assessed Fall Risk: 01/19/25 Dental Screening Dental Screen Date: 01/19/25 Did you have a dental visit in the last 12 months?: No Did you have a dental problem in the last 6 months where you did not have access to dental care?: No Was dental information given to patient?: No HPI HPI Comments History of Present Illness Details The patient is a 75-year-old female presenting for evaluation of breast pain and clearance for a mammogram. Her scheduled mammogram was canceled because her proxy reported she was having pain. The patient has been experiencing a new-onset breast discomfort for the last two months, which she describes as a bad feeling when she takes a breath. She reports pain and feeling a lump when she touches or examines her breast herself. Her past medical history is significant for a prior breast biopsy, Parkinson's disease, and a history of breast cysts which were surgically removed and stapled, resulting in some residual discomfort. She had a mammogram last year. [facility] Medical History Chest pain Moderate recurrent major depression Lung mass Chronic painful diabetic neuropathy AAA (abdominal aortic aneurysm) Surgery, elective Pain Hx of backache Hx of supraventricular tachycardia Hypersomnia Snoring Obstructive sleep apnea of adult Chronic hip pain, bilateral Eye pain Diffuse pain Supraventricular tachycardia Cough Other and unspecified hyperlipidemia SOB (shortness of breath) Precordial chest pain Annual physical exam Nausea Encounter to establish care Peripheral vascular disease Bilateral artificial lens implant Allergic rhinitis Post menopausal syndrome Vaginitis and vulvovaginitis Diabetes type 2, controlled CAD (coronary artery disease) Hypertriglyceridemia Depression with anxiety GERD without esophagitis Hypertension Parkinsons disease Surgical History Hx of colonoscopy H/O prior ablation treatment History of tubal ligation History of cholecystectomy Family History Mother Diabetes Father Brain cancer Son Diabetes Family/Other Colon cancer Social History Household Members: Caregiver Housing: Apartment Are you a primary regular senior care provider to a significant other at home: No Do you presently have visiting nurse or other home services: No Alcohol intake: never Patient Tobacco Use Status: Former Tobacco user Tobacco use type: Cigarette Years Smoked: started at age 27, 3PPD, quit 5 years ago (2019) e-Cigarette/Vaping Use: Never Used Second Hand Smoke Exposure: No Advance Directives Date on File: 11/14/23 service: No Current occupational status: retired Cognitive needs: No Hearing needs: No Vision needs: Yes (glasses) Questionnaire PHQ-9 Over the last 2 weeks, how often have you been bothered by any of the following problems? 1. Little interest or pleasure in doing things: not at all 2. Feeling down, depressed, or hopeless: not at all 3. Trouble falling or staying asleep, or sleeping too much: nearly every day 4. Feeling tired or having little energy: nearly every day 5. Poor appetite or overeating: several days 6. Feeling bad about yourself - or that you are a failure or have let yourself or your family down: several days 7. Trouble concentrating on things, such as reading the newspaper or watching television: more than half the days 8. Moving or speaking so slowly that other people could have noticed. Or the opposite - being so fidgety or restless that you have been moving around a lot more than usual: nearly every day 9. Thoughts that you would be better off or of hurting yourself in some way: not at all Total score: 13 Depression Screening Interpretation: Positive Depression Screening Follow-up: Existing condition and Follow-up Visit Requested Depression Screening Done: Yes Source: Developed by Drs. Mci Garcia, Nazia Mcdaniel, Yannick Ling and colleagues, with an educational kp from [employer]. Thrive Questionnaire Date Thrive assessed: 09/17/24 I am a: Patient What is your living situation today?: I have a steady place to live Within the past 12 months, did the food you bought not last and you didn't have the money to get more?: Never true Within the past 12 months, did you worry whether your food would run out before you got money to buy more?: Never true Do you have trouble paying for medicines?: No Do you have trouble getting transportation to medical appointments?: No Do you have trouble paying your heating and electricity bill?: No Do you have trouble taking care of your child, family member or friend?: No Do you have trouble with day-to-day activities such as bathing, preparing meals, shopping, managing finances, etc.?: Yes Are you currently unemployed and looking for a job?: No Are you interested in more education?: No Please select the resources that you would like help with: None Currently or been in a relationship where the following occur: No concerns reported THRIVE Score: 0 AUDIT C Alcohol Use Questionnaire (AUDIT-C) 1. How often do you have a drink containing alcohol?: Never 3. How often do you have six or more drinks on one occasion?: Never Total Score: 0 EH-7 AMB Questionnaire EH-7 Date EH - 7 assessed: 05/19/24 Feeling nervous, anxious, or on edge: 2 = More than half the days Not being able to stop or control worryin = Not at all Worrying too much about different things: 2 = More than half the days Trouble relaxin = Not at all Being so restless that it is hard to sit still: 0 = Not at all Becoming easily annoyed or irritable: 0 = Not at all Feeling afraid as if something awful might happen: 0 = Not at all Total EH-7 score (0-4 normal; 5-9 mild; 10-14 moderate; 15-21 severe): 4 Source: Developed by Drs. Mic Garcia, Nazia Mcdaniel, Yannick Ling and colleagues, with an educational kp from [employer]. Review of Systems Const Details: Not done Physical exam (Primary Care) Vital Signs: Last Vital Signs Temp 97.1 F 01/19/25 10:42 Pulse 62 01/19/25 10:42 BP 106/54 L 01/19/25 10:42 Pulse Ox 97 01/19/25 10:42 Oxygen Delivery Method Room Air 01/19/25 10:42 BMI result Body Mass Index 24.3 Tobacco/Smoking Status: Tobacco use Status Tobacco use date assessed 01/19/25 01/19/25 10:46 Patient Tobacco Use Status Former Tobacco user 01/19/25 10:43 Tobacco use type Cigarette 01/19/25 10:43 e-Cigarette/Vaping Use Never Used 01/19/25 10:43 PHQ-9: PHQ-9 Score PHQ-9: Total score 13 01/19/25 10:46 Depression Screening Interpretation: Positive Depression Screening Follow-up: Existing condition and Follow-up Visit Requested Thrive Assessment: Date of Thrive Assessment Date Thrive assessed 09/17/24 01/19/25 10:43 Currently or been in a relationship where the following occur: No concerns reported Const Other: Pertinent findings are in BOLD GENERAL APPEARANCE NAD, activity normal for age, well developed/ well nourished, no cyanosis, pallor, or diaphoresis. EYES lids/conjunctiva normal. EARS/NOSE/THROAT Mucous membranes moist, nares normal, lips/teeth normal uvula midline without oral pharyngeal erythema, exudate or swelling TMs normal bilaterally. No lymphangitis/lymphedema. HEAD/NECK normocephalic atraumatic, no facial trauma, neck is supple. RESPIRATORY respiratory effort normal, speaks in full sentences, no tripod position, no accessory muscle use. Lungs clear to auscultation without rhonchi, wheezes, rales CARDIAC Regular rate and rhythm, no edema. ABDOMINAL Soft, ND/NT. No evidence of fluid wave. No pulsatile masses on exam, rebound tenderness, Nicole sign or pain over Mcburney's point. MUSCLES/EXTREMITIES No abnormal range of motion, no swelling. SKIN Warm, pink and dry. No rashes, dermatoses, petechiae or lesions. NEUROLOGICAL Speech is clear and appropriate. Normal level of consciousness. Gait and coordination are normal. 5/5 strength in all extremities. PSYCH Normal mood and affect. Judgement/competence is appropriate Breast: No lumps palpated in bilateral breasts. Coding Level of Care Code Est Pt Level 3 (27779) Diagnoses Breast pain in female N64.4 Time Spent (min) 20 Assessment & Plan Assessment & Plan (1) Breast pain in female: Code(s): N64.4 - Mastodynia Category: Medical Plan: The patient's prior screening Mammogram was cancelled as the paitent is having breast discomfort. Today's physical exam did not show any skin changes, lumps, or bumps. Screening Mammogram was switched to diagnostic Mammo. If Mammogram is positive we will order Ultrasound breast. Plan I discussed with the patient and her proxy that due to her report of new breast pain, the previously scheduled mammogram was correctly canceled, as she now requires a diagnostic mammogram instead of a screening one. I explained that my physical examination did not reveal any lumps or masses, and the pain could potentially be muscular. We will proceed with ordering the diagnostic mammogram first, and based on those results, we will determine if a follow-up ultrasound is necessary. Orders: Orders MM diagnostic mammo BI Today Z00.00 - Encounter for general adult medical examination without abnormal findings
== END 2025-01-19 11:55 | disposition home or self-care (01) ==
LOC: HO.HMCH 10:37
PROVIDERS: PCP Internal Medicine; Visit Provider Internal Medicine
DX: N64.4 Mastodynia (principal)

== ENCOUNTER 2025-02-05 08:26 | Emergency (ER) | payer MEDICARE, MEDICAID, SELFPAY ==
[2025-02-05 08:44] VITALS: BP 147/66; PULSE 62; RESP 18; TEMP 36.6; O2SAT 98; BMI 24.0
--- NOTE | 2025-02-05 09:03 | ED_ITS ---
HPI - General Adult General Chief complaint: General Medical Stated complaint: high bs Time Seen by Provider: 02/05/25 08:52 Source: patient Mode of arrival: ambulatory Limitations: no limitations History of Present Illness HPI narrative: this is a 75 years old female with type 2 diabetes presented to the emergency department with the elevated blood sugar there is no nausea no vomiting and no diarrhea no fever. Patient is ambulatory to the emergency room, she states that this morning of the sugar was high, she is waiting to get the Ethos Lendinguvia but the pharmacy is out of stock Onset (ago): hour(s) (2) Radiation: non-radiation Severity: moderate Pain Consistency: constant Relieving factors: none Exacerbating factors: none Associated symptoms: denies other symptoms Related Data Home Medications ?Medication ?Instructions ?Recorded ?Confirmed albuterol sulfate 90 mcg/actuation 2 puff inhalation Q 4-6H PRN 11/10/23 01/19/25 aerosol inhaler Shortness Of Breath Or Wheez ing Previous Rx's ?Medication ?Instructions ?Recorded calcium 600 mg (as carbonate)-vit 1 tab PO BID 90 days #180 tabs 09/12/23 D3 10 mcg (400 unit)-minerals tablet tiotropium 2.5 mcg-olodaterol 2.5 2 puff inhalation DA ALICIA #4 grams 04/07/24 mcg/actuation mist for inhalation (Stiolto Respimat) alendronate 70 mg tablet 70 mg PO QWEEK 90 days #13 t abs 04/08/24 sitagliptin phosphate 50 1 tab PO BID 90 days #180 ta bs 07/08/24 mg-metformin 500 mg tablet (Janumet) loperamide 2 mg tablet 2 mg PO BID PRN loose stool #90 07/09/24 (Anti-Diarrheal (loperamide)) tabs lancets (Accu-Chek Fastclix Lancet #100 ea 07/22/24 Drum) omeprazole 20 mg capsule,delayed 20 mg PO DAILY PRN Ac id Reflux 90 09/05/24 release days #90 caps acetaminophen 500 mg capsule 1,000 mg (2 x 500 mg) PO Q8H PRN 10/12/24 fever or pain #14 caps carbidopa 25 mg-levodopa 100 mg 1 tab PO QID #120 tabs 10/23/24 tablet (Sinemet) blood sugar diagnostic (Accu-Chek #100 ea 11/12/24 Guide test strips) atorvastatin 40 mg tablet 40 mg PO BEDTIME 90 days #90 tabs 11/20/24 vibegron 75 mg tablet (Gemtesa) 75 mg PO DAILY #30 tab s 11/27/24 cholestyramine 4 gram oral powder 4 g PO BID 30 days # 210 grams 12/29/24 [id number] 2 cap PO .COMPLEX 30 days #2 40 caps 12/29/24 (pork)6,000-19,000-30,000 unit capsule,del rel (Creon) amlodipine 2.5 mg tablet 2.5 mg PO DAILY #30 tabs 12/18 bupropion HCl 75 mg tablet 37.5 mg (1/2 x 75 mg) PO DA ALICIA #15 01/12/25 tabs lorazepam 0.5 mg tablet 0.5 mg PO Q12H Anxiety 30 da ys #60 02/03/25 tabs lisinopril 40 mg tablet 40 mg PO DAILY hypertension #90 02/04/25 tabs metoprolol tartrate 25 mg tablet 25 mg PO BID 90 days #180 tabs 02/04/25 metformin 500 mg tablet 500 mg PO BID #6 tabs Allergies Allergy/AdvReac Type Severity Reaction Status Date / Time influenza virus vaccine, Allergy Intermediate SWELLING Verified 02/05/25 08:47 specific (Influenza Virus Vacc,Specific) Review of Systems 2 Constitutional: Constitutional: Reports no additional constitutional complaints ENT: Reports system reviewed and no additional complaints, except as documented Cardiovascular: Cardiovascular: Reports no additional cardiovascular complaints PMFSH Past Medical History Medical History Chest pain Moderate recurrent major depression Lung mass Chronic painful diabetic neuropathy AAA (abdominal aortic aneurysm) Surgery, elective Pain Hx of backache Hx of supraventricular tachycardia Hypersomnia Snoring Obstructive sleep apnea of adult Chronic hip pain, bilateral Eye pain Diffuse pain Supraventricular tachycardia Cough Other and unspecified hyperlipidemia SOB (shortness of breath) Precordial chest pain Annual physical exam Nausea Encounter to establish care Peripheral vascular disease Bilateral artificial lens implant Allergic rhinitis Post menopausal syndrome Vaginitis and vulvovaginitis Diabetes type 2, controlled CAD (coronary artery disease) Hypertriglyceridemia Depression with anxiety GERD without esophagitis Hypertension Parkinsons disease Surgical History Hx of colonoscopy H/O prior ablation treatment History of tubal ligation History of cholecystectomy Family History Family History Mother Diabetes Father Brain cancer Son Diabetes Family/Other Colon cancer Social History Social History Household Members: Caregiver Housing: Apartment Are you a primary care consultant to a significant other at home: No Do you presently have visiting nurse or other home services: No Alcohol intake: never Patient Tobacco Use Status: Former Tobacco user Tobacco use type: Cigarette Years Smoked: started at age 27, 3PPD, quit 5 years ago (2019) e-Cigarette/Vaping Use: Never Used Second Hand Smoke Exposure: No Advance Directives: Yes Advance Directives on File: Yes Advance Directives Date on File: 11/14/23 service: No Current occupational status: retired Cognitive needs: No Hearing needs: No Vision needs: Yes (glasses) Physical Exam ED Exam Exam: no acute distress she look Vital Signs: Vital Signs - 24 hr 02/05/25 08:44 02/05/25 10:54 Temperature 97.9 F Pulse Rate 62 71 Respiratory Rate 18 12 Blood Pressure 147/66 H 141/67 H Pulse Oximetry 98 98 Oxygen Delivery Method Room Air Room Air BMI result Body Mass Index 24.0 Const General: cooperative Nutritional Appearance: well nourished Orientation/consciousness: patient oriented x3 Limitations: no limitations HENMT Head: Yes normal to inspection Ears: hearing grossly normal bilaterally General nose exam: Normal external nose present Face and sinus: Yes normal facial exam Eyes General: appearance normal, both eyes and all related structures EOM: EOMs intact bilaterally and EOM abnormal Neck Neck: Yes normal visual inspection Chest Chest palpation & inspection: normal inspection of the chest Resp Effort & Inspection: normal respiratory effort Auscultation: clear to auscultation bilaterally Cardio Jugular venous distension: no JVD Rate: regular rate Rhythm: regular rhythm GI Inspection: Yes normal to inspection Palpation (GI): Soft to palpation Skin General skin exam: no rashes or lesions noted and elasticity normal Lesions: no lesions Rashes: no rashes Neuro General: patient oriented x3 Course Reevaluation(s) Reevaluation #1: patient remained stable no evidence of ketoacidosis blood sugar down trending I think she can be discharged home she was seen also by the case work aide she should get any Januvia soon in the interim till she gets the Januvia I will give a few days of Glucophage. I also consulted the case work aide she was seen by Kathie she should get her medicine in couple of days Time: 12:22 Medications Administered Discontinued Medications Generic Name Dose Route Start Last Admin Trade Name Amos PRN Reason Stop Dose Admin Sodium Chloride 1,000 mls @ 999 mls/hr 02/05/25 09:15 02/05/25 12:02 Ns IVCONT 02/05/25 10:15 Infused .Q1H1M JARED Infusion Medical Decision Making Medical Decision Making [facility] Narrative: patient is here with a elevated blood sugar we will insert an IV administer IV fluid we will check electrolytes and beta hydroxybutyrate level. 12:50 blood sugar downtrending beta hydroxybutyrate normal, no evidence of DKA, I off the patient and family to give him a dose of insulin glargine, but the family does not want insulin, she is waiting for the a prescription for Januvia she will get it in about 3 days, in the meantime I will give a 3 day supply of Glucophage. Patient and family are comfortable with the plan of care Differential Diagnosis Differential Diagnoses: The differential diagnosis associated with the presentation includes DKA/ hyperglycemia/dehydration Admission/Observation Consideration of admission/observation: Escalation of care including admission/observation considered Lab Data [facility] Lab Attestation statement: I reviewed the patient's lab results. 02/05/25 11:01 02/05/25 11:01 Labs: Lab Results 02/05/25 02/05/25 Range/Units 11: 12:02 WBC 7.5 (4.8-10.8) X10*3/uL RBC 3.76 L (4.20-5.50) X10*6/uL Hgb 11.0 L (12.0-16.0) g/dl Hct 33.9 L (37.0-47.0) % MCV 90.2 (80.0-98.0) fL MCH 29.3 (27.0-33.0) pg MCHC 32.4 (31.0-35.0) g/dl RDW 13.2 (11.0-16.0) % Plt Count 232 (160-400) X10*3/uL MPV 10.1 (9.4-12.3) fL Immature Gran % (Auto) 1.9 H (0.0-0.4) % Neut % (Auto) 53.9 (45-73) % Lymph % (Auto) 26.1 (20-40) % Pitt % (Auto) 12.3 H (2-11) % Eos % (Auto) 5.1 H (0-4) % Baso % (Auto) 0.7 (0-2) % Lymph # (Auto) 2.0 (1.2-4.9) X10*3/uL Pitt # (Auto) 0.9 (0.1-1.2) X10*3/uL Eos # (Auto) 0.4 (0.0-0.4) X10*3/uL Baso # (Auto) 0.1 (0.0-0.2) X10*3/uL Abs Immat Gran (auto) 0.14 H (0.00-0.03) X10*3/uL Absolute Neuts (auto) 4.0 (2.0-8.3) x10*3/uL Absolute Nucleated RBC 0.000 (0.0-0.012) X10*3/uL Nucleated RBC % (auto) 0.0 (0.0-0.2) /100WBC Sodium 140 (135-145) mmol/L Potassium 4.0 (3.3-5.1) mmol/L Chloride 108 (96-108) mmol/L Carbon Dioxide 25 (22-29) mmol/L Anion Gap 11 L (12-20) BUN 19 H (9-16) mg/dL Creatinine 0.93 (0.5-1.4) mg/dL Estim Creat Clear Calc 48.5 Estimated GFR 59 POC Glucose 264 H (60-115) mg/dL Random Glucose 292 H (60-115) mg/dL Calcium 8.7 (8.4-10.2) mg/dL Total Bilirubin 0.2 (0.0-1.0) mg/dL AST 26 (5-31) U/L ALT 16 (0-31) U/L Alkaline Phosphatase 120 H (39-117) U/L Total Protein 7.1 (6.5-8.0) g/dL Albumin 3.8 (3.5-5.0) g/dL Beta-Hydroxybutyrate 0.07 (0.02-0.27) mmol/L Discharge Plan Discharge Clinical Impression: Acute hyperglycemia Patient Disposition: Home, Self-Care Instructions: Diabetic Hyperglycemia (ED) Additional Instructions: Follow-up with your primary care physician we will give you 3 days of Glucophage until you get a prescription for the Januvia, return to the emergency room if you worse any concern Prescriptions: New metformin 500 mg tablet 500 mg PO BID Qty: 6 0RF No Action calcium carbonate-vit D3-min 600 mg calcium- 400 unit tablet 1 tab PO BID 90 Days Qty: 180 2RF alendronate 70 mg tablet 70 mg PO QWEEK 90 Days Qty: 13 3RF Janumet 50-500 mg tablet 1 tab PO BID 90 Days Qty: 180 1RF loperamide [Anti-Diarrheal (loperamide)] 2 mg tablet 2 mg PO BID PRN (Reason: loose stool) Qty: 90 0RF (DME) lancets [Accu-Chek Fastclix Lancet Drum] Misc See Rx Instructions .Route Qty: 100 3RF Rx Instructions: Use 1 lancet once a day omeprazole 20 mg capsule,delayed release(DR/EC) 20 mg PO DAILY PRN (Reason: Acid Reflux) 90 Days Qty: 90 1RF (DME) Accu-Chek Guide test strips Strip See Rx Instructions .Route Qty: 100 3RF Rx Instructions: Use 1 test strip once a day atorvastatin 40 mg tablet 40 mg PO BEDTIME 90 Days Qty: 90 1RF amlodipine 2.5 mg tablet 2.5 mg PO DAILY Qty: 30 2RF Protocol: Hold for SBP< HOLD for SBP < : 90 bupropion HCl 75 mg tablet 37.5 mg PO DAILY Qty: 15 1RF lorazepam 0.5 mg tablet 0.5 mg PO Q12H 30 Days Qty: 60 4RF lisinopril 40 mg tablet 40 mg PO DAILY Qty: 90 3RF metoprolol tartrate 25 mg tablet 25 mg PO BID 90 Days Qty: 180 1RF acetaminophen 500 mg capsule 1,000 mg PO Q8H PRN (Reason: fever or pain) Qty: 14 0RF albuterol sulfate 90 mcg/actuation Hfa Aerosol Inhaler 2 puff INHALATION Q4-6H PRN (Reason: Shortness Of Breath Or Wheezing) carbidopa-levodopa [Sinemet] 25-100 mg tablet 1 tab PO QID Qty: 120 6RF Gemtesa 75 mg tablet 75 mg PO DAILY Qty: 30 2RF Stiolto Respimat 2.5-2.5 mcg/actuation mist 2 puff inhalation DAILY Qty: 4 6RF Creon 6,000-19,000 -30,000 unit capsule,delayed release(DR/EC) 2 cap PO .COMPLEX 30 Days Qty: 240 5RF Rx Instructions: 2 caps orally with meals and 1 caps with snacks; do not exceed 10,000 unit/kg lipase per 24 hrs; cholestyramine 4 gram powder 4 g PO BID 30 Days Qty: 210 1RF Rx Instructions: administer w/meal; avoid other meds within 1hr before or 4-6hr after dose Referrals: Madison Carcamo MD [Primary Care Provider, Internal Medicine] - 02/06/25 Print Language: Austrian
[2025-02-05 10:54] VITALS: BP 141/67; PULSE 71; RESP 12; O2SAT 98
[2025-02-05 11:09] LABS: MANUAL DIFF FLAG NO
[2025-02-05 11:16] LABS: Hematocrit 33.9 % (37.0-47.0); Hemoglobin 11.0 g/dl (12.0-16.0); Imm Gran Abs Auto 0.14 X10*3/uL (0.00-0.03); Imm Gran Pct Auto 1.9 % (0.0-0.4); Lymphocytes Absolute Auto 2.0 X10*3/uL (1.2-4.9); Mean Corpuscular HGB Conc 32.4 g/dl (31.0-35.0); Mean Corpuscular Hemoglobin 29.3 pg (27.0-33.0); Mean Corpuscular Volume 90.2 fL (80.0-98.0); NRBC Abs Auto 0.000 X10*3/uL (0.0-0.012); NRBC Pct Auto 0.0 /100WBC (0.0-0.2); Platelet Count 232 X10*3/uL (160-400); Red Blood Count 3.76 X10*6/uL (4.20-5.50); White Blood Count 7.5 X10*3/uL (4.8-10.8)
[2025-02-05 11:29] LABS: Alanine Aminotransferase 16 U/L (0-31); Albumin Level 3.8 g/dL (3.5-5.0); Alkaline Phosphatase 120 U/L (39-117); Anion Gap 11 (12-20); Aspartate Amino Transferase 26 U/L (5-31); Blood Urea Nitrogen 19 mg/dL (9-16); Calcium 8.7 mg/dL (8.4-10.2); Carbon Dioxide 25 mmol/L (22-29); Chloride 108 mmol/L (96-108); Creatinine Clr Calc Pharmacy 48.5; Estimated Glomerular Filt Rate 59; Potassium 4.0 mmol/L (3.3-5.1); Sodium 140 mmol/L (135-145); Total Protein 7.1 g/dL (6.5-8.0)
[2025-02-05 12:07] LABS: Glucose, Whole Blood 264 mg/dL (60-115)
--- NOTE | 2025-02-05 12:21 | MHC.CM.ED ---
Received case management consult from Dr Wilkinson. Patient states she is having insurance issues and is unable to oyster picker her diabetes medication. T/W spoke with [facility]. Hannah was last picked up 09/05/24. It was for a 90 day supply. Should have been reordered in November. [facility] received request to refill 2 days ago. This medication comes from their speciality pharmacy and is in process. Met with patient and Juan Jose. Juan Jose states this happens all of the time . Juan Jose goes on to explain prescription is supposed to be for 90 days, however it's supposed to be twice a day and only 90 pills are provided, so prescription only lasts 45 days. This explanation doesn't explain why the prescription was refilled until [address] Wilkinson aware. Continue to monitor for d/c needs.
[2025-02-05 13:15] VITALS: BP 141/67; PULSE 71; RESP 12; TEMP 36.6; O2SAT 98
== END 2025-02-05 13:24 | disposition home or self-care (01) ==
PROVIDERS: Emergency Provider Emergency Medicine; PCP Internal Medicine
DX: E11.65 Type 2 diabetes mellitus with hyperglycemia (principal); R11.0 Nausea; Z79.84 Long term (current) use of oral hypoglycemic drugs; Z87.891 Personal history of nicotine dependence; Z79.899 Other long term (current) drug therapy
CPT/HCPCS: 36415; 80053; 82010; 82947; 85025; 96360; 99284

== ENCOUNTER 2025-02-09 13:00 | Outpatient (AMB) | payer MEDICARE, MEDICAID, SELFPAY ==
--- NOTE | 2025-02-09 13:16 | A.OFFVIS_ITS ---
Intake Visit Reasons: med review Intake Note: Patient is present for a med review Urology Medication:Gemtesa Antibiotic Allergy:NONE Blood Thinner:NONE Recruiter Manager Required: Yes Recruiter Manager Name: Jeremy [id number] Information Interpreted: non-clinical & clinical Allergies influenza virus vaccine, specific (Influenza Virus Vacc,Specific) Allergy (Intermediate, Verified 02/09/25 13:16) SWELLING HPI Comments Details: 02/09/25--Nely is a 75-year-old female she has a history of kidney stones and urinary frequency. CoMorbidity-Parkinson's History of Present Illness The patient is a 75-year-old female presenting with kidney stones and urinary frequency. She has a history of kidney stones, which have been monitored regular ly. The last renal ultrasound on 10/30/24 showed a cyst in the right kidney but no recurrent renal calculi. The patient also experiences urinary frequency and incontinence, for which she has been prescribed Gemtesa. The medication has been effective in controlling urine leakage. Results - Renal ultrasound on 10/30/24: Cyst in the right kidney, no recurrent renal calculi. Plan 1. Kidney Stones - Continue monitoring with renal ultrasound in six months. - Follow-up with nurse practitioner for results review. 2. Urinary Frequency - Continue Gemtesa for urinary incontinence management. 11/27/24-- History of Present Illness The patient is a 74-year-old female presenting h/o kidney stones, she complains of urinary frequency. She reports visiting the bathroom approximately 10 times during the day and 2 to 4 times at night, which varies. Comobidity- Parkinson's disease. Results - Ultrasound: No kidney stones detected. Plan 1. Urinary Frequency - Prescribe gemtesa - Follow-up in 10 to 12 weeks to assess changes in frequency. - If medication is not covered by insurance, pt instructed to contact the office for alternatives. 01/31/24--Nely is a 74-year-old female who is being followed for kidney stones. The patient has a history of Parkinson's denies significant bladder symptoms at this time. She had follow-up renal ultrasound 01/01/2024. Change Management Analyst pending I have reviewed imaging and discussed with the patient left kidney 5 mm nonobstructing kidney stone. In review of her chart she had a CT done in October when she was in the emergency room with complaints of diarrhea that time left kidney noted to tiny stones 2 mm in 3 mm. She denies any problems with urination. I have discussed that it is important that she continue to hydrate well especially when she has bouts of diarrhea. Will continue to monitor kidneys. Follow-up in 10 months renal ultrasound prior. 07/02/23--Nely is a 73 year old female PMH- parkinson's, who was seen in the ED on 04/17/23 with complaints of nausea and abdominal pain. CTAP 04/18/23 was done noting tiny right calcification right side bladder, suggestive that she passed a stone. Currently she is asymptomatic. She had a renal US done on 05/04/23. I have reviewed results- bilateral tiny renal calculi. Plan discussed, importance of adequate hydration, low sodium and low oxalate diet, monitor kidneys, follow up renal US in 6 months. [facility] Medical History Chest pain Moderate recurrent major depression Lung mass Chronic painful diabetic neuropathy AAA (abdominal aortic aneurysm) Surgery, elective Pain Hx of backache Hx of supraventricular tachycardia Hypersomnia Snoring Obstructive sleep apnea of adult Chronic hip pain, bilateral Eye pain Diffuse pain Supraventricular tachycardia Cough Other and unspecified hyperlipidemia SOB (shortness of breath) Precordial chest pain Annual physical exam Nausea Encounter to establish care Peripheral vascular disease Bilateral artificial lens implant Allergic rhinitis Post menopausal syndrome Vaginitis and vulvovaginitis Diabetes type 2, controlled CAD (coronary artery disease) Hypertriglyceridemia Depression with anxiety GERD without esophagitis Hypertension Parkinsons disease Surgical History Hx of colonoscopy H/O prior ablation treatment History of tubal ligation History of cholecystectomy Family History Mother Diabetes Father Brain cancer Son Diabetes Family/Other Colon cancer Social History Household Members: Caregiver Housing: Apartment Are you a primary primary care pediatrician to a significant other at home: No Do you presently have visiting nurse or other home services: No Alcohol intake: never Patient Tobacco Use Status: Former Tobacco user Tobacco use type: Cigarette Years Smoked: started at age 27, 3PPD, quit 5 years ago (2019) e-Cigarette/Vaping Use: Never Used Second Hand Smoke Exposure: No Advance Directives Date on File: 11/14/23 service: No Current occupational status: retired Cognitive needs: No Hearing needs: No Vision needs: Yes (glasses) Review of Systems Const All systems reviewed & are unremarkable except as noted in HPI and below Reports no additional complaints Eyes Reports no additional complaints ENT Reports no additional complaints Card Reports no additional complaints Resp Reports no additional complaints GI Reports no additional complaints Reports as per HPI Musc Reports no additional complaints Skin/Breast Reports system reviewed and no additional complaints, except as documented Neuro Reports no additional complaints Psych Reports no additional complaints Endo Reports no additional complaints Abhilash/Lymph Reports no additional complaints Aller/Immun Reports no additional complaints Results Reviewed Results Reviewed: Date of Service: 10/30/24 CLINICAL HISTORY: N20.0 - Calculus of kidney US of kidneys Comparison: CT/REG/SR - CT ABDOMEN PELVIS W IV CON - 10/12/24 17:[address]/SR - CT ABDOMEN PELVIS W IV CON - 06/04/24 08:37 EDT US/CO/SR - US KIDNEY BILATERAL - 01/01/24 13:08 EDT Findings: Right kidney is normal in size, echogenicity and morphology, 10.1 cm in length. No calculus or hydronephrosis. Exophytic homogeneously hypoechoic lesion 1.3 x 0.6 x 0.9 cm of the midpole, no internal vascular flow or increased through transmission, corresponding to the hypodense lesion seen on prior CT and not seen on prior ultrasound. Left kidney is normal in size, echogenicity and morphology, 10.7 cm in length. No calculus, mass or hydronephrosis. Limited color Doppler demonstrates unremarkable bilateral blood flow. Impression: 1. No nephrolithiasis. 2. Right renal 1.3 cm exophytic lesion is indeterminate, cystic nature is not confirmed by current ultrasound, renal CT or MRI can be confirmatory if warranted. Assessment & Plan Assessment & Plan (1) Parkinsons disease: Code(s): G20 - Parkinson's disease Category: Medical Qualifiers: Dyskinesia presence: without dyskinesia Fluctuating manifestations: without fluctuating manifestations Qualified Code(s): G20.A1 - Parkinson's disease without dyskinesia, without mention of fluctuations (2) History of kidney stones: Code(s): Z87.442 - Personal history of urinary calculi Category: Medical (3) Neurogenic bladder: Code(s): N31.9 - Neuromuscular dysfunction of bladder, unspecified Category: Medical (4) Renal cyst: Code(s): N28.1 - Cyst of kidney, acquired Category: Medical Plan Plan 1. Kidney Stones - Continue monitoring with renal ultrasound in six months. - Follow-up with nurse practitioner for results review. 2. Urinary Frequency - Continue Gemtesa for urinary incontinence management. Patient to continue follow-up with Nurse James Read Orders: Orders US renal BI 5 Months N28.1 - Cyst of kidney, acquired, Z87.442 - Personal history of urinary calculi Medications: Refilled vibegron (Gemtesa) 75 mg PO DAILY 30 tabs 7RF Patient Instructions: The patient had an opportunity to ask questions regarding treatment plan. The patient expressed understanding and agreement with the above treatment plan. The patient is aware they should contact our office by phone for worsening of their current condition or the appearance of new symptoms. Compliance is encouraged with any medications and followup testing that is ordered. It is a privilege to be allowed the opportunity to participate in the urologic care of your patient. If you have any questions or concerns regarding treatment for the above conditions please do not hesitate to contact me. The office telephone contact is [phone]. This note is constructed in part using voice recognition software. While every effort has been made to ensure accuracy chief business officer errors may have been included. Yours sincerely, Ralhp Anthony MD Scribe Plan - Not visible on output: Patient was informed and verbally consented to the use of an ambient scribe for clinic note documentation during this visit. Coding Level of Care Code Est Pt Level 3 (22868) Complex EM visit Add On G2211 Diagnoses Parkinson's disease without dyskinesia or fluctuating manifestations G20.A1 Dyskinesia presence: without dyskinesia Fluctuating manifestations: without fluctuating manifestations History of kidney stones Z87.442 Neurogenic bladder N31.9 Renal cyst N28.1
== END 2025-02-09 14:02 | disposition home or self-care (01) ==
LOC: HO.HUSH 13:01
PROVIDERS: PCP Internal Medicine; Visit Provider Urology
DX: G20.A1 Parkinson's disease without dyskinesia, without mention of fluctuations (principal); Z87.442 Personal history of urinary calculi; N31.9 Neuromuscular dysfunction of bladder, unspecified; N28.1 Cyst of kidney, acquired
CPT/HCPCS: 99213; G2211

== ENCOUNTER → 2025-02-09 13:00 | Outpatient (BNVA) | payer MEDICARE, MEDICAID, SELFPAY | PROVIDERS: PCP Internal Medicine; Visit Provider Urology | DX: G20.A1 Parkinson's disease without dyskinesia, without mention of fluctuations (principal); N31.9 Neuromuscular dysfunction of bladder, unspecified; N28.1 Cyst of kidney, acquired; Z87.442 Personal history of urinary calculi | CPT/HCPCS: 99212 ==

== ENCOUNTER 2025-02-17 12:56 | Outpatient (AMB) | payer OTHER, MEDICAID, SELFPAY ==
--- NOTE | 2025-02-17 12:59 | MHC.OFFVIS ---
Vital Signs 02/17/25 13:00 Height 5 ft 4 in Weight 145 lb 8.081 oz BMI 25.0 BP 120/74 Blood Pressure Location Lt brachial Position Sitting Pulse 62 Intake Visit Reasons: 6 mth f/up [place] Intake Note: 6 month follow-up after [place] feeling good Machine Stoppage Frequency Checker Required: Yes Machine Stoppage Frequency Checker Services: Machine Stoppage Frequency Checker Offered & Declined Machine Stoppage Frequency Checker Name: Hilda Orozco Rn Home Health: Rn Home Health Present Accompanied by: Family/Other Allergies influenza virus vaccine, specific (Influenza Virus Vacc,Specific) Allergy (Intermediate, Verified 02/09/25 13:16) SWELLING Medication List - Last Reconciled 02/17/25 by LG Feldman acetaminophen 1,000 mg (2 x 500 mg) PO Q8H PRN albuterol sulfate 90 mcg/actuation 2 puffs inhalation Q4-6H PRN alendronate 70 mg PO QWEEK 90 days amlodipine 2.5 mg See Protocol PO DAILY atorvastatin 40 mg PO BEDTIME 90 days blood sugar diagnostic (Accu-Chek Guide test strips) Use 1 test strip once a day bupropion HCl 37.5 mg (1/2 x 75 mg) PO DAILY calcium carbonate-vit D3-min 600 mg-10 mcg (400 unit) 1 tab PO BID 90 days carbidopa-levodopa 25-100 mg (Sinemet) 1 tab PO QID cholestyramine 4 grams PO BID 30 days lancets (Accu-Chek Fastclix Lancet Drum) Use 1 lancet once a day egvcdc-sftcxmhx-tckpfie (pork) 6,000-19,000 -30,000 unit (Creon) 2 caps orally with meals and 1 caps with snacks; do not exceed 10,000 unit/kg lipase per 24 hrs; 30 days lisinopril 40 mg PO DAILY loperamide (Anti-Diarrheal (loperamide)) 2 mg PO BID PRN lorazepam 0.5 mg PO Q12H 30 days metformin 500 mg PO BID metoprolol tartrate 25 mg PO BID 90 days omeprazole 20 mg PO DAILY PRN 90 days sitagliptin phos-metformin 50-500 mg (Janumet) 1 tab PO BID 90 days tiotropium-olodaterol 2.5-2.5 mcg/actuation (Stiolto Respimat) 2 puffs inhalation DAILY vibegron (Gemtesa) 75 mg PO DAILY HPI HPI 6 mth f/up [place]: Details: The patient is a 75 year old individual presenting for follow up of supraventricular tachycardia and coronary artery disease. The patient's past medical history is significant for hypertension, hyperlipidemia, and diabetes. The patient has a history of Parkinson's disease. For SVT, the patient has undergone a prior EP study and ablation. An echocardiogram from 11/12/2023 showed an ejection fraction of 55-60% and a moderately dilated left atrium. A pharmacological nuclear stress test from 10/08/2024 revealed normal myocardial perfusion imaging. The last EKG on 08/12/2024 showed a normal sinus rhythm with a rate of 69. The patient denies any new chest discomfort or rapid heartbeats. The patient reports shortness of breath with activity, which limits mobility, and is not new. She uses a sleep apnea machine nightly. The patient experiences imbalance while walking and has had a fall, though not recently. Her Parkinsons is causing increasing tremors of her extremities. Her current medication regimen includes amlodipine, atorvastatin, lisinopril, and metoprolol. is present. [facility] Medical History Chest pain Moderate recurrent major depression Lung mass Chronic painful diabetic neuropathy AAA (abdominal aortic aneurysm) Surgery, elective Pain Hx of backache Hx of supraventricular tachycardia Hypersomnia Snoring Obstructive sleep apnea of adult Chronic hip pain, bilateral Eye pain Diffuse pain Supraventricular tachycardia Cough Other and unspecified hyperlipidemia SOB (shortness of breath) Precordial chest pain Annual physical exam Nausea Encounter to establish care Peripheral vascular disease Bilateral artificial lens implant Allergic rhinitis Post menopausal syndrome Vaginitis and vulvovaginitis Diabetes type 2, controlled CAD (coronary artery disease) Hypertriglyceridemia Depression with anxiety GERD without esophagitis Hypertension Parkinsons disease Surgical History Hx of colonoscopy H/O prior ablation treatment History of tubal ligation History of cholecystectomy Family History Mother Diabetes Father Brain cancer Son Diabetes Family/Other Colon cancer Social History Household Members: Caregiver Housing: Apartment Are you a primary patient care representative to a significant other at home: No Do you presently have visiting nurse or other home services: No Alcohol intake: never Patient Tobacco Use Status: Former Tobacco user Tobacco use type: Cigarette Years Smoked: started at age 27, 3PPD, quit 5 years ago (2019) e-Cigarette/Vaping Use: Never Used Second Hand Smoke Exposure: No Advance Directives Date on File: 11/14/23 service: No Current occupational status: retired Cognitive needs: No Hearing needs: No Vision needs: Yes (glasses) Review of Systems Const Details: tremors from parkinsons All systems reviewed & are unremarkable except as noted in HPI and below Denies chills, Denies fatigue, Denies fever(s), Denies frequent falls, Denies weakness, Denies weight gain and Denies weight loss ENT Denies dizziness Card Denies chest pain, Denies leg edema, Denies lightheadedness, Denies palpitations, Denies dyspnea, Denies dyspnea on exertion, Denies orthopnea and Denies other (loss of consciousness) Resp Denies cough, Denies dyspnea and Denies dyspnea on exertion GI Denies hematochezia and Denies change in stool character Musc Denies abnormal gait, Denies muscle weakness, Denies numbness, Denies radiating pain into limb and Denies tingling Neuro Denies abnormal gait, Denies dizziness, Denies frequent falls, Denies numbness, Denies tingling and Denies weakness Endo Denies fatigue and Denies palpitations Physical Exam Vital Signs: Last Vital Signs Pulse 62 02/17/25 13:00 BP 120/74 02/17/25 13:00 BMI result Body Mass Index 25.0 Const General: cooperative, healthy appearing, comfortable and no acute distress Orientation/consciousness: patient oriented x3 Neck Neck: Yes normal visual inspection Resp Effort & Inspection: normal respiratory effort Auscultation: clear to auscultation bilaterally, no crackles, no rales, no rhonchi and no wheezes Cardio Rate: regular rate Rhythm: regular rhythm Heart sounds: S1 normal heart sound present, S2 normal heart sound present, no gallops, no murmurs and no rubs Neuro General: patient oriented x3 Extrem Other: tremors in arms and legs General: Yes normal to inspection, No no pedal edema and No calf tenderness Psych Appearance: grossly normal Mental Status: mental status grossly normal Speech and movement: Normal speech and movement present Assessment & Plan Assessment & Plan (1) Coronary artery calcification seen on CT scan: Code(s): I25.10 - Atherosclerotic heart disease of [place] coronary artery without angina pectoris Category: Medical Plan: CT scan of the chest 11/08/2024 does show that atherosclerotic calcifications are present in the coronary arteries. She did have a pharmacological nuclear stress test 10/08/2024 showing normal myocardial perfusion imaging, normal EF. Last echocardiogram 11/12/2023 showed EF 55-60%, no regional wall motion abnormalities, abnormal diastolic function noted, left atrium moderately dilated. Continue with risk factor modification and med management. She is not on aspirin for unclear reason. Aspirin can be started if no clear contraindication. Continue atorvastatin with ideal LDL goal less than 70. Continue metoprolol, lisinopril and amlodipine for good blood pressure control. Signs and symptoms of angina reviewed with her. Cardiology follow-up 6 months, sooner if needed. (2) Supraventricular tachycardia: Code(s): I47.1 - Supraventricular tachycardia Category: Medical Plan: History of SVT status post ablation. No reports of recurrent heart palpitations. Continue metoprolol. (3) AAA (abdominal aortic aneurysm) without rupture: Comment: Abdominal arterial study 05/16/2024, 2.4 cm aneurysm of the mid abdominal aorta, 3 cm aneurysm of the distal abdominal aorta Code(s): I71.40 - Abdominal aortic aneurysm, without rupture, unspecified Category: Medical Qualifiers: Abdominal aorta location: infrarenal aorta Qualified Code(s): I71.43 - Infrarenal abdominal aortic aneurysm, without rupture (4) Essential hypertension: Code(s): I10 - Essential (primary) hypertension Category: Medical Plan: Blood pressure goal less than 130/80. Well controlled at this time. No med changes made. (5) Mixed hyperlipidemia: Code(s): E78.2 - Mixed hyperlipidemia Category: Medical Plan: [place] LDL goal less than 70. No recent lipids in our system. Will forward this note to PCP. Continue atorvastatin. Plan I discussed with the patient that the heart appears to be working well. I explained that the recent stress test was good, indicating proper blood flow to the heart muscle, and the last ultrasound showed strong pumping function. I noted that the blood pressure reading today was very good. I advised that no new cardiac testing is necessary at this time unless new symptoms develop, such as chest discomfort, rapid heartbeats, or shortness of breath. A follow-up appointment was scheduled for six months, or sooner if needed. Patient Instructions: - Your recent tests, including a stress test and ultrasound, were good. - Continue taking all your medications as you have been directed. - Please contact our office if you start to experience any new symptoms, such as chest discomfort, a racing heart, or increased shortness of breath. - Please schedule a follow-up appointment with our office in six months. Patient was informed and verbally consented to the use of an ambient scribe for clinic note documentation during this visit. Visit time spent on chart review, interview, assessment, orders, documentation. Coding Level of Care Code Est Pt Level 4 (15633) Complex visit Add On G2211 Diagnoses Coronary artery calcification seen on CT scan I25.10 Supraventricular tachycardia I47.1 Infrarenal abdominal aortic aneurysm (AAA) without rupture I71.43 Abdominal aorta location: infrarenal aorta Essential hypertension I10 Mixed hyperlipidemia E78.2 Time Spent (min) 28
[2025-02-17 13:00] VITALS: BP 120/74; PULSE 62; BMI 25.0
== END 2025-02-17 13:22 | disposition home or self-care (01) ==
LOC: HO.HCS 12:57
PROVIDERS: PCP Internal Medicine; Visit Provider Nurse Practitioner Family
DX: I25.10 Atherosclerotic heart disease of native coronary artery without angina pectoris (principal); I47.10 Supraventricular tachycardia, unspecified; I71.43 Infrarenal abdominal aortic aneurysm, without rupture; I10 Essential (primary) hypertension; E78.2 Mixed hyperlipidemia
CPT/HCPCS: 99214; G2211